=== PATIENT | female | born 1970 | race Two or more races ===

== ENCOUNTER 2023-10-10 16:37 | Inpatient (IN) | payer MEDICARE, MEDICAID, SELFPAY ==
--- NOTE | 2023-10-10 17:00 | ED.PSYCH ---
HPI - Psych General Stated Complaint: SI THOUGHTS W/PLAN A/V HALLUCINATIONS PER EMS Time Seen by Provider: 10/10/23 16:40 Source: patient Mode of arrival: EMS Limitations: no limitations History of Present Illness HPI Narrative: Patient comes to the emergency room complaining of auditory hallucinations and suicidal ideation. Patient states that for about a week she has been hearing her mother's voice, telling her to kill herself. Patient states that she wants to join her mother. Patient did not disclose any plan, seems that patient does not have a plan. Patient has history of depression and states she is compliant with her medications. Today, patient told a friend of her symptoms, who brought her to [facility]. [facility] called 911 and patient was brought to the emergency room Related Data Allergies Allergy/AdvReac Type Severity Reaction Status Date / Time No Known Allergies Allergy Verified 10/10/23 17:03 Review of Systems Review of Systems: Constitutional : No Weight loss, No Fever, No Chills, No Night Sweats, No Fatigue, No Malaise ENT/Mouth : No Hearing loss, No Ear Pain, No Nasal Congestion, No Sinus Pain, No Hoarseness, No sore throat, No Rhinorrhea, No Swallowing Difficulty Eyes: No Eye Pain, No Swelling, No Redness, No Foreign Body, No Discharge, No Vision Changes Cardiovascular : No Chest Pain, No SOB, No Dyspnea on Exertion, No Orthopnea, No Edema, No Palpitations Respiratory : No Cough, No Sputum, No Wheezing, No Smoke Exposure, No Dyspnea Gastrointestinal : No Nausea, No Vomiting, No Diarrhea, No Constipation, No abdominal Pain, No Hematochezia, No Melena Genitourinary : no irregular bleeding, No Dysuria, No Urinary Frequency, No Hematuria, No Urinary Incontinence, No Urgency, No Flank Pain, No Urinary Flow Changes, No Hesitancy Musculoskeletal : No joint pain, No Myalgias, No Joint Swelling Skin : No Skin Lesions, No rash Neuro : No Weakness, No Numbness, No Paresthesias, No Loss of Consciousness, No Dizziness, No Headache Psych : Complaining of depression, auditory hallucinations, vague suicidal ideation, no HI Heme/Lymph: No Bruising, No Bleeding,No Lymphadenopathy Endocrine : No Polyuria, No Polydipsia, No Temperature Intolerance PMFSH Past Medical History Medical History (Updated 10/10/23 @ 17:07 by Sarita Urban MD) Depression Physical Exam Const: Other: Appearance: Alert. Oriented X3. No acute distress. Eyes: Pupils equal, round and reactive to light. ENT: Pharynx normal. Neck: Normal inspection. Neck supple. No lymph nodes noted. No crepitus CVS: Normal heart rate and rhythm. Pulses normal. Normal S1 and S2 Respiratory: No respiratory distress. Breath sounds normal. No Wheezing. No rales Abdomen: Soft and nontender. No rigidity. No distention. Skin: Skin warm and dry. Normal skin color. Normal skin turgor. Extremities: No lower extremity edema. No Lacerations. No Rash Neuro: Oriented X 3. No motor deficit. No sensory deficit. Moving all extremities. No slurred speech. CN 2 through 12 grossly intact Psych: calm, cooperative, crying Course Course Course Narrative: -all of patient's labs pending -care team consult pending -physician observation started at 17:00 -patient is on a Section 12 Critical Care Time Critical Care Time Critical Care Time: Yes Total Critical Care Time: 30 Attestation: I have personally provided critical care time. Time includes review of lab data, radiology results, discussion with consultants, and monitoring for potential decompensation. Intervention performed as documented. Discharge Plan Discharge Clinical Impression: Depression, Auditory hallucination Patient Disposition: Still a Patient
[2023-10-10 17:04] VITALS: BP 118/79; BP 148/84; PULSE 109; PULSE 92; RESP 18; TEMP 36.6; O2SAT 98; O2SAT 99; BMI 44.3
[2023-10-10 17:22] LABS: MANUAL DIFF FLAG NO
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
[2023-10-10 17:28] LABS: Basophils Percent Auto 0.7 % (0-2); Hematocrit 41.4 % (37.0-47.0); Hemoglobin 13.9 g/dl (12.0-16.0); Imm Gran Abs Auto 0.01 X10*3/uL (0.00-0.03); Imm Gran Pct Auto 0.2 % (0.0-0.4); Lymphocytes Absolute Auto 2.3 X10*3/uL (1.2-4.9); Lymphocytes Percent Auto 54.6 % (20-40); Mean Corpuscular HGB Conc 33.6 g/dl (31.0-35.0); Mean Corpuscular Hemoglobin 29.3 pg (27.0-33.0); Mean Corpuscular Volume 87.2 fL (80.0-98.0); Mean Platelet Volume 10.1 fL (9.4-12.3); Monocytes Absolute Auto 0.2 X10*3/uL (0.1-1.2); Monocytes Percent Auto 5.2 % (2-11); Neutrophils Absolute Auto 1.6 x10*3/uL (2.0-8.3); Neutrophils Percent Auto 38.3 % (45-73); Platelet Count 315 X10*3/uL (160-400); Red Blood Count 4.75 X10*6/uL (4.20-5.50); Red Cell Distribution Width 13.6 % (11.0-16.0); White Blood Count 4.2 X10*3/uL (4.8-10.8)
[2023-10-10 17:30] LABS: Appearance Urine Cloudy; Color Urine Yellow; Glucose Urine UA Negative (Negative); Leukocyte Esterase Urine Large (3+) (Negative); Nitrite Urine Negative (Negative); PH 5.5 (5.0-9.0); UMIC TRIGGER UACC YES; Urine Blood Negative (Negative); Urine Ketones Negative (Negative); Urine Protein Negative (Neg-Trace)
[2023-10-10 17:32] LABS: Amphetamine Screen Urine Not Detected (Not Detect); Barbiturates, Urine Not Detected (Not Detect); Benzodiazepines Screen Urine Not Detected (Not Detect); Cannabinoid Screen Urine Not Detected (Not Detect); Cocaine Screen Urine Not Detected (Not Detect); Fentanyl, urine Not Detected (Not Detect); Opiate Screen Urine Not Detected (Not Detect); Phencyclidine Screen Urine Not Detected (Not Detect)
[2023-10-10 17:35] LABS: Bacteria Urine 3+ (None Seen); RBC Urine 0-2 /HPF (0-2); UACC Culture Trigger YES; WBC Urine >50 /HPF (0-5)
[2023-10-10 17:36] LABS: COVID-19 Test Negative (Negative); IDNOW Serial# 08D9AD1C
[2023-10-10 17:41] LABS: Alanine Aminotransferase 17 U/L (0-31); Albumin Level 4.2 g/dL (3.5-5.0); Alkaline Phosphatase 47 U/L (39-117); Anion Gap 14 (12-20); Aspartate Amino Transferase 23 U/L (5-31); Bilirubin Direct < 0.2 mg/dL (0.0-0.5); Bilirubin Total 0.2 mg/dL (0.0-1.0); Blood Urea Nitrogen 12 mg/dL (9-16); Calcium 9.9 mg/dL (8.4-10.2); Carbon Dioxide 24 mmol/L (22-29); Chloride 104 mmol/L (96-108); Creatinine Clr Calc Pharmacy 85.7; Estimated Glomerular Filt Rate > 60; Ethanol < 10 mg/dL; Glucose Random 106 mg/dL (60-115); Potassium 3.9 mmol/L (3.3-5.1); Sodium 138 mmol/L (135-145)
--- NOTE | 2023-10-10 19:52 | PHA.MEDREC ---
Pharmacy Consult ? Medication Reconciliation Pharmacy has reviewed the medication reconciliation completed by Sara. Dominique Lopez, GuyD
[2023-10-10] MEDS: QUEtiapine Fumarate 100 MG TABLET PO (20:47)
[2023-10-10] MEDS: Amitriptyline HCl 25 MG TABLET PO (20:47)
[2023-10-11 06:13] VITALS: BP 122/84; PULSE 80; RESP 16; O2SAT 96
--- NOTE | 2023-10-11 07:43 | ECG_ITS ---
Test Reason : prolong qt Blood Pressure : / mmHG Vent. Rate : 080 BPM Atrial Rate : 080 BPM P-R Int : 124 ms QRS Dur : 076 ms QT Int : 372 ms P-R-T Axes : 012 012 023 degrees QTc Int : 429 ms Normal sinus rhythm Normal ECG No previous ECGs available Referred By: Clotilde Blevins Electronically Signed By:FREDERIC SHEN
[2023-10-11] MEDS: DULoxetine HCl 60 MG CAPSULE.DR PO (10:44)
[2023-10-11] MEDS: cefuroxime axetiL 250 MG TABLET PO ×2 (10:44→19:01)
[2023-10-11] MEDS: LORazepam 1 MG TABLET PO (12:45)
--- NOTE | 2023-10-11 15:56 | PC.NURSE ---
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 Medication given with positive effect. Grover had a visit which appeared to go well and signed her CV with this RN. No behavioral issues. Appetite minimal.
[2023-10-11 18:00] VITALS: BP 124/76; PULSE 86; RESP 18; TEMP 36.6; O2SAT 98
[2023-10-11] MEDS: traZODone HCL 50 MG TABLET PO (19:02)
[2023-10-11] MEDS: QUEtiapine Fumarate 100 MG TABLET PO (19:02)
[2023-10-11] MEDS: Amitriptyline HCl 25 MG TABLET PO (19:02)
[2023-10-11] MEDS: Zolpidem Tartrate 5 MG TABLET 10 MG PO (19:05)
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
[2023-10-12 07:34] LABS: Estimated Average Glucose 111 mg/dL; Hemoglobin A1c % 5.5 % (<6.0)
[2023-10-12 07:43] LABS: Cholesterol 208 mg/dL (<200); HDL Cholesterol 57 mg/dL (>40); LDL Cholesterol Calculated 140 mg/dL (<100); Magnesium 2.5 mg/dL (1.6-2.6); Triglycerides 59 mg/dL (<150)
[2023-10-12 07:56] LABS: Free T4 (Free Thyroxine) 0.97 ng/dL (0.71-1.85); Thyroid Stimulating Hormone 1.57 uIU/mL (0.32-4.0)
[2023-10-12 08:11] LABS: Folate 6.4 ng/mL (> or = 4.0); Vitamin B12 640 pg/mL (200-900)
[2023-10-12 08:33] VITALS: BP 118/62; PULSE 90; RESP 16; TEMP 36.9; O2SAT 92
[2023-10-12] MEDS: DULoxetine HCl 60 MG CAPSULE.DR PO (09:08)
[2023-10-12] MEDS: cefuroxime axetiL 250 MG TABLET PO ×2 (09:08→22:07)
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
[2023-10-12] MEDS: Ibuprofen 600 MG TABLET PO (11:09)
[2023-10-12] MEDS: Milk of Magnesia 30 ML ORAL.SUSP PO (11:09)
[2023-10-12] MEDS: LORazepam 1 MG TABLET PO ×2 (11:09→22:07)
[2023-10-12 16:48] VITALS: BP 119/71; PULSE 112; RESP 18; TEMP 36.7; O2SAT 97
[2023-10-12] MEDS: Amitriptyline HCl 25 MG TABLET PO (22:06)
[2023-10-12] MEDS: Docusate Sodium 100 MG CAPSULE PO (22:06)
[2023-10-12] MEDS: QUEtiapine Fumarate 100 MG TABLET PO (22:06)
[2023-10-12] MEDS: Zolpidem Tartrate 5 MG TABLET 10 MG PO (22:07)
[2023-10-12] MEDS: traZODone HCL 50 MG TABLET PO (22:07)
[2023-10-13 08:32] VITALS: BP 107/54; PULSE 95; RESP 16; TEMP 36.6; O2SAT 95
[2023-10-13] MEDS: Docusate Sodium 100 MG CAPSULE PO ×2 (08:56→20:31)
[2023-10-13] MEDS: cefuroxime axetiL 250 MG TABLET PO ×2 (08:56→20:32)
[2023-10-13] MEDS: polyethylene glycoL 3350 17 GM POWD.PACK PO (08:56)
[2023-10-13] MEDS: DULoxetine HCl 60 MG CAPSULE.DR PO (08:57)
[2023-10-13] MEDS: LORazepam 1 MG TABLET PO ×2 (09:54→20:32)
[2023-10-13] MEDS: Ibuprofen 600 MG TABLET PO (09:54)
[2023-10-13 16:46] VITALS: BP 114/59; PULSE 98; RESP 18; TEMP 36.6; O2SAT 98
[2023-10-13] MEDS: Zolpidem Tartrate 5 MG TABLET 10 MG PO (20:32)
[2023-10-13] MEDS: Amitriptyline HCl 25 MG TABLET PO (20:33)
[2023-10-13] MEDS: QUEtiapine Fumarate 100 MG TABLET PO (20:33)
[2023-10-14 08:00] VITALS: BP 121/82; PULSE 93; RESP 16; TEMP 36.7; O2SAT 96
[2023-10-14] MEDS: Docusate Sodium 100 MG CAPSULE PO ×2 (08:27→20:27)
[2023-10-14] MEDS: cefuroxime axetiL 250 MG TABLET PO ×2 (08:27→20:26)
[2023-10-14] MEDS: DULoxetine HCl 60 MG CAPSULE.DR PO (08:27)
--- NOTE | 2023-10-14 09:22 | P.PNPSI_ITS ---
Subjective Subjective Date of Service: 10/14/23 Reason For Visit: recurrent major depression with psychotic features Interim History: met with patient; discussed with team; reviewed chart; seen with guide setter pt reports she's feeling better; that she probably missed a few days of medication and mood went down and now back on them, is feeling better. She denies any SI at all and AH fully resolved. Sleeping well. She is not sure why she forgot to take her meds, but thinks a VNA would be helpful talked about intermittent anxiety that bothers her in morning; ativan helps (takes only when very anixous). Discussed med options to address, risks/side- effects of adding clonidine and/or increasing Amitriptyline; prefers clonidine trial in AM. lived in [place] until 6 years ago no hx of SA hx of 3 psych hx in [place], last one over 6 years ago Lives alone and comfortable returning home Mental Status Exam Mental Status Exam Narrative: Pt is alert and oriented; behavior is cooperative, calm, anxious; patient is not in distress; dressed in hospital attire with unkempt hair but adequate hygiene; mood is described as good though affect constricted; eye contact somewhat avoidant; Speech is normal rate, volume and prosody and not pressured; psychomotor retardation present; thought process is goal directed; Thought content is on tx; otherwise pertinent to relevant topics and without any delusional content, paranoid ideations or grandiosity; denies any SI/HI. There is no evidence of perceptual disturbance. Patients insight and judgment impaired, but improving Diagnostics Vital Signs (24Hr): Vital Signs - 24 hr 10/13/23 16:46 10/14/23 08:00 Temperature 97.9 F 98.1 F Pulse Rate 98 93 Respiratory Rate 18 16 Blood Pressure 114/59 L 121/82 Pulse Oximetry 98 96 Oxygen Delivery Method Room Air Room Air BMI result Body Mass Index 44.3 Labs 10/10/23 17:17 10/10/23 17:17 Medications Medications Current Medications Acetaminophen (Acetaminophen 325 Mg Tablet) 650 mg PO Q6H PRN PRN Reason: Headache/Pain Mild Scale (1-3) Al Hydroxide/Mg Hydroxide (Magnesium Hydrox/Alum Hydrox 30 Ml Oral.Susp) 30 ml PO Q6H PRN PRN Reason: Heartburn/Nausea Amitriptyline HCl (Amitriptyline Hcl 25 Mg Tablet) 25 mg PO BEDTIME BETHEL Last Admin: 10/13/23 20:33 Dose: 25 mg Bisacodyl (Bisacodyl 5 Mg Tablet.Dr) 10 mg PO DAILY PRN PRN Reason: Constipation Cefuroxime Axetil (Cefuroxime Axetil 250 Mg Tablet) 250 mg PO BID [facility] Stop: 10/17/23 21:01 Last Admin: 10/14/23 08:27 Dose: 250 mg Docusate Sodium (Docusate Sodium 100 Mg Capsule) 100 mg PO BID [facility] Last Admin: 10/14/23 08:27 Dose: 100 mg Duloxetine HCl (Duloxetine Hcl 60 Mg Capsule.Dr) 60 mg PO DAILY [facility] Last Admin: 10/14/23 08:27 Dose: 60 mg Hydroxyzine HCl (Hydroxyzine Hcl 25 Mg Tablet) 25 mg PO Q6H PRN PRN Reason: Anxiety Ibuprofen (Ibuprofen 600 Mg Tablet) 600 mg PO Q6H PRN PRN Reason: Pain, Mild (Pain Scale 1-3) Last Admin: 10/13/23 09:54 Dose: 600 mg Lorazepam (Lorazepam 1 Mg Tablet) 1 mg PO TID PRN PRN Reason: Anxiety Last Admin: 10/13/23 20:32 Dose: 1 mg Magnesium Hydroxide (Milk Of Magnesia 30 Ml Oral.Susp) 30 ml PO DAILY PRN PRN Reason: Constipation Last Admin: 10/12/23 11:09 Dose: 30 ml Pt Own (Nabumetone (500 Mg Tablet)) 500 mg PO BID PRN PRN Reason: Pain, Moderate(Pain Scale 4-6) Last Admin: 10/14/23 08:28 Dose: 500 mg Polyethylene Glycol (Polyethylene Glycol 3350 17 Gm Powd.Pack) 17 gm PO DAILY [facility] Last Admin: 10/14/23 08:29 Dose: Not Given Quetiapine Fumarate (Quetiapine Fumarate 100 Mg Tablet) 100 mg PO BEDTIME [facility] Last Admin: 10/13/23 20:33 Dose: 100 mg Trazodone HCl (Trazodone Hcl 50 Mg Tablet) 50 mg PO BEDTIME MRX1 PRN PRN Reason: Insomnia Last Admin: 10/12/23 22:07 Dose: 50 mg Zolpidem Tartrate (Zolpidem Tartrate 5 Mg Tablet) 10 mg PO BEDTIME PRN PRN Reason: Insomnia Last Admin: 10/13/23 20:32 Dose: 10 mg Allergies Allergies Allergy/AdvReac Type Severity Reaction Status Date / Time No Known Allergies Allergy Verified 10/10/23 17:03 Assessment & Plan Assessment & Plan (1) Severe recurrent major depression w/psychotic features, mood-congruent: Status: Acute Code(s): F33.3 - Major depressive disorder, recurrent, severe with psychotic symptoms (2) PTSD (post-traumatic stress disorder): Status: Acute Code(s): F43.10 - Post-traumatic stress disorder, unspecified Plan 53 yo female, history of depression for the past 16 years with increasing anxiety and perceptual alterations since 10/08 of mother telling her to kill herself and join her (mother 2018). Hospital plan: 10/14 pt reports she's feeling better; that she probably missed a few days of medication and mood went down and now back on them, is feeling better. She denies any SI at all and AH fully resolved. Sleeping well. She is not sure why she forgot to take her meds, but thinks a VNA would be helpful. talked about intermittent anxiety that bothers her in morning; ativan helps (takes only when very anixous). Discussed med options to address, risks/side-effects of adding clonidine and/or increasing Amitriptyline; prefers clonidine trial in AM (although this adds another med, less side-effect risk vs increasing Amityriptyline or seroquel; also considered increasing Cymbalta but as pt says int' intermittent, trying clonidne first). -still no memory of blackout during therapy Reviewed hx: lived in [place] until 6 years ago no hx of SA hx of 3 psych hx in [place], last one over 6 years ago Lives alone and comfortable returning home Plan: CV q15 Add Clonidine 0.1 in AM for morning anxiety (bp wnl) Continue Amitriptyline 25mg qhs Continue Seroquel 100mg qhs continue Duloxetine 60mg AM continue prn Ativan 1mg TID continue Ambien 10mg qhs prn continue Ceftin for UTI Patient educated on: diagnosis and medication risk/benefits Informed Consent: understands Reason for continued inpatient stay Substantial Risk for: rapid decompensation Time Spent With Patient Time: Total time managing care of this patient today ____ minutes.
--- NOTE | 2023-10-14 09:50 | PC.NURSE ---
Discussed Influenza vaccine with patient. Pt reported she received the Influenza vaccine around [place] time at [facility] on [facility] in [facility].
--- NOTE | 2023-10-14 10:15 | P.PNPSI_ITS ---
Subjective Subjective Date of Service: 10/13/23 Reason For Visit: recurrent major depression with psychotic features Subjective Notes: Conditional Voluntary Interim History: Pt spending time in her room. Increase anxiety about current peer group. Denies SI, HI. Denies hearing her moms voice Reports adequate sleep and appetite Reports some back discomfort, hx of back pain and current beds. Declines medication changes. Medication Compliance: Yes Side effects from medications: No Attending Groups: No Review of Systems Acute medical concerns: No Medical Review of Systems: unchanged Review of Systems Musculoskeletal: Reports back pain Mental Status Exam Mental Status Exam Patient Appearance: Appropriate Patient Orientation: Person, Place, Time and Situation Level of Consciousness: Alert Patient Behavior: Talkative and Good Eye Contact Mood Description: Anxious Affect Description: Anxious Patient Cognition Impaired: No Ability to Follow Directions: Good Speech Pattern: Appropriate and Spontaneous Speech Memory Description: Intact Perceptual Disturbances: Depersonalization Thought Process: Rumination Thought Content: positive for Circumstantial Depressive Symptoms: Increased Anxiety and Difficulty Concentrating Judgement: Fair Diagnostics Vital Signs (24Hr): Vital Signs - 24 hr 10/13/23 16:46 10/14/23 08:00 Temperature 97.9 F 98.1 F Pulse Rate 98 93 Respiratory Rate 18 16 Blood Pressure 114/59 L 121/82 Pulse Oximetry 98 96 Oxygen Delivery Method Room Air Room Air BMI result Body Mass Index 44.3 Labs 10/10/23 17:17 10/10/23 17:17 Medications Medications Current Medications Acetaminophen (Acetaminophen 325 Mg Tablet) 650 mg PO Q6H PRN PRN Reason: Headache/Pain Mild Scale (1-3) Al Hydroxide/Mg Hydroxide (Magnesium Hydrox/Alum Hydrox 30 Ml Oral.Susp) 30 ml PO Q6H PRN PRN Reason: Heartburn/Nausea Amitriptyline HCl (Amitriptyline Hcl 25 Mg Tablet) 25 mg PO BEDTIME [facility] Last Admin: 10/13/23 20:33 Dose: 25 mg Bisacodyl (Bisacodyl 5 Mg Tablet.Dr) 10 mg PO DAILY PRN PRN Reason: Constipation Cefuroxime Axetil (Cefuroxime Axetil 250 Mg Tablet) 250 mg PO BID [facility] Stop: 10/17/23 21:01 Last Admin: 10/14/23 08:27 Dose: 250 mg Docusate Sodium (Docusate Sodium 100 Mg Capsule) 100 mg PO BID [facility] Last Admin: 10/14/23 08:27 Dose: 100 mg Duloxetine HCl (Duloxetine Hcl 60 Mg Capsule.Dr) 60 mg PO DAILY [facility] Last Admin: 10/14/23 08:27 Dose: 60 mg Hydroxyzine HCl (Hydroxyzine Hcl 25 Mg Tablet) 25 mg PO Q6H PRN PRN Reason: Anxiety Ibuprofen (Ibuprofen 600 Mg Tablet) 600 mg PO Q6H PRN PRN Reason: Pain, Mild (Pain Scale 1-3) Last Admin: 10/13/23 09:54 Dose: 600 mg Lorazepam (Lorazepam 1 Mg Tablet) 1 mg PO TID PRN PRN Reason: Anxiety Last Admin: 10/13/23 20:32 Dose: 1 mg Magnesium Hydroxide (Milk Of Magnesia 30 Ml Oral.Susp) 30 ml PO DAILY PRN PRN Reason: Constipation Last Admin: 10/12/23 11:09 Dose: 30 ml Pt Own (Nabumetone (500 Mg Tablet)) 500 mg PO BID PRN PRN Reason: Pain, Moderate(Pain Scale 4-6) Last Admin: 10/14/23 08:28 Dose: 500 mg Polyethylene Glycol (Polyethylene Glycol 3350 17 Gm Powd.Pack) 17 gm PO DAILY [facility] Last Admin: 10/14/23 08:29 Dose: Not Given Quetiapine Fumarate (Quetiapine Fumarate 100 Mg Tablet) 100 mg PO BEDTIME [facility] Last Admin: 10/13/23 20:33 Dose: 100 mg Trazodone HCl (Trazodone Hcl 50 Mg Tablet) 50 mg PO BEDTIME MRX1 PRN PRN Reason: Insomnia Last Admin: 10/12/23 22:07 Dose: 50 mg Zolpidem Tartrate (Zolpidem Tartrate 5 Mg Tablet) 10 mg PO BEDTIME PRN PRN Reason: Insomnia Last Admin: 10/13/23 20:32 Dose: 10 mg Allergies Allergies Allergy/AdvReac Type Severity Reaction Status Date / Time No Known Allergies Allergy Verified 10/10/23 17:03 Assessment & Plan Assessment & Plan (1) Severe recurrent major depression w/psychotic features, mood-congruent: Status: Acute Code(s): F33.3 - Major depressive disorder, recurrent, severe with psychotic symptoms (2) PTSD (post-traumatic stress disorder): Status: Acute Code(s): F43.10 - Post-traumatic stress disorder, unspecified Plan 53 yo female, history of depression for the past 16 years with increasing anxiety and perceptual alterations since 10/08 of mother telling her to kill herself and join her (mother 2018). Plan: Establish regime, observe Collateral contact Constipation mgt, bowel regime Full milieu. 10/13/23 Continue tx. Informed Consent: understands Reason for continued inpatient stay Substantial Risk for: rapid decompensation Time Spent With Patient Time: Total time managing care of this patient today ____ minutes.
[2023-10-14] MEDS: LORazepam 1 MG TABLET PO (14:13)
[2023-10-14 18:00] VITALS: BP 122/64; PULSE 106; RESP 18; TEMP 36.7; O2SAT 97
[2023-10-14] MEDS: QUEtiapine Fumarate 100 MG TABLET PO (20:26)
[2023-10-14] MEDS: Amitriptyline HCl 25 MG TABLET PO (20:26)
[2023-10-14] MEDS: Milk of Magnesia 30 ML ORAL.SUSP PO (21:45)
[2023-10-15 08:00] VITALS: BP 132/70; PULSE 95; RESP 18; TEMP 36.6; O2SAT 98
[2023-10-15] MEDS: Docusate Sodium 100 MG CAPSULE PO ×2 (08:57→21:36)
[2023-10-15] MEDS: cefuroxime axetiL 250 MG TABLET PO ×2 (08:57→21:36)
[2023-10-15] MEDS: DULoxetine HCl 60 MG CAPSULE.DR PO (08:57)
[2023-10-15] MEDS: cloNIDine HCL 0.1 MG TABLET PO (08:57)
--- NOTE | 2023-10-15 09:29 | HO.PSYCHPN ---
Subjective Subjective Date of Service: 10/15/23 Reason For Visit: recurrent major depression with psychotic features Interim History: Met with patient; discussed with team Patient reports she is feeling better. Diagnostics Vital Signs (24Hr): Vital Signs - 24 hr 10/14/23 18:00 10/15/23 08:00 Temperature 98.0 F 97.9 F Pulse Rate 106 H 95 Respiratory Rate 18 18 Blood Pressure 122/64 132/70 Pulse Oximetry 97 98 Oxygen Delivery Method Room Air Room Air BMI result Body Mass Index 44.3 Labs 10/10/23 17:17 10/10/23 17:17 Medications Medications Current Medications Acetaminophen (Acetaminophen 325 Mg Tablet) 650 mg PO Q6H PRN PRN Reason: Headache/Pain Mild Scale (1-3) Al Hydroxide/Mg Hydroxide (Magnesium Hydrox/Alum Hydrox 30 Ml Oral.Susp) 30 ml PO Q6H PRN PRN Reason: Heartburn/Nausea Amitriptyline HCl (Amitriptyline Hcl 25 Mg Tablet) 25 mg PO BEDTIME [facility] Last Admin: 10/14/23 20:26 Dose: 25 mg Bisacodyl (Bisacodyl 5 Mg Tablet.) 10 mg PO DAILY PRN PRN Reason: Constipation Cefuroxime Axetil (Cefuroxime Axetil 250 Mg Tablet) 250 mg PO BID [facility] Stop: 10/17/23 21:01 Last Admin: 10/15/23 08:57 Dose: 250 mg Clonidine HCl (Clonidine Hcl 0.1 Mg Tablet) 0.1 mg PO DAILY [facility]; Protocol Last Admin: 10/15/23 08:57 Dose: 0.1 mg Docusate Sodium (Docusate Sodium 100 Mg Capsule) 100 mg PO BID [facility] Last Admin: 10/15/23 08:57 Dose: 100 mg Duloxetine HCl (Duloxetine Hcl 60 Mg Capsule.Dr) 60 mg PO DAILY [facility] Last Admin: 10/15/23 08:57 Dose: 60 mg Hydroxyzine HCl (Hydroxyzine Hcl 25 Mg Tablet) 25 mg PO Q6H PRN PRN Reason: Anxiety Ibuprofen (Ibuprofen 600 Mg Tablet) 600 mg PO Q6H PRN PRN Reason: Pain, Mild (Pain Scale 1-3) Last Admin: 10/13/23 09:54 Dose: 600 mg Lorazepam (Lorazepam 1 Mg Tablet) 1 mg PO TID PRN PRN Reason: Anxiety Last Admin: 10/14/23 14:13 Dose: 1 mg Magnesium Hydroxide (Milk Of Magnesia 30 Ml Oral.Susp) 30 ml PO DAILY PRN PRN Reason: Constipation Last Admin: 10/14/23 21:45 Dose: 30 ml Pt Own (Nabumetone (500 Mg Tablet)) 500 mg PO BID PRN PRN Reason: Pain, Moderate(Pain Scale 4-6) Last Admin: 10/14/23 08:28 Dose: 500 mg Polyethylene Glycol (Polyethylene Glycol 3350 17 Gm Powd.Pack) 17 gm PO DAILY [facility] Last Admin: 10/15/23 08:59 Dose: Not Given Quetiapine Fumarate (Quetiapine Fumarate 100 Mg Tablet) 100 mg PO BEDTIME [facility] Last Admin: 10/14/23 20:26 Dose: 100 mg Trazodone HCl (Trazodone Hcl 50 Mg Tablet) 50 mg PO BEDTIME MRX1 PRN PRN Reason: Insomnia Last Admin: 10/12/23 22:07 Dose: 50 mg Zolpidem Tartrate (Zolpidem Tartrate 5 Mg Tablet) 10 mg PO BEDTIME PRN PRN Reason: Insomnia Last Admin: 10/13/23 20:32 Dose: 10 mg Allergies Allergies Allergy/AdvReac Type Severity Reaction Status Date / Time No Known Allergies Allergy Verified 10/10/23 17:03 Assessment & Plan Assessment & Plan (1) Severe recurrent major depression w/psychotic features, mood-congruent: Status: Acute Code(s): F33.3 - Major depressive disorder, recurrent, severe with psychotic symptoms (2) PTSD (post-traumatic stress disorder): Status: Acute Code(s): F43.10 - Post-traumatic stress disorder, unspecified Plan 53 yo female, history of depression for the past 16 years with increasing anxiety and perceptual alterations since 10/08 of mother telling her to kill herself and join her (mother 2018). Hospital plan: 10/14 pt reports she's feeling better; that she probably missed a few days of medication and mood went down and now back on them, is feeling better. She denies any SI at all and AH fully resolved. Sleeping well. She is not sure why she forgot to take her meds, but thinks a VNA would be helpful. talked about intermittent anxiety that bothers her in morning; ativan helps (takes only when very anixous). Discussed med options to address, risks/side-effects of adding clonidine and/or increasing Amitriptyline; prefers clonidine trial in AM (although this adds another med, less side-effect risk vs increasing Amityriptyline or seroquel; also considered increasing Cymbalta but as pt says int' intermittent, trying clonidne first). -still no memory of blackout during therapy Reviewed hx: lived in [place] until 6 years ago no hx of SA hx of 3 psych hx in [place], last one over 6 years ago Lives alone and comfortable returning home Plan: CV q15 Add Clonidine 0.1 in AM for morning anxiety (bp wnl) Continue Amitriptyline 25mg qhs Continue Seroquel 100mg qhs continue Duloxetine 60mg AM continue prn Ativan 1mg TID continue Ambien 10mg qhs prn continue Ceftin for UTI Time Spent With Patient Time: Total time managing care of this patient today ____ minutes.
--- NOTE | 2023-10-15 16:28 | P.PNPSI_ITS ---
Subjective Subjective Date of Service: 10/15/23 Reason For Visit: recurrent major depression with psychotic features Subjective Notes: Conditional Voluntary Healthcare Proxy: No Guardianship: No Medical Problems Affecting Mental Status: No Interim History: Pt reports feeling better. Feeling ready to return home. Less anxious on the unit, however remains somewhat isolative. Language barrier is an issue. States she was able to enjoy the football game with peers on Saturday and this has helped her to relax. Denies SI/HI/AH/VH. Med review completed. Pt asks only to continue colace, miralax and antibiotic as she has a supply of her regular medications at home. When discussing precipitant to admission, she is unsure, stating she may not have taken her medicine correctly when in distress. Team will attempt VNA care for pt upon discharge Medication Compliance: Yes Side effects from medications: No Attending Groups: Intermittent Review of Systems Acute medical concerns: No Medical Review of Systems: unchanged Review of Systems Review of Systems Yes all other systems are reviewed and are negative (denies) Mental Status Exam Mental Status Exam Patient Appearance: Appropriate Patient Orientation: Person, Place, Time and Situation Level of Consciousness: Alert Patient Behavior: Talkative and Good Eye Contact Mood Description: Appropriate Affect Description: Appropriate Patient Cognition Impaired: No Ability to Follow Directions: Good Speech Pattern: Appropriate and Spontaneous Speech Memory Description: Intact Thought Content: positive for Circumstantial Judgement: Good Diagnostics Vital Signs (24Hr): Vital Signs - 24 hr 10/14/23 18:00 10/15/23 08:00 Temperature 98.0 F 97.9 F Pulse Rate 106 H 95 Respiratory Rate 18 18 Blood Pressure 122/64 132/70 Pulse Oximetry 97 98 Oxygen Delivery Method Room Air Room Air BMI result Body Mass Index 44.3 Labs 10/10/23 17:17 10/10/23 17:17 Medications Medications Current Medications Acetaminophen (Acetaminophen 325 Mg Tablet) 650 mg PO Q6H PRN PRN Reason: Headache/Pain Mild Scale (1-3) Al Hydroxide/Mg Hydroxide (Magnesium Hydrox/Alum Hydrox 30 Ml Oral.Susp) 30 ml PO Q6H PRN PRN Reason: Heartburn/Nausea Amitriptyline HCl (Amitriptyline Hcl 25 Mg Tablet) 25 mg PO BEDTIME [facility] Last Admin: 10/14/23 20:26 Dose: 25 mg Bisacodyl (Bisacodyl 5 Mg Tablet.Dr) 10 mg PO DAILY PRN PRN Reason: Constipation Cefuroxime Axetil (Cefuroxime Axetil 250 Mg Tablet) 250 mg PO BID [facility] Stop: 10/17/23 21:01 Last Admin: 10/15/23 08:57 Dose: 250 mg Clonidine HCl (Clonidine Hcl 0.1 Mg Tablet) 0.1 mg PO DAILY [facility]; Protocol Last Admin: 10/15/23 08:57 Dose: 0.1 mg Docusate Sodium (Docusate Sodium 100 Mg Capsule) 100 mg PO BID [facility] Last Admin: 10/15/23 08:57 Dose: 100 mg Duloxetine HCl (Duloxetine Hcl 60 Mg Capsule.Dr) 60 mg PO DAILY [facility] Last Admin: 10/15/23 08:57 Dose: 60 mg Hydroxyzine HCl (Hydroxyzine Hcl 25 Mg Tablet) 25 mg PO Q6H PRN PRN Reason: Anxiety Ibuprofen (Ibuprofen 600 Mg Tablet) 600 mg PO Q6H PRN PRN Reason: Pain, Mild (Pain Scale 1-3) Last Admin: 10/13/23 09:54 Dose: 600 mg Lorazepam (Lorazepam 1 Mg Tablet) 1 mg PO TID PRN PRN Reason: Anxiety Last Admin: 10/14/23 14:13 Dose: 1 mg Magnesium Hydroxide (Milk Of Magnesia 30 Ml Oral.Susp) 30 ml PO DAILY PRN PRN Reason: Constipation Last Admin: 10/14/23 21:45 Dose: 30 ml Pt Own (Nabumetone (500 Mg Tablet)) 500 mg PO BID PRN PRN Reason: Pain, Moderate(Pain Scale 4-6) Last Admin: 10/14/23 08:28 Dose: 500 mg Polyethylene Glycol (Polyethylene Glycol 3350 17 Gm Powd.Pack) 17 gm PO DAILY [facility] Last Admin: 10/15/23 08:59 Dose: Not Given Quetiapine Fumarate (Quetiapine Fumarate 100 Mg Tablet) 100 mg PO BEDTIME [facility] Last Admin: 10/14/23 20:26 Dose: 100 mg Trazodone HCl (Trazodone Hcl 50 Mg Tablet) 50 mg PO BEDTIME MRX1 PRN PRN Reason: Insomnia Last Admin: 10/12/23 22:07 Dose: 50 mg Zolpidem Tartrate (Zolpidem Tartrate 5 Mg Tablet) 10 mg PO BEDTIME PRN PRN Reason: Insomnia Last Admin: 10/13/23 20:32 Dose: 10 mg Allergies Allergies Allergy/AdvReac Type Severity Reaction Status Date / Time No Known Allergies Allergy Verified 10/10/23 17:03 Assessment & Plan Assessment & Plan (1) Severe recurrent major depression w/psychotic features, mood-congruent: Status: Acute Code(s): F33.3 - Major depressive disorder, recurrent, severe with psychotic symptoms (2) PTSD (post-traumatic stress disorder): Status: Acute Code(s): F43.10 - Post-traumatic stress disorder, unspecified Plan 53 yo female, history of depression for the past 16 years with increasing anxiety and perceptual alterations since 10/08 of mother telling her to kill herself and join her (mother 2018). Hospital plan: 10/14 pt reports she's feeling better; that she probably missed a few days of medication and mood went down and now back on them, is feeling better. She denies any SI at all and AH fully resolved. Sleeping well. She is not sure why she forgot to take her meds, but thinks a VNA would be helpful. talked about intermittent anxiety that bothers her in morning; ativan helps (takes only when very anixous). Discussed med options to address, risks/side-effects of adding clonidine and/or increasing Amitriptyline; prefers clonidine trial in AM (although this adds another med, less side-effect risk vs increasing Amityriptyline or seroquel; also considered increasing Cymbalta but as pt says int' intermittent, trying clonidne first). -still no memory of blackout during therapy. 10/15/23: Prepare for discharge on 10/16/23. Reviewed hx: lived in [place] until 6 years ago no hx of SA hx of 3 psych hx in [place], last one over 6 years ago Lives alone and comfortable returning home Plan: CV q15 Add Clonidine 0.1 in AM for morning anxiety (bp wnl) Continue Amitriptyline 25mg qhs Continue Seroquel 100mg qhs continue Duloxetine 60mg AM continue prn Ativan 1mg TID continue Ambien 10mg qhs prn continue Ceftin for UTI Patient educated on: medication risk/benefits Informed Consent: understands Reason for continued inpatient stay Substantial Risk for: stable for discharge Time Spent With Patient Time: Total time managing care of this patient today ____ minutes.
[2023-10-15 21:30] VITALS: BP 125/68; PULSE 88; TEMP 36.8
[2023-10-15] MEDS: Zolpidem Tartrate 5 MG TABLET 10 MG PO (21:35)
[2023-10-15] MEDS: QUEtiapine Fumarate 100 MG TABLET PO (21:35)
[2023-10-15] MEDS: Amitriptyline HCl 25 MG TABLET PO (21:35)
[2023-10-16 08:30] VITALS: BP 118/71; PULSE 90; RESP 18; TEMP 36.5; O2SAT 98
[2023-10-16] MEDS: cefuroxime axetiL 250 MG TABLET PO (08:37)
[2023-10-16] MEDS: DULoxetine HCl 60 MG CAPSULE.DR PO (08:37)
[2023-10-16] MEDS: Docusate Sodium 100 MG CAPSULE PO (08:37)
[2023-10-16] MEDS: cloNIDine HCL 0.1 MG TABLET PO (08:37)
[2023-10-16 14:13] LABS: Amitriptyline, Serum 23 mcg/L; Nortriptyline, Serum 15 mcg/L; Total (Ami+Nor) 38 mcg/L (100-250)
--- NOTE | 2023-10-16 16:07 | PM.PSYDC ---
DS: Providers Provider Date of Service: 10/16/23 Date of admission: 10/11/23 14:02 Date of discharge: 10/16/23 Primary care physician: Unknown Physician Admitting clinician: Reshma Groves Attending physician on admission: Jamie Machuca Attending physician on discharge: Jamie Machuca Discharging clinician: Reshma Groves DS: Diagnosis Discharge Diagnosis (1) Severe recurrent major depression w/psychotic features, mood-congruent: Status: Acute (2) PTSD (post-traumatic stress disorder): Status: Acute DS: Medications Discharge Medications Home Medications: Home Medications Medication Instructions Recorded Confirmed amitriptyline 25 mg tablet 25 mg BEDTIME 10/10/23 10/10/23 duloxetine 60 mg capsule,delayed 60 mg PO DAILY 10/10/23 10/10/23 release lorazepam 1 mg tablet 1 mg PO TID PRN Anxiety 10/10/23 10/10/23 nabumetone 500 mg tablet 500 mg PO BID PRN pain 10/10/23 10/10/23 quetiapine 100 mg tablet 100 mg BEDTIME 10/10/23 10/10/23 zolpidem 10 mg tablet 10 mg PO BEDTIME PRN Insomnia 10/10/23 10/10/23 Previous Rx's Medication Instructions Recorded cefuroxime axetil 250 mg tablet 250 mg PO BID #4 tabs 10/15/23 clonidine HCl 0.1 mg tablet 0.1 mg PO DAILY #0 tabs 10/15/23 docusate sodium 100 mg capsule 100 mg PO BID #60 caps 10/15/23 polyethylene glycol 3350 17 gram 17 g PO DAILY #100 ea 10/15/23 oral powder packet Mental Status Exam Mental Status Exam Patient Appearance: Appropriate Patient Orientation: Person, Place, Time and Situation Level of Consciousness: Alert Patient Behavior: Talkative and Good Eye Contact Mood Description: Appropriate Affect Description: Appropriate Patient Cognition Impaired: No Ability to Follow Directions: Good Speech Pattern: Appropriate and Spontaneous Speech Memory Description: Intact Thought Content: positive for Circumstantial Judgement: Good Data Data Completed and Pending Completed studies during hospitalization [Text1]: 10/10/23 10/10/23 10/12/23 17:13 17:17 07:15 WBC 4.2 L RBC 4.75 Hgb 13.9 Hct 41.4 MCV 87.2 MCH 29.3 MCHC 33.6 RDW 13.6 Plt Count 315 MPV 10.1 Immature Gran % (Auto) 0.2 Neut % (Auto) 38.3 L Lymph % (Auto) 54.6 H Mckenzie % (Auto) 5.2 Eos % (Auto) 1.0 Baso % (Auto) 0.7 Lymph # (Auto) 2.3 Mckenzie # (Auto) 0.2 Eos # (Auto) 0.0 Baso # (Auto) 0.0 Abs Immat Gran (auto) 0.01 Absolute Neuts (auto) 1.6 L Absolute Nucleated RBC 0.000 Nucleated RBC % (auto) 0.0 Sodium 138 Potassium 3.9 Chloride 104 Carbon Dioxide 24 Anion Gap 14 BUN 12 Creatinine 0.92 Estim Creat Clear Calc 85.7 Estimated GFR > 60 Random Glucose 106 Estimat Average Glucose 111 Hemoglobin A1c % 5.5 Calcium 9.9 Magnesium Total Bilirubin 0.2 Direct Bilirubin < 0.2 AST 23 ALT 17 Alkaline Phosphatase 47 Total Protein 8.0 Albumin 4.2 Triglycerides Cholesterol LDL Cholesterol, Calc HDL Cholesterol Vitamin B12 Folate TSH Free T4 Urine Color Yellow Urine Appearance Cloudy Urine pH 5.5 Ur Specific Brooks 1.010 Urine Protein Negative Urine Glucose (UA) Negative Urine Ketones Negative Urine Blood Negative Urine Nitrite Negative Ur Leukocyte Esterase Large (3+) H Urine RBC 0-2 Urine WBC >50 H Ur Squamous Epith Cells 11-20 Urine Bacteria 3+ Hyaline Casts 3-5 Urine Opiates Screen Not Detected Urine Fentanyl Screen Not Detected Ur Barbiturates Screen Not Detected Amitriptyline Amitriptyline&Nortrip Nortriptyline Ur Phencyclidine Scrn Not Detected Ur Amphetamines Screen Not Detected U Benzodiazepines Scrn Not Detected Urine Cocaine Screen Not Detected U Marijuana (THC) Screen Not Detected Ethyl Alcohol < 10 COVID-19 ([facility]) Negative COVID-19 Clin Com See Note 10/12/23 07:16 WBC RBC Hgb Hct MCV MCH MCHC RDW Plt Count MPV Immature Gran % (Auto) Neut % (Auto) Lymph % (Auto) Mckenzie % (Auto) Eos % (Auto) Baso % (Auto) Lymph # (Auto) Mckenzie # (Auto) Eos # (Auto) Baso # (Auto) Abs Immat Gran (auto) Absolute Neuts (auto) Absolute Nucleated RBC Nucleated RBC % (auto) Sodium Potassium Chloride Carbon Dioxide Anion Gap BUN Creatinine Estim Creat Clear Calc Estimated GFR Random Glucose Estimat Average Glucose Hemoglobin A1c % Calcium Magnesium 2.5 Total Bilirubin Direct Bilirubin AST ALT Alkaline Phosphatase Total Protein Albumin Triglycerides 59 Cholesterol 208 H LDL Cholesterol, Calc 140 H HDL Cholesterol 57 Vitamin B12 640 Folate 6.4 TSH 1.57 Free T4 0.97 Urine Color Urine Appearance Urine pH Ur Specific Brooks Urine Protein Urine Glucose (UA) Urine Ketones Urine Blood Urine Nitrite Ur Leukocyte Esterase Urine RBC Urine WBC Ur Squamous Epith Cells Urine Bacteria Hyaline Casts Urine Opiates Screen Urine Fentanyl Screen Ur Barbiturates Screen Amitriptyline 23 Amitriptyline&Nortrip 38 L Nortriptyline 15 Ur Phencyclidine Scrn Ur Amphetamines Screen U Benzodiazepines Scrn Urine Cocaine Screen U Marijuana (THC) Screen Ethyl Alcohol COVID-19 ([facility]) COVID-19 Clin Com 10/10/23 17:38 Urine clean catch - Urine champion top Urine Culture - Final DS: Summary Hospital Course Hospital Course: Admission to adult psychiatry for exacerbation of depression, PTSD. Pt reported SI and hearing her mother's voice telling her to join her. Prior to admission, pt was in therapy, experienced a dissociative episode with aggressive sx. Medications were evaluated and adjusted. Milieu therapy was offered to pt and she was able to participate. She will return to [facility] for out patient care and VNA will assist her with medication compliance at home. Status at Discharge Functional status at discharge: independent ambulation Overall status at discharge: patient is progressing back to baseline Time Spent with Patient Time attestation: Total time managing care of this patient today ____ minutes. Time spent: Less than 30 minutes Discharge Plan Discharge Anticipated Discharge Date/Time: 10/16/23 12:00 Patient Disposition: Home, Self-Care Discharge Diagnosis: PTSD Recurrent Major Depression with Psychotic Features Referrals: [facility] [Other] - 10/17/23 (fax- [phone] Visiting RN will help you with taking your medication regularly. they will call you to set up a time to visit. ) Tia Howell: [facility] (therapist) [Other] - 10/24/23 12:00 pm (Hospital Discharge appointment with therapist Appointment in person at [facility] ) Dixon Gotit: [facility] (psychiatry) [Other] - 11/12/23 11:40 am (Hospital discharge appointment with psychiatric medication provider Appointment is by tele-health) Aurora Bates NP [Nurse Practitioner] - (Isabel melendez) Discharge Medications: New cefuroxime axetil 250 mg Tablet 250 mg PO BID Qty: 4 0RF clonidine HCl 0.1 mg Tablet 0.1 mg PO DAILY Qty: 0 0RF Protocol: Hold for SBP< HOLD for SBP < : 90 docusate sodium 100 mg Capsule 100 mg PO BID Qty: 60 0RF polyethylene glycol 3350 17 gram Powder In Packet 17 g PO DAILY Qty: 100 0RF Continued quetiapine 100 mg tablet 100 mg BEDTIME lorazepam 1 mg tablet 1 mg PO TID PRN (Reason: Anxiety) zolpidem 10 mg tablet 10 mg PO BEDTIME PRN (Reason: Insomnia) nabumetone 500 mg tablet 500 mg PO BID PRN (Reason: pain) duloxetine 60 mg capsule,delayed release(DR/EC) 60 mg PO DAILY amitriptyline 25 mg tablet 25 mg BEDTIME Discharge Orders: Discharge Order (Routine); Ordered 10/16/23 Ordered By: Reshma Groves Diet: Advance to usual diet Activity on Discharge: As tolerated Stand Alone Forms: Patient Portal Discharge page, Community Support Care Plan Goals: Mood and Behavioral Stabilization Health Concerns: Mood and Behavioral Stabilization Plan of Treatment: Attend scheduled appointments Take medications as directed Call/Return as needed Assessment: Pt interviewed prior to discharge and found to be fully oriented and without SI/HI/AH/VH. Pt has insight and demonstrates good judgment in terms of wanting to pursue treatment. Pt is not in imminent risk of harm to self or others and has a safety plan that includes presenting to the closest ER or calling 911 if feeling unsafe. Pt has been observed closely by nursing and unit staff throughout admission. Pt has not engaged in any behaviors that suggest dangerousness to self or others and has demonstrated appropriate behaviors and impulse control. Discharge Date/Time: 10/16/23 10:30
== END 2023-10-16 10:30 | disposition home or self-care (01) | DRG 885 ==
LOC: HO.ED 17:41 → HO.PM5 10-11 14:15
PROVIDERS: Admitting Provider Clinical Nurse Specialist Psychiatric/Mental Health, Adult; Emergency Provider Emergency Medicine; Visit Provider Clinical Nurse Specialist Psychiatric/Mental Health, Adult
DX: F33.3 Major depressive disorder, recurrent, severe with psychotic symptoms (principal); R45.851 Suicidal ideations; F43.10 Post-traumatic stress disorder, unspecified; Z20.822 Contact with and (suspected) exposure to COVID-19; Z91.148 Patient's other noncompliance with medication regimen for other reason; Z79.899 Other long term (current) drug therapy
CPT/HCPCS: 36415; 80048; 80061; 80076; 80307; 80335; 81001; 82607; 82746; 83036; 83735; 84439; 84443; 85025; 87086; 87635; 93005; 99284

== ENCOUNTER → 2023-10-11 07:43 | Outpatient (BNV) | payer MEDICARE, MEDICAID, SELFPAY | PROVIDERS: Admitting Provider Clinical Nurse Specialist Psychiatric/Mental Health, Adult; Emergency Provider Emergency Medicine; Visit Provider Internal Medicine | DX: I45.81 Long QT syndrome (principal) | CPT/HCPCS: 93010 ==

== ENCOUNTER → 2023-10-11 14:02 | Outpatient (BNV) | payer MEDICARE, MEDICAID, SELFPAY | PROVIDERS: Admitting Provider Clinical Nurse Specialist Psychiatric/Mental Health, Adult; Emergency Provider Emergency Medicine; Visit Provider Clinical Nurse Specialist Psychiatric/Mental Health, Adult | DX: F33.3 Major depressive disorder, recurrent, severe with psychotic symptoms (principal); F43.11 Post-traumatic stress disorder, acute | CPT/HCPCS: 90792; 99231; 99232; 99238 ==

== ENCOUNTER → 2024-07-13 07:53 | Outpatient (BNVA) | payer OTHER, SELFPAY | PROVIDERS: Visit Provider Physician Assistant Surgical ==

== ENCOUNTER 2024-08-03 07:57 | Outpatient (AMB) | payer OTHER, SELFPAY ==
--- NOTE | 2024-08-03 11:57 | A.OFFVIS_ITS ---
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 Manager Required: Yes Custodian Manager Services: Custodian Manager Present Information Interpreted: clinical only Allergies No Known Allergies Allergy (Verified 08/03/24 12:00) Medication List - Last Reconciled 08/03/24 by Adryan Traylor MD amitriptyline 25 mg BEDTIME duloxetine 60 mg PO DAILY lorazepam 1 mg PO TID PRN nabumetone 500 mg PO BID PRN quetiapine 100 mg BEDTIME zolpidem 10 mg PO BEDTIME PRN HPI 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*: Details: Start time: 12pm, End time: 1pm ?I spent 55 minutes speaking with the patient on the phone plus an additional 5 minutes reviewing and updating records for a total of 60 minutes HPI Comments Details: Previous weight loss efforts: several self diets Wakes up: 9am, Sleeps: 11pm Breakfast: 9.30am ( eggs) Lunch: 3pm (vegetables) Dinner: 6pm (meat, plantains) Snacks: 2 snacks Exercise: none Fluids: Coffee (1 cup/day with sugar), tea: none, soda: none, juice: rarely, ETOH: none PFSH Medical History (Updated 08/03/24 @ 12:08 by Adryan Traylor MD) Insomnia DJD (degenerative joint disease) Morbid obesity PTSD (post-traumatic stress disorder) Severe recurrent major depression w/psychotic features, mood-congruent Surgical History (Updated 08/03/24 @ 12:08 by Adryan Traylor MD) Hx of colonoscopy Hx of cholecystectomy Family History (Updated 07/13/24 @ 08:05 by Dafne Blair CMA) Mother No problems noted. Father Heart problem Diabetes Daughter No problems noted. Daughter No problems noted. Son No problems noted. Social History (Updated 07/13/24 @ 08:05 by Dafne Blair CMA) Household Members: None Housing: House Do you presently have visiting nurse or other home services: No Alcohol intake: never Patient Tobacco Use Status: Never used Tobacco e-Cigarette/Vaping Use: Never Used Second Hand Smoke Exposure: No service: No Sexual orientation: Straight/Heterosexual Assessment & Plan Assessment & Plan (1) Morbid obesity: Code(s): E66.01 - Morbid (severe) obesity due to excess calories Category: Medical Plan: 1.? Plan for lap sleeve gastrectomy. If diaphragmatic or ventral hernias are present at time of surgery, these will be repaired laparoscopically as well. Risks and complications include possible conversion to an open procedure, anastomotic leak, bleeding requiring transfusion, small bowel obstruction, , DVT and pulmonary embolism, cardiac, or pulmonary complications, as halfway complications such as anastomotic ulcer, insufficient weight loss and vitamin deficiencies. I emphasized the importance of close follow-up, adherence to instructions and good communication. 2. Nutritional counseling. Start with 2 CELEBRATE REBUILD protein (buy at [facility]'s [employer]) shakes (ONE scoop EACH in 8oz low fat unsweetened almond milk each) at 10am-12pm and 1pm-3pm, 1 protein bar (CELEBRATE protein bars, buy at [facility]) at 4pm-6pm, dinner at 7pm (10 forks of protein and 10 forks of salad/vegetables) AND one more protein bar after dinner at 9pm-11pm. So you do 2 protein shakes, 2 protein bars and one meal per day. Meal to include lean meat (beef, fish, pork, turkey, chicken), or [place] yogurt, or egg whites, or beans with a salad with olive oil and fruits (berries, pears, apples, kiwi). Avoid salt, breads, potatoes, rice, pasta, desserts. 3. Each shake would be drunk slowly, like coffee in a period of 2 hours. 4. Cut each bar in 4 pieces and eat each piece in 30min ?to make each bar last 2 hours. 5. I emphasized the importance of measuring accurately the food portion and measure it when serving the food in plate 6. The meal portions include 10 full-size forks of meat and 10 full-size forks of salad. You always eat the meat portion but you can replace up to 5 forks for salad/vegetables with rice, potatoes or pasta, or a fruit ?if you like. The less you do it the better weight loss will be. 7. One full-size fork is what it can be scooped on the fork without falling aside and not what can be bit with the fork. Use regular forks like those you find in a typical restaurant. 8.? Please buy the body composition scale we discussed and send me weight measurements as soon as possible and then once a week. 9. Start walking outside daily, tracking calories with a goal of 300 calories per day, daily. Goal is to burn 2000 calories per week on exercise, which means either 300 calories daily, or 400 calories 5 days per week, or 500 calories 4 days per week, or 650 calories 3 days per week. 10. The best choice would be to purchase a stationary bike, elliptical or treadmill at home that can track calories. Let me know if you do so I can give you an exercise plan. 11. Goal is to lose at least 1.5-2lbs per week 12. Goal to lose 10% of your weight before surgery, which is about 24lbs. Ultimate weight goal: 220lbs before surgery 13. Please follow the diet plan exactly without any change. If you don't like something about the plan or you feel hungry you need to communicate with me so I can help you revise the plan. You should not change the plan yourself. 14. To be scheduled for EGD due to the history of sleeve gastrectomy and anemia. The possibility of biopsies was discussed. Patient needs to avoid use of NSAIDs and aspirin for 1 week prior to EGD. You must be on liquids only the day before your endoscopy. Risks of perforation and bleeding was discussed with the patient. This will be an outpatient procedure with IV sedation. Orders: Orders Lipid Panel Today E66.01 - Morbid (severe) obesity due to excess calories Vitamin B12 and Folate Today E66.01 - Morbid (severe) obesity due to excess calories C Reactive Protein Today E66.01 - Morbid (severe) obesity due to excess calories Vitamin A Today E66.01 - Morbid (severe) obesity due to excess calories Ferritin Today E66.01 - Morbid (severe) obesity due to excess calories Insulin Today E66.01 - Morbid (severe) obesity due to excess calories Hemoglobin A1c Today E66.01 - Morbid (severe) obesity due to excess calories H Pylori Breath Test Today E66.01 - Morbid (severe) obesity due to excess calories Complete Blood Count Auto Diff Today E66.01 - Morbid (severe) obesity due to excess calories IRON PROFILE Today E66.01 - Morbid (severe) obesity due to excess calories Comprehensive Met. Panel Today E66.01 - Morbid (severe) obesity due to excess calories Zinc Today E66.01 - Morbid (severe) obesity due to excess calories Vitamin B1 Today E66.01 - Morbid (severe) obesity due to excess calories TSH reflex Free T4 Today E66.01 - Morbid (severe) obesity due to excess calories Vitamin D 25-OH Total Today E66.01 - Morbid (severe) obesity due to excess calories US abdomen comp w elastography Today E66.01 - Morbid (severe) obesity due to excess calories XR chest 2V Today E66.01 - Morbid (severe) obesity due to excess calories ECG 12 lead EKG Today E66.01 - Morbid (severe) obesity due to excess calories FL upper GI w air Today E66.01 - Morbid (severe) obesity due to excess calories Referrals Nutrition/Dietitian Referral E66.01 - Morbid (severe) obesity due to excess calories Behavioral Health Referral E66.01 - Morbid (severe) obesity due to excess calories
[2024-08-03 12:32] VITALS: BMI 44.6
== END 2024-08-03 13:05 | disposition home or self-care (01) ==
LOC: HO.HBS 07:57
PROVIDERS: Visit Provider Surgery
DX: E66.01 Morbid (severe) obesity due to excess calories (principal); E66.813 Obesity, class 3; Z68.42 Body mass index [BMI] 45.0-49.9, adult
CPT/HCPCS: 99205

== ENCOUNTER → 2024-08-03 07:57 | Outpatient (BNVA) | payer OTHER, SELFPAY | PROVIDERS: Visit Provider Surgery ==

== ENCOUNTER → 2024-08-19 10:23 | Outpatient (AMB) | payer OTHER, SELFPAY ==
--- NOTE | 2024-08-19 10:10 | A.OFFWM_ITS ---
Intake Intake Visit Reasons: VIDEO BH Intake Allergies No Known Allergies Allergy (Verified 08/03/24 12:00) PFSH Medical History (Updated 08/03/24 @ 12:08 by Adryan Traylor MD) Insomnia DJD (degenerative joint disease) Morbid obesity PTSD (post-traumatic stress disorder) Severe recurrent major depression w/psychotic features, mood-congruent Surgical History (Updated 08/03/24 @ 12:08 by Adryan Traylor MD) Hx of colonoscopy Hx of cholecystectomy Family History (Updated 07/13/24 @ 08:05 by Dafne Blair CMA) Mother No problems noted. Father Heart problem Diabetes Daughter No problems noted. Daughter No problems noted. Son No problems noted. Social History (Updated 07/13/24 @ 08:05 by Dafne Blair CMA) Household Members: None Housing: House Do you presently have visiting nurse or other home services: No Alcohol intake: never Patient Tobacco Use Status: Never used Tobacco e-Cigarette/Vaping Use: Never Used Second Hand Smoke Exposure: No service: No Sexual orientation: Straight/Heterosexual Behavioral Health Assessment Weight Management Therapy Therapy Notes Details PT is a 54 years old female, who presents for initial visit to start assessment as part of surgical weight loss program. Presenting Concerns Referral Source WMP-Provider. Had an initial visit with Dr. Vinson on 08/03/2024 Reason for referral Completion of behavioral health assessment as part of process for weight-loss surgery. Precipitating Event Obesity. Initial weight 244Lbs Living Situation Current Living Situation Rent At risk of losing current housing? No Satisfied with current living situation? Yes Comments PT lives alone. Food/Weight/Diet Expectations of change Initial goal is to lose 10% of her weight before surgery, which is about 24 lbs. Ultimate weight goal: 220lbs before surgery Initial weight: 244 Lbs. Most recent weight: 233 lbs. PT is implementing the following: Current meal plan: 2 Shakes, 2 bars, and 1 meal. Exercise plan: Seated exercises due to foot issues. Every day 15-20 min, not tracking calories she burn. History/Relationship with food Example of meals before starting the program: Breakfast: Lunch: Dinner: Snacks: Drinks/Liquids: History/Relationship with weight In the last 10 years, the patient's Lowest weight was and highest Social History Family history and relationship PT but is several years ago. PT has 3 adult children. Parents are both . She has 5 siblings from her dad's side. She doesn't have any relationship with her family besides her children. Parental/Familial manager automotive obligations None reported. Developmental history and status None reported. Adult ADHD. Social support Children. 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 Mu-Ism/Spirituality Lutheran. Cultural/Ethnic information . Moved from [place] to [place] 8 years ago. Legal Involvement and History Current or historical involvement with the legal system? None reported. Education Highest grade completed HS. Associate degree. Preferred learning style Visual Currently enrolled in educational program? No Interested in further educational program? 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 Would like to get into the [employer] in the business program. Employment Employment Status Unemployed (9 years ago. Disabled, was receiving Social security up until april 2024.) and Other Wants help to find employment? No Meaningful activities Reading. Watch sports. Financial Situation Describe current financial situation Financial struggles are a major source of stress Financial assistance? Food [place] and [employer] ([employer] [facility] ) Service Service? No Mental Health and Addiction Treatment Current/Past substance abuse? No Comments Alcohol: None Cigarettes/Tobacco: None Cannabis/Edibles: None. Current/Past addictive behavior concerns? No Psychiatric history PT reports a history of depression with psychosis. Hospitalized 3 times in [place]. She was hospitalized in October 2023 due to severe depression with psychoses (hearing voices) without SI/HI. She attends counseling weekly with Tia Aguilar. at [facility], and psychiatric services every 3 months. PT sees Dixon Gotti for meds. Current meds: - Duloxetine 60mg, 1 at day - for depres kyle - Lorazepam 1mg, 3 at day as needed, dep ending on how she feels. For anxiety. Used last time 3 days ago. - Amitriptyline 25mg, 1 at bedtime. For sleep and depression. - Quetiapine 100 mg , 1 at bedtime. For psychosis Sx. - Zolpidem 10mg, 1 at bed time. For slee p. PT reports she feels table with current meds. PT reports she has about 1 depressive episode a year, the most recent in October/2023. However, she struggles with panic/anxiety Sx regularly. She uses her medication a couple of times a month but varies based on the triggers. PT reports she has never had an SI or thoughts, a suicide attempt, or a Homicidal Ideation/plan/attempt. Denies any recent or history of self-harm or other harm. Medical and Physical Health Summary Additional Medical History not covered in history None additional. Sexual History concerns None reported Physical exam in the last year? Yes Pain Screening Current pain? No Pain in the last few months? Yes Comments Back problems. Medications Is the patient compliant with medications? Yes Does the patient have Davis Guardian in place? Not applicable Does the patient use complimentary health approaches? No Questionnaires PHQ-9 Over the last 2 weeks, how often have you been bothered by any of the following problems? 1. Little interest or pleasure in doing things: more than half the days 2. Feeling down, depressed, or hopeless: nearly every day 3. Trouble falling or staying asleep, or sleeping too much: nearly every day 4. Feeling tired or having little energy: nearly every day 5. Poor appetite or overeating: nearly every day 6. Feeling bad about yourself - or that you are a failure or have let yourself or your family down: more than half the days 7. Trouble concentrating on things, such as reading the newspaper or watching television: not at all 8. Moving or speaking so slowly that other people could have noticed. Or the opposite - being so fidgety or restless that you have been moving around a lot more than usual: not at all 9. Thoughts that you would be better off or of hurting yourself in some way: several days Total score: 17 Depression Screening Interpretation: Positive (From new Pt pack. Will repeat next visit) Depression Screening Done: Yes Source: Developed by Drs. Pino Gamino, Yudith Jarrell, Rod Morales and colleagues, with an educational antonia from [employer]. Binge Eating Scale Group 1 A. I don't feel self-conscious about my wt. or body size when I'm with others. B. I feel concerned about how I look to others, but it normally does not make me fell disappointed with myself C. I do get self-conscious about my appearance and wt. which makes me feel disappointed in myself. D. I feel very self-conscious about my wt. and frequently I feel intense shame and disgust for myself. I try to avoid social contacts because of my self- consciousness. Response Group 1: D Group 2 A. I don't have any difficulty eating slowly in the proper manner. B. Although I seem to gobble down foods, I don't end up feeling stuffed because of eating to much. C. At times, I tend to eat quickly and then, I feel uncomfortably full afterwards. D. I have the habit of bolting down my food, without really chewing it. When this happens I usually feel uncomfortably stuffed because I've eaten to much. Response Group 2: A Group 3 A. I feel capable to control my eating urges when I want to. B. I feel like I have failed to control my eating more than the average person. C. I feel utterly helpless when it comes to feeling in control of my eating urges. D. Because I feel so helpless about controlling my eating I have become very desperate about trying to get control. Response Group 3: C Group 4 A. I don't have the habit of eating when I'm bored. B. I sometimes eat when I'm bored, but often I'm able to get busy and get my mind off food. C. I have a regular habit of eating when I'm bored, but occasionally, I can use some other activity to get my mind off eating. D. I have a strong habit of eating when I'm bored. Nothing seems to help me breath the habit. Response Group 4: D Group 5 A. I'm usually physically hungry when I eat something. B. Occasionally, I eat something on impulse even though I really am not hungry. C. I have the regular habit of eating foods, that I might not really enjoy, to satisfy a hungry feeling even though physically, I don't need the food. D. Although I'm not physically hungry, I get a hungry feeling in my mouth that only seems to be satisfied when I eat a food, like sandwich, that fills my mouth. Sometimes, when I eat the food to satisfy my mouth hunger, I then spit the food out so I won't gain weight. Response Group 5: C Group 6 A. I don't feel any guilt or self-hate after I overeat. B. After I overeat, occasionally I feel guilt or self-hate. C. Almost all the time I experience strong guilt or self-hate after I overeat. Response Group 6: B Group 7 A. I don't lose total control of my eating when dieting even after periods when I overeat. B. Sometimes when I eat a forbidden food on a diet, I feel like I blew it and eat even more. C. Frequently, I have the habit of saying to myself, I've blown it now, why not go all the way, when I overeat on a diet. When that happens I eat more. D. I have a regular habit of starting a strict diets for myself but I break the diets by going on an eating binge. My life seems to be either a feast or famine. Response Group 7: B Group 8 A. I rarely eat so much food that I feel uncomfortably stuffed afterwards. B. Usually about once a month, I each such a quantity of food, I end up feeling very stuffed. C. I have regular periods during the month when I eat large amounts of food, either at mealtime or at snacks. D. I eat so much food that I regularly feel quite uncomfortable after eating and sometimes a bit nauseous. Response Group 8: C Group 9 A. My level of calorie intake does not go up very high or go down very low on a regular basis. B. Sometimes after I overeat, I will try to reduce my caloric intake to almost nothing to compensate for the excess calories I've eaten. C. I have a regular habit of overeating during the night. It seems that my routine is not to be hungry in the morning but overeat in the evening. D. In my adult years, I have had week-long periods where I practically starve myself. This follows periods when I overeat. It seems I live a life of either feast or famine. Response Group 9: C Group 10 A. I usually am able to stop eating when I want to. I know when enough is enough. B. Every so often, I experience a compulsion to eat which I can't seem to control. C. Frequently, I experience strong urges to eat which I seem unable to control, but at other times I can control my eating urges. D. I feel incapable of controlling urges to eat. I have a fear of not being able to stop eating voluntarily. Response Group 10: A Group 11 A. I don't have any problem stopping eating when I feel full. B. I usually can stop eating when I feel full but occasionally overeat leaving me feeling uncomfortably stuffed. C. I have a problem stopping eating once I start and usually I feel uncomfortably stuffed after I eat a meal. D. Because I have a problem not being able to stop eating when I want, I sometimes have to induce vomiting to relieve my stuffed feeling. Response Group 11: B Group 12 A. I seem to eat just as much when I'm with others, Family social gatherings as when I'm by myself. B. Sometimes, when I'm with other persons, I don't eat as much as I want to eat because I'm self-conscious about my eating. C. Frequently, I eat only a small amount of food when others are present, because I'm very embarrassed about my eating. D. I feel so ashamed about overeating that I pick times to overeat when I know no one will see me. I feel like a closet eater. Response Group 12: C Group 13 A. I eat three meals a day with only an occasional between meal snack. B. I eat 3 meals a day, but I also normally snack between meals. C. When I am snacking heavily, I get in the habit of skipping regular meals. D. There are regular periods when I seem to be continually eating, with no planned meals. Response Group 13: B Group 14 A. I don't think much about trying to control unwanted eating urges. B. At least some of the time, I feel my thoughts are pre-occupied with trying to control my eating urges. C. I feel that frequently I spend much time thinking about how much I ate or about trying not to eat anymore. D. It seems to me that most of my waking hours are pre-occupied by thoughts about eating or not eating. I feel like I'm constantly struggling not to eat. Response Group 14: B Group 15 A. I don't think about food a great deal. B. I have strong craving for food but they last only for brief periods of time. C. I have days when I can't seem to think about anything else but food. D. Most of my days seem to be pre-occupied with thoughts about food. I feel like I live to eat. Response Group 15: A Group 16 A. I usually know whether or not I'm physically hungry. I take the right portion of food to satisfy me. B. Occasionally, I feel uncertain about knowing whether or not I'm physically hungry. A these times it's hard to know how much food I should take to satisfy me. C. Even though I might know how many calories I should eat, I don't have any idea what is a normal amount of food for me. Response Group 16: C Binge Eating Score: 23 Score less than 17 Minimal Risk Score between 18-26 Moderate Risk Score between 27-46 High Risk Assessment & Plan Assessment & Plan (1) Severe recurrent major depression w/psychotic features, mood-congruent: Code(s): F33.3 - Major depressive disorder, recurrent, severe with psychotic symptoms (2) Insomnia: Code(s): G47.00 - Insomnia, unspecified (3) Morbid obesity: Code(s): E66.01 - Morbid (severe) obesity due to excess calories Plan PT not cleared yet. She will retun in about 2 weeks to continue assessment. However, she was inpatient in October of current year, less than 1 year ago, so she won't be able to be cleared yet per WLS-guidelines from perspective. We will need a letter from provider to support clearance if she is ready for surgery before . Next sanchez: 09/03/24 at 11am, Telehealth Telehealth Telehealth Location of provider rendering services: other Location of patient: address on file Patient Identification confirmed using: Name, : Yes Telehealth method: voice only Patient verbally consented to treatment: Yes Patient verbally consented to billing insurance company: Yes Patient informed of any privacy concerns related to visit: Yes Minutes spent on Phone/Video with Pt.: 50 Coding Level of Care Code New Pt Tele Psy Diag Eval (56329) Patient Type New Diagnoses Severe recurrent major depression w/psychotic features, mood-congruent F33.3 Insomnia G47.00 Morbid obesity E66.01 Time Spent (min) 50
--- OUTSIDE RECORDS SUMMARY | 2024-08-19 10:28 | XMS_ITS ---
Author Organization [facility], Address [address] [place] [address] Care Team Providers Care Senior Revenue Accountant Name Role Phone Makeda Lenz Unavailable [phone] ALLERGIES, ADVERSE REACTIONS, ALERTS None MEDICATIONS Medication Code Code System Start Date Stop Date Route Dosage Directions Fill Instructions AMITRIPTYLINE HCL 25 MG TAB RxNorm 08/13/20 23 NATE DULOXETINE HYDROCHLORIDE 60 MG CPEP RxNorm 3 LORAZEPAM 1 MG TABLET RxNorm 3 NATE METHOCARBAMOL 750 MG TABS RxNorm 09/09/2023 ZOLPIDEM TARTRATE 10 MG TABLET RxNorm 3 NATE amoxicillin-pot clavulanate 930697 RxNorm 09/10/2023 oral 1 PROBLEMS Problem Name Code Code System Start Date End Date Stat Anxiety disorder, unspecified 92863826 [facility] Active Insomnia, unspecified 919963992 [facility] Active Otitis media, unspecified, bilateral 2418502 [facility] 09/10 Active ENCOUNTERS Encounter Diagnosis Code Code System Date Stat us Otitis media, unspecified, bilateral 3598736 [facility] 09/10/2023 Active IMMUNIZATIONS * None VITAL SIGNS Code Code System Vitals Name Date Value and Un its 8462-4 Lo[facility] Blood Pressure-Diastolic 09/10/2023 78 mmHg 8480-6 Loinc Blood Pressure-Systolic 09/10/2023 1 16 mmHg 8867-4 Loinc Heart Rate 09/10/2023 110 /min 9279-1 Loinc Respiratory Rate 09/10/2023 18 /min 8310-5 Loinc Body Temperature 09/10/2023 97.3 F 47601-6 Loinc Oxygen Saturation 09/10/2023 96 % SOCIAL HISTORY * None PROCEDURES * None RESULTS Test Code Code System Description Result Value Date Ref erence Range Loinc Strep A Not Detected 09/10/2023 Not Det ected Loinc SARS-CoV-2 Not Detected 09/10/2023 Not De tected Loinc Flu A Not Detected 09/10/2023 Not Det ected Loinc Flu B Not Detected 09/10/2023 Not Det ected MEDICAL EQUIPMENT * Patient has no history of implantable devices ASSESSMENT * None TREATMENT PLAN Type Description Date MEDICATION Take 875-125 mg tablet 09/10/2023 APPOINTMENT If not feeling gabrielle r in 5 day(s), please see your primary care physician. If you do not have a primary care physician, please return to this clinic. 09/10/2023 Labs Tests Test Name Code Code System Date Shanna/Cepheid Strep A, DNA, Amplified Probe PCR 87962 CPT 09/10/2023 Shanna/Cepheid SARS-CoV-2 & Fl u A/B Multiplex Assay, Amplified Probe Molecular RT-PCR / NAAT 57863 CPT 09/10/2023 GOALS * None HEALTH CONCERNS * No Health Concerns FUNCTIONAL AND COGNITIVE STATUS Condition Type Condition Effective Dates Condition Status CONSULTATION NOTES * None DISCHARGE SUMMARY NOTES * None HISTORY AND PHYSICAL NOTES * None IMAGING NOTES * None LABORATORY REPORT NARRATIVE NOTES * None PATHOLOGY REPORT NARRATIVE NOTES * None PROGRESS NOTES * None
== END ==
PROVIDERS: Visit Provider Counselor Mental Health
DX: F33.3 Major depressive disorder, recurrent, severe with psychotic symptoms (principal); G47.00 Insomnia, unspecified; E66.01 Morbid (severe) obesity due to excess calories
CPT/HCPCS: 90791

== ENCOUNTER 2024-08-24 10:43 | Outpatient (REF) | payer OTHER, SELFPAY ==
--- OUTSIDE RECORDS SUMMARY | 2024-08-24 10:46 | XMS_ITS ---
Author Organization [facility], Address [address] [place] [address] Care Team Providers Care Group Cio Name Role Phone Makeda Lenz Unavailable [phone] ALLERGIES, ADVERSE REACTIONS, ALERTS None MEDICATIONS Medication Code Code System Start Date Stop Date Route Dosage Directions Fill Instructions AMITRIPTYLINE HCL 25 MG TAB RxNorm 08/13/20 23 NATE DULOXETINE HYDROCHLORIDE 60 MG CPEP RxNorm 3 LORAZEPAM 1 MG TABLET RxNorm 3 NATE METHOCARBAMOL 750 MG TABS RxNorm 09/09/2023 ZOLPIDEM TARTRATE 10 MG TABLET RxNorm 3 NATE amoxicillin-pot clavulanate 122013 RxNorm 09/10/2023 oral 1 PROBLEMS Problem Name Code Code System Start Date End Date Stat Anxiety disorder, unspecified 64938269 [facility] Active Insomnia, unspecified 246596664 [facility] Active Otitis media, unspecified, bilateral 1271741 [facility] 09/10 Active ENCOUNTERS Encounter Diagnosis Code Code System Date Stat us Otitis media, unspecified, bilateral 6380858 [facility] 09/10/2023 Active IMMUNIZATIONS * None VITAL SIGNS Code Code System Vitals Name Date Value and Un its 8462-4 Loinc Blood Pressure-Diastolic 09/10/2023 78 mmHg 8480-6 Loinc Blood Pressure-Systolic 09/10/2023 1 16 mmHg 8867-4 Loinc Heart Rate 09/10/2023 110 /min 9279-1 Loinc Respiratory Rate 09/10/2023 18 /min 8310-5 Loinc Body Temperature 09/10/2023 97.3 F 92585-5 Loinc Oxygen Saturation 09/10/2023 96 % SOCIAL [...] Shanna/Cepheid Strep A, DNA, Amplified Probe PCR 39202 CPT 09/10/2023 Shanna/Cepheid SARS-CoV-2 & Fl u A/B Multiplex Assay, Amplified Probe Molecular RT-PCR / NAAT 53210 CPT 09/10/2023 GOALS * None HEALTH CONCERNS [...]
--- OUTSIDE RECORDS SUMMARY | 2024-08-24 10:47 | XMS_ITS ---
Author Organization [facility], Address [address] [place] [address] Care Team Providers Care Corporate Legal Intern Name Role Phone Makeda Lenz Unavailable [phone] ALLERGIES, ADVERSE REACTIONS, ALERTS None MEDICATIONS Medication Code Code System Start Date Stop Date Route Dosage Directions Fill Instructions AMITRIPTYLINE HCL 25 MG TAB RxNorm 08/13/20 23 NATE DULOXETINE HYDROCHLORIDE 60 MG CPEP RxNorm 3 LORAZEPAM 1 MG TABLET RxNorm 3 NATE METHOCARBAMOL 750 MG TABS RxNorm 09/09/2023 ZOLPIDEM TARTRATE 10 MG TABLET RxNorm 3 NATE amoxicillin-pot clavulanate 535541 RxNorm 09/10/2023 oral 1 PROBLEMS Problem Name Code Code System Start Date End Date Stat Anxiety disorder, unspecified 24763708 [facility] Active Insomnia, unspecified 518119869 [facility] Active Otitis media, unspecified, bilateral 9175268 [facility] 09/10 Active ENCOUNTERS Encounter Diagnosis Code Code System Date Stat us Otitis media, unspecified, bilateral 8264618 [facility] 09/10/2023 Active IMMUNIZATIONS * None VITAL SIGNS Code Code System Vitals Name Date Value and Un its 8462-4 Loinc Blood Pressure-Diastolic 09/10/2023 78 mmHg 8480-6 Loinc Blood Pressure-Systolic 09/10/2023 1 16 mmHg 8867-4 Loinc Heart Rate 09/10/2023 110 /min 9279-1 Loinc Respiratory Rate 09/10/2023 18 /min 8310-5 Loinc Body Temperature 09/10/2023 97.3 F 62859-5 Loinc Oxygen Saturation 09/10/2023 96 % SOCIAL [...] Shanna/Cepheid Strep A, DNA, Amplified Probe PCR 09592 CPT 09/10/2023 Shanna/Cepheid SARS-CoV-2 & Fl u A/B Multiplex Assay, Amplified Probe Molecular RT-PCR / NAAT 09382 CPT 09/10/2023 GOALS * None HEALTH CONCERNS [...]
--- NOTE | 2024-08-24 11:30 | ECG_ITS ---
Test Reason : E66.01 Blood Pressure : / mmHG Vent. Rate : 091 BPM Atrial Rate : 091 BPM P-R Int : 130 ms QRS Dur : 078 ms QT Int : 342 ms P-R-T Axes : 056 011 021 degrees QTc Int : 420 ms Normal sinus rhythm Normal ECG When compared with ECG of 11-OCT-2023 09:46, No significant change was found Referred By: Adryan Traylor Electronically Signed By:Fam Naik
[2024-08-24 11:33] LABS: Basophils Percent Auto 0.5 % (0-2); Eosinophils Absolute Auto 0.1 X10*3/uL (0.0-0.4); Eosinophils Percent Auto 1.5 % (0-4); Hematocrit 42.7 % (37.0-47.0); Hemoglobin 14.5 g/dl (12.0-16.0); Imm Gran Abs Auto 0.01 X10*3/uL (0.00-0.03); Imm Gran Pct Auto 0.2 % (0.0-0.4); Lymphocytes Absolute Auto 2.5 X10*3/uL (1.2-4.9); Lymphocytes Percent Auto 61.8 % (20-40); MANUAL DIFF FLAG SCAN; Mean Corpuscular Hemoglobin 29.8 pg (27.0-33.0); Mean Corpuscular Volume 87.9 fL (80.0-98.0); Mean Platelet Volume 10.2 fL (9.4-12.3); Monocytes Absolute Auto 0.3 X10*3/uL (0.1-1.2); Monocytes Percent Auto 6.5 % (2-11); Neutrophils Absolute Auto 1.2 x10*3/uL (2.0-8.3); Neutrophils Percent Auto 29.5 % (45-73); Platelet Count 298 X10*3/uL (160-400); Red Blood Count 4.86 X10*6/uL (4.20-5.50); Red Cell Distribution Width 12.8 % (11.0-16.0); SCAN SMEAR FLAG 1
[2024-08-24 11:52] LABS: Alanine Aminotransferase 25 U/L (0-31); Albumin Level 4.2 g/dL (3.5-5.0); Alkaline Phosphatase 43 U/L (39-117); Anion Gap 10 (12-20); Aspartate Amino Transferase 28 U/L (5-31); Bilirubin Total 0.3 mg/dL (0.0-1.0); Blood Urea Nitrogen 17 mg/dL (9-16); C Reactive Protein 0.88 mg/dL (< or = 0.50); Calcium 9.2 mg/dL (8.4-10.2); Carbon Dioxide 27 mmol/L (22-29); Chloride 106 mmol/L (96-108); Cholesterol 220 mg/dL (<200); Estimated Glomerular Filt Rate 57; Glucose Random 108 mg/dL (60-115); HDL Cholesterol 52 mg/dL (>40); Iron 84 mcg/dL (30-160); LDL Cholesterol Calculated 139 mg/dL (<100); Percent Iron Saturation 28 % (15-50); Potassium 4.4 mmol/L (3.3-5.1); Sodium 139 mmol/L (135-145); Total Iron Binding Capacity 305 mcg/dL (228-428); Total Protein 7.8 g/dL (6.5-8.0); Triglycerides 148 mg/dL (<150); Unsaturated Iron Binding 221 ug/dL
[2024-08-24 11:54] LABS: SLIDE REVIEW VERIFIED
[2024-08-24 12:21] LABS: Ferritin 194 ng/mL (10-250); Vitamin D 25-OH Total 34.7 ng/mL (>30)
[2024-08-24 12:33] LABS: Estimated Average Glucose 114 mg/dL; Hemoglobin A1C 137.2848 umol/L; Hemoglobin A1c % 5.6 % (<6.0); Total Hemoglobin (HGBA1C) 3617.0879 umol/L
[2024-08-24 12:34] LABS: Folate 7.3 ng/mL (> or = 4.0); Vitamin B12 712 pg/mL (200-900)
[2024-08-24 12:52] LABS: Insulin 11 uU/mL (2-29)
[2024-08-27 22:08] LABS: Vitamin A 56 mcg/dL (38-98)
[2024-08-28 19:13] LABS: Zinc 66 mcg/dL (60-130)
[2024-08-29 07:58] LABS: Vitamin B1 19 nmol/L (8-30)
== END 2024-08-24 10:44 | disposition home or self-care (01) ==
LOC: HO.US 10:43
PROVIDERS: Visit Provider Surgery
DX: E66.01 Morbid (severe) obesity due to excess calories (principal)
CPT/HCPCS: 36415; 71046; 76700; 76981; 80053; 80061; 82306; 82607; 82728; 82746; 83036; 83525; 83540; 84425; 84443; 84590; 84630; 85025; 86140; 93005

== ENCOUNTER → 2024-08-24 11:30 | Outpatient (BNV) | payer OTHER, SELFPAY | PROVIDERS: Visit Provider Internal Medicine Cardiovascular Disease | DX: E66.01 Morbid (severe) obesity due to excess calories (principal); Z68.41 Body mass index [BMI] 40.0-44.9, adult | CPT/HCPCS: 93010 ==

== ENCOUNTER 2024-09-01 11:49 | Day surgery (SDC) | payer OTHER, SELFPAY ==
[2024-08-11 09:52] VITALS: BMI 44.6
--- NOTE | 2024-08-11 13:23 | P.CONAN_ITS ---
Documented by User: Verónica Luna NP 08/24/24 13:04 HPI - Anesthesia Eval Consult details Narrative: 54yo F for Upper Endoscopy, 09/01/24 [facility] Active Problems Active Problems: All Active Problems Insomnia (Acute) DJD (degenerative joint disease) (Acute) Morbid obesity (Acute) PTSD (post-traumatic stress disorder) (Acute) Severe recurrent major depression w/psychotic features, mood-congruent (Acute) Past Medical History Medical History Insomnia DJD (degenerative joint disease) Morbid obesity PTSD (post-traumatic stress disorder) Severe recurrent major depression w/psychotic features, mood-congruent Family History Family History Mother No problems noted. Father Heart problem Diabetes Daughter No problems noted. Daughter No problems noted. Son No problems noted. Surgical History Surgical History Hx of colonoscopy Hx of cholecystectomy Social History Social History Household Members: None Housing: House Are you a primary home care chaplain to a significant other at home: No Do you presently have visiting nurse or other home services: No Alcohol intake: never Patient Tobacco Use Status: Never used Tobacco e-Cigarette/Vaping Use: Never Used Second Hand Smoke Exposure: No Have you been hit, kicked, punched, or otherwise hurt by someone within the past year? If so, by whom?: No Are you DNR?: No Advance Directives: No Advance Directives Information Provided: Yes Recently lost weight without trying: No Nutrition Risks: No Nutritional Risk service: No Sexual orientation: Straight/Heterosexual Meds Allergies Allergy/AdvReac Type Severity Reaction Status Date / Time No Known Allergies Allergy Verified 09/01/24 12:30 Home Medications ?Medication ?Instructions ?Recorded ?Confirmed ?Last Taken ?Type amitriptyline 25 mg tablet 25 mg BEDTIME 10/10/23 09/01/24 10/09/23 20:00 History duloxetine 60 mg capsule,delayed 60 mg PO DAILY 10/10/23 09/01/24 10/10/23 09:00 History release lorazepam 1 mg tablet 1 mg PO TID PRN Anxiety 10/10/23 09/01/24 Unknown History nabumetone 500 mg tablet 500 mg PO BID PRN pain 10/10/23 09/01/24 Unknown Hi story quetiapine 100 mg tablet 100 mg BEDTIME 10/10/23 09/01/24 10/09/23 20:00 History zolpidem 10 mg tablet 10 mg PO BEDTIME PRN Insomnia 10/10/23 09/01/24 Unknown History methocarbamol 750 mg tablet 750 mg PO DAILY 09/01/24 09/01/24 Unknown History Exam Height,Weight and Vital Signs: Height 5 ft 2 in Weight 110.677 kg Narrative Narrative: EKG 10/2023 Vent. Rate : 080 BPM Atrial Rate : 080 BPM P-R Int : 124 ms QRS Dur : 076 ms QT Int : 372 ms P-R-T Axes : 012 012 023 degrees QTc Int : 429 ms Normal sinus rhythm Normal ECG No previous ECGs available Assessment and Plan Assessment Anesthesia Assessment: Chart Reviewed Documented by User: Jyoti Stanley MD 09/01/24 15:02 [facility] Active Problems Active Problems: All Active Problems Insomnia (Acute) DJD (degenerative joint disease) (Acute) Morbid obesity (Acute) PTSD (post-traumatic stress disorder) (Acute) Severe recurrent major depression w/psychotic features, mood-congruent (Acute) TIM. Not using CPAP machine as was not instructed how to use. Returned Past Medical History Medical History Insomnia DJD (degenerative joint disease) Morbid obesity PTSD (post-traumatic stress disorder) Severe recurrent major depression w/psychotic features, mood-congruent Family History Family History Mother No problems noted. Father Heart problem Diabetes Daughter No problems noted. Daughter No problems noted. Son No problems noted. Family history of problems with anesthesia: No Surgical History Surgical History Hx of colonoscopy Hx of cholecystectomy History of Problems with Anesthesia: No Social History Social History Household Members: None Housing: House Are you a primary home care chaplain to a significant other at home: No Do you presently have visiting nurse or other home services: No Alcohol intake: never Patient Tobacco Use Status: Never used Tobacco e-Cigarette/Vaping Use: Never Used Second Hand Smoke Exposure: No Have you been hit, kicked, punched, or otherwise hurt by someone within the past year? If so, by whom?: No Are you DNR?: No Advance Directives: No Advance Directives Information Provided: Yes Recently lost weight without trying: No Nutrition Risks: No Nutritional Risk service: No Sexual orientation: Straight/Heterosexual Meds Allergies Allergy/AdvReac Type Severity Reaction Status Date / Time No Known Allergies Allergy Verified 09/01/24 12:30 Home Medications ?Medication ?Instructions ?Recorded ?Confirmed ?Last Taken ?Type amitriptyline 25 mg tablet 25 mg BEDTIME 10/10/23 09/01/24 10/09/23 20:00 History duloxetine 60 mg capsule,delayed 60 mg PO DAILY 10/10/23 09/01/24 10/10/23 09:00 History release lorazepam 1 mg tablet 1 mg PO TID PRN Anxiety 10/10/23 09/01/24 Unknown History nabumetone 500 mg tablet 500 mg PO BID PRN pain 10/10/23 09/01/24 Unknown History quetiapine 100 mg tablet 100 mg BEDTIME 10/10/23 09/01/24 10/09/23 20:00 History zolpidem 10 mg tablet 10 mg PO BEDTIME PRN Insomnia 10/10/23 09/01/24 Unknown History methocarbamol 750 mg tablet 750 mg PO DAILY 09/01/24 09/01/24 Unknown History Exam Height,Weight and Vital Signs: Height 5 ft 2 in Weight 110.677 kg Vital Signs Temp Pulse Resp BP Pulse Ox O2 Del Method 09/01/24 12:35 98.0 F 102 H 18 112/74 97 Room Air Airway Mallampati Class: III TM Dist: >3cm Neck ROM: Full Loose/Missing/Broken Teeth: No Heart: RRR Lungs: CTAB Assessment and Plan Assessment Anesthesia Assessment: Anesthesia Plan Discussed and Chart Reviewed Final Anesthetic Review Family History of Problems with Anesthesia: No History of Problems with Anesthesia: No NPO: Yes ASA Class: III Final Preanesthetic Review: No Changes in Pt Med Stat, Meds/Allgs Chart Reviewed, Consent Obtained/Reviewed and Anes Risks/Benef Reviewed Patient Risk: Intermediate Procedure Risk: Low Assessment/Block/Sedation in SS: Assess/Block/Sedation-SS Anesthetic Plan Anesthetic Plan: TIVA Disposition: Standard PACU
--- OUTSIDE RECORDS SUMMARY | 2024-09-01 11:53 | XMS_ITS ---
Author Organization [facility], Address [address] [place] [address] Care Team Providers Care Peer Financial Counselor Name Role Phone Makeda Lenz Unavailable [phone] ALLERGIES, ADVERSE REACTIONS, ALERTS None MEDICATIONS Medication Code Code System Start Date Stop Date Route Dosage Directions Fill Instructions AMITRIPTYLINE HCL 25 MG TAB RxNorm 08/13/20 23 NATE DULOXETINE HYDROCHLORIDE 60 MG CPEP RxNorm 3 LORAZEPAM 1 MG TABLET RxNorm 3 NATE METHOCARBAMOL 750 MG TABS RxNorm 09/09/2023 ZOLPIDEM TARTRATE 10 MG TABLET RxNorm 3 NATE amoxicillin-pot clavulanate 025727 RxNorm 09/10/2023 oral 1 PROBLEMS Problem Name Code Code System Start Date End Date Stat Anxiety disorder, unspecified 17131588 [facility] Active Insomnia, unspecified 381182761 [facility] Active Otitis media, unspecified, bilateral 3974173 [facility] 09/10 Active ENCOUNTERS Encounter Diagnosis Code Code System Date Stat us Otitis media, unspecified, bilateral 3535486 [facility] 09/10/2023 Active IMMUNIZATIONS * None VITAL SIGNS Code Code System Vitals Name Date Value and Un its 8462-4 Loinc Blood Pressure-Diastolic 09/10/2023 78 mmHg 8480-6 Loinc Blood Pressure-Systolic 09/10/2023 1 16 mmHg 8867-4 Loinc Heart Rate 09/10/2023 110 /min 9279-1 Loinc Respiratory Rate 09/10/2023 18 /min 8310-5 Loinc Body Temperature 09/10/2023 97.3 F 91404-5 Loinc Oxygen Saturation 09/10/2023 96 % SOCIAL [...] Shanna/Cepheid Strep A, DNA, Amplified Probe PCR 69877 CPT 09/10/2023 Shanna/Cepheid SARS-CoV-2 & Fl u A/B Multiplex Assay, Amplified Probe Molecular RT-PCR / NAAT 80628 CPT 09/10/2023 GOALS * None HEALTH CONCERNS [...]
--- OUTSIDE RECORDS SUMMARY | 2024-09-01 11:53 | XMS_ITS | Clinical Summary ---
Author Organization Unknown Care Team Providers Care Receiving Team Member Name Role Phone ANGIE PERAZA, RIYA Unavailable Unavailable ISMAEL RN, GLORIA Unavailable Unavailable Payers Payer Name Policy Type Policy Number Effective Date Expira tion Date ON DEMAND MEDICARE - [place] [id number] [place] [id number] Problems Condition Name Condition Details Condition Category Status Onset Date Resolution Date Last Treatment Date Treating Clinician Comments MAJOR DEPRESSV DISORDER, RECURRENT, SEVERE W PSYCH SYMPTOMS Active 10-15 00:00: 00 POST-TRAUMAT IC STRESS DISORDER, UNSPECIFIED Active 10-08 00:00: 00 Allergies, Adverse Reactions, Alerts Allergy Name Allergy Type Status Severity Reaction(s) Onset Date Inactive Date Treating Clinician Comments NKA Propensity to adverse reactions Active 2023-10 09:59:0 8 Medications Ordered Medication Name Filled Medication Name Start Date Stop Date Current Medication? Ordering Clinician Indication Dosage Frequency Signature (SIG) Comments Components lorazepam 1 mg tablet 09-18 00:00: 00 Yes [id number] 1 tablet 3 TIMES DAILY 1 tablet 3 TIMES DAILY (route: oral) Med Classific ation: Central Nervous System Agents zolpidem 10 mg tablet 09-18 00:00: 00 Yes [id number] 1 tablet TOME NATE TABLETA TODOS LOS D 1 tablet TOME NATE TABLETA TODOS LOS D (route: oral) Med Classific ation: Central Nervous System Agents nabumetone 500 mg tablet - 00:00: 00 Yes [id number] 1 tablet TOME NATE TABLETA DOS VECES AL D 1 tablet TOME NATE TABLETA DOS VECES AL D (route: oral) Med Classific ation: Analgesic , Anti-infl ammatory or Antipyret ic amitriptyli ne 25 mg tablet 10-20 00:00: 00 Yes [id number] 1 tablet BEDTIME 1 tablet BEDTIME (route: oral) Med Classific ation: Central Nervous System Agents cefuroxime axetil 250 mg tablet 18 00:00: 00 Yes [id number] 1 tablet 2 TIMES DAILY 1 tablet 2 TIMES DAILY (route: oral) Med Classific ation: Anti-Infe ctive Agents clonidine HCl 0.1 mg tablet 18 00:00: 00 Yes [id number] 1 tablet DAILY 1 tablet DAILY (route: oral) Med Classific ation: Cardiovas cular Therapy Agents Cymbalta 60 mg capsule,del ayed release 10-20 00:00: 00 Yes [id number] 1 capsule DAILY 1 capsule DAILY (route: oral) Med Classific ation: Central Nervous System Agents docusate sodium 100 mg capsule 10-20 00:00: 00 Yes [id number] 1 capsule 2 TIMES DAILY 1 capsule 2 TIMES DAILY (route: oral) Med Classific ation: Gastroint estinal Therapy Agents polyethylen e glycol 3350 17 gram/dose oral powder 10-20 00:00: 00 Yes [id number] 17 gram DAILY 17 gram DAILY (route: oral) Med Classific ation: Gastroint estinal Therapy Agents Seroquel 100 mg tablet 10-20 00:00: 00 Yes [id number] 1 tablet BEDTIME 1 tablet BEDTIME (route: oral) Med Classific ation: Central Nervous System Agents Vital Signs Vital Name Observation Time Observation Value Commen ts Temperature 2024-03-04 13:26:00.000 98.9 [degF] Temperature 2024-02-26 11:36:00.000 97.6 [degF] Temperature 2024-02-24 10:56:00.000 98.6 [degF] Pulse 2024-03-04 13:26:00.000 86 /min Pulse 2024-02-26 11:36:00.000 100 /min Pulse 2024-02-24 10:56:00.000 80 /min O2 Saturation (%) 2024-03-04 13:26:00.000 97 % O2 Saturation (%) 2024-02-26 11:36:00.000 98 % O2 Saturation (%) 2024-02-24 10:56:00.000 98 % Respirations 2024-03-04 13:26:00.000 18 /min Respirations 2024-02-26 11:36:00.000 18 /min Respirations 2024-02-24 10:56:00.000 20 /min Systolic Blood Pressure 2024-03-04 13:26:00.000 136 mm [Hg] Systolic Blood Pressure 2024-02-26 11:36:00.000 134 mm [Hg] Systolic Blood Pressure 2024-02-24 10:56:00.000 140 mm [Hg] Diastolic Blood Pressure 2024-03-04 13:26:00.000 74 mm [Hg] Diastolic Blood Pressure 2024-02-26 11:36:00.000 80 mm [Hg] Diastolic Blood Pressure 2024-02-24 10:56:00.000 80 mm [Hg] Plan of Treatment Planned Activity Planned Date Details Comments Future Scheduled Test SKILLED NU RSE TO EVALUATE PATIENT, IDENTIFY PRIMARY AND CO-MORBID CONDITIONS CODED PER CODING GUIDELINES, AND DEVELOP PATIENT SPECIFIC PLAN OF CARE THAT INCLUDES PATIENT GOAL FOR HOME HEALTH. [code = SKILLED NURSE TO EVALUATE PATIENT, IDENTIFY PRIMARY AND CO-MORBID CONDITIONS CODED PER CODING GUIDELINES, AND DEVELOP PATIENT SPECIFIC PLAN OF CARE THAT INCLUDES PATIENT GOAL FOR HOME HEALTH.] Future Scheduled Test SKILLED NU RSE TO O/A OF PATIENTS MENTAL/BEHAVIORAL STATUS, ASSESS VITAL SIGNS WEEKLY. ALLOW 2 PRNS FOR MEDICATION MANAGEMENT. [code = SKILLED NURSE TO O/A OF PATIENTS MENTAL/BEHAVIORAL STATUS, ASSESS VITAL SIGNS WEEKLY. ALLOW 2 PRNS FOR MEDICATION MANAGEMENT.] Future Scheduled Test SKILLED NU RSE FOR O/A OF GENERAL HEALTH STATUS OF PAIN, CARDIAC, RESPIRATORY, GASTROINTESTINAL, GENITOURINARY, SKIN, NEUROLOGIC, ENDOCRINE SYSTEMS TO IDENTIFY CHANGES ASSOCIATED WITH EXACERBATION FOR EARLY INTERVENTION OF COMPLICATIONS WEEKLY. [code = SKILLED NURSE FOR O/A OF GENERAL HEALTH STATUS OF PAIN, CARDIAC, RESPIRATORY, GASTROINTESTINAL, GENITOURINARY, SKIN, NEUROLOGIC, ENDOCRINE SYSTEMS TO IDENTIFY CHANGES ASSOCIATED WITH EXACERBATION FOR EARLY INTERVENTION OF COMPLICATIONS WEEKLY.] Future Scheduled Test SKILLED NU RSE FOR O/A AND SKILLED TEACHING OF COPING SKILLS TO MANAGE ANXIETY AND MAINTAIN SAFETY. [code = SKILLED NURSE FOR O/A AND SKILLED TEACHING OF COPING SKILLS TO MANAGE ANXIETY AND MAINTAIN SAFETY.] Future Scheduled Test SKILLED NU RSE FOR O/A AND SKILLED TEACHING RELATED TO MANAGEMENT OF DEPRESSIVE SYMPTOMS AND/OR DEPRESSION. SN TO REPORT SIGNIFICANT CHANGE IN DEPRESSIVE SYMPTOMS TO CLINICAL PROVIDER FOR EARLY INTERVENTION. [code = SKILLED NURSE FOR O/A AND SKILLED TEACHING RELATED TO MANAGEMENT OF DEPRESSIVE SYMPTOMS AND/OR DEPRESSION. SN TO REPORT SIGNIFICANT CHANGE IN DEPRESSIVE SYMPTOMS TO CLINICAL PROVIDER FOR EARLY INTERVENTION.] Future Scheduled Test SKILLED NU RSE TO ASSESS PATIENTS PSYCHOSOCIAL STATUS TO IDENTIFY POTENTIAL ISSUES THAT MAY COMPLICATE THE PROVISION OF THE PLAN OF CARE INCLUDING THE PATIENTS ABILITY TO ACCESS COMMUNITY RESOURCES AND PSYCHOSOCIAL SUPPORT SERVICES. [code = SKILLED NURSE TO ASSESS PATIENTS PSYCHOSOCIAL STATUS TO IDENTIFY POTENTIAL ISSUES THAT MAY COMPLICATE THE PROVISION OF THE PLAN OF CARE INCLUDING THE PATIENTS ABILITY TO ACCESS COMMUNITY RESOURCES AND PSYCHOSOCIAL SUPPORT SERVICES.] Future Scheduled Test SKILLED NU RSE WILL MAINTAIN SITUATIONAL AWARENESS FOR SAFETY AND WILL NOTIFY CLINICAL STEEL FABRICATING SUPERVISOR AND PHYSICIAN/PROVIDER WITH ANY CHANGE IN CONDITION. [code = SKILLED NURSE WILL MAINTAIN SITUATIONAL AWARENESS FOR SAFETY AND WILL NOTIFY CLINICAL STEEL FABRICATING SUPERVISOR AND PHYSICIAN/PROVIDER WITH ANY CHANGE IN CONDITION.] Goal 2024-02-14 Patient Goal - P ATIENT VERBALIZED ACHIEVING STABILIZATION AND HAVING MORE ENERGY. Goal 2023-12-16 Patient Goal - P ATIENT VERBALIZED ACHIEVING STABILIZATION AND HAVING MORE ENERGY. Goal 2024-04-02 Patient Goal - P ATIENT VERBALIZED ACHIEVING STABILIZATION AND HAVING MORE ENERGY. Goal Provider Goal - A PLAN OF CARE WILL BE ESTABLISHED THAT MEETS PATIENT'S LONGTERM NEEDS AND INCLUDES PATIENT GOAL FOR HOME HEALTH. Goal Provider Goal - ALTERED MENTAL/BEHAVIORAL STATUS WILL BE IDENTIFIED PROMPTLY AND INTERVENTION INITIATED QUICKLY TO MINIMIZE ASSOCIATED RISKS THROUGHOUT CERTIFICATION PERIOD. Goal Provider Goal - CHANGE IN GENERAL HEALTH STATUS WILL BE IDENTIFIED AND REPORTED TO PHYSICIAN FOR PROMPT INTERVENTION TO MINIMIZE ASSOCIATED RISKS THROUGHOUT CERTIFICATION PERIOD. Goal Provider Goal - PATIENT WILL BE ABLE TO PERFORM DAILY FUNCTIONS AND HAVE OPTIMAL IMPROVEMENT IN LEVEL OF ANXIETY THROUGHOUT CERTIFICATION PERIOD. Goal Provider Goal - PATIENT WILL REMAIN SAFE WITHOUT DECOMPENSATION IN DEPRESSIVE CONDITION, WHILE MAINTAINING OPTIMAL LEVEL OF MENTAL HEALTH AND WELL BEING THROUGHOUT CERTIFICATION PERIOD. Goal Provider Goal - PSYCHOSOCIAL NEEDS WILL BE IDENTIFIED AND PLAN IMPLEMENTED TO MINIMIZE RISK THROUGHOUT CERTIFICATION PERIOD. Goal Provider Goal - PATIENT WILL REMAIN SAFE IN THE COMMUNITY AND WILL BE FREE OF DANGER TO SELF AND OTHERS THROUGHOUT THE CERTIFICATION PERIOD. Reason for Visit INDEPENDENT IN THE HOME Encounters Start Date/Time End Date/Time Encounter Type Admission Type Attending [facility] Care Facility Care Department Encounter ID Discharge Date Discharge Status Discharge Condition Discharge Reason Percent Goals Met 2023-10-20 00:00:00 2024-04-02 00:00:00 Outpatient RECERTIFIC ATION WEEKS, GLORIA [facility] [id number] 2024-04-02 00:00:00 DISCHARGE TO HOME OR SELF CARE INDEPENDEN T IN THE HOME PER CLIENT REQUEST 18.75
--- OUTSIDE RECORDS SUMMARY | 2024-09-01 11:53 | XMS_ITS ---
Author Organization [facility], Address [address] [place] [address] Care Team Providers Care [place] [place] Worker Name Role Phone Makeda Lenz Unavailable [phone] ALLERGIES, ADVERSE REACTIONS, ALERTS None MEDICATIONS Medication Code Code System Start Date Stop Date Route Dosage Directions Fill Instructions AMITRIPTYLINE HCL 25 MG TAB RxNorm 08/13/20 23 NATE DULOXETINE HYDROCHLORIDE 60 MG CPEP RxNorm 3 LORAZEPAM 1 MG TABLET RxNorm 3 NATE METHOCARBAMOL 750 MG TABS RxNorm 09/09/2023 ZOLPIDEM TARTRATE 10 MG TABLET RxNorm 3 NATE amoxicillin-pot clavulanate 697212 RxNorm 09/10/2023 oral 1 PROBLEMS Problem Name Code Code System Start Date End Date Stat Anxiety disorder, unspecified 25952104 Snomed[facility] Active Insomnia, unspecified 082282180 [facility] Active Otitis media, unspecified, bilateral 9235970 Snomed[facility] 09/10 Active ENCOUNTERS Encounter Diagnosis Code Code System Date Stat us Otitis media, unspecified, bilateral 5959043 SnomedCt 09/10/2023 Active IMMUNIZATIONS * None VITAL SIGNS Code Code System Vitals Name Date Value and Un its 8462-4 [facility] Blood Pressure-Diastolic 09/10/2023 78 mmHg 8480-6 [facility] Blood Pressure-Systolic 09/10/2023 1 16 mmHg 8867-4 [facility] Heart Rate 09/10/2023 110 /min 9279-1 [facility] Respiratory Rate 09/10/2023 18 /min 8310-5 [facility] Body Temperature 09/10/2023 97.3 F 29346-8 [facility] Oxygen Saturation 09/10/2023 96 % SOCIAL [...] Shanna/Cepheid Strep A, DNA, Amplified Probe PCR 99052 CPT 09/10/2023 Shanna/Cepheid SARS-CoV-2 & Fl u A/B Multiplex Assay, Amplified Probe Molecular RT-PCR / NAAT 82586 CPT 09/10/2023 GOALS * None HEALTH CONCERNS [...]
--- OUTSIDE RECORDS SUMMARY | 2024-09-01 11:53 | XMS_ITS | Clinical Summary ---
Author Organization Unknown Care Team Providers Care Roentgenologist Name Role Phone ANGIE PERAZA, RIYA Unavailable Unavailable ISMAEL RN, GLORIA Unavailable Unavailable Payers Payer Name Policy Type Policy Number Effective Date Expira tion Date ON DEMAND MEDICARE - [place] [id number] [place] [id number] Problems Condition Name Condition Details Condition Category [...] 1 mg tablet 09-18 00:00: 00 Yes [id number] 1 tablet 3 TIMES DAILY 1 tablet 3 TIMES DAILY (route: oral) Med Classific ation: Central Nervous System Agents zolpidem 10 mg tablet 09-18 00:00: 00 Yes [id number] 1 tablet TOME NATE TABLETA TODOS LOS D 1 tablet TOME NATE TABLETA TODOS LOS D (route: oral) Med Classific ation: Central Nervous System Agents nabumetone 500 mg tablet - 00:00: 00 Yes [id number] 1 tablet TOME NATE TABLETA DOS VECES AL D 1 tablet TOME NATE TABLETA DOS VECES AL D (route: oral) Med Classific ation: Analgesic , Anti-infl ammatory or Antipyret ic amitriptyli ne 25 mg tablet 10-20 00:00: 00 Yes [id number] 1 tablet BEDTIME 1 tablet BEDTIME (route: oral) Med Classific ation: Central Nervous System Agents cefuroxime axetil 250 mg tablet 18 00:00: 00 Yes [id number] 1 tablet 2 TIMES DAILY 1 tablet 2 TIMES DAILY (route: oral) Med Classific ation: Anti-Infe ctive Agents clonidine HCl 0.1 mg tablet 18 00:00: 00 Yes [id number] 1 tablet DAILY 1 tablet DAILY (route: oral) Med Classific ation: Cardiovas cular Therapy Agents Cymbalta 60 mg capsule,del ayed release 10-20 00:00: 00 Yes [id number] 1 capsule DAILY 1 capsule DAILY (route: oral) Med Classific ation: Central Nervous System Agents docusate sodium 100 mg capsule 10-20 00:00: 00 Yes [id number] 1 capsule 2 TIMES DAILY 1 capsule 2 TIMES DAILY (route: oral) Med Classific ation: Gastroint estinal Therapy Agents polyethylen e glycol 3350 17 gram/dose oral powder 10-20 00:00: 00 Yes [id number] 17 gram DAILY 17 gram DAILY (route: oral) Med Classific ation: Gastroint estinal Therapy Agents Seroquel 100 mg tablet 10-20 00:00: 00 Yes [id number] 1 tablet BEDTIME 1 tablet BEDTIME (route: [...] AWARENESS FOR SAFETY AND WILL NOTIFY CLINICAL TURN OPERATOR AND PHYSICIAN/PROVIDER WITH ANY CHANGE IN CONDITION. [code = SKILLED NURSE WILL MAINTAIN SITUATIONAL AWARENESS FOR SAFETY AND WILL NOTIFY CLINICAL TURN OPERATOR AND PHYSICIAN/PROVIDER WITH ANY CHANGE IN CONDITION.] Goal 2024-02-14 Patient Goal - P ATIENT VERBALIZED ACHIEVING STABILIZATION AND HAVING MORE ENERGY. Goal 2023-12-16 Patient Goal - P ATIENT VERBALIZED ACHIEVING STABILIZATION AND HAVING MORE ENERGY. Goal 2024-04-02 Patient Goal - P ATIENT VERBALIZED ACHIEVING STABILIZATION AND HAVING MORE ENERGY. Goal Provider Goal - A PLAN OF CARE WILL BE ESTABLISHED THAT MEETS PATIENT'S RESIDENTIAL NEEDS AND INCLUDES PATIENT GOAL FOR HOME [...] End Date/Time Encounter Type Admission Type Attending [facility] Care Facility Care Department Encounter ID Discharge Date Discharge Status Discharge Condition Discharge Reason Percent Goals Met 2023-10-20 00:00:00 2024-04-02 00:00:00 Outpatient RECERTIFIC ATION WEEKS, GLORIA [facility] [id number] 2024-04-02 00:00:00 DISCHARGE TO HOME OR SELF CARE INDEPENDEN T IN THE HOME PER CLIENT REQUEST 18.75
[2024-09-01 12:30] VITALS: BMI 44.3
[2024-09-01] MEDS: Lactated Ringers 1,000 ML 100 ML IVCONT (12:33)
[2024-09-01 12:35] VITALS: BP 112/74; PULSE 102; RESP 18; TEMP 36.7; O2SAT 97
--- NOTE | 2024-09-01 15:25 | MHC.SHP ---
Pre-Procedural Eval Section A - 24 Hr Update-Section A only Date of Service: 09/01/24 The patient is an INPATIENT: No The patient has been examined within 24 hours of the surgical procedure. The History & Physical has been completed within 30 days and I have reviewed it.: Yes Section B - Complete if H&P > 30 days Chief Complaint: Morbid (severe) obesity due to excess calories Relevant Family History (Specify if Yes): No Relevant Social History: None Present Medications: None Medical History: No relevant PMH History of Previous Operations: No relevant previous surgery Allergies: Allergies Allergy/AdvReac Type Severity Reaction Status Date / Time No Known Allergies Allergy Verified 09/01/24 12:30 Review of Systems Sugical H&P ROS: Negative: Constitution, Cardiovascular, Respiratory, Neurological, Psychiatric, Hem-Onc, Allergic/Immunologic, Gastrointestinal, Genitourinary, Musculoskeletal, Integumentary, Endocrine and Eyes/Ears/Nose/Throat Exam Surgical H&P Exam: Normal: HEENT, Normal: Heart, Normal: Lungs, Normal: Extremities, Normal: Abdomen, Normal: Skin and Normal: Neurological Plan Diagnosis/Plan: Unchanged (EGD to assess the stomach's anatomy. Risks of bleeding and perforation were discussed with the patient and she is in agreement with the plan.) I have reviewed the history and physical and performed a pertinent physical examination on my patient. No changes have occurred unless specified. Time Spent With Patient Time: Total time managing care of this patient today ____ minutes.
--- NOTE | 2024-09-01 15:26 | PM.OP ---
Brief Operative Note Date of Service: 09/01/24 Pre-op diagnosis: Morbid obesity Post-op diagnosis: same Procedure: PROCEDURE DATE: 09/01/2024 PREOPERATIVE DIAGNOSIS: GERD POSTOPERATIVE DIAGNOSIS: ?Same as above. 1) gastritis PROCEDURE: Urxlbvuf-diqboo-tliqkunpkztx with biopsies Surgeon: Pedrito Traylor M.D.. Ph.D. Broadloom Weaver: None ? Anesthesia: IV sedation Estimated blood loss: ?Minimal FINDINGS AND PROCEDURE: ? OPERATIVE INDICATIONS: ?The patient is a 54 year old female known to me who is interested in bariatric surgery. Based on this information I recommended an upper endoscopy to evaluate the stomach's anatomy. Risks and complications of the surgery were discussed with the patient in advance particularly the possibility of perforation or bleeding that may require surgical intervention. The patient understood the risks and was in agreement with the plan. ? PROCEDURE: After informed consent was obtained by the patient, the patient was ?transferred to the Operating Room and was placed in the supine position.? After successful induction of IV sedation, a mouth block was inserted and the patient was placed in the left lateral decubitus position. An upper endoscopy was performed next, the oropharynx and esophagus appeared within the normal limits. There was no hiatal hernia. The z-line was smooth. Two biopsies were obtained from the distal esophagus 2-3 cm proximal to the GE junction and two additional biopsies from the GE junction. The stomach was entered and it appeared to be of normal size. There was mild gastritis. There was no stricture or ulcer. A biopsy was obtained from the gastric fundus and the antrum. No significant bleeding was noted from any of the biopsy sites. Retroflexion of the scope confirmed a normal GE junction. The scope was then advanced into the duodenum which appeared to be normal as well. At that point the duodenum ?and the stomach were decompressed and the scope was withdrawn from the patient's mouth. The patient extubated and was transferred in stable condition to the Recovery Room for further care. I was present and performed all steps of the procedure. There were no residents to assist with this case. Abhi Traylor M.D., Ph.D. Surgeon: Adryan Traylor MD Anesthesia: MAC Was an Broadloom Weaver used for this Procedure?: No Estimated blood loss (mL): 0 IV fluids (mL): 400 Urine output (mL): 0 (No Roberts to record output) Pathology: other (1) antrum x1, 2) fundus x1, 3) GE junction x2, 4) distal esophagus x2) Condition: stable Disposition: PACU
[2024-09-01 15:56] VITALS: BP 97/65; PULSE 111; RESP 24; TEMP 36.1; O2SAT 96
[2024-09-01 16:01] VITALS: BP 108/70; PULSE 111; RESP 24; O2SAT 99
[2024-09-01 16:06] VITALS: BP 117/72; PULSE 108; RESP 20; O2SAT 97
[2024-09-01 16:11] VITALS: BP 98/63; PULSE 102; RESP 20; O2SAT 96
[2024-09-01 16:25] VITALS: BP 138/86; PULSE 100; RESP 20; TEMP 36.3; O2SAT 97
== END 2024-09-01 16:40 | disposition home or self-care (01) ==
PROVIDERS: Visit Provider Surgery
PROC: 0DJ08ZZ Inspection of Upper Intestinal Tract, Via Natural or Artificial Opening Endoscopic (ICD-10-PCS; CPT 43235; principal; 2024-09-01 14:30)
DX: K21.9 Gastro-esophageal reflux disease without esophagitis (principal); E66.01 Morbid (severe) obesity due to excess calories; Z68.41 Body mass index [BMI] 40.0-44.9, adult; G47.00 Insomnia, unspecified; F33.3 Major depressive disorder, recurrent, severe with psychotic symptoms; F43.10 Post-traumatic stress disorder, unspecified; M19.90 Unspecified osteoarthritis, unspecified site; Z79.899 Other long term (current) drug therapy; Z90.49 Acquired absence of other specified parts of digestive tract
CPT/HCPCS: 43239; 88305; 88313; 88342; J1596; J2003; J2704; J3010

== ENCOUNTER → 2024-09-01 11:49 | Outpatient (BNV) | payer OTHER, SELFPAY | PROVIDERS: Visit Provider Surgery | DX: K21.9 Gastro-esophageal reflux disease without esophagitis (principal); K29.70 Gastritis, unspecified, without bleeding | CPT/HCPCS: 43239 ==

== ENCOUNTER → 2024-09-03 11:10 | Outpatient (AMB) | payer OTHER, SELFPAY ==
--- NOTE | 2024-09-03 11:00 | MHC.WMTHER ---
Intake Intake Visit Reasons: VIDEO BH F/U Allergies No Known Allergies Allergy (Verified 09/01/24 12:30) PFSH Medical History Insomnia DJD (degenerative joint disease) Morbid obesity PTSD (post-traumatic stress disorder) Severe recurrent major depression w/psychotic features, mood-congruent Surgical History Hx of colonoscopy Hx of cholecystectomy Family History Mother No problems noted. Father Heart problem Diabetes Daughter No problems noted. Daughter No problems noted. Son No problems noted. Social History Household Members: None Housing: House Are you a primary foster care worker to a significant other at home: No Do you presently have visiting nurse or other home services: No Alcohol intake: never Patient Tobacco Use Status: Never used Tobacco e-Cigarette/Vaping Use: Never Used Second Hand Smoke Exposure: No service: No Sexual orientation: Straight/Heterosexual Behavioral Health Assessment Weight Management Therapy Therapy Notes Details PT is a 54-year-old female presenting for her initial visit to begin a behavioral health assessment as part of a surgical weight loss program. She reports a history of mental health issues, including hospitalizations, with the most recent occurring in October 2023. PT currently attends weekly counseling at [facility] and has regular follow-up appointments with a prescriber. Her psychiatric medication regimen appears effective, according to her self-report. Although PT was previously hospitalized for depression and auditory hallucinations, she denies any current or past safety concerns related to suicidal ideation (SI), suicidal actions (SA), self-harm, or harm to others. There is also no history of substance use. Additionally, there is no evidence of stress-induced or emotional eating, and the Binge Eating Scale (BES) suggests a low to moderate risk for binge eating behavior. Current PHQ scores show no active symptoms or concerns related to depression. The mental status exam is within normal limits, indicating that PT?s functioning is not impaired at this time. Clearance cannot be provided at this time, as the last hospitalization occurred less than a year ago. We will contact her behavioral health providers to complete a questionnaire to support clearance after October, which figueredo one full year since her last inpatient stay. Presenting Concerns Referral Source WMP-Provider. Had an initial visit with Dr. Vinson on 08/03/2024 Reason for referral Completion of behavioral health assessment as part of process for weight-loss surgery. Precipitating Event Obesity. Initial weight 244Lbs Living Situation Current Living Situation Rent At risk of losing current housing? No Satisfied with current living situation? Yes Comments PT lives alone. Food/Weight/Diet Expectations of change Initial goal is to lose 10% of her weight before surgery, which is about 24 lbs. Ultimate weight goal: 220lbs before surgery Initial weight: 244 Lbs. weight 08/19/2024: 233 lbs. Most recent weight 09/03/2024: 232Lbs PT is implementing the following: Current meal plan: 2 Shakes, 2 bars, and 1 meal. Exercise plan: Seated exercises due to foot issues. Every day 15-20 min, not tracking calories she shepard. History/Relationship with food PT reports her relationship with food is normal. However she had a disordered eating schedule, leading to skipping breakfast, she wouldn't start eating until 1 pm, and dinner was about 7 pm, after dinner, she would snack and, then wake up without appetite. PT denies ever been an emotional eater. Example of meals before starting the program: Breakfast: Skip. Only 1 cup of coffee (8oz) with milk and stevia. Lunch: @1pm - hot dogs or hamburger, scrambled eggs or HB eggs PM snacks: 1 can of soda/ 16oz Dinner: @7pm - (6) fried plantains or fries with meat (red meat/chicken/pork chops) + 1 soda, 16oz Night Snacks: cookies, crackers with deli ham, grapes with white cheese, and soda. Drinks/Liquids: 3-4 cans of 12 Oz of soda. 4-5 bottles of water. History/Relationship with weight PT reports she has always been chubby. PT states she gained a lot of weight with each of her 3 pregnancies. First was in 1989 at age 20, and she was over 165Lbs after giving to her child. She was around 130 lbs. in 2003, after doing a diet, and was able to maintain this weight for about 4 years. In the last 10 years, the patient's Lowest weight was 198 lbs. (about 5 years ago), and the highest was 257 lbs. last summer. History/Relationship with dieting Keto diet 5 years ago, she lost 35Lbs. Self-diets with exercise. Binge Eating Do you frequently eat large amounts of food in short periods of time, not feeling physically hungry? Yes Do you feel out of control when you eat a large amount of food in a short period of time? No Do you eat large amounts of food rapidly and typically alone? No Night Eating Do you wake up at least once during the night to eat? No If you wake up in the night, do you find that it is necessary to eat something in order to fall back asleep? No Do you have little or no appetite in the morning and feel very hungry in the evening, often overeating between dinner and when you go to bed? Yes Social History Family history and relationship PT but is several years ago. PT has 3 adult children. Parents are both . She has 5 siblings from her dad's side. She doesn't have any relationship with her family besides her children. 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 Developmental history and status None reported. Adult ADHD. Social support Children. 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 Faith/Spirituality [employer]. Cultural/Ethnic information . Moved from [place] to [place] 8 years ago. Legal Involvement and History Current or historical involvement with the legal system? None reported. Education Highest grade completed HS. Associate degree. Preferred learning style Visual Currently enrolled in educational program? No Interested in further educational program? 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 Would like to get into the [employer] [[email or web address]] in the business program. Employment Employment Status Unemployed (9 years ago. Disabled, was receiving Social security up until april 2024.) and Other Wants help to find employment? No Meaningful activities Reading. Watch sports. Financial Situation Describe current financial situation Financial struggles are a major source of stress Financial assistance? Food [place] and [employer] ([employer] ) Service Service? No Mental Health and Addiction Treatment Current/Past substance abuse? No Comments Alcohol: None Cigarettes/Tobacco: None Cannabis/Edibles: None. Current/Past addictive behavior concerns? No Psychiatric history PT reports a history of depression with psychosis. Hospitalized 3 times in [place]. She was hospitalized in October 2023 due to severe depression with psychoses (hearing voices) without SI/HI. She attends counseling weekly with Tia Aguilar. at [facility], and psychiatric services every 3 months. PT sees Dixon Gotti for meds. Current meds: - Duloxetine 60mg, 1 at day - for depression - Lorazepam 1mg, 3 at day as needed, depending on how she feels. For anxiety. Used last time 3 days ago. - Amitriptyline 25mg, 1 at bedtime. For sleep and depression. - Quetiapine 100 mg , 1 at bedtime. For psychosis Sx. - Zolpidem 10mg, 1 at bed time. For sleep. PT reports she feels table with current meds. PT reports she has about 1 depressive episode a year, the most recent in October/2023. However, she struggles with panic/anxiety Sx regularly. She uses her medication a couple of times a month but varies based on the triggers. PT reports she has never had an SI or thoughts, a suicide attempt, or a Homicidal Ideation/plan/attempt. Denies any recent or history of self-harm or other harm. Medical and Physical Health Summary Additional Medical History not covered in history None additional. Sexual History concerns None reported Physical exam in the last year? Yes Pain Screening Current pain? No Pain in the last few months? Yes Comments Back problems. Medications Is the patient compliant with medications? Yes Does the patient have Davis Guardian in place? Not applicable Does the patient use complimentary health approaches? No Trauma/Abuse History History of trauma? No Questionnaires PHQ-9 Over the last 2 weeks, how often have you been bothered by any of the following problems? 1. Little interest or pleasure in doing things: not at all 2. Feeling down, depressed, or hopeless: not at all 3. Trouble falling or staying asleep, or sleeping too much: not at all 4. Feeling tired or having little energy: not at all 5. Poor appetite or overeating: not at all 6. Feeling bad about yourself - or that you are a failure or have let yourself or your family down: not at all 7. Trouble concentrating on things, such as reading the newspaper or watching television: not at all 8. Moving or speaking so slowly that other people could have noticed. Or the opposite - being so fidgety or restless that you have been moving around a lot more than usual: not at all 9. Thoughts that you would be better off or of hurting yourself in some way: not at all Total score: 0 Depression Screening Interpretation: Negative Depression Screening Done: Yes 18308 - PHQ-9 Billing: Yes Source: Developed by Drs. Pino Gamino, Yudith Jarrell, Rod Morales and colleagues, with an educational antonia from [employer]. Binge Eating Scale Group 1 A. I don't feel self-conscious about my wt. or body size when I'm with others. B. I feel concerned about how I look to others, but it normally does not make me fell disappointed with myself C. I do get self-conscious about my appearance and wt. which makes me feel disappointed in myself. D. I feel very self-conscious about my wt. and frequently I feel intense shame and disgust for myself. I try to avoid social contacts because of my self-consciousness. Response Group 1: D Group 2 A. I don't have any difficulty eating slowly in the proper manner. B. Although I seem to gobble down foods, I don't end up feeling stuffed because of eating to much. C. At times, I tend to eat quickly and then, I feel uncomfortably full afterwards. D. I have the habit of bolting down my food, without really chewing it. When this happens I usually feel uncomfortably stuffed because I've eaten to much. Response Group 2: A Group 3 A. I feel capable to control my eating urges when I want to. B. I feel like I have failed to control my eating more than the average person. C. I feel utterly helpless when it comes to feeling in control of my eating urges. D. Because I feel so helpless about controlling my eating I have become very desperate about trying to get control. Response Group 3: C Group 4 A. I don't have the habit of eating when I'm bored. B. I sometimes eat when I'm bored, but often I'm able to get busy and get my mind off food. C. I have a regular habit of eating when I'm bored, but occasionally, I can use some other activity to get my mind off eating. D. I have a strong habit of eating when I'm bored. Nothing seems to help me breath the habit. Response Group 4: D Group 5 A. I'm usually physically hungry when I eat something. B. Occasionally, I eat something on impulse even though I really am not hungry. C. I have the regular habit of eating foods, that I might not really enjoy, to satisfy a hungry feeling even though physically, I don't need the food. D. Although I'm not physically hungry, I get a hungry feeling in my mouth that only seems to be satisfied when I eat a food, like sandwich, that fills my mouth. Sometimes, when I eat the food to satisfy my mouth hunger, I then spit the food out so I won't gain weight. Response Group 5: C Group 6 A. I don't feel any guilt or self-hate after I overeat. B. After I overeat, occasionally I feel guilt or self-hate. C. Almost all the time I experience strong guilt or self-hate after I overeat. Response Group 6: B Group 7 A. I don't lose total control of my eating when dieting even after periods when I overeat. B. Sometimes when I eat a forbidden food on a diet, I feel like I blew it and eat even more. C. Frequently, I have the habit of saying to myself, I've blown it now, why not go all the way, when I overeat on a diet. When that happens I eat more. D. I have a regular habit of starting a strict diets for myself but I break the diets by going on an eating binge. My life seems to be either a feast or famine. Response Group 7: B Group 8 A. I rarely eat so much food that I feel uncomfortably stuffed afterwards. B. Usually about once a month, I each such a quantity of food, I end up feeling very stuffed. C. I have regular periods during the month when I eat large amounts of food, either at mealtime or at snacks. D. I eat so much food that I regularly feel quite uncomfortable after eating and sometimes a bit nauseous. Response Group 8: C Group 9 A. My level of calorie intake does not go up very high or go down very low on a regular basis. B. Sometimes after I overeat, I will try to reduce my caloric intake to almost nothing to compensate for the excess calories I've eaten. C. I have a regular habit of overeating during the night. It seems that my routine is not to be hungry in the morning but overeat in the evening. D. In my adult years, I have had week-long periods where I practically starve myself. This follows periods when I overeat. It seems I live a life of either feast or famine. Response Group 9: C Group 10 A. I usually am able to stop eating when I want to. I know when enough is enough. B. Every so often, I experience a compulsion to eat which I can't seem to control. C. Frequently, I experience strong urges to eat which I seem unable to control, but at other times I can control my eating urges. D. I feel incapable of controlling urges to eat. I have a fear of not being able to stop eating voluntarily. Response Group 10: A Group 11 A. I don't have any problem stopping eating when I feel full. B. I usually can stop eating when I feel full but occasionally overeat leaving me feeling uncomfortably stuffed. C. I have a problem stopping eating once I start and usually I feel uncomfortably stuffed after I eat a meal. D. Because I have a problem not being able to stop eating when I want, I sometimes have to induce vomiting to relieve my stuffed feeling. Response Group 11: B Group 12 A. I seem to eat just as much when I'm with others, Family social gatherings as when I'm by myself. B. Sometimes, when I'm with other persons, I don't eat as much as I want to eat because I'm self-conscious about my eating. C. Frequently, I eat only a small amount of food when others are present, because I'm very embarrassed about my eating. D. I feel so ashamed about overeating that I pick times to overeat when I know no one will see me. I feel like a closet eater. Response Group 12: C Group 13 A. I eat three meals a day with only an occasional between meal snack. B. I eat 3 meals a day, but I also normally snack between meals. C. When I am snacking heavily, I get in the habit of skipping regular meals. D. There are regular periods when I seem to be continually eating, with no planned meals. Response Group 13: B Group 14 A. I don't think much about trying to control unwanted eating urges. B. At least some of the time, I feel my thoughts are pre-occupied with trying to control my eating urges. C. I feel that frequently I spend much time thinking about how much I ate or about trying not to eat anymore. D. It seems to me that most of my waking hours are pre-occupied by thoughts about eating or not eating. I feel like I'm constantly struggling not to eat. Response Group 14: B Group 15 A. I don't think about food a great deal. B. I have strong craving for food but they last only for brief periods of time. C. I have days when I can't seem to think about anything else but food. D. Most of my days seem to be pre-occupied with thoughts about food. I feel like I live to eat. Response Group 15: A Group 16 A. I usually know whether or not I'm physically hungry. I take the right portion of food to satisfy me. B. Occasionally, I feel uncertain about knowing whether or not I'm physically hungry. A these times it's hard to know how much food I should take to satisfy me. C. Even though I might know how many calories I should eat, I don't have any idea what is a normal amount of food for me. Response Group 16: C Binge Eating Score: 23 Score less than 17 Minimal Risk Score between 18-26 Moderate Risk Score between 27-46 High Risk Assessment & Plan Assessment & Plan (1) Severe recurrent major depression w/psychotic features, mood-congruent: Code(s): F33.3 - Major depressive disorder, recurrent, severe with psychotic symptoms (2) Insomnia: Code(s): G47.00 - Insomnia, unspecified (3) Morbid obesity: Code(s): E66.01 - Morbid (severe) obesity due to excess calories Plan PT has not been cleared yet, as she was hospitalized within the past 12 months (October 09, 2023, at [facility]). She will follow up with this provider in one month, and a request for documentation will be sent to her behavioral health provider to support clearance for late October 2024. Next appointment: 10/01/2024, at 11:00 AM via Telehealth. Telehealth Telehealth Telehealth Platform: [employer] Location of provider rendering services: other Location of patient: address on file Patient Identification confirmed using: Name, : Yes Telehealth method: video Patient verbally consented to treatment: Yes Patient verbally consented to billing insurance company: Yes Patient informed of any privacy concerns related to visit: Yes Minutes spent on Phone/Video with Pt.: 75 Coding Level of Care Code Established Pt Tele Psytx >53 mins (37935) Patient Type Established Diagnoses Severe recurrent major depression w/psychotic features, mood-congruent F33.3 Insomnia G47.00 Morbid obesity E66.01 Additional Codes PHQ-9 - 37445 - PHQ-9 Billing: Yes ([id number]) Time Spent (min) 75 Comment Start time: 11am, End time: 12:15pm
--- OUTSIDE RECORDS SUMMARY | 2024-09-03 12:07 | XMS_ITS ---
Author Organization [facility], Address [address] [place] [address] Care Team Providers Care Farm General Manager Name Role Phone Makeda Lenz Unavailable [phone] ALLERGIES, ADVERSE REACTIONS, ALERTS None MEDICATIONS Medication Code Code System Start Date Stop Date Route Dosage Directions Fill Instructions AMITRIPTYLINE HCL 25 MG TAB RxNorm 08/13/20 23 NATE DULOXETINE HYDROCHLORIDE 60 MG CPEP RxNorm 3 LORAZEPAM 1 MG TABLET RxNorm 3 NATE METHOCARBAMOL 750 MG TABS RxNorm 09/09/2023 ZOLPIDEM TARTRATE 10 MG TABLET RxNorm 3 NATE amoxicillin-pot clavulanate 775338 RxNorm 09/10/2023 oral 1 PROBLEMS Problem Name Code Code System Start Date End Date Stat Anxiety disorder, unspecified 39040250 SnomedCt Active Insomnia, unspecified 322590056 SnomedCt Active Otitis media, unspecified, bilateral 0257969 SnomedCt 09/10 Active ENCOUNTERS Encounter Diagnosis Code Code System Date Stat us Otitis media, unspecified, bilateral 8929923 SnomedCt 09/10/2023 Active IMMUNIZATIONS * None VITAL SIGNS Code Code System Vitals Name Date Value and Un its 8462-4 [facility] Blood Pressure-Diastolic 09/10/2023 78 mmHg 8480-6 [facility] Blood Pressure-Systolic 09/10/2023 1 16 mmHg 8867-4 [facility] Heart Rate 09/10/2023 110 /min 9279-1 [facility] Respiratory Rate 09/10/2023 18 /min 8310-5 [facility] Body Temperature 09/10/2023 97.3 F 49898-5 [facility] Oxygen Saturation 09/10/2023 96 % SOCIAL [...] Shanna/Cepheid Strep A, DNA, Amplified Probe PCR 05150 CPT 09/10/2023 Shanna/Cepheid SARS-CoV-2 & Fl u A/B Multiplex Assay, Amplified Probe Molecular RT-PCR / NAAT 47055 CPT 09/10/2023 GOALS * None HEALTH CONCERNS [...]
--- OUTSIDE RECORDS SUMMARY | 2024-09-03 12:08 | XMS_ITS | Clinical Summary ---
Author Organization Unknown Care Team Providers Care Health Informatics Advisor Name Role Phone ANGIE PERAZA, RIYA Unavailable Unavailable ISMAEL RN, GLORIA Unavailable Unavailable Payers Payer Name Policy Type Policy Number Effective Date Expira tion Date ON DEMAND MEDIC[place] - [place] - [place] [id number] [place] - AB[place] [id number] Problems Condition Name Condition Details Condition Category [...] 1 mg tablet 09-18 00:00: 00 Yes [id number] 1 tablet 3 TIMES DAILY 1 tablet 3 TIMES DAILY (route: oral) Med Classific ation: Central Nervous System Agents zolpidem 10 mg tablet 09-18 00:00: 00 Yes [id number] 1 tablet TOME NATE TABLETA TODOS LOS D 1 tablet TOME NATE TABLETA TODOS LOS D (route: oral) Med Classific ation: Central Nervous System Agents nabumetone 500 mg tablet - 00:00: 00 Yes [id number] 1 tablet TOME NATE TABLETA DOS VECES AL D 1 tablet TOME NATE TABLETA DOS VECES AL D (route: oral) Med Classific ation: Analgesic , Anti-infl ammatory or Antipyret ic amitriptyli ne 25 mg tablet 10-20 00:00: 00 Yes [id number] 1 tablet BEDTIME 1 tablet BEDTIME (route: oral) Med Classific ation: Central Nervous System Agents cefuroxime axetil 250 mg tablet 18 00:00: 00 Yes [id number] 1 tablet 2 TIMES DAILY 1 tablet 2 TIMES DAILY (route: oral) Med Classific ation: Anti-Infe ctive Agents clonidine HCl 0.1 mg tablet 18 00:00: 00 Yes [id number] 1 tablet DAILY 1 tablet DAILY (route: oral) Med Classific ation: Cardiovas cular Therapy Agents Cymbalta 60 mg capsule,del ayed release 10-20 00:00: 00 Yes [id number] 1 capsule DAILY 1 capsule DAILY (route: oral) Med Classific ation: Central Nervous System Agents docusate sodium 100 mg capsule 10-20 00:00: 00 Yes [id number] 1 capsule 2 TIMES DAILY 1 capsule 2 TIMES DAILY (route: oral) Med Classific ation: Gastroint estinal Therapy Agents polyethylen e glycol 3350 17 gram/dose oral powder 10-20 00:00: 00 Yes [id number] 17 gram DAILY 17 gram DAILY (route: oral) Med Classific ation: Gastroint estinal Therapy Agents Seroquel 100 mg tablet 10-20 00:00: 00 Yes [id number] 1 tablet BEDTIME 1 tablet BEDTIME (route: [...] AWARENESS FOR SAFETY AND WILL NOTIFY CLINICAL LINEN ATTENDANT AND PHYSICIAN/PROVIDER WITH ANY CHANGE IN CONDITION. [code = SKILLED NURSE WILL MAINTAIN SITUATIONAL AWARENESS FOR SAFETY AND WILL NOTIFY CLINICAL LINEN ATTENDANT AND PHYSICIAN/PROVIDER WITH ANY CHANGE IN CONDITION.] Goal 2024-02-14 Patient Goal - P ATIENT VERBALIZED ACHIEVING STABILIZATION AND HAVING MORE ENERGY. Goal 2023-12-16 Patient Goal - P ATIENT VERBALIZED ACHIEVING STABILIZATION AND HAVING MORE ENERGY. Goal 2024-04-02 Patient Goal - P ATIENT VERBALIZED ACHIEVING STABILIZATION AND HAVING MORE ENERGY. Goal Provider Goal - A PLAN OF CARE WILL BE ESTABLISHED THAT MEETS PATIENT'S NURSING HOME NEEDS AND INCLUDES PATIENT GOAL FOR HOME [...] End Date/Time Encounter Type Admission Type Attending [facility] Care Facility Care Department Encounter ID Discharge Date Discharge Status Discharge Condition Discharge Reason Percent Goals Met 2023-10-20 00:00:00 2024-04-02 00:00:00 Outpatient RECERTIFIC ATION WEEKS, GLORIA [facility] [id number] 2024-04-02 00:00:00 DISCHARGE TO HOME OR SELF CARE INDEPENDEN T IN THE HOME PER CLIENT REQUEST 18.75
--- OUTSIDE RECORDS SUMMARY | 2024-09-03 12:08 | XMS_ITS | Clinical Summary ---
Author Organization Unknown Care Team Providers Care Button Puncher Name Role Phone ANGIE PERAZA, RIYA Unavailable Unavailable ISMAEL RN, GLORIA Unavailable Unavailable Payers Payer Name Policy Type Policy Number Effective Date Expira tion Date ON DEMAND MEDICARE - [place] - [place] [id number] [place] [id number] Problems Condition Name Condition Details Condition Category [...] 1 mg tablet 09-18 00:00: 00 Yes [id number] 1 tablet 3 TIMES DAILY 1 tablet 3 TIMES DAILY (route: oral) Med Classific ation: Central Nervous System Agents zolpidem 10 mg tablet 09-18 00:00: 00 Yes [id number] 1 tablet TOME NATE TABLETA TODOS LOS D 1 tablet TOME NATE TABLETA TODOS LOS D (route: oral) Med Classific ation: Central Nervous System Agents nabumetone 500 mg tablet - 00:00: 00 Yes [id number] 1 tablet TOME NATE TABLETA DOS VECES AL D 1 tablet TOME NATE TABLETA DOS VECES AL D (route: oral) Med Classific ation: Analgesic , Anti-infl ammatory or Antipyret ic amitriptyli ne 25 mg tablet 10-20 00:00: 00 Yes [id number] 1 tablet BEDTIME 1 tablet BEDTIME (route: oral) Med Classific ation: Central Nervous System Agents cefuroxime axetil 250 mg tablet 18 00:00: 00 Yes [id number] 1 tablet 2 TIMES DAILY 1 tablet 2 TIMES DAILY (route: oral) Med Classific ation: Anti-Infe ctive Agents clonidine HCl 0.1 mg tablet 18 00:00: 00 Yes [id number] 1 tablet DAILY 1 tablet DAILY (route: oral) Med Classific ation: Cardiovas cular Therapy Agents Cymbalta 60 mg capsule,del ayed release 10-20 00:00: 00 Yes [id number] 1 capsule DAILY 1 capsule DAILY (route: oral) Med Classific ation: Central Nervous System Agents docusate sodium 100 mg capsule 10-20 00:00: 00 Yes [id number] 1 capsule 2 TIMES DAILY 1 capsule 2 TIMES DAILY (route: oral) Med Classific ation: Gastroint estinal Therapy Agents polyethylen e glycol 3350 17 gram/dose oral powder 10-20 00:00: 00 Yes [id number] 17 gram DAILY 17 gram DAILY (route: oral) Med Classific ation: Gastroint estinal Therapy Agents Seroquel 100 mg tablet 10-20 00:00: 00 Yes [id number] 1 tablet BEDTIME 1 tablet BEDTIME (route: [...] AWARENESS FOR SAFETY AND WILL NOTIFY CLINICAL MUNICIPAL MAINTENANCE WORKER AND PHYSICIAN/PROVIDER WITH ANY CHANGE IN CONDITION. [code = SKILLED NURSE WILL MAINTAIN SITUATIONAL AWARENESS FOR SAFETY AND WILL NOTIFY CLINICAL MUNICIPAL MAINTENANCE WORKER AND PHYSICIAN/PROVIDER WITH ANY CHANGE IN CONDITION.] Goal 2024-02-14 Patient Goal - P ATIENT VERBALIZED ACHIEVING STABILIZATION AND HAVING MORE ENERGY. Goal 2023-12-16 Patient Goal - P ATIENT VERBALIZED ACHIEVING STABILIZATION AND HAVING MORE ENERGY. Goal 2024-04-02 Patient Goal - P ATIENT VERBALIZED ACHIEVING STABILIZATION AND HAVING MORE ENERGY. Goal Provider Goal - A PLAN OF CARE WILL BE ESTABLISHED THAT MEETS PATIENT'S ASSISTED NEEDS AND INCLUDES PATIENT GOAL FOR HOME [...] End Date/Time Encounter Type Admission Type Attending [facility] Care Facility Care Department Encounter ID Discharge Date Discharge Status Discharge Condition Discharge Reason Percent Goals Met 2023-10-20 00:00:00 2024-04-02 00:00:00 Outpatient RECERTIFIC ATION WEEKS, GLORIA [facility] [id number] 2024-04-02 00:00:00 DISCHARGE TO HOME OR SELF CARE INDEPENDEN T IN THE HOME PER CLIENT REQUEST 18.75
--- OUTSIDE RECORDS SUMMARY | 2024-09-03 12:08 | XMS_ITS ---
Author Organization [facility], Address [address] [place] [address] Care Team Providers Care Bench Machine Operator Name Role Phone Makeda Lenz Unavailable [phone] ALLERGIES, ADVERSE REACTIONS, ALERTS None MEDICATIONS Medication Code Code System Start Date Stop Date Route Dosage Directions Fill Instructions AMITRIPTYLINE HCL 25 MG TAB RxNorm 08/13/20 23 NATE DULOXETINE HYDROCHLORIDE 60 MG CPEP RxNorm 3 LORAZEPAM 1 MG TABLET RxNorm 3 NATE METHOCARBAMOL 750 MG TABS RxNorm 09/09/2023 ZOLPIDEM TARTRATE 10 MG TABLET RxNorm 3 NATE amoxicillin-pot clavulanate 506620 RxNorm 09/10/2023 oral 1 PROBLEMS Problem Name Code Code System Start Date End Date Stat Anxiety disorder, unspecified 37640528 SnomedCt Active Insomnia, unspecified 064083666 Snomed[facility] Active Otitis media, unspecified, bilateral 7200678 SnomedCt 09/10 Active ENCOUNTERS Encounter Diagnosis Code Code System Date Stat us Otitis media, unspecified, bilateral 3128386 SnomedCt 09/10/2023 Active IMMUNIZATIONS * None VITAL SIGNS Code Code System Vitals Name Date Value and Un its 8462-4 Lo[facility] Blood Pressure-Diastolic 09/10/2023 78 mmHg 8480-6 [facility] Blood Pressure-Systolic 09/10/2023 1 16 mmHg 8867-4 [facility] Heart Rate 09/10/2023 110 /min 9279-1 [facility] Respiratory Rate 09/10/2023 18 /min 8310-5 Loinc Body Temperature 09/10/2023 97.3 F 42418-7 Loinc Oxygen Saturation 09/10/2023 96 % SOCIAL [...] Shanna/Cepheid Strep A, DNA, Amplified Probe PCR 11238 CPT 09/10/2023 Shanna/Cepheid SARS-CoV-2 & Fl u A/B Multiplex Assay, Amplified Probe Molecular RT-PCR / NAAT 55802 CPT 09/10/2023 GOALS * None HEALTH CONCERNS [...]
== END ==
PROVIDERS: Visit Provider Counselor Mental Health
DX: F33.3 Major depressive disorder, recurrent, severe with psychotic symptoms (principal); G47.00 Insomnia, unspecified; E66.01 Morbid (severe) obesity due to excess calories
CPT/HCPCS: 90837

== ENCOUNTER → 2024-10-01 11:10 | Outpatient (BNVA) | payer OTHER, SELFPAY | PROVIDERS: Visit Provider Counselor Mental Health ==

== ENCOUNTER → 2024-10-01 11:10 | Outpatient (AMB) | payer OTHER, SELFPAY ==
--- NOTE | 2024-10-01 11:05 | MHC.WMTHER ---
Intake Intake Visit Reasons: VIDEO BH F/U Allergies No Known Allergies Allergy (Verified 09/01/24 12:30) PFSH Medical History Insomnia DJD (degenerative joint disease) Morbid obesity PTSD (post-traumatic stress disorder) Severe recurrent major depression w/psychotic features, mood-congruent Surgical History Hx of colonoscopy Hx of cholecystectomy Family History Mother No problems noted. Father Heart problem Diabetes Daughter No problems noted. Daughter No problems noted. Son No problems noted. Social History Household Members: None Housing: House Are you a primary reservoir caretaker to a significant other at home: No Do you presently have visiting nurse or other home services: No Alcohol intake: never Patient Tobacco Use Status: Never used Tobacco e-Cigarette/Vaping Use: Never Used Second Hand Smoke Exposure: No service: No Sexual orientation: Straight/Heterosexual Behavioral Health Assessment Weight Management Therapy Therapy Notes Details Patient presents for a follow-up visit via Telehealth. Since our last visit, this provider had a phone consultation with the patient's therapist, LEONCIO Fatima, on 09/17/2024. During this collateral consultation, the therapist reported that the patient attends weekly counseling visits and is consistent with her appointments. In the past year, the patient has not exhibited any safety concerns regarding suicidal ideation or self-harm. She experienced a crisis last year triggered by sleeping issues for over a month, but after stabilization and a new medication regimen, sleep is no longer a concern. Current treatment focuses on Cognitive Behavioral Therapy (CBT) and Acceptance and Commitment Therapy (ACT). Aguilar indicated that the patient has responded well to these modalities. The patient has learned to focus on solutions rather than problems, utilizes supports, and involves her son for support, which has been beneficial. The therapist denies any recent negative events that might impact the patient's mental health or prognosis. Additionally, the therapist has no concerns about the patient undergoing bariatric surgery and is open to supporting the patient pre- and post-operation in this matter. Today, the PHQ-9 was administered, and again scores showed no active symptoms of depression. The BES was also reviewed, and the patient scored lower today, indicating positive changes in eating behavior. On the other hand, the mental status exam is within normal limits, suggesting the person's functioning is not impaired. No safety concerns were identified or reported by the patient, and there is no evidence of stress or emotional eating. The patient reports that she has been consistent with her meal and exercise plan and is 9 lbs away from her initial goal, which is to lose 24 lbs before bariatric surgery. Today, we worked on readiness for surgery and emphasized the importance of following pre- and post-operative instructions for her safety and the importance of communication with providers. At this time, the patient is cleared from the behavioral health standpoint. She will be seen 2-3 weeks post-op by this provider for behavioral health support. Presenting Concerns Referral Source WMP-Provider. Had an initial visit with Dr. Vinson on 08/03/2024 Reason for referral Completion of behavioral health assessment as part of process for weight-loss surgery. Precipitating Event Obesity. Initial weight 244Lbs Food/Weight/Diet Expectations of change The initial goal is to lose 10% of her weight before surgery, about 24 lbs. Ultimate weight goal: 220lbs before surgery Initial weight: 244 Lbs. weight 08/19/2024: 233 lbs. Most recent weight 09/03/2024: 232Lbs Weight as of 09/24/2024: 229 lbs. PT is implementing the following: Current meal plan: 2 Shakes, 2 bars, and 1 meal. Exercise plan: continues doing Seated exercises due to foot issues. Every day 15-20 min, not tracking calories she shepard. Currently added daily walks for 30 min. Questionnaires PHQ-9 Over the last 2 weeks, how often have you been bothered by any of the following problems? 1. Little interest or pleasure in doing things: not at all 2. Feeling down, depressed, or hopeless: not at all 3. Trouble falling or staying asleep, or sleeping too much: not at all 4. Feeling tired or having little energy: not at all 5. Poor appetite or overeating: not at all 6. Feeling bad about yourself - or that you are a failure or have let yourself or your family down: not at all 7. Trouble concentrating on things, such as reading the newspaper or watching television: not at all 8. Moving or speaking so slowly that other people could have noticed. Or the opposite - being so fidgety or restless that you have been moving around a lot more than usual: not at all 9. Thoughts that you would be better off or of hurting yourself in some way: not at all Total score: 0 Depression Screening Interpretation: Negative Depression Screening Done: Yes 97235 - PHQ-9 Billing: Yes Source: Developed by Drs. Pino Gamino, Yudith Jarrell, Rod Morales and colleagues, with an educational antonia from [employer]. Binge Eating Scale Group 1 A. I don't feel self-conscious about my wt. or body size when I'm with others. B. I feel concerned about how I look to others, but it normally does not make me fell disappointed with myself C. I do get self-conscious about my appearance and wt. which makes me feel disappointed in myself. D. I feel very self-conscious about my wt. and frequently I feel intense shame and disgust for myself. I try to avoid social contacts because of my self-consciousness. Response Group 1: D Group 2 A. I don't have any difficulty eating slowly in the proper manner. B. Although I seem to gobble down foods, I don't end up feeling stuffed because of eating to much. C. At times, I tend to eat quickly and then, I feel uncomfortably full afterwards. D. I have the habit of bolting down my food, without really chewing it. When this happens I usually feel uncomfortably stuffed because I've eaten to much. Response Group 2: A Group 3 A. I feel capable to control my eating urges when I want to. B. I feel like I have failed to control my eating more than the average person. C. I feel utterly helpless when it comes to feeling in control of my eating urges. D. Because I feel so helpless about controlling my eating I have become very desperate about trying to get control. Response Group 3: C Group 4 A. I don't have the habit of eating when I'm bored. B. I sometimes eat when I'm bored, but often I'm able to get busy and get my mind off food. C. I have a regular habit of eating when I'm bored, but occasionally, I can use some other activity to get my mind off eating. D. I have a strong habit of eating when I'm bored. Nothing seems to help me breath the habit. Response Group 4: D (Denies this happening. ) Group 5 A. I'm usually physically hungry when I eat something. B. Occasionally, I eat something on impulse even though I really am not hungry. C. I have the regular habit of eating foods, that I might not really enjoy, to satisfy a hungry feeling even though physically, I don't need the food. D. Although I'm not physically hungry, I get a hungry feeling in my mouth that only seems to be satisfied when I eat a food, like sandwich, that fills my mouth. Sometimes, when I eat the food to satisfy my mouth hunger, I then spit the food out so I won't gain weight. Response Group 5: A (C before.) Group 6 A. I don't feel any guilt or self-hate after I overeat. B. After I overeat, occasionally I feel guilt or self-hate. C. Almost all the time I experience strong guilt or self-hate after I overeat. Response Group 6: B (not overeating anymore) Group 7 A. I don't lose total control of my eating when dieting even after periods when I overeat. B. Sometimes when I eat a forbidden food on a diet, I feel like I blew it and eat even more. C. Frequently, I have the habit of saying to myself, I've blown it now, why not go all the way, when I overeat on a diet. When that happens I eat more. D. I have a regular habit of starting a strict diets for myself but I break the diets by going on an eating binge. My life seems to be either a feast or famine. Response Group 7: B Group 8 A. I rarely eat so much food that I feel uncomfortably stuffed afterwards. B. Usually about once a month, I each such a quantity of food, I end up feeling very stuffed. C. I have regular periods during the month when I eat large amounts of food, either at mealtime or at snacks. D. I eat so much food that I regularly feel quite uncomfortable after eating and sometimes a bit nauseous. Response Group 8: A (C before.) Group 9 A. My level of calorie intake does not go up very high or go down very low on a regular basis. B. Sometimes after I overeat, I will try to reduce my caloric intake to almost nothing to compensate for the excess calories I've eaten. C. I have a regular habit of overeating during the night. It seems that my routine is not to be hungry in the morning but overeat in the evening. D. In my adult years, I have had week-long periods where I practically starve myself. This follows periods when I overeat. It seems I live a life of either feast or famine. Response Group 9: A (C before. Following the meal plan for about 3 months. ) Group 10 A. I usually am able to stop eating when I want to. I know when enough is enough. B. Every so often, I experience a compulsion to eat which I can't seem to control. C. Frequently, I experience strong urges to eat which I seem unable to control, but at other times I can control my eating urges. D. I feel incapable of controlling urges to eat. I have a fear of not being able to stop eating voluntarily. Response Group 10: A Group 11 A. I don't have any problem stopping eating when I feel full. B. I usually can stop eating when I feel full but occasionally overeat leaving me feeling uncomfortably stuffed. C. I have a problem stopping eating once I start and usually I feel uncomfortably stuffed after I eat a meal. D. Because I have a problem not being able to stop eating when I want, I sometimes have to induce vomiting to relieve my stuffed feeling. Response Group 11: B Group 12 A. I seem to eat just as much when I'm with others, Family social gatherings as when I'm by myself. B. Sometimes, when I'm with other persons, I don't eat as much as I want to eat because I'm self-conscious about my eating. C. Frequently, I eat only a small amount of food when others are present, because I'm very embarrassed about my eating. D. I feel so ashamed about overeating that I pick times to overeat when I know no one will see me. I feel like a closet eater. Response Group 12: A (C before.) Group 13 A. I eat three meals a day with only an occasional between meal snack. B. I eat 3 meals a day, but I also normally snack between meals. C. When I am snacking heavily, I get in the habit of skipping regular meals. D. There are regular periods when I seem to be continually eating, with no planned meals. Response Group 13: B (Following meal plan.) Group 14 A. I don't think much about trying to control unwanted eating urges. B. At least some of the time, I feel my thoughts are pre-occupied with trying to control my eating urges. C. I feel that frequently I spend much time thinking about how much I ate or about trying not to eat anymore. D. It seems to me that most of my waking hours are pre-occupied by thoughts about eating or not eating. I feel like I'm constantly struggling not to eat. Response Group 14: B Group 15 A. I don't think about food a great deal. B. I have strong craving for food but they last only for brief periods of time. C. I have days when I can't seem to think about anything else but food. D. Most of my days seem to be pre-occupied with thoughts about food. I feel like I live to eat. Response Group 15: A Group 16 A. I usually know whether or not I'm physically hungry. I take the right portion of food to satisfy me. B. Occasionally, I feel uncertain about knowing whether or not I'm physically hungry. A these times it's hard to know how much food I should take to satisfy me. C. Even though I might know how many calories I should eat, I don't have any idea what is a normal amount of food for me. Response Group 16: A (C before.) Binge Eating Score: 13 Score less than 17 Minimal Risk Score between 18-26 Moderate Risk Score between 27-46 High Risk Assessment & Plan Assessment & Plan (1) Severe recurrent major depression w/psychotic features, mood-congruent: Code(s): F33.3 - Major depressive disorder, recurrent, severe with psychotic symptoms (2) Insomnia: Code(s): G47.00 - Insomnia, unspecified (3) Morbid obesity: Code(s): E66.01 - Morbid (severe) obesity due to excess calories Plan The patient is cleared from the behavioral health standpoint. She will be seen 2-3 weeks post-op by this provider for behavioral health support. Next sanchez: 2-3 wks PO Telehealth Telehealth Telehealth Platform: [employer] Location of provider rendering services: other Location of patient: address on file Patient Identification confirmed using: Name, : Yes Telehealth method: video Patient verbally consented to treatment: Yes Patient verbally consented to billing insurance company: Yes Patient informed of any privacy concerns related to visit: Yes Minutes spent on Phone/Video with Pt.: 45 Coding Level of Care Code Established Pt Tele Psytx 45 mins ([id number]) Patient Type Established Diagnoses Severe recurrent major depression w/psychotic features, mood-congruent F33.3 Insomnia G47.00 Morbid obesity E66.01 Additional Codes PHQ-9 - 82499 - PHQ-9 Billing: Yes ([id number]) Time Spent (min) 45
--- OUTSIDE RECORDS SUMMARY | 2024-10-01 15:02 | XMS_ITS | Data Portability ---
Author Organization [facility], Main Office Address [address] [address] Assessment Encounter Date Assessment Date Assessment LastModified by Organization Details LastModified Time 03/27/2021 03/27/2021 Patient presente d to office today for their Medicare Annual Wellness Visit. Education was provided on healthy nutrition, including a diet rich in fruits and vegetables, minimizing simple carbohydrates, salt, and saturated fats. Encouraged regular cardiovascular exercise such as walking at least 30 minutes daily, 5 times per week. Emphasized preventive health measures and educated pt on fall prevention and community-based lifestyle interventions to help reduce health risks and promote healthy living. [email or web address] Not available 03/27/2021 10:45:31 Plan of Treatment Reminders Order Date Submit Date Provider Last Modified By Organization Details Last Modified Time Details Appointments None recorded. Lab None recorded. Referral gastroente rologist referral 2020 021 [email or web address] [facility], [address] [place], [address], 12:06:31 pulmonolog ist referral - TELEMEDICI NE APPT 2020 021 [email or web address] Lakhwinder Donaldson, [address] [place], [address], 16:11:01 home health referral 2020 021 [email or web address] Not available 16:17:29 Procedures None recorded. Surgeries None recorded. Imaging MAMMO, screening, digital, bilateral 2020 021 [email or web address] [facility] ([facility]), [address] [place], [address], 09:22:28 Medication Orders tizanidine 4 mg tablet 2020 [facility], [address] [place], [address], 15:48:05 cyclobenza zohaib 10 mg tablet 2020 [facility], [address] [place], [address], 15:50:42 hydrocorti sone 2.5 % topical cream 2020 [facility], [address] [place], [address], 15:45:08 Proctosol HC 2.5 % topical cream perineal applicator 2020 [facility], [address] [place], [address], 15:45:07 cyclobenza zohaib 10 mg tablet 2020 [facility], [address] [place], [address], 15:45:08 Patient TargetsNo targets recorded. Patient Instructions Encounter Date Encounter Id Patient Instructions Last Modified By Organization Details Last Modified Time 02/20/2021 [id number] CPE lab rec mailed to home [email or web address] Not available 02/20/2021 15:46:11 03/27/2021 [id number] advance care planning: care instructions [email or web address] Not available 03/27/2021 15:28:40 Discussed and explained advance directives such as standard forms to the {{patient* caregi key patient and caregiver}}. Face to face discussion lasted for a duration of __30_ minutes. 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 Problems Name Problem SNOMED Code Status Onset Date Resolution Date Notes Provider Name and Address Organization Details Recorded Time Insomnia 773479274 Active 2019 NESSA BUNNY [address], [place], [address] , [employer] 0 21:36:49 Mixed anxiety and depressiv e disorder 918156966 Active 2019 NESSA BUNNY [address], [place], [address] , [employer] 0 21:36:50 External hemorrhoi ds 46508908 Active 2019 NESSA BUNNY [address], [place], [address] , [employer] 0 21:36:51 Muscle pain 09265840 Active 2019 NESSA BUNNY [address], [place], [address] , [employer] 0 21:37:19 Loss of appetite 26573116 Active 2019 NESSA BUNNY [address] [employer],[address], [place], [address] , [employer] 0 21:38:00 Chronic back pain 303267231 Completed 201902/26/2020 Trey. Sawyer, DO [address], [place], [address] , [employer] 0 14:45:56 Eczema 92374757 Active 2019 LATRICE sharma, [employer] 0 14:10:27 Obesity 359222243 Active 2019 Chavez Sawyer, DO [address], [place], [address] , [employer] 0 14:44:58 Psoriasis 0265618 Active 2019 Chavez Sawyer, DO [address] [place],[address], [place], [address] , [employer] 0 14:45:52 Lumbago with sciatica 448015360 Active 2019 s/p LESi x 3, [facility] Chavez Sawyer, [address], [place], [address] , [employer] 0 14:46:29 Obstructi ve sleep apnea of adult 29579140444 03 Active 2019 BRIEN NUÑEZ edith, [employer] 0 16:53:56 Constipat ion 68420226 Active 2020 NESSA HOLLIS [address], [place], [address] , [employer] 1 11:40:33 Seborrhei c dermatiti s of scalp 897808924 Active 2020 NESSA GOMEZRIAN [address], [place], [address] , [employer] 1 15:52:42 Body mass index 40+ - severely obese 023811216 Active 2020 NESSA HOLLIS [address], [place], [address] , [employer] 1 15:52:44 Impaired glucose tolerance 3058117 Active 2020 NESSA HOLLIS [address] [facility] [address], [place], [address] , [facility] [employer] 12:15:32 Internal hemorrhoi ds 69490926 Active 2020 NESSA HOLLIS [address] [facility] [address], [place], [address] , [facility] [employer] 15:45:57 Problem Notes None recorded. Medical Equipment None Reported. Allergies No known drug allergies Medications Name Sig Start Date Stop Date Status Note LastModified by Organization Details LastModified Time cyclobenzap rine 10 mg tablet TAKE ONE TABLET BY MOUTH AT BEDTIME active Not Available Not Available No t Available betamethaso ne valerate 0.1 % topical ointment APPLY TO ARMS TWICE A DAY NEEDED FOR FLARES active Not Available Not Available No t Available venlafaxine ER 37.5 mg capsule,ext ended release 24 hr TOME NATE C?PSULA TODOS LOS D? EN LA ?BRIEN active Not Available Not Available No t Available clonidine HCl 0.1 mg tablet TOME NATE TABLETA POR V?A ORAL UP TO DOS VECES AL D?A CUANDO SEA NECESARIO FOR PANIC ATTACK active Not Available Not Available No t Available prednisone 10 mg tablet TOME CUATRO TABLETAS POR V?A ORAL A DIARIO 02/25 completed Not Available Not Available Not Available venlafaxine ER 75 mg capsule,ext ended release 24 hr TOME NATE C?PSULA TODOS LOS D? EN LA ?BRIEN(TA KE WITH 37.5MG TAB) active Not Available Not Available No t Available gabapentin 600 mg tablet TAKE ONE TABLET BY MOUTH THREE TIMES A DAY active Not Available Not Available No t Available naproxen 375 mg tablet TAKE 1 TABLET BY MOUTH TWICE A DAY NEEDED active Not Available Not Available No t Available ketoconazol e 2 % shampoo APPLY TO THE AFFECTED AREA(S), LATHER, LEAVE IN PLACE FOR 5 MINUTES, AND THEN RINSE OFF WITH WATER BY TOPICAL ROUTE ONCE DAILY active Not Available Not Available No t Available tizanidine 4 mg tablet TAKE 1 TABLET BY MOUTH EVERYDAY AT BEDTIME 11/14 completed Not Available Not Available Not Available clobetasol 0.05 % topical cream APPLY A THIN LAYER TO THE AFFECTED AREA(S) BY TOPICAL ROUTE 2 TIMES PER DAY active Not Available Not Available No t Available fluocinonid e 0.05 % topical ointment 11/14 completed Not Available Not Available Not Available peg-electro lyte solution 420 gram oral solution MIX AND DRINK 240 ML EVERY 15-20 MINUTES UNTIL FIRST HALF IS GONE REPEAT 6 HOURS PRIOR TO PROCEDURE active Not Available Not Available No t Available tramadol 50 mg tablet TAKE 1 TABLET BY MOUTH EVERY DAY NEEDED FOR PAIN MAX 7 D/S FOR OPIATE NAIIVE PTS 08/17 completed Not Available Not Available Not Available triamcinolo ne acetonide 0.1 % topical cream active Not Available Not Available Not Available baclofen 20 mg tablet Please specify direction s, refills and quantity active Not Available Not Available No t Available meloxicam 7.5 mg tablet TAKE 1 TABLET BY ORAL ROUTE EVERY DAY. MAY INCREASE TO 2 TABLETS DAILY AFTER 1 WEEK IF NEEDED 02/25 completed Not Available Not Available Not Available prazosin 5 mg capsule TAKE 1 CAPSULE BY MOUTH AT BEDTIME FOR NIGHTMARE S active Not Available Not Available No t Available venlafaxine 37.5 mg tablet TOME NATE TABLETA 2 VECES AL D?A 05/20 completed Not Available Not Available Not Available nystatin 100,000 unit/gram topical cream APPLY TO THE AFFECTED AREA(S) BY TOPICAL ROUTE 2 TIMES PER DAY active Not Available Not Available No t Available calcipotrie ne 0.005 % topical cream APPLY TWICE A DAY active Not Available Not Available No t Available clonazepam 2 mg tablet TAKE 1 TABLET BY MOUTH TWICE A DAY FOR ANXIETY active Not Available Not Available No t Available diclofenac potassium 50 mg tablet Take 1 tablet by oral route for 10 days. active Not Available Not Available No t Available gabapentin 300 mg capsule TAKE ONE CAPSULE BY MOUTH TWICE A DAY 05/20 completed Not Available Not Available Not Available hydrocortis one 2.5 % topical cream APPLY TO AFFECTED AREA TWICE A DAY NEEDED 2020 active Not Available Not Available Not Avai lable zolpidem 5 mg tablet TOME NATE TABLETA POR V?A ORAL TODOS LOS D? AL ACOSTARSE CUANDO SEA NECESARIO INSOMNIA active Not Available Not Available No t Available mirtazapine 15 mg tablet TOME NATE TABLETA TODOS LOS D? AL ACOSTARSE active Not Available Not Available No t Available lorazepam 1 mg tablet TOME NATE TABLETA POR V?A ORAL UP TO DOS VECES AL D?A CUANDO SEA NECESARIO active Not Available Not Available No t Available ibuprofen 600 mg tablet Take 1 tablet 3 times a day by oral route. active Not Available Not Available No t Available zolpidem 10 mg tablet TAKE 1 TABLET BY MOUTH EVERYDAY AT BEDTIME() active Not Available Not Available No t Available clotrimazol e 1 % topical cream APLIQUE A LA ERUPCI?N CUT?RODRIGO DOS VECES AL D?A UNTIL GONE FOR A WEEK 02/25 completed Not Available Not Available Not Available naproxen 500 mg tablet TAKE 1 TABLET BY MOUTH TWICE DAILY 05/20 completed Not Available Not Available Not Available calcipotrie ne 0.005 % topical ointment 11/13 completed Not Available Not Available Not Available Daily-Lilia tablet TAKE ONE TABLET BY MOUTH DAILY active Not Available Not Available No t Available Mapap Arthritis Pain 650 mg tablet,exte nded release TAKE 2 TABLET(S) EVERY 8 HOURS BY ORAL ROUTE NEEDED. active Not Available Not Available No t Available cyclobenzap rine 5 mg tablet Take 1 tablet 3 times a day by oral route for 10 days. 05/20 completed Not Available Not Available Not Available Multiple Vitamin, Womens tablet Take 1 tablet every day by oral route. 2019 active Not Available Not Available Not Avai lable nitrofurant oin monohydrate /macrocryst als 100 mg capsule Take 1 capsule every 12 hours by oral route. 05/20 completed Not Available Not Available Not Available duloxetine 20 mg capsule,del ayed release TOME NATE C?PSULA TODOS LOS D? EN LA MA?BRIEN 02/25 completed Not Available Not Available Not Available duloxetine 30 mg capsule,del ayed release 11/14 completed Not Available Not Available Not Available duloxetine 60 mg capsule,del ayed release TAKE 1 CAPSULE BY MOUTH EVERY DAY IN THE MORNING active Not Available Not Available No t Available Nyamyc 100,000 unit/gram topical powder APPLY TO AFFECTED AREA TWICE A DAY DIRECTED active Not Available Not Available No t Available quetiapine 50 mg tablet TAKE 1 TABLET BY MOUTH EVERYDAY AT BEDTIME active Not Available Not Available No t Available diclofenac 1 % topical gel APPLY (2 GM) TOPICALLY TWICE A DAY FOR PAIN active Not Available Not Available No t Available Senexon-S 8.6 mg-50 mg tablet Take 2 tablets every day by oral route. active Not Available Not Available No t Available Procto-Med HC 2.5 % topical cream perineal applicator APPLY TO AFFECTED AREA TWICE A DAY DIRECTED active Not Available Not Available No t Available Flucelvax Quad (PF) 60 mcg (15 mcg x 4)/0.5 mL IM syringe PHARMACY ADMINISTE RED 11/13 completed Not Available Not Available Not Available Vitals Date Recorded Body height Heart rate Respiratory rate Body temperature Body mass index (BMI) Body weight Oxygen saturation Oxygen saturation in Arterial blood by Pulse oximetry Systolic blood pressure Diastolic blood pressure Provider Name and Address Organization Details Last Updated DateTime 1 157.48 cm 78 /min 16 /min 98.5 [degF] 42.3 kg/m2 972592. 84 g 98 % 98 % 120 mm[Hg] 70 mm[Hg] KENIA SOTO [facility] 1 11:05:40 Social History Question Answer Notes LastModified by Organizat ion Details LastModified Time Tobacco Smoking Status Never Smoker LATRICE sharma, [facility] 02/26/2020 14:01:37 What Is Your Level Of Alcohol Consumption? None Information not available 02/26/2020 What Is Your Level Of Caffeine Consumption? Occasional Information not available 02/26/2020 How Much Tobacco Do You Chew? None Information not available 02/26/2020 Are You Currently Employed? No Information not available 02/26/2020 What Type Of Diet Are You Following? REGULAR Information not available 02/26/2020 Which Illicit Or Recreational Drugs Have You Used? No Information not available 02/26/2020 Do You Or Have You Ever Used E-cigarettes Or Vape? Never Used Electronic Cigarettes Information not available 02/26/2020 Education 12 Information no t available 02/26/2020 Hard Of Hearing Or Deaf In One Or Both Ears? No Information not available 02/26/2020 Legally Blind In One Or Both Eyes? No Information no t available 02/26/2020 Live Alone Or With Others? Alone Information not available 02/26/2020 What Was The Date Of Your Most Recent Tobacco Screening? 02/26/2020 Information not available 02/26/2020 How Many Children Do You Have? 3 Information not available 02/26/2020 Performs Monthly Self-breast Exam? Yes Information no t available 02/26/2020 Seat Belts Used Routinely Yes Information not available 02/26/2020 Are You Sexually Active? No Information not available 02/26/2020 Smoke Alarm In Home Yes Information not available 02/26/2020 Do You Or Have You Ever Used Smokeless Tobacco? Never Used Smokeless Tobacco Information not available 02/26/2020 How Much Tobacco Do You Smoke? No Information not available 02/26/2020 General Stress Level Low Information not available 02/26/2020 Do You Use Sunscreen Routinely? Yes Information not available 02/26/2020 On What Date Was Tobacco Cessation Counseling Provided? 02/26/2020 Information not available 02/26/2020 How Many Years Have You Smoked Tobacco? 0 Information not available 02/26/2020 Sex: Unknown Functional Status Question Answer Note LastModified by Organization D etails LastModified Time Are you able to walk? YESWOREST Information not available 02/26/2020 Are you able to care for yourself? Yes Information not available 02/26/2020 What is your exercise level? None Information not available 02/26/2020 Mental Status None recorded. Family History Relationship Description Onset Age of this Age Resolved Age Notes LastModified by Organization Details LastModified Time Mother Old-age 78 Not available 02/26/2020 14:01:22 Father Alzheimer's disease living 78 Not available 02/26/2020 14:01:34 Medical History Condition Response Coronary Artery Disease N Gout N Other N Kidney Stones N Blood Diseases N Hyperthyroidism N Breast Cancer N Blood Transfusion N Hypothyroidism N Depression N COPD N Lung Disease N Developmental or Behavioral Disorders N Defects or Inherited Disease N Breast Problem N Difficulty Swallowing N Anesthesia Complications N Anxiety Disorder N Meniere's disease N Muscle, Joint, or Bone Problems N Obesity N Vision or Eye Problems N Arthritis N Infertility N Polyps N Mental Disorder N Cancer N Varicosities N Stroke N Endometriosis N Bladder or Kidney Problems N High Cholesterol N Liver Disease N Headaches N Fibromyalgia N Kidney Disease N Allergies/Hayfever N Heart Problems N Ear or Hearing Problems N Hospitalizations N Thyroid Problems N GI Problems N ADD/ADHD N Eating Disorder N Skin Problems N Anemia N MRSA exposure N Constipation N Mental Illness N Diabetes N Ovarian Cancer N Bedwetting N Seizures/Epilepsy N Tuberculosis N AIDS/HIV N Congestive Heart Failure (CHF) N Eczema N Abuse/Domestic Violence N Diverticulitis N Asthma N Reflux/GERD N Hepatitis N Heart Disease N Pulmonary Embolism N Chronic Ear Infections N Pre-Eclampsia N Hypertension N Chicken Pox N Autism Spectrum Disorder (ASD) N Osteoporosis N Thrombophilias N Gynecological History Statement/Question Response HPV Vaccine N Date of Last Pap Smear Date of Last Mammogram Sexually Active? N Obstetrics History GPAL:G 7 P 3 0 4 0 Type Value Full Term 3 Spontaneous 4 Total 7 Immunizations Vaccine Type Date Status Note Provider Nam e and Address Organization Details Recorded Time DTaP 8 completed LATRICE JEFFERS [employer], [facility] 02/26/2020 08:15:51 Influenza, split virus, quadrivalent, preservative 0 completed LATRICE sharma [facility] 02/26/2020 08:16:05 Past Encounters Encounter ID Performer Location Encounter Start Date Encounter Closed Date Diagnosis/Indication Diagnosis SNOMED-CT Code Diagnosis ICD10 Code Diagnosis Note [id number] Chavez Sawyer [facility] [address] [place] [address] 02/26/2020 13:45:51 02/26/2020 15:06:48 Insomnia 248778855 G47.00 zolpidem, prazosin, quetiapine Mixed anxi ety and depressive disorder 090798492 F41.8 no si/hi clonazepam , clonidine, loraz, venlafax External hemorrhoids 239 11410 K64.4 proctosol Muscle pain 93958993 M79 .10 cycloben, diclo gel, meloxicam, naproxen Loss of appetite 5273070 6 R63.0 mirtazapin e New patien t screening done 508060395 Z76.89 labs-p Viral screening 41441614 4 Z11.59 labs-p Screening for malignant neoplasm of breast 128325450 Z12.39 Screening for osteoporosis 921661246 Z13.820 Psoriasis 4838741 L40.9 Lumbago with sciatica 20 4351135 M54.42 [id number] Chavez Sawyer [place] [address] [place] [address] 03/25/2020 13:36:59 03/25/2020 16:39:17 Screening for malignant neoplasm of colon 888264011 Z12.11 next yr Adult heal th examination 246178506 Z00.01 normal cpe labs reviewed Screening mammography 24 233558 Z12.31 Screening for osteoporosis 374797930 Z13.820 UTD Screening for cardiovascular system disease 741492017 Z13.6 Lumbago with sciatica 20 3325687 M54.42 Insomnia 540018790 G47.0 0 zolpidem, prazosin, quetiapine Mixed anxi ety and depressive disorder 079471707 F41.8 no si/hi clonazepam , clonidine, loraz, venlafax External hemorrhoids 239 78017 K64.4 proctosol Muscle pain 36354635 M79 .10 cycloben, diclo gel, meloxicam, naproxen Loss of appetite 7913658 6 R63.0 mirtazapin e Psoriasis 8771150 L40.9 Snoring symptoms 6035684 00 R06.83 Urinary tr act infectious disease 27260032 N39.0 [id number] Chavez Sawyer [facility] [address] [place] [address] 04/22/2020 13:08:08 04/22/2020 15:50:33 Lumbago with sciatica 899086538 M54.42 External hemorrhoids 239 28641 K64.4 proctosol Insomnia 616169828 G47.0 0 zolpidem, prazosin, quetiapine Mixed anxi ety and depressive disorder 622484319 F41.8 no si/hi clonazepam , clonidine, loraz, venlafax Muscle pain 10829087 M79 .10 cycloben, diclo gel, meloxicam, naproxen Loss of appetite 1880128 6 R63.0 mirtazapin e Screening for malignant neoplasm of breast 933614796 Z12.39 p Screening for osteoporosis 173018819 Z13.820 p Psoriasis 9181589 L40.9 Snoring symptoms 5854208 00 R06.[id number] [address] 05/20/2020 14:47:58 05/20/2020 17:15:02 Lumbago with sciatica 579115744 M54.42 External hemorrhoids 239 39829 K64.4 proctosol Insomnia 035519981 G47.0 0 zolpidem, prazosin, quetiapine Mixed anxi ety and depressive disorder 043411058 F41.8 no si/hi clonazepam , clonidine, loraz, venlafax Seborrheic dermatitis of scalp 785417621 L21.0 Active or passive immunization 154890783 Z23 [id number] [address] 06/21/2020 13:31:48 06/21/2020 14:16:16 Insomnia 757644366 G47.00 zolpidem, prazosin, quetiapine Lumbago with sciatica 20 3281375 M54.42 [employer], [address], tiz 4, [address] 600 Pain management -p Mixed anxi ety and depressive disorder 355729559 F41.8 no si/hi clonazepam , clonidine, loraz, venlafax External hemorrhoids 239 65183 K64.4 proctosol Muscle pain 73620683 M79 .10 cycloben, diclo gel, meloxicam, naproxen Loss of appetite 4382136 6 R63.0 mirtazapin e Active or passive immunization 277912700 Z23 vacc-p Candidal intertrigo 2661 86392 B37.2 nystatin powder and powder. Psoriasis 8707478 L40.9 clobetasol , calcipotri maureen Seborrheic dermatitis of scalp 595484514 L21.0 ketoconazo le 2% [id number] BRIEN [address] [place] [address] 08/17/2020 11:23:20 08/17/2020 12:27:27 Insomnia 772213240 G47.00 zolpidem, prazosin, quetiapine Lumbago with sciatica 20 2122304 M54.42 [employer], [address], tiz 4, [address] 600 Pain management -p PT ordered Mixed anxi ety and depressive disorder 161773480 F41.8 no si/hi clonazepam , clonidine, loraz, venlafax Sees Dr. Lanza External hemorrhoids 239 83031 K64.4 proctosol Obstructiv e sleep apnea of adult 3916874604 103 G47.33 Referral to sleep medicine-p Sleep study from 06/12/20 shows mild TIM. Recommends Auto CPAP or CPAP titration study Psoriasis 2020798 L40.9 clobetasol , calcipotri maureen Referral to derm-p Candidal intertrigo 2661 04129 B37.2 nystatin powder and powder. Muscle pain 73307459 M79 .10 cycloben, diclo gel, meloxicam, naproxen Loss of appetite 5623803 6 R63.0 mirtazapin e Active or passive immunization 455617029 Z23 vacc-p Seborrheic dermatitis of scalp 105394373 L21.0 ketoconazo le 2% Body mass index 40+ - severely obese 978001424 Z68.41 diet and exercise Morbid obesity 290104769 E66.01 diet and exercise [id number] [facility] [address] [place] [address] 09/16/2020 10:56:16 09/16/2020 11:22:30 Insomnia 062301042 G47.00 zolpidem, prazosin, quetiapine Lumbago with sciatica 20 3768064 M54.42 [employer], [address], tiz 4, [address] 600 Pain management -Has appt scheduled for 09/20/20-p PT ordered-p Mixed anxi ety and depressive disorder 581499641 F41.8 no si/hi clonazepam , clonidine, loraz, venlafax Sees Dr. Lanza External hemorrhoids 239 03021 K64.4 proctosol Stable on current regimen Psoriasis 0073251 L40.9 clobetasol , calcipotri maureen Referral to derm-p Obstructiv e sleep apnea of adult 5925327329 103 G47.33 Referral to sleep medicine-p Sleep study from 06/12/20 shows mild TIM. Recommends Auto CPAP or CPAP titration study Sleep Medicine appt on 10/23 Muscle pain 97747423 M79 .10 cycloben, diclo gel, meloxicam, naproxen Cyclobenza zohaib d/c'd Refilled Tizanidine to TID PRN Loss of appetite 3952049 6 R63.0 mirtazapin e Active or passive immunization 418386075 Z23 vacc-p Seborrheic dermatitis of scalp 477436342 L21.0 ketoconazo le 2% Body mass index 40+ - severely obese 673986079 Z68.41 diet and exercise Morbid obesity 040624917 E66.01 diet and exercise [id number] NESSA HOLLIS [facility] [address] [place] [address] 11/14/2020 15:29:37 11/14/2020 15:53:48 Muscle pain 30513604 M79.10 cycloben, diclo gel, meloxicam, naproxen Cyclobenza zohaib d/c'd Refilled Tizanidine to TID PRN-> stop cyc 10 qhs Psoriasis 0844610 L40.9 clobetasol , calcipotri maureen Referral to derm- seen cream given Lumbago with sciatica 20 5918379 M54.42 Mapap, [address], tiz 4, [address] 600 Pain management -Has appt scheduled for 09/20/20- seen MRI 12/2020-p PT ordered-p Obstructiv e sleep apnea of adult 9959592374 103 G47.33 Referral to sleep medicine-p Sleep study from 06/12/20 shows mild TIM. Recommends Auto CPAP or CPAP titration study Sleep Medicine appt on 10/23 pulm for CPAP-p Insomnia 134634562 G47.0 0 zolpidem, prazosin, quetiapine Mixed anxi ety and depressive disorder 265529131 F41.8 no si/hi clonazepam , clonidine, loraz, venlafax Sees Dr. Lanza External hemorrhoids 239 67335 K64.4 proctosol Stable on current regimen Loss of appetite 0102643 6 R63.0 mirtazapin e Seborrheic dermatitis of scalp 003038455 L21.0 ketoconazo le 2% Body mass index 40+ - severely obese 998683599 Z68.41 diet and exercise Constipation 18562847 K5 9.00 senna Screening for malignant neoplasm of colon 036115765 Z12.11 colon-p 49856 NESSA HOLLIS [facility] [address] [place] [address] 01/13/2021 12:03:14 01/13/2021 12:17:44 Lumbago with sciatica 452251719 M54.42 Mapap, Ibu 600, tiz 4, Kleber 600 Pain management -Has appt scheduled for 09/20/20- seen MRI 12/2020-p PT ordered-pt given # to book-p wants letter to move to 1st floor- referred to pain management Muscle pain 48662954 M79 .10 cycloben, diclo gel, meloxicam, naproxen Cyclobenza zohaib d/c'd Refilled Tizanidine to TID PRN-> stop cyc 10 qhs Psoriasis 5274228 L40.9 clobetasol , calcipotri maureen Referral to derm- seen cream given Obstructiv e sleep apnea of adult 0679707814 103 G47.33 Referral to sleep medicine-p Sleep study from 06/12/20 shows mild TIM. Recommends Auto CPAP or CPAP titration study Sleep Medicine appt on 10/23 pulm for CPAP- seen awaiting call back-p Insomnia 423448833 G47.0 0 zolpidem, prazosin, quetiapine Mixed anxi ety and depressive disorder 822090963 F41.8 no si/hi clonazepam , clonidine, loraz, venlafax Sees Dr. Lanza External hemorrhoids 239 20287 K64.4 proctosol Stable on current regimen Loss of appetite 0965342 6 R63.0 mirtazapin e Seborrheic dermatitis of scalp 461341906 L21.0 ketoconazo le 2% Body mass index 40+ - severely obese 860921075 Z68.41 diet and exercise Constipation 20755864 K5 9.00 senna Impaired g lucose tolerance 9131148 R73.02 HBA1c 5.3 02/2020 recheck-p 47078 NESSA HOLLIS [facility] [address] [place] [address] 02/20/2021 15:36:25 02/20/2021 15:46:29 Impaired glucose tolerance 8486071 R73.02 HBA1c 5.3 02/20205191ZWL4 c 5.8 02/08/2021- diet/exerc ise rpt 3 months Lumbago with sciatica 20 4686971 M54.42 Mapap, Ibu 600, tiz 4, Kleber 600 Pain management -Has appt scheduled for 09/20/20- seen MRI 12/2020-p PT ordered-pt given # to book-p wants letter to move to 1st floor- referred to pain management PT - awaiting call back Loss of appetite 6307624 6 R63.0 mirtazapin e Muscle pain 62077617 M79 .10 cycloben, diclo gel, meloxicam, naproxen Cyclobenza zohaib d/c'd Refilled Tizanidine to TID PRN-> stop cyc 10 qhs Psoriasis 6856123 L40.9 clobetasol , calcipotri maureen Referral to derm- seen cream given Obstructiv e sleep apnea of adult 1799833720 103 G47.33 Referral to sleep medicine-p Sleep study from 06/12/20 shows mild TIM. Recommends Auto CPAP or CPAP titration study Sleep Medicine appt on 10/23 pulm for CPAP- seen awaiting call back- 02/28/21-p Insomnia 254469783 G47.0 0 zolpidem, prazosin, quetiapine Mixed anxi ety and depressive disorder 223301780 F41.8 no si/hi clonazepam , clonidine, loraz, venlafax Sees Dr. Lanza External hemorrhoids 239 02666 K64.4 proctosol Stable on current regimen Seborrheic dermatitis of scalp 148694216 L21.0 ketoconazo le 2% Body mass index 40+ - severely obese 309327272 Z68.41 diet and exercise Constipation 98487873 K5 9.00 senna Internal hemorrhoids 904 67956 K64.8 [place] [address] NESSA HOLLIS [facility] [address] [place] [address] 03/27/2021 08:29:24 03/27/2021 15:29:22 Internal hemorrhoids 52529620 K64.8 hydr, proc Impaired g lucose tolerance 9042348 R73.02 HBA1c 5.3 02/20209526PEX6 c 5.8 02/08/2021- diet/exerc ise rpt 3 months Lumbago with sciatica 20 7727263 M54.42 Mapap, Ibu 600, tiz 4, Kleber 600 Pain management -Has appt scheduled for 09/20/20- seen MRI 12/2020-p PT ordered-pt given # to book-p wants letter to move to 1st floor- referred to pain management PT - awaiting call back Loss of appetite 2938631 6 R63.0 mirtazapin e Muscle pain 21657543 M79 .10 cycloben, diclo gel, meloxicam, naproxen Cyclobenza zohaib d/c'd Refilled Tizanidine to TID PRN-> stop cyc 10 qhs Psoriasis 5768275 L40.9 clobetasol , calcipotri maureen Referral to derm- seen cream given Obstructiv e sleep apnea of adult 4181528394 103 G47.33 Referral to sleep medicine-p Sleep study from 06/12/20 shows mild TIM. Recommends Auto CPAP or CPAP titration study Sleep Medicine appt on 10/23 pulm for CPAP- seen awaiting call back- 02/28/21- they called her and ? new machine Insomnia 771341584 G47.0 0 zolpidem, prazosin, quetiapine Mixed anxi ety and depressive disorder 128393172 F41.8 no si/hi clonazepam , clonidine, loraz, venlafax Sees Dr. Lanza External hemorrhoids 239 66877 K64.4 proctosol Stable on current regimen Seborrheic dermatitis of scalp 642682484 L21.0 ketoconazo le 2% Body mass index 40+ - severely obese 420197667 Z68.41 diet and exercise Constipation 34874716 K5 9.00 senna Screening for malignant neoplasm of colon 087385661 Z12.11 colonoscop y 12/2020- rpt 5-10 dep on results Adult heal th examination 004023459 Z00.01 cpe labs -p Screening mammography 24 482274 Z12.31 05/2020 nml-p Screening for osteoporosis 087407979 Z13.820 -DEXA: 05/2020 nml Screening for malignant neoplasm of cervix 156398270 Z12.4 [facility] Active or passive immunization 110821126 Z23 vacc-p Health Concerns Section Related Observation LastModified by Organization Detai ls LastModified Time None Recorded Concern Status LastModified by Organization Details LastModified Time None Recorded Advance Directives Directive None Recorded Payers Encounter Date Sequence Insurance Name Policy Number Policy Mcnamara Covered Member ID Mcnamara Member ID Guarantor Name 09/16/2020 1 [place] [employer] Chayra Y Boria Hensley [id number] Chayra Boria Hensley 09/16/2020 2 [place] Chayra Boria Hensley [id number] Chayra Boria Hensley 11/14/2020 1 [place] [employer] Chayra Y Boria Hensley [id number] Chayra Boria Hensley 11/14/2020 2 [place] Chayra Boria Hensley [id number] Chayra Boria Hensley 01/13/2021 1 [place] [employer] Chayra Y Boria Hensley [id number] Chayra Boria Hensley 01/13/2021 2 [place] Chayra Boria Hensley [id number] Chayra Boria Hensley 02/20/2021 1 [place] [employer] Chayra Y Boria Hensley [id number] Chayra Boria Hensley 02/20/2021 2 [place] Chayra Boria Hensley [id number] Chayra Boria Hensley 03/27/2021 1 [place] [employer] Chayra Y Boria Hensley [id number] Chayra Boria Hensley 03/27/2021 2 [place] Chayra Boria Hensley [id number] Chayra Boria Hensley Notes Date Note Type Note Provider Name and Address Organization Details Recorded Time 09/16/2020 text/html 50 yo F, here to day for f/u. Concern with her psoriasis because the treatment is not working. Wondering what else she can do for it. Vaccine update. Med refills -Pain M - has appt for 09/20/20 -Derm - appt for Oct. Does not recall date. -PT - does not have appt. -Sleep Med -appt for Oct. Does not recall date. -seborrheic dermatitis of scalp - did not use, states she had no problem.-Candidal intertrigo - resolved - skin under breasts.-lumbago with sciatica - using meds prn.-insomnia - sleep well w/ meds.-mixed anxiety and depressive disorder - no Si/Hi-external hemorrhoids - using meds. Better.-muscle pain - using meds prn.-loss of appetite -mirtazapine-psoriasi s - using meds-snoring symptoms - sleep study - in chart-urinary tract infectious disease - resolved. Took meds as prescribed. BRIEN sharma [place] - [employer] 09/16/2020 11:25:53 11/14/2020 text/html 50 yo female pre sents for fu- telemed -camera not working ??derm- yes given cream ??sleep med- had sleep study- pulm-p ??pain management- seen MRI-p ??PT-p ??colonoscopy-p MSK pain- chronic Psoriasis- derm-p Lumbago w/sciatica- ??PT Insomnia- sleeps well with meds Anxiety/depression- followed by psych TIM - ??CPAP Loss of appetite- improved NESSA BUNNY [address] [facility],[address], [place], [address], [facility] - [employer] 11/14/2020 15:54:16 01/13/2021 text/html 50 yo female pre sents for fu-telemed -camera not working ??PT- not booked ??CPAP- awaiting call back- number given Followed by psych Colonoscopy done MSK pain- chronic Psoriasis- derm Lumbago w/sciatica- ??PT- not booked Insomnia- sleeps well with meds Anxiety/depression- followed by psych TIM - ??CPAP-pulm-p Loss of appetite- improved Constipation- stable COPD- stable TIM - awaiting pulm for CPAP Muscle pain- stable NESSA HOLLIS [address], [place], [address], [facility] 01/13/2021 12:17:32 02/20/2021 text/html 50 yo female pre sents for cj-fwbvikn-svswkl not working Needs refill for msk relaxer and hemorroides ??PT- not booked- waiting call back??CPAP- 02/28/21Followed by psych MSK pain- chronicPsoriasis- dermLumbago w/sciatica-awaiting PTInsomnia- sleeps well with medsAnxiety/depressio n- followed by psychOSA - ??SBFQ-wwiw-aIagd of appetite- improvedConstipation- stableCOPD- stableOSA - awaiting pulm for CPAPMuscle pain- stable NESSA HOLLIS [address], [place], [address], [facility] 02/20/2021 15:46:32 03/27/2021 text/html 50 yo female pre sents for COWX-lvdyjtn-alchka not working CPE labs- no colonoscopy 12/2020- rpt 5-10 dep on results -Vacc: updated with [facility]PAP:2017 normal [facility]-DEXA: 05/2020 nml-Mammo: 05/2020 nml-Colonoscopy: 12/2020 rpt 5-10 results-p??PT- awaiting appt??help at home??CPAP- 02/28/21 - they called her and ? new machineFollowed by psych NESSA BOONEAN [address], [place], [address], [facility] 03/27/2021 15:32:09 03/27/2021 text/html Medicare Annual Wellness VisitReported bypatient.Diet and Nutrition:healthy diet Fracture Risk:no history of fractures; no recent explained fracture; no sudden unexplained fractures; no previous musculoskeletal injuries Physical Activity:exercises on a regular basis; good physical condition;decreased physical activity Depression Risk:never feels sad, empty, or tearful; no loss of interest in activities; no significant changes in weight; no sleep disturbances or insomnia; no agitation; no loss of energy; no feelings of worthlessness or guilt; no thoughts of suicide; no history of mood disorders;history of depression Orientation:no disorientation to time; no disorientation to date; no disorientation to place Concentration and Memory:no decreased concentrating ability; no memory lapses or loss; does not forget words Speech/Motor difficulties:no speech difficulties; no difficulty expressing formulated concepts; no difficulty with fine manipulative tasks; no difficulty writing/copying; no slowed reaction time; does not knock things over when trying to pick them up Hearing:no loss of hearing Vision:no vision problems Activities of Daily Living:able to bathe with limited or no assistance; able to toilet with limited or no assistance;unable to bathe without assistance;unable to dress without assistance;unable to contol urination and bowels;unable to feed self without assistance;unable to get out of chair or bed without assistance;unable to groom without assistance;unable to toilet without assistance Instrumental Activities of Daily Living:able to manage medications with limited or no assistance;unable to do house work without assistance;unable to grocery shop without assistance;unable to manage medications without assistance;unable to manage money without assistance;unable to to prepare meals without assistance;unable to use the phone without assistance Falls Risk Assessment:no frequent falls while walking; no fall in the past year; no fall since last visit; no dizziness/vertigo Home Safety:no unsafe estella hazzards; no unsafe stairs; no unsafe gas appliances; working smoke/CO detectors; wears protective head gear for biking/high velocity; use of seatbelts; practicing 'safer sex'; no vision or hearing loss while driving; no fire arms; has hand bars in the bathroom/shower; good lighting in the home NESSA HOLLIS [address] [facility],[address], [place], [address], [facility] 03/27/2021 15:32:09 OBGyn Episode No OBEpisode recorded.
--- OUTSIDE RECORDS SUMMARY | 2024-10-01 15:02 | XMS_ITS | Encounter Summary ---
Author Organization [facility] Address [address] [place] [address] Care Team Providers Care Carburizer Name Role Phone Mario Basilio MD Primary Care Provider [phone] Reason for Referral * Consultation (Routine) - Pending Review Specialty Diagnoses / Procedures Referred By [place] joe Referred To Contact Physical Therapy Diagnoses Chronic bilateral low back pain, unspecified whether sciatica present Jairo Valadez PA [address] [place] [address] Referral ID Status Reason Start Date Expiration Date Visits Requested Visits Authorized [id number] Pending Review Specialty Services Required 09/17/2024 09/17/2025 1 1 Reason for Visit * Reason Onset Date Comments Referral 09/17/2024 Encounter Details Date Type Department Care Team (Late st Contact Info) Description 09/17/2024 [facility] [address] [place] [phone] Mario Basilio MD [address] [place] [address] Referral Social History Tobacco Use Types Packs/Day Years Used Date Smoking Tobacco: Never Smokeless Tobacco: Never Alcohol Use Standard Drinks/Week Comments Yes 0 (1 standard drink = 0.6 oz pur e alcohol) Sex and Gender Information Value Date Recorded Sex Assigned at Not on file Gender Identity Not on file Sexual Orientation Not on file Job Start Date Occupation Industry Not on file Not on file Not on file documented as of this encounter Progress Notes * Marni Gleason MA - 09/17/2024 1:43 PM EST Seen 08/18/24 for CPX, Chronic Back pain on Robaxin 750 mg daily and nabumetone 500 mg daily prn with good relief mentioned. Please sign pending referral. * Capribrian Scott - 09/17/2024 11:45 AM EST Pt is requesting a referral for Physical Therapy for back pain documented in this encounter Plan of Treatment Upcoming Encounters Date Type Department Care Team (Late st Contact Info) Description 10/28/2024 2:30 PM EST Office Visit Internal Medicine - [address] [phone] Aurora Bates NP [address] [place] [address] 05/18/2025 8:30 AM EDT Office Visit Bariatric Surgery - [place] [address] [address] Flo Dixon MD [address] [address] Scheduled Referrals Name Type Priority Associated Diagnoses Order Schedule Ambulatory referral to Physical Therapy and Athletic Training Outpatient Referral Routine Chronic bilateral low back pain, unspecified whether sciatica present 1 Occurrences starting 09/17/2024 until 09/17/2025 documented as of this encounter Visit Diagnoses Diagnosis Chronic bilateral low back pain, unspecified whether sciatica present- Primary documented in this encounter Care Teams Carburizer Relationship Specialty Start Date End Date Mario Basilio MD [address] [place] [id number] PCP - General Internal Medicine 08/18/24 documented as of this encounter
--- OUTSIDE RECORDS SUMMARY | 2024-10-01 15:02 | XMS_ITS | Clinical Summary ---
Author Organization [facility] Address [address] [place] [address] Phone Care Team Providers Care Automotive Sales Executive Name Role Phone Mario Basilio MD Primary Care Provider [phone] Allergies No known active allergies Medications Medication Sig Dispensed Refills Start Date End Date Status acetaminophen (TYLENOL) 500 mg tablet TAKE 1 TABLET BY MOUTH THREE TIMES DAILY 11/02/2023 Active amitriptyline (ELAVIL) 25 mg tablet Take 1 Tablet by mouth at bedtime. 08/13/2023 Active DULoxetine (CYMBALTA) [address] capsule TAKE 1 CAPSULE BY MOUTH EVERY MORNING 01/10/2022 Active GENERIC EXTERNAL MEDICATION Nifedipine 0.3% ointment Apply as a thin film TID to the perianal skin 01/15/2022 Active LORazepam (ATIVAN) 0.5 mg tablet Take 1 Tablet by mouth 3 times daily. Active polyethylene glycol (MIRALAX) 17 gram packet MIX 17 GM IN WATER( 1 PACKET) AND DRINK DAILY 10/15/2023 Active prazosin (MINIPRESS) 5 mg capsule TAKE 1 CAPSULE BY MOUTH AT BEDTIME FOR NIGHTNARES 12/25/2021 Active QUEtiapine (SEROquel) 100 mg tablet TAKE 1 TABLET BY MOUTH AT BEDTIME 10/26/2021 Active triamcinolone (KENALOG) 0.1 % cream Apply to affected area HS prn 03/20/2023 Active zolpidem (AMBIEN) 10 mg tablet TAKE 1 TABLET BY MOUTH AT BEDTIME 01/11/2022 Active clotrimazole (LOTRIMIN) 1 % creamIndications:C andidiasis, cutaneous apply daily to breast folds as needed 60 g 2 08/18/2024 Active hydrocortisone (ANUSOL-HC) 2.5 % rectal creamIndications:H emorrhoids, unspecified hemorrhoid type Insert into the rectum 2 (two) times a day. 30 g 3 08/18/2024 02/14/2025 Active methocarbamoL (ROBAXIN) 750 mg tabletIndications: Chronic bilateral low back pain, unspecified whether sciatica present Take 1 tablet (750 mg total) by mouth 1 (one) time each day. 90 each 1 08/18/2024 02/14/2025 Active calcipotriene (DOVONEX) 0.005 % creamIndications:P soriasis APPLY TO AFFECTED AREAS OF PSORIASIS TWICE DAILY. 60 g 1 08/18/2024 Active nabumetone (RELAFEN) 500 mg tabletIndications: Chronic bilateral low back pain, unspecified whether sciatica present Take 1 tablet (500 mg total) by mouth 1 (one) time each day if needed for mild pain. 30 tablet 08/18/2024 09/17/2024 Active Problems Problem Noted Date Diagnosed Date Bipolar disorder 10/26/2021 Chronic back pain 10/26/2021 Depression 10/26/2021 Encounters Date Type Department Care Team Description 09/17/2024 Telephone Pediatrics - [address] [phone] Mario Basilio MD Referral 08/18/2024 3:30 PM EST Office Visit Internal Medicine - [address] [phone] Aurora Bates NP Routine general medical examination at a health care facility (Primary Dx); Bipolar affective disorder, remission status unspecified (CMS/HCC); Acute ear pain, right; Impacted cerumen of both ears; Chronic bilateral low back pain, unspecified whether sciatica present; Hemorrhoids, unspecified hemorrhoid type; Psoriasis; Candidiasis, cutaneous; Screening for cholesterol level; Encounter for screening mammogram for malignant neoplasm of breast; Encounter for screening for HIV; Class 3 severe obesity with body mass index (BMI) of 45.0 to 49.9 in adult, unspecified obesity type, unspecified whether serious comorbidity present (CMS/HCC); Flu vaccine need 08/06/2024 2:45 PM EST Consult Orthopedic Surgery - [address] [address] Luis Jennings, DPChristian Sprain of anterior talofibular ligament of right ankle, initial encounter (Primary Dx) 08/01/2024 4:41 PM EST - 08/01/2024 8:46 PM EST Emergency [facility] [address] [place] [address] Pan Winter MD Closed fracture of right foot, initial encounter (Primary Dx) Discharge Disposition: Home or Self Care from Last 3 Months Immunizations Name Administration Dates Next Due Influenza Quadravalent, MDCK , 0.5ml, preservative free (Flucelvax) 6mo and older 07/17/2023,10/02/2022 Influenza trivalent, MDCK, 0 .5mL, preservative free (Flucelvax) 6mo and older 08/18/2024 Moderna SARS-CoV-2 COVID-19, mRNA, LNP-S, preservative free 09/19/2021 Td Tetanus diptheria (Tdvax) 7yo and older 10/02 Surgical History Surgery Date Site/Laterality Comments OTHER SURGICAL HISTORY PROCEDURE: DESTRUCTION OF INTERNAL HEMORRHOIDS CHOLECYSTECTOMY PROCEDURE: LAPAROSCOPY, CHOLECYSTECTOMY Medical History Medical History Date Comments Bipolar disorder (CMS/HCC) 10/26/2021 DX:Bi polar disorder ([facility]) Depression 10/26/2021 DX:Depression Chronic back pain 10/26/2021 DX:Chronic susan k pain Family History Medical History Relation Name Comments Diabetes Father Hypertension Father Relation Name Status Comments Father Mother Social History Tobacco Use Types Packs/Day Years Used Date Smoking Tobacco: Never Smokeless Tobacco: Never Tobacco Cessation:Counseling Given: Not Answered Alcohol Use Standard Drinks/Week Comments Yes 0 (1 standard drink = 0.6 oz pur e alcohol) Sex and Gender Information Value Date Recorded Sex Assigned at Not on file Gender Identity Not on file Sexual Orientation Not on file Job Start Date Occupation Industry Not on file Not on file Not on file Obstetrics History Last Filed Vital Signs Vital Sign Reading Time Taken Comments Blood Pressure 124/72 08/18/2024 3:32 PM EST Pulse 100 08/18/2024 3:32 PM EST Temperature 37.1 ??C (98.8 ??F) 08/01/2024 7:59 PM ES T Respiratory Rate 16 08/01/2024 7:59 PM EST Oxygen Saturation 94% 08/01/2024 7:59 PM EST Inhaled Oxygen Concentration - - Weight 109 kg (240 lb) 08/06/2024 2:48 PM EST Height 154.9 cm (5' 1 ) 08/18/2024 3:32 PM EST Body Mass Index 45.35 08/06/2024 2:48 PM EST Plan of Treatment Upcoming Encounters Date Type Department Care Team (Late st Contact Info) Description 10/28/2024 2:30 PM EST Office Visit Internal Medicine - [facility] [address] [place] [address] Aurora Bates NP [address] [place] [address] 05/18/2025 8:30 AM EDT Office Visit Bariatric Surgery - [place] [address] [phone] Flo Dixon MD [address] [phone] Health Maintenance Due Date Last Done Comments Hepatitis B Vaccines (1 of 3 - 19+ 3-dose series) 1989 Cervical Cancer Screening: Pap Smear 1991 Zoster Vaccines (1 of 2) 2020 Breast Cancer Screening 06/01/2022 06/01/2020 Medicare Annual Wellness Visit 08/12/2022 COVID-19 Vaccine ( season) 2024 09/19/2023, 09/19/2021, 01/17/2021, Additional history exists Depression Screening 08/18/2025 08/18/2024 Social Influencers of Health Screening 08/18/2025 08/18/2024 Cholesterol Screening (Lipid Panel) 08/18/2029 08/18/2024, 10/02/2022 Colorectal Cancer Screening: Colonoscopy 09/04/2031 09/04/2021 DTaP,Tdap,and Td Vaccines (3 - Td or Tdap) 10/02/2032 10/02/2022, 10/07/2017 Hepatitis C Screening Completed 10/02/2022 HIV Screening Completed 08/18/2024 Influenza Vaccine Completed 08/18/2024, , 10/02/2022, Additional history exists HIB Vaccines Aged Out No longer eligi ble based on patient's age to complete this topic HPV Vaccines Aged Out No longer eligi ble based on patient's age to complete this topic Hepatitis A Vaccines Aged Out No long er eligible based on patient's age to complete this topic IPV Vaccines Aged Out No longer eligi ble based on patient's age to complete this topic MMR Vaccines Aged Out No longer eligi ble based on patient's age to complete this topic Meningococcal ACWY Vaccine Aged Out N o longer eligible based on patient's age to complete this topic Pneumococcal Vaccine: Pediatrics (0 to 5 Years) and At-Risk Patients (6 to 64 Years) Aged Out No longer eligible based on patient's age to complete this topic RSV Immunization Patients Under 20 months Aged Out No longer eligible based on patient's age to complete this topic Varicella Vaccines Aged Out No longer eligible based on patient's age to complete this topic Procedures Procedure Name Priority Date/Time Associated Diagnosis Comments LIPID PANEL WITH REFLEX TO DIRECT LDL Routine 08/18/2024 4:20 PM EST Screening for cholesterol level BASIC METABOLIC PANEL Routine 08/18/2024 4:20 PM EST Screening for cholesterol level HIV 1, 2 ANTIBODY, P24 ANTIGEN WITH REFLEX TO DIFFERENTIATION Routine 08/18/2024 4:20 PM EST Encounter for screening for HIV HC APPLICATION SPLINT/CAST/STRAP Routine 08/01/2024 6:34 PM EST HC APPLICATION SPLINT/CAST/STRAP Routine 08/01/2024 6:34 PM EST WY APPLICATION CAST SHORT LEG Routine 08/01/2024 6:34 PM EST WY APPLICATION SPLINT SHORT LEG Routine 08/01/2024 6:34 PM EST XR ANKLE 3+ VIEWS RIGHT STAT 08/01/20 24 4:12 PM EST HM HEPATITIS C SCREENING Routine 10/02/2022 COLONOSCOPY Routine 09/04/2021 [facility] SCREENING DIGITAL Routine 06/01/2020 4:01 PM EDT Encounter for screening mammogram for malignant neoplasm of breast from Last 3 Months or Most Recently Relevant to Health Maintenance Results * HIV 1,2 antibody, p24 antigen with reflex to differentiation (08/18/2024 4:20 PM EST) Pathologist [facility] [place] HIV Combo AB/AG Negative Negative LAB CHEMISTRY METHOD 08/18/2024 7:40 PM EST [facility] Blood Venous blood specimen / Unknown Venipuncture / Unknown 08/18/2024 4:20 PM EST 08/18/2024 4:20 PM EST Narrative [facility] - 08/18/2024 7:40 PM EST This assay is a 4th generation assay allowing for earlier detection of HIV infection by detecting the presence of the HIV-1 p24 antigen as well as the traditional antibodies to HIV type 1 (including group O) and type 2. ??Use of a 4th generation assay is the current CDC recommendation for HIV screening. Aurora Bates NP LAB BLOOD ORDERABLES [facility] [address] [place] [address], * (ABNORMAL) Lipid panel with reflex to direct LDL (08/18/2024 4:20 PM EST) Cholesterol 212(H) 0 - 200 mg/dL LAB CHEMISTRY METHOD 08/18/2024 7:00 PM EST [facility] Triglycerides 179(H) 0 - 150 mg/dL LAB CHEMISTRY METHOD 08/18/2024 7:00 PM EST [facility] HDL 61 >=40 mg/dL LAB CHEMISTRY METHOD 08/18/2024 7:00 PM EST [facility] LDL Calculated 115(H) 0 - 100 mg/dL LAB CHEMISTRY METHOD 08/18/2024 7:00 PM [facility] VLDL Cholesterol Kofi 35.8 mg/dL LAB CHEMISTRY METHOD 08/18/2024 7:00 PM [facility] Non HDL Chol. (LDL+VLDL) 151(H) <145 mg/dL LAB CHEMISTRY METHOD 08/18/2024 7:00 PM [facility] Chol/HDL Ratio 3.5 0.0 - 4.4 LAB CHEMISTRY METHOD 08/18/2024 7:00 PM [facility] Blood Venous blood specimen / Unknown Venipuncture / Unknown 08/18/2024 4:20 PM EST 08/18/2024 4:20 PM EST Aurora Bates NP LAB BLOOD ORDERABLES [facility] [address] [place] [address], * (ABNORMAL) Basic metabolic panel (08/18/2024 4:20 PM EST) Sodium 137 133 - 145 mmol/L LAB CHEMISTRY METHOD 08/18/2024 6:53 PM [facility] Potassium 4.6 3.5 - 5.5 mmol/L LAB CHEMISTRY METHOD 08/18/2024 6:53 PM [facility] Chloride 103 96 - 110 mmol/L LAB CHEMISTRY METHOD 08/18/2024 6:53 PM [facility] CO2 28 21 - 32 mmol/L LAB CHEMISTRY METHOD 08/18/2024 6:53 PM [facility] Anion Gap 6 3 - 11 LAB CHEMISTRY METHOD 08/18/2024 6:53 PM [facility] Glucose 102(H) 70 - 100 mg/dL LAB CHEMISTRY METHOD 08/18/2024 6:53 PM [facility] BUN 18 5 - 25 mg/dL LAB CHEMISTRY METHOD 08/18/2024 6:53 PM EST [facility] Creatinine 1.01 0.50 - 1.10 mg/dL LAB CHEMISTRY METHOD 08/18/2024 6:53 PM EST [facility] eGFR 66 >=60 mL/min/1. 73m2 LAB CHEMISTRY METHOD 08/18/2024 6:53 PM EST [facility] Comment:Calculation based on the??Chronic Kidney Disease Epidemiology Collaboration (CKD-EPI) equation refit??without adjustment for race. BUN/Creatinine Ratio 17.8 LAB CHEMISTRY METHOD 08/18/2024 6:53 PM EST [facility] Calcium 9.8 8.5 - 10.5 mg/dL LAB CHEMISTRY METHOD 08/18/2024 6:53 PM EST [facility] Blood Venous blood specimen / Unknown Venipuncture / Unknown 08/18/2024 4:20 PM EST 08/18/2024 4:20 PM EST Aurora Bates NP LAB BLOOD ORDERABLES [facility] [address] [place] [address], * WY APPLICATION SPLINT SHORT LEG, WY APPLICATION CAST SHORT LEG, HC APPLICATION SPLINT/CAST/STRAP, HC APPLICATION SPLINT/CAST/STRAP (08/01/2024 6:34 PM EST) Narrative Pan Winter MD - 08/01/2024 6:34 PM EST Pan Winter MD ? 08/05/2024 ??1:08 AM Splint Application Date/Time: 08/01/2024 6:34 PM Performed by: Pan Winter MD Authorized by: Pan Winter MD ?? Consent: ??Consent obtained: ??Verbal ??Risks discussed: ??Swelling and numbness ??Alternatives discussed: ??No treatment Pre-procedure details: ??Distal neurologic exam: ??Normal ??Distal perfusion: distal pulses strong ?? Procedure details: ??Location: ??Ankle ??Ankle location: ??R ankle ??Strapping: no ?Cast type: ??Short leg ??Splint type: ??Short leg and ankle stirrup ??Supplies: ??Fiberglass ??Attestation: Splint applied and adjusted personally by me ?? Post-procedure details: ??Distal neurologic exam: ??Normal ??Distal perfusion: distal pulses strong ?Procedure completion: ??Tolerated ??Post-procedure imaging: not applicable ?? Pan Winter MD IN CLINIC/BEDSIDE OR DERABLES * XR Ankle 3+ Views Right (08/01/2024 4:12 PM EST) Anatomical Region Laterality Modality Lower Extremities, Ankle Right Radiogr aphic Imaging 08/02/2024 8:10 AM EST Impressions 08/02/2024 8:11 AM EST No acute fracture or malalignment. -------- FINAL REPORT -------- Dictated By: Rios Bernal Dictated Date: 08/02/2024 08:10 ET Assigned Physician: Rios Bernal Reviewed and Electronically Signed By: Rios Bernal Signed Date: 08/02/2024 08:11 ET Workstation ID: [id number] Transcribed By: Self Edit Transcribed Date: 08/02/2024 08:10 ET Narrative 08/02/2024 8:11 AM EST Multiple views of the right ankle, 08/01/2024. HISTORY: pain. COMPARISON: None. FINDINGS: Lateral soft tissue swelling. ??Bony mineralization is normal. ??No acute fracture. ??No focal bone lesion. ??No ankle joint effusion. ??Symmetric mortise and intact talar dome. Procedure Note Rios Bernal MD - 08/02/2024 Multiple views of the right ankle, 08/01/2024. HISTORY: pain. COMPARISON: None. FINDINGS: Lateral soft tissue swelling. Bony mineralization is normal. No acutefracture. No focal bone lesion. No ankle joint effusion. Symmetricmortise and intact talar dome. IMPRESSION: No acute fracture or malalignment. -------- FINAL REPORT -------- Dictated By: Rios Bernal Dictated Date: 08/02/2024 08:10 ET Assigned Physician: Rios Bernal Reviewed and Electronically Signed By: Rios Bernal Signed Date: 08/02/2024 08:11 ET Workstation ID: [id number] Transcribed By: Self Edit Transcribed Date: 08/02/2024 08:10 ET Gabe Fitzpatrick MD IMG XR PROCEDURES * Hepatitis C Screening (10/02/2022) Hepatitis C Screening Abstracted [facility] * Colonoscopy (09/04/2021) Colonoscopy No Interpretation , Abstracted Anatomical Region Laterality Modality Other Historical Provider MD BALA SCHAEFFER E * [facility] SCREENING DIGITAL (06/01/2020 4:01 PM EDT) Anatomical Region Laterality Modality Mammography 06/01/2020 10:3 0 AM EDT Narrative 06/01/2020 4:01 PM EDT [facility] Diagnostic Imaging Department [address] [place] [id number] Patient: ??GROVER ISLAS ?/Age/Sex: 1970 - 50 - F Unit#: ??[id number] ? Location/Status: ??SPDIMAM/REG CLI ? Mnemonic/Ordering Site: ??DIGSC/SPMAM Ordering Physician: ??LEANNA SMITH DO [facility] Screening Digital - 06/01/20 - 1128 History: Bilateral breast cancer screening. Technique: ??Digital mammography. Conventional CC and MLO projections with tomosynthesis MLO views and computer aided detection. Comparison: None available. Previous mammography obtained in [place] are unavailable. Findings: Breast tissue consists of a heterogenous combination of ??fatty and fibroglandular tissue, potentially obscuring small lesions, category c density bilaterally (as calculated by [employer] software). No suspicious group of microcalcification, suspicious mass, concerning focal asymmetry or architectural distortion within either breast. Impression: ??No evidence of malignancy. BI-RADS category 1; negative study, [id number], [id number] A negative mammogram in the face of a clinically suspicious abnormality does not exclude the possibility of malignancy nor alter the indications for biopsy. Note: Patient information entered ??into a reminder system with a target due date for the next mammogram; PQRI II 7026Y Dictating Physician: ??RALPH BLANCO MD Electronically Signed by: ??RALPH BLANCO MD Dic Date/Time: ??06/01/20 1601 Sign date/Time: ??06/01/20 1601 Procedure Note Ralph Blanco MD - 08/22/2022 [facility] Diagnostic Imaging Department [address] [place] [address] Patient: ROSELINE PRATHERGROVER /Age/Sex: 1970 - 50 - F Unit#: [id number] Location/Status: [facility]/REG CLI Mnemonic/Ordering Site: DIGSC/SPMAM Ordering Physician: LEANNA SMITH DO [place] Screening Digital - 06/01/20 - 1128 History: Bilateral breast cancer screening. Technique: Digital mammography. Conventional CC and MLO projectionswith tomosynthesis MLO views and computer aided detection. Comparison: None available. Previous mammography obtained in [facility] unavailable. Findings: Breast tissue consists of a heterogenous combination of fattyand fibroglandular tissue, potentially obscuring small lesions, category cdensity bilaterally (as calculated by [employer] software). No suspicious group of microcalcification, suspicious mass, concerningfocal asymmetry or architectural distortion within either breast. Impression: No evidence of malignancy. BI-RADS category 1; negative study, [id number], [id number] A negative mammogram in the face of a clinically suspicious abnormalitydoes not exclude the possibility of malignancy nor alter the indications forbiopsy. Note: Patient information entered into a reminder system with a targetdue date for the next mammogram; PQRI II 7012F Dictating Physician: RALPH BLANCO MD Electronically Signed by: RALPH BLANCO MD Dic Date/Time: 06/01/20 1601 Sign date/Time: 06/01/20 1601 Leanna Smith DO IMG BI PROCEDURES from Last 3 Months or Most Recently Relevant to Health Maintenance Care Teams Automotive Sales Executive Relationship Specialty Start Date End Date Mario Basilio MD [address] [place] [address] PCP - General Internal Medicine 08/18/24
== END ==
PROVIDERS: Visit Provider Counselor Mental Health
DX: F33.3 Major depressive disorder, recurrent, severe with psychotic symptoms (principal); G47.00 Insomnia, unspecified; E66.01 Morbid (severe) obesity due to excess calories
CPT/HCPCS: 90834

== ENCOUNTER 2024-10-21 08:34 | Outpatient (REF) | payer OTHER, SELFPAY ==
--- OUTSIDE RECORDS SUMMARY | 2024-10-21 17:03 | XMS_ITS | Clinical Summary ---
Author Organization [facility] Address [address] [place] [address] Care Team Providers Care Manager Utility Name Role Phone Mario Basilio MD Primary Care Provider [phone] Allergies No known active allergies Medications Medication Sig Dispensed Refills Start Date End Date Status Hydrocortisone, Perianal, 2.5 % Cream Apply 1 g topically daily. To hemorrhoids 10 g 0 10/26/2021 Active quetiapine (SEROQUEL) 100 MG tablet TAKE 1 TABLET BY MOUTH AT BEDTIME 0 10/26/2021 Active GENERIC MEDICATION Nifedipine 0.3% ointment Apply as a thin film TID to the perianal skin 60 g 2 01/15/2022 Active duloxetine (CYMBALTA) 60 MG capsule TAKE 1 CAPSULE BY MOUTH EVERY MORNING 0 01/10/2022 Active prazosin (MINIPRESS) 5 MG capsule TAKE 1 CAPSULE BY MOUTH AT BEDTIME FOR NIGHTNARES 0 12/25/2021 Active Zolpidem Tartrate 10 MG Tab TAKE 1 TABLET BY MOUTH AT BEDTIME 0 01/11/2022 Active clotrimazole (LOTRIMIN) 1 % creamIndications:Ca ndidal intertrigo Apply to affected area twice a day for 4 weeks 30 g 2 03/20/2023 Active triamcinolone (KENALOG) 0.1 % creamIndications:Ps oriasis Apply to affected area QHS prn 30 g 0 03/20/2023 Active methocarbamol (ROBAXIN) 750 MG tabletIndications:C hronic bilateral low back pain without sciatica TOME NATE TABLETA AL ACOSTARSE CUANDO SEA NECESARIO FOR BACK PAIN 20 Tablet 0 09/26/2023 Active lorazepam (ATIVAN) 0.5 MG tablet Take 1 Tablet by mouth 3 times daily. 0 Active amitriptyline (ELAVIL) 25 MG tablet Take 1 Tablet by mouth at bedtime. 0 08/13/2023 Active docusate sodium (COLACE) 100 MG capsule TOME 1 C PSULA POR V A ORAL DOS VECES AL D A 0 10/15/2023 Active calcipotriene (DOVONOX) 0.005 % cream APPLY TO AFFECTED AREAS OF PSORIASIS TWICE DAILY. 0 10/21/2023 Active cefUROXime (CEFTIN) 250 MG tablet TOME NATE TABLETA DOS VECES AL D A 0 10/15/2023 Active polyethylene glycol (GLYCOLAX) 17 g packet MIX 17 GM IN WATER( 1 PACKET) AND DRINK DAILY 0 10/15/2023 Active Acetaminophen Extra Strength 500 MG Tab TAKE 1 TABLET BY MOUTH THREE TIMES DAILY 0 11/02/2023 Active nabumetone (RELAFEN) 500 MG tabletIndications:C hronic bilateral low back pain without sciatica Take 1 Tablet by mouth 2 times daily. 60 Tablet 0 11/18/2023 Active Active Problems Problem Noted Date History of laparoscopic cholecystectomy 11/11/2023 Bipolar disorder 10/26/2021 Depression 10/26/2021 Chronic back pain 10/26/2021 Immunizations Name Administration Dates Next Due COVID-19 (Moderna) 09/19/2021,01/17/2021, 021 Influenza Vaccine-preservati ve Free-quadrivalent 4 Years 07/17/2023,10/02/2022 TD (STATE SUPPLIED FOR ADULTS AND CHILDREN) 09/04 Family History Medical History Relation Name Comments Diabetes Father Hypertension Father Relation Name Status Comments Father Mother Social History Tobacco Use Types Packs/Day Years Used Date Smoking Tobacco: Never Smokeless Tobacco: Never Tobacco Cessation:Counseling Given: Not Answered Alcohol Use Standard Drinks/Week Comments Yes 0 (1 standard drink = 0.6 oz pur e alcohol) socially Sex Assigned at Date Recorded Not on file Job Start Date Occupation Industry Not on file Not on file Not on file Last Filed Vital Signs Vital Sign Reading Time Taken Comments Blood Pressure 109/78 11/25/2023 10:56 AM EDT Pulse 109 11/25/2023 10:56 AM EDT Temperature 36.6 ??C (97.8 ??F) 11/13/2023 10:43 AM E DT Respiratory Rate 16 12/25/2021 9:34 AM EDT Oxygen Saturation 98% 03/22/2022 3:08 PM EDT Inhaled Oxygen Concentration - - Weight 117 kg (258 lb) 11/25/2023 10:56 AM EDT Height 157.5 cm (5' 2 ) 11/25/2023 10:56 AM EDT Body Mass Index 47.19 11/25/2023 10:56 AM EDT Plan of Treatment Health Maintenance Due Date Last Done Comments CERVICAL CANCER SCREENING 1991 MAMMOGRAM 2010 SHINGLES VACCINE (1 of 2) 2020 DTAP/TDAP/TD (1 - Tdap) 10/03/2022 10/02/2022 DEPRESSION SCREEN 12/25/2022 12/25/2021 (Completed) Covid-19 Vaccine (4 - 2022-2 4 season) 2024 09/19/2021, 01/17/2021, 12/13/2020 INFLUENZA (#1) 2024 07/17/2023, 10/02/2022 BMI CHECK/ADVISE 09/02/2024 07/17/2023, , 10/02/2022, Additional history exists BASELINE HEALTH EXAM 40-64 10/02/2024 10/02/2022, CHOLESTEROL SCREENING 10/02/2027 10/02/2022, 022 COLON CANCER SCREENING 09/04/2031 2 (External Completion) PNEUMOCOCCAL VACCINE FOR HIG H RISK PATIENTS (#1) 2035 HEPATITIS C SCREENING Completed 10/02/2022 Care Teams Manager Utility Relationship Specialty Start Date End Date Mario Basilio MD [address] [place] [address] PCP - General Internal Medicine 07/20/21
--- OUTSIDE RECORDS SUMMARY | 2024-10-21 17:03 | XMS_ITS | Data Portability ---
Author Organization [employer], Main Office Address [address] [place] [address] Assessment Encounter Date Assessment Date Assessment LastModified [...] Appointments None recorded. Lab None recorded. Referral home health referral 2020 021 [email or web address] Not available 16:17:29 gastroente rologist referral 2020 021 [email or web address] [facility], [address] [place], [address], 12:06:31 pulmonolog ist referral - TELEMEDICI NE APPT 2020 021 [email or web address] [facility] Donaldson, [address] [place], [address], 16:11:01 Procedures None recorded. Surgeries None recorded. Imaging MAMMO, screening, digital, bilateral 2020 021 [email or web address] [facility] ([facility]), [address] [place], [address], 09:22:28 Medication Orders hydrocorti sone 2.5 % topical cream 2020 [facility], [address] [place], [address], 15:45:08 Proctosol HC 2.5 % topical cream perineal applicator 2020 [facility], [address] [place], [address], 15:45:07 cyclobenza zohaib 10 mg tablet 2020 [facility], [address] [place], [address], 15:45:08 cyclobenza zohaib 10 mg tablet 2020 [facility], [address] [place], [address], 15:50:42 tizanidine 4 mg tablet 2020 [facility], [address] [place], [address], 15:48:05 Patient TargetsNo targets recorded. Patient Instructions Encounter Date Encounter Id Patient Instructions Last Modified By Organization Details Last Modified Time 02/20/2021 [id number] CPE lab rec mailed to home [email or web address] Not available 02/20/2021 15:46:11 03/27/2021 [id number] advance care planning: care instructions [email or web address] Not available 03/27/2021 15:28:40 Discussed and explained advance directives such as standard forms to the {{patient* caregi key patient and caregiver}}. Face to face discussion lasted for a duration of __30_ minutes. [email or web address] Not available 03/27/2021 15:29:43 Reason for Referral Behavioral Health Therapist Referral for Screening for malignant neoplasm of colon colonoscopy Referring Physician: Chavez Sawyer, Internal Medicine, Encounter Date: 11/14/2020 Electronic Publications Specialist Referral for O bstructive sleep apnea of adult TELEMEDICINE APPT Referring Physician: Chavez Sawyer, Internal Medicine, Encounter Date: 11/14/2020 Home Health Referral for Lum bago with sciatica VCARE- [id number] Referring Physician: Chavez Sawyer, Internal Medicine, Encounter Date: 01/13/2021 Results Created Date Observation Date Name Description Value Unit Range Abnormal Flag Note LastModifiedBy Organization Detail LastModifiedTime Result Notes None recorded. Problems Name Problem SNOMED Code Status Onset Date Resolution Date Notes Provider Name and Address Organization Details Recorded Time Insomnia 146505367 Active 2019 NSESA BUNNY [address], [place], [address] , [employer] 0 21:36:49 Mixed anxiety and depressiv e disorder 198241444 Active 2019 NESSA BUNNY [address], [place], [address] , [employer] 0 21:36:50 External hemorrhoi ds 87928906 Active 2019 NESSA BUNNY [address], [place], [address] , [employer] 0 21:36:51 Muscle pain 19264672 Active 2019 NESSA BUNNY [address], [place], [address] , [employer] 0 21:37:19 Loss of appetite 48561291 Active 2019 NESSA BUNNY [address] [employer],[address], [place], [address] , [employer] 0 21:38:00 Chronic back pain 255815387 Completed 201902/26/2020 Trey. Sawyer, DO [address], [place], [address] , [employer] 0 14:45:56 Eczema 71122574 Active 2019 LATRICE sharma, [employer] 0 14:10:27 Obesity 202459583 Active 2019 Chavez Sawyer, DO [address] [facility], [place], [address] , [employer] 0 14:44:58 Psoriasis 7257601 Active 2019 Chavez Sawyer, DO [address] [facility], [place], [address] , [employer] 0 14:45:52 Lumbago with sciatica 541023604 Active 2019 s/p LESi x 3, [facility] Chavez Sawyer, [address], [place], [address] , [employer] 0 14:46:29 Obstructi ve sleep apnea of adult 57134956743 03 Active 2019 BRIEN NUÑEZ edith, [employer] 0 16:53:56 Constipat ion 83536663 Active 2020 NESSA HOLLIS [address], [place], [address] , [employer] 1 11:40:33 Seborrhei c dermatiti s of scalp 427654194 Active 2020 NESSA GOMEZRIAN [address], [place], [address] , [employer] 1 15:52:42 Body mass index 40+ - severely obese 144128548 Active 2020 NESSA HOLLIS [address], [place], [address] , [employer] 1 15:52:44 Impaired glucose tolerance 7308753 Active 2020 NESSA HOLLIS [address] [facility] [address], [place], [address] , [facility] [employer] 12:15:32 Internal hemorrhoi ds 67030041 Active 2020 NESSA HOLLIS [address] [facility] [address], [place], [address] , [facility] [employer] 15:45:57 Problem Notes None recorded. Medical Equipment [...] /min 16 /min 98.5 [degF] 42.3 kg/m2 876574. 84 g 98 % 98 % 120 mm[Hg] 70 mm[Hg] KENIA SOTO [employer] 1 11:05:40 Social History Question Answer Notes LastModified by Organizat ion Details LastModified Time Tobacco Smoking Status Never Smoker LATRICE sharma, [employer] 02/26/2020 14:01:37 What Is Your Level Of [...] History Condition Response Coronary Artery Disease N Other N Gout N Kidney Stones N Blood Diseases N Hyperthyroidism N Breast Cancer N Blood Transfusion N Hypothyroidism N Depression N COPD N Lung Disease N Defects or Inherited Disease N Developmental or Behavioral Disorders N Breast Problem N Difficulty Swallowing N Anesthesia Complications N Meniere's disease N Anxiety Disorder N Muscle, Joint, or Bone Problems N Obesity N Vision or Eye Problems N Arthritis N Polyps N Infertility N Mental Disorder N Cancer N Varicosities N Stroke N Endometriosis N Bladder or Kidney Problems N High Cholesterol N Liver Disease N Headaches N Fibromyalgia N Kidney Disease N Allergies/Hayfever N Heart Problems N Ear or Hearing Problems N Hospitalizations N Thyroid Problems N GI Problems N ADD/ADHD N Skin Problems N Eating Disorder N Anemia N MRSA exposure N Constipation N Mental Illness N Ovarian Cancer N Diabetes N Bedwetting N Seizures/Epilepsy N Tuberculosis N AIDS/HIV N Congestive Heart Failure (CHF) N Eczema N Diverticulitis N Abuse/Domestic Violence N Asthma N Reflux/GERD N Hepatitis N [...] Recorded Time DTaP 8 completed LATRICE JEFFERS Qubell, [employer] 02/26/2020 08:15:51 Influenza, split virus, quadrivalent, preservative 0 completed LATRICE sharma [employer] 02/26/2020 08:16:05 Past Encounters Encounter ID Performer Location Encounter Start Date Encounter Closed Date Diagnosis/Indication Diagnosis SNOMED-CT Code Diagnosis ICD10 Code Diagnosis Note [id number] Chavez Sawyer [facility] [address] [place] [address] 02/26/2020 13:45:51 02/26/2020 15:06:48 Insomnia 205430244 G47.00 zolpidem, prazosin, quetiapine Mixed anxi ety and depressive disorder 375846923 F41.8 no si/hi clonazepam , clonidine, loraz, venlafax External hemorrhoids 239 49838 K64.4 proctosol Muscle pain 13477725 M79 .10 cycloben, diclo gel, meloxicam, naproxen Loss of appetite 0643099 6 R63.0 mirtazapin e New patien t screening done 436372962 Z76.89 labs-p Viral screening 86435204 4 Z11.59 labs-p Screening for malignant neoplasm of breast 693367215 Z12.39 Screening for osteoporosis 426390658 Z13.820 Psoriasis 3804527 L40.9 Lumbago with sciatica 20 9835634 M54.42 [id number] Chavez Sawyer [place] [address] [place] [address] 03/25/2020 13:36:59 03/25/2020 16:39:17 Screening for malignant neoplasm of colon 262392303 Z12.11 next yr Adult heal th examination 163689217 Z00.01 normal cpe labs reviewed Screening mammography 24 724618 Z12.31 Screening for osteoporosis 270075221 Z13.820 UTD Screening for cardiovascular system disease 335632345 Z13.6 Lumbago with sciatica 20 4404134 M54.42 Insomnia 722805865 G47.0 0 zolpidem, prazosin, quetiapine Mixed anxi ety and depressive disorder 613157038 F41.8 no si/hi clonazepam , clonidine, loraz, venlafax External hemorrhoids 239 48425 K64.4 proctosol Muscle pain 61533083 M79 .10 cycloben, diclo gel, meloxicam, naproxen Loss of appetite 3599736 6 R63.0 mirtazapin e Psoriasis 3447539 L40.9 Snoring symptoms 6450582 00 R06.83 Urinary tr act infectious disease 13822888 N39.0 [id number] Chavez Sawyer [facility] [address] [place] [address] 04/22/2020 13:08:08 04/22/2020 15:50:33 Lumbago with sciatica 581313528 M54.42 External hemorrhoids 239 68910 K64.4 proctosol Insomnia 643170540 G47.0 0 zolpidem, prazosin, quetiapine Mixed anxi ety and depressive disorder 813114987 F41.8 no si/hi clonazepam , clonidine, loraz, venlafax Muscle pain 52954087 M79 .10 cycloben, diclo gel, meloxicam, naproxen Loss of appetite 7966270 6 R63.0 mirtazapin e Screening for malignant neoplasm of breast 252857106 Z12.39 p Screening for osteoporosis 343780601 Z13.820 p Psoriasis 8372829 L40.9 Snoring symptoms 5632160 00 R06.[id number] [address] 05/20/2020 14:47:58 05/20/2020 17:15:02 Lumbago with sciatica 335685122 M54.42 External hemorrhoids 239 88324 K64.4 proctosol Insomnia 755244713 G47.0 0 zolpidem, prazosin, quetiapine Mixed anxi ety and depressive disorder 254010224 F41.8 no si/hi clonazepam , clonidine, loraz, venlafax Seborrheic dermatitis of scalp 128732689 L21.0 Active or passive immunization 575211558 Z23 [id number] [address] 06/21/2020 13:31:48 06/21/2020 14:16:16 Insomnia 490749343 G47.00 zolpidem, prazosin, quetiapine Lumbago with sciatica 20 7409141 M54.42 [address], [address], tiz 4, [address] 600 Pain management -p Mixed anxi ety and depressive disorder 153960594 F41.8 no si/hi clonazepam , clonidine, loraz, venlafax External hemorrhoids 239 23456 K64.4 proctosol Muscle pain 47498540 M79 .10 cycloben, diclo gel, meloxicam, naproxen Loss of appetite 3585715 6 R63.0 mirtazapin e Active or passive immunization 506712367 Z23 vacc-p Candidal intertrigo 2661 42224 B37.2 nystatin powder and powder. Psoriasis 3226429 L40.9 clobetasol , calcipotri maureen Seborrheic dermatitis of scalp 179704303 L21.0 ketoconazo le 2% [id number] BRIEN JOAQUIN [place] [address] [place] [address] 08/17/2020 11:23:20 08/17/2020 12:27:27 Insomnia 892173136 G47.00 zolpidem, prazosin, quetiapine Lumbago with sciatica 20 3916712 M54.42 [address], [address], tiz 4, [address] 600 Pain management -p PT ordered Mixed anxi ety and depressive disorder 310482907 F41.8 no si/hi clonazepam , clonidine, loraz, venlafax Sees Dr. Lanza External hemorrhoids 239 60770 K64.4 proctosol Obstructiv e sleep apnea of adult 8064419754 103 G47.33 Referral to sleep medicine-p Sleep study from 06/12/20 shows mild TIM. Recommends Auto CPAP or CPAP titration study Psoriasis 4113929 L40.9 clobetasol , calcipotri maureen Referral to derm-p Candidal intertrigo 2661 05588 B37.2 nystatin powder and powder. Muscle pain 41404872 M79 .10 cycloben, diclo gel, meloxicam, naproxen Loss of appetite 2879485 6 R63.0 mirtazapin e Active or passive immunization 176526938 Z23 vacc-p Seborrheic dermatitis of scalp 216104772 L21.0 ketoconazo le 2% Body mass index 40+ - severely obese 127905578 Z68.41 diet and exercise Morbid obesity 313287328 E66.01 diet and exercise [id number] [facility] [address] [place] [address] 09/16/2020 10:56:16 09/16/2020 11:22:30 Insomnia 524799577 G47.00 zolpidem, prazosin, quetiapine Lumbago with sciatica 20 3118434 M54.42 [address], [address], tiz 4, [address] Pain management -Has appt scheduled for 09/20/20-p PT ordered-p Mixed anxi ety and depressive disorder 818167351 F41.8 no si/hi clonazepam , clonidine, loraz, venlafax Sees Dr. Lanza External hemorrhoids 239 89961 K64.4 proctosol Stable on current regimen Psoriasis 8383181 L40.9 clobetasol , calcipotri maureen Referral to derm-p Obstructiv e sleep apnea of adult 3610375092 103 G47.33 Referral to sleep medicine-p Sleep study from 06/12/20 shows mild TIM. Recommends Auto CPAP or CPAP titration study Sleep Medicine appt on 10/23 Muscle pain 09494543 M79 .10 cycloben, diclo gel, meloxicam, naproxen Cyclobenza zohaib d/c'd Refilled Tizanidine to TID PRN Loss of appetite 2583167 6 R63.0 mirtazapin e Active or passive immunization 106033184 Z23 vacc-p Seborrheic dermatitis of scalp 883417369 L21.0 ketoconazo le 2% Body mass index 40+ - severely obese 173450405 Z68.41 diet and exercise Morbid obesity 258711709 E66.01 diet and exercise [id number] NESSA HOLLIS [facility] [address] [place] [address] 11/14/2020 15:29:37 11/14/2020 15:53:48 Muscle pain 12576358 M79.10 cycloben, diclo gel, meloxicam, naproxen Cyclobenza zohaib d/c'd Refilled Tizanidine to TID PRN-> stop cyc 10 qhs Psoriasis 7252042 L40.9 clobetasol , calcipotri maureen Referral to derm- seen cream given Lumbago with sciatica 20 0710907 M54.42 [address], [address], tiz 4, [address] 600 Pain management -Has appt scheduled for 09/20/20- seen MRI 12/2020-p PT ordered-p Obstructiv e sleep apnea of adult 2636593630 103 G47.33 Referral to sleep medicine-p Sleep study from 06/12/20 shows mild TIM. Recommends Auto CPAP or CPAP titration study Sleep Medicine appt on 10/23 pulm for CPAP-p Insomnia 424449703 G47.0 0 zolpidem, prazosin, quetiapine Mixed anxi ety and depressive disorder 019160451 F41.8 no si/hi clonazepam , clonidine, loraz, venlafax Sees Dr. Lanza External hemorrhoids 239 24938 K64.4 proctosol Stable on current regimen Loss of appetite 3082827 6 R63.0 mirtazapin e Seborrheic dermatitis of scalp 694502072 L21.0 ketoconazo le 2% Body mass index 40+ - severely obese 150589997 Z68.41 diet and exercise Constipation 68968055 K5 9.00 senna Screening for malignant neoplasm of colon 799252415 Z12.11 colon-p 07872 NESSA HOLLIS [facility] [address] [address] 01/13/2021 12:03:14 01/13/2021 12:17:44 Lumbago with sciatica 659939260 M54.42 [address], tiz 4, [address] Pain management -Has appt scheduled for 09/20/20- seen MRI 12/2020-p PT ordered-pt given # to book-p wants letter to move to 1st floor- referred to pain management Muscle pain 00587108 M79 .10 cycloben, diclo gel, meloxicam, naproxen Cyclobenza zohaib d/c'd Refilled Tizanidine to TID PRN-> stop cyc 10 qhs Psoriasis 1038803 L40.9 clobetasol , calcipotri maureen Referral to derm- seen cream given Obstructiv e sleep apnea of adult 5632179914 103 G47.33 Referral to sleep medicine-p Sleep study from 06/12/20 shows mild TIM. Recommends Auto CPAP or CPAP titration study Sleep Medicine appt on 10/23 pulm for CPAP- seen awaiting call back-p Insomnia 444336818 G47.0 0 zolpidem, prazosin, quetiapine Mixed anxi ety and depressive disorder 176046119 F41.8 no si/hi clonazepam , clonidine, loraz, venlafax Sees Dr. Lanza External hemorrhoids 239 22232 K64.4 proctosol Stable on current regimen Loss of appetite 9052408 6 R63.0 mirtazapin e Seborrheic dermatitis of scalp 709493126 L21.0 ketoconazo le 2% Body mass index 40+ - severely obese 953638107 Z68.41 diet and exercise Constipation 60920380 K5 9.00 senna Impaired g lucose tolerance 7210393 R73.02 HBA1c 5.3 02/2020 recheck-p 14639 NESSA HOLLIS [facility] [address] [place] [address] 02/20/2021 15:36:25 02/20/2021 15:46:29 Impaired glucose tolerance 4667192 R73.02 HBA1c 5.3 02/20202113SPA5 c 5.8 02/08/2021- diet/exerc ise rpt 3 months Lumbago with sciatica 20 1576788 M54.42 [address], [address], tiz 4, [address] 600 Pain management -Has appt scheduled for 09/20/20- seen MRI 12/2020-p PT ordered-pt given # to book-p wants letter to move to 1st floor- referred to pain management PT - awaiting call back Loss of appetite 4714528 6 R63.0 mirtazapin e Muscle pain 48776466 M79 .10 cycloben, diclo gel, meloxicam, naproxen Cyclobenza zohaib d/c'd Refilled Tizanidine to TID PRN-> stop cyc 10 qhs Psoriasis 8389053 L40.9 clobetasol , calcipotri maureen Referral to derm- seen cream given Obstructiv e sleep apnea of adult 6015300726 103 G47.33 Referral to sleep medicine-p Sleep study from 06/12/20 shows mild TIM. Recommends Auto CPAP or CPAP titration study Sleep Medicine appt on 10/23 pulm for CPAP- seen awaiting call back- 02/28/21-p Insomnia 783741587 G47.0 0 zolpidem, prazosin, quetiapine Mixed anxi ety and depressive disorder 541472676 F41.8 no si/hi clonazepam , clonidine, loraz, venlafax Sees Dr. Lanza External hemorrhoids 239 84400 K64.4 proctosol Stable on current regimen Seborrheic dermatitis of scalp 618885347 L21.0 ketoconazo le 2% Body mass index 40+ - severely obese 577483056 Z68.41 diet and exercise Constipation 83330458 K5 9.00 senna Internal hemorrhoids 904 17907 K64.8 hydr, proc [id number] [facility] [address] [place] [address] 03/27/2021 08:29:24 03/27/2021 15:29:22 Internal hemorrhoids 71316396 K64.8 hydr, proc Impaired g lucose tolerance 6983586 R73.02 HBA1c 5.3 02/20205454NMN0 c 5.8 02/08/2021- diet/exerc ise rpt 3 months Lumbago with sciatica 20 3257121 M54.42 [address], [address], tiz 4, [address] Pain management -Has appt scheduled for 09/20/20- seen MRI 12/2020-p PT ordered-pt given # to book-p wants letter to move to 1st floor- referred to pain management PT - awaiting call back Loss of appetite 0119435 6 R63.0 mirtazapin e Muscle pain 17214500 M79 .10 cycloben, diclo gel, meloxicam, naproxen Cyclobenza zohaib d/c'd Refilled Tizanidine to TID PRN-> stop cyc 10 qhs Psoriasis 6107032 L40.9 clobetasol , calcipotri maureen Referral to derm- seen cream given Obstructiv e sleep apnea of adult 5641952051 103 G47.33 Referral to sleep medicine-p Sleep study from 06/12/20 shows mild TIM. Recommends Auto CPAP or CPAP titration study Sleep Medicine appt on 10/23 pulm for CPAP- seen awaiting call back- 02/28/21- they called her and ? new machine Insomnia 604413422 G47.0 0 zolpidem, prazosin, quetiapine Mixed anxi ety and depressive disorder 629069245 F41.8 no si/hi clonazepam , clonidine, loraz, venlafax Sees Dr. Lanza External hemorrhoids 239 59229 K64.4 proctosol Stable on current regimen Seborrheic dermatitis of scalp 923160426 L21.0 ketoconazo le 2% Body mass index 40+ - severely obese 356146139 Z68.41 diet and exercise Constipation 28359736 K5 9.00 senna Screening for malignant neoplasm of colon 158767780 Z12.11 colonoscop y 12/2020- rpt 5-10 dep on results Adult heal th examination 027686890 Z00.01 cpe labs -p Screening mammography 24 189019 Z12.31 05/2020 nml-p Screening for osteoporosis 638825715 Z13.820 -DEXA: 05/2020 nml Screening for malignant neoplasm of cervix 447828294 Z12.4 [facility] Active or passive immunization 338556177 Z23 vacc-p Health Concerns Section Related Observation LastModified by Organization Detai ls LastModified Time None Recorded Concern Status LastModified by Organization Details LastModified Time None Recorded Advance Directives Directive None Recorded Payers Encounter Date Sequence Insurance Name Policy Number Policy Mcnamara Covered Member ID Mcnamara Member ID Guarantor Name 09/16/2020 1 [place] [employer] Chayra Y Boria Hensley [id number] Chayra Boria Hensley 09/16/2020 2 [place] Chayra Boria Hensley [id number] Chayra Boria Hensley 11/14/2020 1 [place] Chayra Y Boria Hensley [id number] Chayra Boria Hensley 11/14/2020 2 [place] Chayra Boria Hensley [id number] Chayra Boria Hensley 01/13/2021 1 [place] [employer] Chayra Y Boria Hensley [id number] Chayra Boria Hensley 01/13/2021 2 [place] Chayra Boria Hensley [id number] Chayra Boria Hensley 02/20/2021 1 [place] [employer] Chayra Y Boria Hesnley [id number] Chayra Boria Hensley 02/20/2021 2 [place] Chayra Boria Hensley [id number] Chayra Boria Hensley 03/27/2021 1 [place] Chayra Y Boria Hensley [id number] Chayra Boria Hensley 03/27/2021 2 [place] Chayra Boria Hensley [id number] Chayra Boria Hensley Notes Date Note Type [...] meds as prescribed. BRIEN sharma [place] - [employer] 09/16/2020 11:25:53 11/14/2020 text/html 50 yo female pre sents for fu- telemed -camera not working ??derm- yes given cream ??sleep med- had sleep study- pulm-p ??pain management- seen MRI-p ??PT-p ??colonoscopy-p MSK pain- chronic Psoriasis- derm-p Lumbago w/sciatica- ??PT Insomnia- sleeps well with meds Anxiety/depression- followed by psych TIM - ??CPAP Loss of appetite- improved NESSA BUNNY [address] [facility],[address], [place], [address], [facility] - [employer] 11/14/2020 15:54:16 01/13/2021 text/html 50 yo female [...] CPAP Muscle pain- stable NESSA HOLLIS [address], [place], [address], [employer] 01/13/2021 12:17:32 02/20/2021 text/html 50 yo female pre sents for lj-agwnbnq-jvqpqj not working Needs refill for msk relaxer and hemorroides ??PT- not booked- waiting call back??CPAP- 02/28/21Followed by psych MSK pain- chronicPsoriasis- dermLumbago w/sciatica-awaiting PTInsomnia- sleeps well with medsAnxiety/depressio n- followed by psychOSA - ??NAII-vbzt-eFagh of appetite- improvedConstipation- stableCOPD- stableOSA - awaiting pulm for CPAPMuscle pain- stable NESSA HOLLIS [address], [place], [address], [employer] 02/20/2021 15:46:32 03/27/2021 text/html 50 yo female pre sents for FUIU-vlaeyka-rebafo not working CPE labs- no colonoscopy 12/2020- rpt 5-10 dep on results -Vacc: updated with [facility].-PAP:2017 normal [facility]-DEXA: 05/2020 nml-Mammo: 05/2020 nml-Colonoscopy: 12/2020 rpt 5-10 results-p??PT- awaiting appt??help at home??CPAP- 02/28/21 - they called her and ? new machineFollowed by psych NESSA BOONEAN [address], [place], [address], [employer] 03/27/2021 15:32:09 03/27/2021 text/html Medicare Annual Wellness [...] lighting in the home NESSA HOLLIS [address] [facility],[address], [place], [address], [employer] 03/27/2021 15:32:09 OBGyn Episode No OBEpisode recorded.
--- OUTSIDE RECORDS SUMMARY | 2024-10-21 17:03 | XMS_ITS | Encounter Summary ---
[facility] Organization [facility] Address [address] [place] [address] Care Team Providers Care Car Wash Attendant Automatic Name Role Phone Mario Basilio MD Primary Care Provider [phone] Encounter Details Date Type Department Care Team Description 10/28/2023 Transfer Records Medical Records [address] [place], [place] [id number] [place] [address] Social History Tobacco Use Types Packs/Day Years Used Date Smoking Tobacco: Never Smokeless Tobacco: Never Alcohol Use Standard Drinks/Week Comments Yes 0 (1 standard drink = 0.6 oz pur e alcohol) socially Sex Assigned at Date Recorded Not on file Job Start Date Occupation Industry Not on file Not on file Not on file documented as of this encounter Plan of Treatment Not on file documented as of this encounter Visit Diagnoses Not on filedocumented in this encounter Care Teams Car Wash Attendant Automatic Relationship Specialty Start Date End Date Mario Basilio MD [address] [place] [address] PCP - General Internal Medicine 07/20/21 documented as of this encounter
--- OUTSIDE RECORDS SUMMARY | 2024-10-21 17:03 | XMS_ITS | Encounter Summary ---
Author Organization [facility] Address [address] [place] [address] Care Team Providers Care Bead Filler Name Role Phone Mario Basilio MD Primary Care Provider [phone] Reason for Visit * Reason Onset Date Comments Form 08/01/2023 Encounter Details Date Type Department Care Team Description 08/01/2023 Telephone Adult Medicine [address] [address] Mario Basilio MD [address] [place] [id number] Form Social History Tobacco Use Types Packs/Day Years Used Date Smoking Tobacco: Never Smokeless Tobacco: Never Alcohol Use Standard Drinks/Week Comments Yes 0 (1 standard drink = 0.6 oz pur e alcohol) socially Sex Assigned at Date Recorded Not on file Job Start Date Occupation Industry Not on file Not on file Not on file COVID-19 Exposure Response Date Recorded In the last 10 days, have yo u been in contact with someone who was confirmed or suspected to have Coronavirus/COVID-19? No / Unsure 07/17/2023 12:27 PM EST documented as of this encounter Miscellaneous Notes * Telephone Encounter - Aaron Fulton - 09/04/2023 10:11 AM EST Melanie from [facility] is requesting an update on this form to be refaxed guzman with the RN note. Any questions callback @ [phone].Thx. * Telephone Encounter - Saniya Reed - 08/01/2023 1:11 PM EST Information Needed Who is calling: [facility] Information being requested? Received physicians release form with no RN, needs RN signature If other information is needed, was an MAKAYLA signed? NO How is the information to be communicated back to the caller? Faxed to [phone] documented in this encounter Plan of Treatment Not on file documented as of this encounter Visit Diagnoses Not on filedocumented in this encounter Care Teams Bead Filler Relationship Specialty Start Date End Date Mario Basilio MD [address] [place], [place] [id number] PCP - General Internal Medicine 07/20/21 documented as of this encounter
--- OUTSIDE RECORDS SUMMARY | 2024-10-21 17:03 | XMS_ITS | Clinical Summary ---
Author Organization [facility] Address [address] [place] [address] Phone Care Team Providers Care Biosolids Management Technician Name Role Phone Mario Basilio MD Primary Care Provider [phone] Allergies No known active allergies Medications acetaminophen (TYLENOL) 500 mg tablet TAKE 1 TABLET BY MOUTH THREE TIMES DAILY 11/02/19 24 Active amitriptyline (ELAVIL) 25 mg tablet Take 1 Tablet by mouth at bedtime. 08/13/20 23 Active DULoxetine (CYMBALTA) [address] capsule TAKE 1 CAPSULE BY MOUTH EVERY MORNING 01/11/20 22 Active GENERIC EXTERNAL MEDICATION Nifedipine 0.3% ointment Apply as a thin film TID to the perianal skin 01/16/20 22 Active LORazepam (ATIVAN) 0.5 mg tablet Take 1 Tablet by mouth 3 times daily. Active polyethylene glycol (MIRALAX) 17 gram packet MIX 17 GM IN WATER( 1 PACKET) AND DRINK DAILY 10/15/19 24 Active prazosin (MINIPRESS) 5 mg capsule TAKE 1 CAPSULE BY MOUTH AT BEDTIME FOR NIGHTNARES 12/26/19 22 Active QUEtiapine (SEROquel) 100 mg tablet TAKE 1 TABLET BY MOUTH AT BEDTIME 10/26/19 22 Active triamcinolone (KENALOG) 0.1 % cream Apply to affected area HS prn 03/20/20 23 Active zolpidem (AMBIEN) 10 mg tablet TAKE 1 TABLET BY MOUTH AT BEDTIME 01/12/20 22 Active clotrimazole (LOTRIMIN) 1 % creamIndication s:Candidiasis, cutaneous apply daily to breast folds as needed 60 g 2 08/18/20 24 Active hydrocortisone (ANUSOL-HC) 2.5 % rectal creamIndication s:Hemorrhoids, unspecified hemorrhoid type Insert into the rectum 2 (two) times a day. 30 g 3 08/18/20 24 025 Active methocarbamoL (ROBAXIN) 750 mg tabletIndicatio ns:Chronic bilateral low back pain, unspecified whether sciatica present Take 1 tablet (750 mg total) by mouth 1 (one) time each day. 90 each 1 08/18/20 24 025 Active calcipotriene (DOVONEX) 0.005 % creamIndication s:Psoriasis APPLY TO AFFECTED AREAS OF PSORIASIS TWICE DAILY. 60 g 1 08/18/20 24 Active nabumetone (RELAFEN) 500 mg tabletIndicatio ns:Chronic bilateral low back pain, unspecified whether sciatica present TOME 1 TABLETA POR VIA ORAL TODOS [place] CU[place]O SEA NECESARIO PARA EL DOLOR 90 tablet 10/19/19 25 Active nabumetone (RELAFEN) 500 mg tabletIndicatio ns:Chronic bilateral low back pain, unspecified whether sciatica present Take 1 tablet (500 mg total) by mouth 1 (one) time each day if needed for mild pain. 30 tablet 08/18/20 24 025 Discontinued Active Problems Problem Noted Date Diagnosed Date Bipolar disorder 10/26/2021 Chronic back pain 10/26/2021 Depression 10/26/2021 Encounters Date Type Department Care Team Description 10/15/2024 Telephone Hospital Recruiter - [address] [phone] Mario Basilio MD PT-1 09/17/2024 Telephone Pediatrics - [address] [phone] Mario Basilio MD Referral 08/18/2024 3:30 PM EST Office Visit Internal Medicine - [address] [phone] Aurora Bates NP Routine general medical examination [...] obesity type, unspecified whether serious comorbidity present ([facility]); Flu vaccine need 08/06/2024 2:45 PM EST Consult Orthopedic Surgery - [place] [address] [facility] [address] [place] [phone] Luis Jennings DPM Sprain of anterior talofibular ligament of right ankle, initial encounter (Primary Dx) 08/01/2024 4:41 PM EST - 08/01/2024 8:46 PM EST Emergency [facility] [address] [place] [address] Pan Winter MD Closed fracture [...] Bipolar disorder (CMS/HCC) 10/26/2021 DX:Bi polar disorder ([facility]) Depression 10/26/2021 DX:Depression Chronic back pain 10/26/2021 [...] drink = 0.6 oz pur e alcohol) Comments No Sex and Gender Information Value Date Recorded Sex Assigned at Not on file Legal Sex Female 11:41 AM EST Gender Identity Not on file Sexual Orientation Not on file Obstetrics History Last Filed [...] 2:30 PM EST Office Visit Internal Medicine [address] [address] Aurora Bates NP [address] [place] [address] 05/18/2025 8:30 AM EDT Office Visit Bariatric Surgery [facility] [address] [phone] Flo Dixon MD [address] [address] Health Maintenance Due Date Last Done Comments Hepatitis B Vaccines (1 of 3 - 19+ 3-dose series) 1989 Cervical Cancer Screening: Pap Smear 1991 Pneumococcal Vaccine: 50+ Years (1 of 1 - PCV) 2020 Zoster Vaccines (1 of 2) 2020 Breast [...] patient's age to complete this topic Meningococcal B Vacine Aged Out No lo nger eligible based on patient's age to complete [...] EST HM HEPATITIS C SCREENING Routine 10/02/2022 HM COLONOSCOPY Routine 09/04/2021 HARRISON SCREENING DIGITAL Routine 06/01/2020 4:01 PM EDT Encounter for screening mammogram for malignant neoplasm of breast from Last 3 Months or Most Recently Relevant to Health Maintenance Results * HIV 1,2 antibody, p24 antigen with reflex to differentiation (08/18/2024 4:20 PM EST) HIV Combo AB/AG Negative Negative LAB CHEMISTRY METHOD 08/18/2024 7:40 PM EST [facility] Blood Venous blood specimen / Unknown Venipuncture / Unknown 08/18/2024 4:20 PM EST 08/18/2024 4:20 PM EST Narrative [facility] - 08/18/2024 7:40 PM EST This assay is a 4th generation assay allowing for earlier detection of HIV infection by detecting the presence of the HIV-1 p24 antigen as well as the traditional antibodies to HIV type 1 (including group O) and type 2. ??Use of a 4th generation assay is the current CDC recommendation for HIV screening. us Aurora Bates NP LAB BLOOD ORDERABLES Final Resul t [facility] [address] [place] [address], [place] [phone] * (ABNORMAL) Lipid panel with reflex to direct LDL (08/18/2024 4:20 PM EST) Cholesterol 212(H) 0 - 200 mg/dL LAB CHEMISTRY METHOD 08/18/2024 7:00 PM EST [facility] Triglycerides 179(H) 0 - 150 mg/dL LAB CHEMISTRY METHOD 08/18/2024 7:00 PM [facility] HDL 61 >=40 mg/dL LAB CHEMISTRY METHOD 08/18/2024 7:00 PM [facility] LDL Calculated 115(H) 0 - 100 mg/dL LAB CHEMISTRY METHOD 08/18/2024 7:00 PM [facility] VLDL Cholesterol Kofi 35.8 mg/dL LAB CHEMISTRY METHOD 08/18/2024 7:00 PM [facility] Non HDL Chol. (LDL+VLDL) 151(H) <145 mg/dL LAB CHEMISTRY METHOD 08/18/2024 7:00 PM EST [facility] Chol/HDL Ratio 3.5 0.0 - 4.4 LAB CHEMISTRY METHOD 08/18/2024 7:00 PM [facility] Blood Venous blood specimen / Unknown Venipuncture / Unknown 08/18/2024 4:20 PM EST 08/18/2024 4:20 PM EST Aurora Bates NP LAB BLOOD ORDERABLES Final Resul t [facility] [address] [place] [address], [place] [phone] * (ABNORMAL) Basic metabolic panel (08/18/2024 4:20 PM EST) [facility] Sodium 137 133 - 145 mmol/L LAB CHEMISTRY METHOD 08/18/2024 6:53 PM [facility] Potassium 4.6 3.5 - 5.5 mmol/L LAB CHEMISTRY METHOD 08/18/2024 6:53 PM [facility] Chloride 103 96 - 110 mmol/L LAB CHEMISTRY METHOD 08/18/2024 6:53 PM [facility] CO2 28 21 - 32 mmol/L LAB CHEMISTRY METHOD 08/18/2024 6:53 PM [facility] Anion Gap 6 3 - 11 LAB CHEMISTRY METHOD 08/18/2024 6:53 PM [facility] Glucose 102(H) 70 - 100 mg/dL LAB CHEMISTRY METHOD 08/18/2024 6:53 PM [facility] BUN 18 5 - 25 mg/dL LAB CHEMISTRY METHOD 08/18/2024 6:53 PM [facility] Creatinine 1.01 0.50 - 1.10 mg/dL LAB CHEMISTRY METHOD 08/18/2024 6:53 PM [facility] eGFR 66 >=60 mL/min/1. 73m2 LAB CHEMISTRY METHOD 08/18/2024 6:53 PM [facility] Comment:Calculation based on the??Chronic Kidney Disease Epidemiology Collaboration (CKD-EPI) equation refit??without adjustment for race. BUN/Creatinine Ratio 17.8 LAB CHEMISTRY METHOD 08/18/2024 6:53 PM [facility] Calcium 9.8 8.5 - 10.5 mg/dL LAB CHEMISTRY METHOD 08/18/2024 6:53 PM [facility] Blood Venous blood specimen / Unknown Venipuncture / Unknown 08/18/2024 4:20 PM EST 08/18/2024 4:20 PM EST us Aurora Bates NP LAB BLOOD ORDERABLES Final Resul t [facility] [address] [place] [address], * [place] APPLICATION SPLINT SHORT LEG, [place] APPLICATION CAST SHORT LEG, HC APPLICATION SPLINT/CAST/STRAP, HC APPLICATION SPLINT/CAST/STRAP (08/01/2024 6:34 PM EST) Narrative Pan Winetr MD - 08/01/2024 6:34 PM EST Pan [...] completion: ??Tolerated ??Post-procedure imaging: not applicable ?? us Pan Winter MD IN CLINIC/BEDSIDE ORDERABLES Fi nal Result * XR Ankle 3+ Views Right (08/01/2024 [...] Signed Date: 08/02/2024 08:11 ET Workstation ID: [id number] Transcribed By: Self Edit Transcribed Date: 08/02/2024 [...] Signed Date: 08/02/2024 08:11 ET Workstation ID: [id number] Transcribed By: Self Edit Transcribed Date: 08/02/2024 08:10 ET Gabe Fitzpatrick MD IMG XR PROCEDURES Final Res ult * Hepatitis C Screening (10/02/2022) Hepatitis C Screening Abstracted Historical Provider HEALTH MAINTENANCE Final Result * Colonoscopy (09/04/2021) Colonoscopy No Interpretation , Abstracted Anatomical Region Laterality Modality Other Historical Provider HEALTH MAINTENANCE Final Result * HARRISON SCREENING DIGITAL (06/01/2020 4:01 PM EDT) Anatomical Region Laterality Modality Mammography 06/01/2020 10:3 0 AM EDT Narrative 06/01/2020 4:01 PM EDT [facility] Diagnostic Imaging Department [address] [place] [address] Patient: ??GROVER ISLAS ?/Age/Sex: 1970 - 50 - F Unit#: ??[id number] ? Location/Status: ??SPDIMAM/REG CLI ? Mnemonic/Ordering Site: ??DIGSC/SPMAM Ordering Physician: ??LEANNA SMITH DO [place] Screening Digital - 06/01/20 - 1128 History: Bilateral breast cancer screening. Technique: ??Digital mammography. Conventional CC and MLO projections with tomosynthesis MLO views and computer aided detection. Comparison: None available. Previous mammography obtained in [place] are unavailable. Findings: Breast tissue consists of a heterogenous combination of ??fatty and fibroglandular tissue, potentially obscuring small lesions, category c density bilaterally (as calculated by [employer] software). No suspicious group of microcalcification, suspicious mass, concerning focal asymmetry or architectural distortion within either breast. Impression: ??No evidence of malignancy. BI-RADS category 1; negative study, 3341F 62012, 92692 A negative mammogram in the face of a clinically suspicious abnormality does not exclude the possibility of malignancy nor alter the indications for biopsy. Note: Patient information entered ??into a reminder system with a target due date for the next mammogram; RI II 2333M Dictating Physician: ??RALPH BLANCO MD Electronically Signed by: ??RALPH BLANCO MD Dic Date/Time: ??06/01/20 1601 Sign date/Time: ??06/01/20 1601 Procedure Note Ralph Blanco MD - 08/22/2022 [facility] Diagnostic Imaging Department [address] [place] [id number] Patient: ROSELINE PRATHERGROVERO.B./Age/Sex: 1970 - 50 - F Unit#: [id number] [facility]Ordering Site: [facility] Ordering Physician: LEANNA SMITH DO Harrison Screening Digital - 06/01/20 - 1128 History: Bilateral breast cancer screening. Technique: Digital mammography. Conventional CC and MLO projectionswith tomosynthesis MLO views and computer aided detection. Comparison: None available. Previous mammography obtained in [facility] unavailable. Findings: Breast tissue consists of a heterogenous combination of fattyand fibroglandular tissue, potentially obscuring small lesions, category cdensity bilaterally (as calculated by [employer] software). No suspicious group of microcalcification, suspicious mass, concerningfocal asymmetry or architectural distortion within either breast. Impression: No evidence of malignancy. BI-RADS category 1; negative study, 3341F 69110, [address]673 A negative mammogram in the face of a clinically suspicious abnormalitydoes not exclude the possibility of malignancy nor alter the indications forbiopsy. Note: Patient information entered into a reminder system with a targetdue date for the next mammogram; PQRI II 9127N Dictating Physician: RALPH BLANCO MD Electronically Signed by: RALPH BLANCO MD Dic Date/Time: 06/01/20 1601 Sign date/Time: 06/01/20 1601 Leanna Smith DO IMG BI PROCEDURES Final Result from Last 3 Months or Most Recently Relevant to Health Maintenance Insurance [place] MED[place] ADVANTAGE [address] [place] [address] Care Teams Biosolids Management Technician Relationship Specialty Start Date End Date Mario Basilio MD [address] [place] [address] PCP - General Internal Medicine 08/18/24
--- OUTSIDE RECORDS SUMMARY | 2024-10-21 17:03 | XMS_ITS | Encounter Summary ---
Author Organization [facility] Address [address] [place] [address] Care Team Providers Care Ultrasound Specialist Name Role Phone Mario Basilio MD Primary Care Provider [phone] Encounter Details Date Type Department Care Team Description 12/12/2021 Hospital Medical Records [address] [place] [address] Carlos Wong MD Social History Tobacco Use Types Packs/Day Years [...] suspected to have Coronavirus/COVID-19? No / Unsure 12/07/2021 11:55 AM EDT documented as of this encounter Plan of Treatment Not on file documented as of this encounter Visit Diagnoses Not on filedocumented in this encounter Care Teams Ultrasound Specialist Relationship Specialty Start Date End Date Mario Basilio MD [address] [place] [address] PCP - General Internal Medicine 07/20/21 documented as of this encounter
--- OUTSIDE RECORDS SUMMARY | 2024-10-21 17:03 | XMS_ITS | Encounter Summary ---
Author Organization [facility] Address [address] [place] [address] Care Team Providers Care Jig Bore Tool Maker Name Role Phone Mario Basilio MD Primary Care Provider [phone] Reason for Visit * Reason Comments E-prescribe Rx Request Encounter Details Date Type Department Care Team Description 08/20/2022 Refill Gastroenterology - [place] [address] [facility] [address] [place] [address] Carlos Wong MD E-prescribe Rx Request Social History Tobacco Use Types Packs/Day Years Used Date Smoking Tobacco: Never Smokeless Tobacco: Never Sex Assigned at Date Recorded Not on file Job Start Date Occupation Industry Not on file Not on file Not on file documented as of this encounter Miscellaneous Notes * Telephone Encounter - Noelle Higuera - 08/20/2022 2:14 PM EST Received fax from [employer] requesting a 90 day supply per insurance. Medication Senna-Time 8.6 MG tabletPlease refax [phone] * Telephone Encounter - Eleonora Solorzano M.A. - 08/20/2022 10:12 AM EST [place]EL[place] 03/22/22, no f/up documented in this encounter Plan of Treatment Not on file documented as of this encounter Visit Diagnoses Not on filedocumented in this encounter Care Teams Jig Bore Tool Maker Relationship Specialty Start Date End Date Mario Basilio MD [address] [place] [address] PCP - General Internal Medicine 07/20/21 documented as of this encounter
--- OUTSIDE RECORDS SUMMARY | 2024-10-21 17:03 | XMS_ITS | Encounter Summary ---
Author Organization [facility] Address [address] [place] [address] Care Team Providers Care Human Resource Advisor Name Role Phone Mario Basilio MD Primary Care Provider [phone] Reason for Visit * Reason Comments E-prescribe Rx Request Encounter Details Date Type Department Care Team Description 08/03/2023 Refill Adult Medicine [address] [address] Aurora Bates APRN [address] [place] [address] E-prescribe Rx Request Social History Tobacco Use [...] encounter Miscellaneous Notes * Telephone Encounter - Bibi Dhillon - 08/05/2023 1:49 PM EST Called patient,a lady answer the phone . I ask to speak too Chayra the lady hang the phone up on me. JUANITA ARREAGA * Telephone Encounter - Anika Hayward NP - 08/05/2023 12:34 PM EST Acute medications, should be filled by prescribing provider. * Telephone Encounter - Stephanie Lozoya M.A. - 08/05/2023 11:38 AM EST Last Office Visit: 07/07/2023, no pending appt Lab Results Component Value Date NA 141 07/17/2023 K 4.6 07/17/2023 CO2 26 07/17/2023 CL 108 07/17/2023 BUN 14 07/17/2023 CREAT 0.86 07/17/2023 GLU 112 07/17/2023 CA 10.0 07/17/2023 GFR 81 07/17/2023 * Telephone Encounter - Krsytyna Harris - 08/05/2023 9:24 AM EST Patient would like script to be: E-PRESCRIBED/FAXED TO PHARMACY WHEN WAS THE PATIENT'S LAST APPOINTMENT IN ADULT MEDICINE? 07/07/23 WHEN WAS THE LAST TIME THE PATIENT SAW THEIR PCP? 12/05/21 Does patient have an upcoming appointment? no (THE MEDICATION REQUESTED IS ON THE MED LIST ABOVE) All of the medications requested were on the CURRENT MEDS list Did you check the Pharmacy information above?: YES Patient wants: 90 -day supply Is this a mail order prescription request ? NO If the refill is from a FAXED refill request what is the RX # listed on the fax? N/A Patients current insurance carrier is: [place] / [place] / Product Type: [place]ARE [id number] documented in this encounter Plan of Treatment Not on file documented as of this encounter Visit Diagnoses Diagnosis Chronic bilateral low back pain without sciatica documented in this encounter Care Teams Human Resource Advisor Relationship Specialty Start Date End Date Mario Basilio MD [address] [place] [address] PCP - General Internal Medicine 07/20/21 documented as of this encounter
--- OUTSIDE RECORDS SUMMARY | 2024-10-21 17:03 | XMS_ITS | Encounter Summary ---
Author Organization [facility] Address [address] [place] [address] Care Team Providers Care Computer Graphic Designer Name Role Phone Mario Basilio MD Primary Care Provider [phone] Reason for Visit * Reason Onset Date Comments PT-1 10/15/2024 Encounter Details Date Type Department Care Team (Late st Contact Info) Description 10/15/2024 Telephone [employer] Transactions Attorney - [address] [place] [address] Mario Basilio MD [address] [place] [address] PT-1 Social History Tobacco Use Types Packs/Day Years Used Date Smoking Tobacco: Never Smokeless Tobacco: Never Alcohol Use Standard Drinks/Week Comments Yes 0 (1 standard drink = 0.6 oz pur e alcohol) Comments No Sex and Gender Information Value Date Recorded Sex Assigned at Not on file Legal Sex Female 11:41 AM EST Gender Identity Not on file Sexual Orientation Not on file documented as of this encounter Progress Notes * Rosetta Sinclair MA - 10/16/2024 9:21 AM EST PT I form was completed / submitted on line with [employer] PT 1 tracking # is: [id number] modified to #6/ month * Winter Duval - 10/15/2024 3:52 PM EST [facility] Medicaid Group new provider or submitter number is [id number] Verify and document patients [place] Health insurance ID # (NOT [facility] ID): [facility] [id number] [place] / [place] / Product Type: [place]ARE [id number] Patient mailing address: [address] [facility] [address] Telephone Information: Pt. demographics verified? YES If not accurate, update registration. Is this a NEW request or a RENEWAL? RENEWAL Name of treating facility: [facility] Name (first & last) of treating provider? required : N/A What is the medical reason why the patient is seeing the above provider? Behavorial Specialist Address/Zip code for treating provider: [address] [place] [address] Phone # for treating provider: [phone] Is the provider in the [employer] network (do they accept [place] Health insurance)? YES What specialtly is this provider? Behavioral Health When is the visit scheduled for? 10-27-24 @ 10:30AM How often you will be seeing this particular provider? 6 X PER MONTH Do you have friends or family who can transport you to this visit? NO If yes, do not complete request. Is there anything stopping you from using public transportation? If yes, explain. : YES Is there a medical reason (diagnosis) why you are unable to use public transportation? If yes, explain: yes - pt is disabled Does patient carry self-administered oxygen? NO Does patient require door through door or room to room service( ex: member cannot ambulate or wait independently outside their home/facility for transportation. NO Is this is for an Adult Day Program or Suboxone clinic no If yes to above what is arrival time no and what is departure time no If yes to above how many days a week? no Do you need a wheelchair van? NO If you use a wheelchair what is the height, width & length of the wheelchair? no Do you need an escort to accompany you? If yes, explain why. NO Will you have an alternative pick-up address? NO Do you have a service animal? NO PT DOES NOT NEED RELEASE OF INFORMATION SIGNED documented in this encounter Plan of Treatment Upcoming Encounters Date Type Department Care Team (Late st Contact Info) Description 10/28/2024 2:30 PM EST Office Visit Internal Medicine - [facility] [address] [place] [address] Aurora Bates NP [address] [place] [address] 05/18/2025 8:30 AM EDT Office Visit Bariatric Surgery - [place] [address] [phone] Flo Dixon MD [address] [address] documented as of this encounter Visit Diagnoses Not on filedocumented in this encounter Care Teams Computer Graphic Designer Relationship Specialty Start Date End Date Mario Basilio MD [address] [place] [address] PCP - General Internal Medicine 08/18/24 documented as of this encounter
--- OUTSIDE RECORDS SUMMARY | 2024-10-21 17:03 | XMS_ITS | Encounter Summary ---
Author Organization [facility] Address [address] [place] [address] Care Team Providers Care Vocational Aide Name Role Phone Mario Basilio MD Primary Care Provider [phone] Encounter Details Date Type Department Care Team Description 12/14/2021 Orders Only Medical Records [address] [place] [address] Carlos Wong MD Social History Tobacco Use [...] on file documented as of this encounter Procedures Procedure Name Priority Date/Time Associated Diagnosis Comments OUTSIDE PATHOLOGY Routine 12/12/2021 documented in this encounter Results * OUTSIDE PATHOLOGY (12/12/2021) Carlos Wong MD OUTSIDE LAB documented in this encounter Visit Diagnoses Not on filedocumented in this encounter Care Teams Vocational Aide Relationship Specialty Start Date End Date Mario Basilio MD [address] [place] [address] PCP - General Internal Medicine 07/20/21 documented as of this encounter
== END 2024-10-21 08:35 | disposition home or self-care (01) ==
LOC: HO.LNP 08:34
PROVIDERS: Visit Provider Surgery
DX: E66.01 Morbid (severe) obesity due to excess calories (principal)
CPT/HCPCS: 99211

== ENCOUNTER 2024-10-22 09:03 | Outpatient (REF) | payer OTHER, SELFPAY ==
--- NOTE | ~2024-10-22 | FL_ITS ---
EXAMINATION: XR FLUOROSCOPY UPPER GI WITH AIR CLINICAL INFORMATION: Preoperative evaluation prior to bariatric surgery COMPARISON: None TECHNIQUE: Fluoroscopic air contrast upper GI examination was performed utilizing standard techniques with thin and thick barium and effervescent granules. Numerous spot images were obtained. FINDINGS: Dual and single contrast images of the esophagus demonstrate normal caliber, contour, and mucosal pattern. No evidence of stricture, mass, or ulcerations identified. Esophageal peristalsis is mildly disorganized. Surgical clips are present in the upper quadrant. A very small type I hiatal hernia is present. Moderate gastroesophageal reflux is seen up to the midesophagus. Dual contrast and single contrast images of the stomach demonstrated normal contour and mucosal pattern without evidence of mass, ulceration, or other abnormality. Contrast freely passed into the gastric antrum and duodenal bulb without delay. Single and air-contrast images of the duodenal bulb demonstrate no abnormality. The duodenal sweep has a normal appearance, course, and mucosal fold appearance. The imaged proximal jejunum has a normal fold pattern and caliber. FLUOROSCOPY TIME: 3 minutes 57 seconds Number of Spot Images: 6 Number of Cine: 13 DOSE AREA PRODUCT: 2695 uGy-m2 (microgray-meter squared) FL/FL upper GI w air IMPRESSION: 1. Mildly disorganized esophageal peristalsis. 2. Very small type I hiatal hernia with moderate gastric esophageal reflux. 3. Status post cholecystectomy. This procedure was performed by Josh Alvarez PA-C, and supervised by Dr. Scruggs Electronically signed by: Gilberto Scruggs MD 10/23/2024 04:21 PM [facility] Workstation: [id number]
--- OUTSIDE RECORDS SUMMARY | 2024-10-22 09:41 | XMS_ITS | Clinical Summary ---
Author Organization [facility] Address [address] [place] [address] Phone Care Team Providers Care Certified Marine Mechanic Name Role Phone Mario Basilio MD Primary Care Provider [phone] Allergies No known active allergies Medications acetaminophen [...] Type Department Care Team Description 10/15/2024 Telephone Passenger Service Manager - [address] [phone] Mario Basilio MD PT-1 09/17/2024 Telephone Pediatrics - [address] [phone] Mario Basilio MD Referral 08/18/2024 3:30 PM EST Office Visit Internal Medicine - [address] [phone] Aurora Bates NP Routine general medical examination [...] obesity type, unspecified whether serious comorbidity present ([facility]); Flu vaccine need 08/06/2024 2:45 PM EST Consult Orthopedic Surgery - [place] [address] [place] [phone] Luis Jennings DPM Sprain of anterior talofibular ligament of right ankle, initial encounter (Primary Dx) 08/01/2024 4:41 PM EST - 08/01/2024 8:46 PM EST Emergency [facility] Emergency [address] [place] [address] Pan Winter MD Closed fracture [...] Bipolar disorder (CMS/HCC) 10/26/2021 DX:Bi polar disorder ([facility]) Depression 10/26/2021 DX:Depression Chronic back pain 10/26/2021 [...] 2:30 PM EST Office Visit Internal Medicine [address] [address] Aurora Bates NP [address] [place] [address] 05/18/2025 8:30 AM EDT Office Visit Bariatric Surgery [facility] [address] [phone] Flo Dixon MD [address] [address] Health Maintenance Due Date Last Done Comments [...] APPLICATION SPLINT/CAST/STRAP Routine 08/01/2024 6:34 PM EST DC APPLICATION CAST SHORT LEG Routine 08/01/2024 6:34 PM EST DC APPLICATION SPLINT SHORT LEG Routine 08/01/2024 6:34 [...] LAB CHEMISTRY METHOD 08/18/2024 7:40 PM EST [facility] Blood Venous blood specimen / Unknown Venipuncture / Unknown 08/18/2024 4:20 PM EST 08/18/2024 4:20 PM EST Narrative [facility] - 08/18/2024 7:40 PM [...] NP LAB BLOOD ORDERABLES Final Resul t [facility] [address] [place] [address], [place] [phone] * (ABNORMAL) Lipid panel with reflex to direct LDL (08/18/2024 4:20 PM EST) Cholesterol 212(H) 0 - 200 mg/dL LAB CHEMISTRY METHOD 08/18/2024 7:00 PM EST [facility] Triglycerides 179(H) 0 - 150 mg/dL LAB CHEMISTRY METHOD 08/18/2024 7:00 PM [facility] HDL 61 >=40 mg/dL LAB CHEMISTRY METHOD 08/18/2024 7:00 PM [facility] LDL Calculated 115(H) 0 - 100 mg/dL LAB CHEMISTRY METHOD 08/18/2024 7:00 PM [facility] VLDL Cholesterol Kofi 35.8 mg/dL LAB CHEMISTRY METHOD 08/18/2024 7:00 PM [facility] Non HDL Chol. (LDL+VLDL) 151(H) <145 mg/dL LAB CHEMISTRY METHOD 08/18/2024 7:00 PM EST [facility] Chol/HDL Ratio 3.5 0.0 - 4.4 LAB CHEMISTRY METHOD 08/18/2024 7:00 PM [facility] Blood Venous blood specimen / Unknown Venipuncture / Unknown 08/18/2024 4:20 PM EST 08/18/2024 4:20 PM EST Aurora Bates NP LAB BLOOD ORDERABLES Final Resul t [facility] [address] [place] [address], [place] [phone] * (ABNORMAL) Basic metabolic panel (08/18/2024 4:20 PM EST) [facility] Sodium 137 133 - 145 mmol/L LAB CHEMISTRY METHOD 08/18/2024 6:53 PM [facility] Potassium 4.6 3.5 - 5.5 mmol/L LAB CHEMISTRY METHOD 08/18/2024 6:53 PM [facility] Chloride 103 96 - 110 mmol/L LAB CHEMISTRY METHOD 08/18/2024 6:53 PM [facility] CO2 28 21 - 32 mmol/L LAB CHEMISTRY METHOD 08/18/2024 6:53 PM [facility] Anion Gap 6 3 - 11 LAB CHEMISTRY METHOD 08/18/2024 6:53 PM [facility] Glucose 102(H) 70 - 100 mg/dL LAB CHEMISTRY METHOD 08/18/2024 6:53 PM [facility] BUN 18 5 - 25 mg/dL LAB CHEMISTRY METHOD 08/18/2024 6:53 PM [facility] Creatinine 1.01 0.50 - 1.10 mg/dL LAB CHEMISTRY METHOD 08/18/2024 6:53 PM [facility] eGFR 66 >=60 mL/min/1. 73m2 LAB CHEMISTRY METHOD 08/18/2024 6:53 PM [facility] Comment:Calculation based on the??Chronic Kidney Disease Epidemiology Collaboration (CKD-EPI) equation refit??without adjustment for race. BUN/Creatinine Ratio 17.8 LAB CHEMISTRY METHOD 08/18/2024 6:53 PM [facility] Calcium 9.8 8.5 - 10.5 mg/dL LAB CHEMISTRY METHOD 08/18/2024 6:53 PM [facility] Blood Venous blood specimen / Unknown Venipuncture / Unknown 08/18/2024 4:20 PM EST 08/18/2024 4:20 PM EST us Aruora Bates NP LAB BLOOD ORDERABLES Final Resul t [facility] [address] [place] [address], * DC APPLICATION SPLINT SHORT LEG, DC APPLICATION CAST SHORT LEG, HC APPLICATION SPLINT/CAST/STRAP, [...] Signed Date: 08/02/2024 08:11 ET Workstation ID: [id number] Transcribed By: Self Edit Transcribed Date: 08/02/2024 [...] Signed Date: 08/02/2024 08:11 ET Workstation ID: [id number] Transcribed By: Self Edit Transcribed Date: 08/02/2024 [...] AM EDT Narrative 06/01/2020 4:01 PM EDT [facility] Diagnostic Imaging Department [address] [place] [address] Patient: ??GROVER ISLAS ?/Age/Sex: 1970 - 50 - F Unit#: ??[id number] ? Location/Status: ??SPDIMAM/REG CLI ? Mnemonic/Ordering Site: ??DIGSC/SPMAM Ordering Physician: ??LEANNA SMITH DO [place] Screening Digital - 06/01/20 - 1128 History: Bilateral breast cancer screening. Technique: ??Digital mammography. Conventional CC and MLO projections with tomosynthesis MLO views and computer aided detection. Comparison: None available. Previous mammography obtained in [place] are unavailable. Findings: Breast tissue consists of a heterogenous combination of ??fatty and fibroglandular tissue, potentially obscuring small lesions, category c density bilaterally (as calculated by Skoutpara software). No suspicious group of microcalcification, suspicious mass, concerning focal asymmetry or architectural distortion within either breast. Impression: ??No evidence of malignancy. BI-RADS category 1; negative study, 3341F 26022, [address]1991 A negative mammogram in the face of a clinically suspicious abnormality does not exclude the possibility of malignancy nor alter the indications for biopsy. Note: Patient information entered ??into a reminder system with a target due date for the next mammogram; [place] II 9162F Dictating Physician: ??RALPH BLANCO MD Electronically Signed by: ??RALPH BLANCO MD Dic Date/Time: ??06/01/20 1601 Sign date/Time: ??06/01/20 1601 Procedure Note Ralph Blanco MD - 08/22/2022 [facility] Diagnostic Imaging Department [address] [place] [id number] Patient: ROSELINE PRATHERGROVERO.B./Age/Sex: 1970 - 50 - F Unit#: [id number] [facility]Ordering Site: [facility] Ordering Physician: LEANNA SMITH DO [place] Screening Digital - 06/01/20 - 1128 History: Bilateral breast cancer screening. Technique: Digital mammography. Conventional CC and MLO projectionswith tomosynthesis MLO views and computer aided detection. Comparison: None available. Previous mammography obtained in [facility] unavailable. Findings: Breast tissue consists of a heterogenous combination of fattyand fibroglandular tissue, potentially obscuring small lesions, category cdensity bilaterally (as calculated by iReveal Volpara software). No suspicious group of microcalcification, suspicious mass, concerningfocal asymmetry or architectural distortion within either breast. Impression: No evidence of malignancy. BI-RADS category 1; negative study, 3341F 07243, 07922 A negative mammogram in the face of a clinically suspicious abnormalitydoes not exclude the possibility of malignancy nor alter the indications forbiopsy. Note: Patient information entered into a reminder system with a targetdue date for the next mammogram; PQRI II 6865L Dictating Physician: RALPH BLANCO MD Electronically Signed by: RALPH BLANCO MD Dic Date/Time: 06/01/20 1601 Sign date/Time: 06/01/20 1601 Leanna Smith DO IMG BI PROCEDURES Final Result from Last 3 Months or Most Recently Relevant to Health Maintenance Insurance [place]ICAID - [place] [facility] [place] MED[place] ADVANTAGE [employer] [address] [place] [address] Care Teams Certified Marine Mechanic Relationship Specialty Start Date End Date Maroi Basilio MD [address] [place] [address] PCP - General Internal Medicine 08/18/24
--- OUTSIDE RECORDS SUMMARY | 2024-10-22 09:41 | XMS_ITS | Encounter Summary ---
Author Organization [facility] Address [address] [place] [address] Care Team Providers Care Personnel Assistant Name Role Phone Mario Basilio MD Primary Care Provider [phone] Reason for Visit * Reason Onset Date Comments PT-1 10/15/2024 Encounter Details Date Type Department Care Team (Late st Contact Info) Description 10/15/2024 Telephone Food Mixer Assembler - [address] [place] [address] Mario Basilio MD [address] [place] [address] PT-1 Social History Tobacco Use Types Packs/Day [...] was completed / submitted on line with [email or web address] PT 1 tracking # is: [id number] modified to #6/ month * Winter Duval - 10/15/2024 3:52 PM EST [facility] Medicaid Group new provider or submitter number is [id number] Verify and document patients [place] Health insurance ID # (NOT [facility] ID): [facility] [id number] [place] / [place] / Product Type: [place] [id number] Patient mailing address: [address] [facility] [address] Telephone Information: Pt. demographics verified? YES If not accurate, update registration. Is this a NEW request or a RENEWAL? RENEWAL Name of treating facility: [facility] Name (first & last) of treating provider? required : N/A What is the medical reason why the patient is seeing the above provider? Behavorial Specialist Address/Zip code for treating provider: [address] [place] [address] Phone # for treating provider: [phone] Is the provider in the [employer] network (do they accept [place] Health insurance)? YES What specialtly is this [...] PM EST Office Visit Internal Medicine - [facility] [address] [place] [address] Aurora Bates NP [address] [place] [address] 05/18/2025 8:30 AM EDT Office Visit Bariatric Surgery - [place] [address] [phone] Flo Dixon MD [address] [address] documented as of this encounter Visit Diagnoses Not on filedocumented in this encounter Care Teams Personnel Assistant Relationship Specialty Start Date End Date Mario Basilio MD [address] [place] [address] PCP - General Internal Medicine 08/18/24 documented as of this encounter
[2024-10-23 15:03] LABS: H Pylori Breath Test Negative (Negative)
== END 2024-10-22 09:04 | disposition home or self-care (01) ==
LOC: HO.XRAY 09:03
PROVIDERS: Visit Provider Surgery
DX: E66.01 Morbid (severe) obesity due to excess calories (principal)
CPT/HCPCS: 74246; 83013; 99211

== ENCOUNTER → 2024-10-22 09:05 | Outpatient (BNV) | payer OTHER, SELFPAY | PROVIDERS: Visit Provider Physician Assistant Surgical | DX: R19.2 Visible peristalsis (principal) | CPT/HCPCS: 74246; 74248 ==

== ENCOUNTER 2024-10-26 07:53 | Outpatient (AMB) | payer OTHER, SELFPAY ==
--- OUTSIDE RECORDS SUMMARY | 2024-10-26 08:02 | XMS_ITS | Encounter Summary ---
Author Organization [facility] Address [address] [place] [address] Care Team Providers Care Seed Tester Name Role Phone Mario Basilio MD Primary Care Provider [phone] Reason for Visit * Reason Onset Date Comments PT-1 10/15/2024 Encounter Details Date Type Department Care Team (Late st Contact Info) Description 10/15/2024 Telephone Corporate Ethics Officer - [address] [place] [address] Mario Basilio MD [address] [place] [address] PT-1 Social History Tobacco Use Types Packs/Day [...] was completed / submitted on line with [email or web address] PT 1 tracking # is: [id number] modified to #6/ month * Winter Duval - 10/15/2024 3:52 PM EST [facility] Medicaid Group new provider or submitter number is [id number] Verify and document patients [place] Health insurance ID # (NOT [facility] ID): [facility] [id number] [place] / [place] / Product Type: MED[place]ARE [id number] Patient mailing address: [address] [facility] [address] Telephone Information: Pt. demographics verified? YES If not accurate, update registration. Is this a NEW request or a RENEWAL? RENEWAL Name of treating facility: [facility] Name (first & last) of treating provider? required : N/A What is the medical reason why the patient is seeing the above provider? Behavorial Specialist Address/Zip code for treating provider: [address] [place] [address] Phone # for treating provider: [phone] Is the provider in the [employer] network (do they accept [place] Health insurance)? YES What specialtly is this [...] PM EST Office Visit Internal Medicine - [facility] [address] [place] [address] Aurora Bates NP [address] [place] [address] 05/18/2025 8:30 AM EDT Office Visit Bariatric Surgery - [place] [address] [phone] Flo Dixon MD [address] [address] documented as of this encounter Visit Diagnoses Not on filedocumented in this encounter Care Teams Seed Tester Relationship Specialty Start Date End Date Mario Basilio MD [address] [place] [address] PCP - General Internal Medicine 08/18/24 documented as of this encounter
--- OUTSIDE RECORDS SUMMARY | 2024-10-26 08:02 | XMS_ITS | Clinical Summary ---
Author Organization [facility] Address [address] [place] [address] Phone Care Team Providers Care Launch Operator Name Role Phone Mario Basilio MD Primary Care Provider [phone] Allergies No known active allergies Medications acetaminophen [...] Type Department Care Team Description 10/15/2024 Telephone [facility] Baler - [address] [phone] Mario Basilio MD PT-1 09/17/2024 Telephone Pediatrics - [address] [phone] Mario Basilio MD Referral 08/18/2024 3:30 PM EST Office Visit Internal Medicine - [address] [phone] Aurora Bates NP Routine general medical examination [...] obesity type, unspecified whether serious comorbidity present ([facility]); Flu vaccine need 08/06/2024 2:45 PM EST Consult Orthopedic Surgery - [place] [address] [facility] [address] [place] [phone] Luis Jennings DPM Sprain of anterior talofibular ligament of right ankle, initial encounter (Primary Dx) 08/01/2024 4:41 PM EST - 08/01/2024 8:46 PM EST Emergency [facility] Emergency [address] [place] [address] Pan Winter MD Closed fracture [...] 2:30 PM EST Office Visit Internal Medicine [address] [phone] Aurora Bates NP [address] [place] [phone] 05/18/2025 8:30 AM EDT Office Visit Bariatric Surgery [facility] [address] [phone] Flo Dixon MD [address] [address] Health Maintenance Due Date Last Done Comments [...] APPLICATION SPLINT/CAST/STRAP Routine 08/01/2024 6:34 PM EST NC APPLICATION CAST SHORT LEG Routine 08/01/2024 6:34 PM EST NC APPLICATION SPLINT SHORT LEG Routine 08/01/2024 6:34 [...] LAB CHEMISTRY METHOD 08/18/2024 7:40 PM EST [facility] Blood Venous blood specimen / Unknown Venipuncture / Unknown 08/18/2024 4:20 PM EST 08/18/2024 4:20 PM EST Narrative [facility] - 08/18/2024 7:40 PM EST [...] NP LAB BLOOD ORDERABLES Final Resul t [facility] [address] [place] [address], [place] [phone] * (ABNORMAL) Lipid panel with reflex to direct LDL (08/18/2024 4:20 PM EST) Cholesterol 212(H) 0 - 200 mg/dL LAB CHEMISTRY METHOD 08/18/2024 7:00 PM EST [facility] Triglycerides 179(H) 0 - 150 mg/dL LAB CHEMISTRY METHOD 08/18/2024 7:00 PM [facility] HDL 61 >=40 mg/dL LAB CHEMISTRY METHOD 08/18/2024 7:00 PM [facility] LDL Calculated 115(H) 0 - 100 mg/dL LAB CHEMISTRY METHOD 08/18/2024 7:00 PM [facility] VLDL Cholesterol Kofi 35.8 mg/dL LAB CHEMISTRY METHOD 08/18/2024 7:00 PM [facility] Non HDL Chol. (LDL+VLDL) 151(H) <145 mg/dL LAB CHEMISTRY METHOD 08/18/2024 7:00 PM EST [facility] Chol/HDL Ratio 3.5 0.0 - 4.4 LAB CHEMISTRY METHOD 08/18/2024 7:00 PM [facility] Blood Venous blood specimen / Unknown Venipuncture / Unknown 08/18/2024 4:20 PM EST 08/18/2024 4:20 PM EST Aurora Bates NP LAB BLOOD ORDERABLES Final Resul t [facility] [address] [place] [address], [place] [phone] * (ABNORMAL) Basic metabolic panel (08/18/2024 4:20 PM EST) [facility] Sodium 137 133 - 145 mmol/L LAB CHEMISTRY METHOD 08/18/2024 6:53 PM [facility] Potassium 4.6 3.5 - 5.5 mmol/L LAB CHEMISTRY METHOD 08/18/2024 6:53 PM [facility] Chloride 103 96 - 110 mmol/L LAB CHEMISTRY METHOD 08/18/2024 6:53 PM [facility] CO2 28 21 - 32 mmol/L LAB CHEMISTRY METHOD 08/18/2024 6:53 PM [facility] Anion Gap 6 3 - 11 LAB CHEMISTRY METHOD 08/18/2024 6:53 PM [facility] Glucose 102(H) 70 - 100 mg/dL LAB CHEMISTRY METHOD 08/18/2024 6:53 PM [facility] BUN 18 5 - 25 mg/dL LAB CHEMISTRY METHOD 08/18/2024 6:53 PM [facility] Creatinine 1.01 0.50 - 1.10 mg/dL LAB CHEMISTRY METHOD 08/18/2024 6:53 PM [facility] eGFR 66 >=60 mL/min/1. 73m2 LAB CHEMISTRY METHOD 08/18/2024 6:53 PM [facility] Comment:Calculation based on the??Chronic Kidney Disease Epidemiology Collaboration (CKD-EPI) equation refit??without adjustment for race. BUN/Creatinine Ratio 17.8 LAB CHEMISTRY METHOD 08/18/2024 6:53 PM [facility] Calcium 9.8 8.5 - 10.5 mg/dL LAB CHEMISTRY METHOD 08/18/2024 6:53 PM [facility] Blood Venous blood specimen / Unknown Venipuncture / Unknown 08/18/2024 4:20 PM EST 08/18/2024 4:20 PM EST us Aurora Bates NP LAB BLOOD ORDERABLES Final Resul t [facility] [address] [place] [address], * [place] APPLICATION SPLINT SHORT LEG, NC APPLICATION CAST SHORT LEG, HC APPLICATION SPLINT/CAST/STRAP, [...] Signed Date: 08/02/2024 08:11 ET Workstation ID: [id number] Transcribed By: Self Edit Transcribed Date: 08/02/2024 [...] Signed Date: 08/02/2024 08:11 ET Workstation ID: [id number] Transcribed By: Self Edit Transcribed Date: 08/02/2024 [...] AM EDT Narrative 06/01/2020 4:01 PM EDT [facility] Diagnostic Imaging Department [address] [place] [address] Patient: ??GROVER ISLAS ?/Age/Sex: 1970 - 50 - F Unit#: ??[id number] ? Location/Status: ??SPDIMAM/REG CLI ? Mnemonic/Ordering Site: ??DIGSC/SPMAM Ordering Physician: ??LEANNA SMITH DO [place] Screening Digital - 06/01/20 - 1128 History: Bilateral breast cancer screening. Technique: ??Digital mammography. Conventional CC and MLO projections with tomosynthesis MLO views and computer aided detection. Comparison: None available. Previous mammography obtained in [place] are unavailable. Findings: Breast tissue consists of a heterogenous combination of ??fatty and fibroglandular tissue, potentially obscuring small lesions, category c density bilaterally (as calculated by Avegantpara software). No suspicious group of microcalcification, suspicious mass, concerning focal asymmetry or architectural distortion within either breast. Impression: ??No evidence of malignancy. BI-RADS category 1; negative study, 3341F [id number], [id number] A negative mammogram in the face of a clinically suspicious abnormality does not exclude the possibility of malignancy nor alter the indications for biopsy. Note: Patient information entered ??into a reminder system with a target due date for the next mammogram; [place] [id number] Dictating Physician: ??RALPH BLANCO MD Electronically Signed by: ??RALPH BLANCO MD Dic Date/Time: ??06/01/20 1601 Sign date/Time: ??06/01/20 1601 Procedure Note Ralph Blanco MD - 08/22/2022 [facility] Diagnostic Imaging Department [address] [place] [address] [id number] Patient: ROSELINE PRATHERGROVERO.B./Age/Sex: 1970 - 50 - F Unit#: [id number] [facility]Ordering Site: [facility] Ordering Physician: LEANNA SMITH DO [place] Screening Digital - 06/01/20 - 1128 History: Bilateral breast cancer screening. Technique: Digital mammography. Conventional CC and MLO projectionswith tomosynthesis MLO views and computer aided detection. Comparison: None available. Previous mammography obtained in [facility] unavailable. Findings: Breast tissue consists of a heterogenous combination of fattyand fibroglandular tissue, potentially obscuring small lesions, category cdensity bilaterally (as calculated by [employer] Volpara software). No suspicious group of microcalcification, suspicious mass, concerningfocal asymmetry or architectural distortion within either breast. Impression: No evidence of malignancy. BI-RADS category 1; negative study, 3341F 46203, [address]29 A negative mammogram in the face of a clinically suspicious abnormalitydoes not exclude the possibility of malignancy nor alter the indications forbiopsy. Note: Patient information entered into a reminder system with a targetdue date for the next mammogram; PQRI II [id number] Dictating Physician: RALPH BLANCO MD Electronically Signed by: RALPH BLANCO MD Dic Date/Time: 06/01/20 1601 Sign date/Time: 06/01/20 1601 Leanna Smith DO IMG BI PROCEDURES Final Result from Last 3 Months or Most Recently Relevant to Health Maintenance Insurance MEDICA[place] - [place] [facility] PL[facility] Care Teams Launch Operator Relationship Specialty Start Date End Date Mario Basilio MD [address] [place] [address] PCP - General Internal Medicine 08/18/24
--- OUTSIDE RECORDS SUMMARY | 2024-10-26 08:02 | XMS_ITS | Data Portability ---
Author Organization [employer] Main Office Address [address] [place] [address] Assessment Encounter Date Assessment Date Assessment LastModified [...] 16:17:29 gastroente rologist referral 2020 021 [email or web address] [facility], [address] [place], [address], 12:06:31 pulmonolog ist referral - TELEMEDICI NE APPT 2020 021 [email or web address] Lakhwinder Donaldson, [address] [place], [address], 16:11:01 Procedures None recorded. Surgeries None recorded. Imaging MAMMO, screening, digital, bilateral 2020 021 [email or web address] [facility] (Central Scheduling Radiology), [address] [place], [address], 09:22:28 Medication Orders hydrocorti sone 2.5 % topical cream 2020 [facility], [address] [place], [address], 15:45:08 Proctosol HC 2.5 % topical cream perineal applicator 2020 [facility], [address] [place], [address], 15:45:07 cyclobenza zohaib 10 mg tablet 2020 [facility], [address] [place], [address], 15:45:08 cyclobenza zohaib 10 mg tablet 2020 [facility], [address] [place], [address], 15:50:42 tizanidine 4 mg tablet 2020 [facility], [address] [place], [address], 15:48:05 Patient TargetsNo targets recorded. Patient Instructions Encounter Date Encounter Id Patient Instructions Last Modified By Organization Details Last Modified Time 02/20/2021 [id number] CPE lab rec mailed to home [email or web address] Not available 02/20/2021 15:46:11 03/27/2021 [id number] advance care planning: care instructions rnazarian Not available 03/27/2021 15:28:40 Discussed and explained advance directives such as standard forms to the {{patient* caregi key patient and caregiver}}. Face to face discussion lasted for a duration of __30_ minutes. rnazarian Not available 03/27/2021 15:29:43 Reason for Referral Call Worker Referral for Screening for malignant neoplasm of colon colonoscopy Referring Physician: Chavez Sawyer, Internal Medicine, Encounter Date: 11/14/2020 Chemotherapist Referral for O bstructive sleep apnea of adult TELEMEDICINE APPT Referring Physician: Chavez Sawyer, Internal Medicine, Encounter Date: 11/14/2020 Home Health Referral for Lum bago with sciatica VCARE- [id number] Referring Physician: Chavez Sawyer, Internal Medicine, Encounter Date: 01/13/2021 Results Created Date Observation Date Name Description Value Unit Range Abnormal Flag Note LastModifiedBy Organization Detail LastModifiedTime Result Notes None recorded. Problems Name Problem SNOMED Code Status Onset Date Resolution Date Notes Provider Name and Address Organization Details Recorded Time Insomnia 654488833 Active 2019 NESSA BUNNY [address], [place], [address] , [employer] 0 21:36:49 Mixed anxiety and depressiv e disorder 575286126 Active 2019 NESSA BUNNY [address], [place], [address] , [employer] 0 21:36:50 External hemorrhoi ds 39525606 Active 2019 NESSA BUNNY [address], [place], [address] , [employer] 0 21:36:51 Muscle pain 04103822 Active 2019 NESSA BUNNY [address], [place], [address] , [employer] 0 21:37:19 Loss of appetite 65440668 Active 2019 NESSA BUNNY [address], [place], [address] , [employer] 0 21:38:00 Chronic back pain 249785295 Completed 201902/26/2020 Trey. Sawyer, DO [address], [place], [address] , [employer] 0 14:45:56 Eczema 86961775 Active 2019 LATRICE sharma, [employer], [employer] 0 14:10:27 Obesity 638300887 Active 2019 Chavez Sawyer, DO [address] [facility], [place], [address] , [employer], [employer] 0 14:44:58 Psoriasis 1339995 Active 2019 Chavez Sawyer, DO [address] [facility], [place], [address] , [employer], [employer] 0 14:45:52 Lumbago with sciatica 806542673 Active 2019 s/p LESi x 3, [facility] Chavez Sawyer, [address], [place], [address] , [employer], [employer] 0 14:46:29 Obstructi ve sleep apnea of adult 80960629377 03 Active 2019 BRIEN NUÑEZ edith, [employer], [employer] 0 16:53:56 Constipat ion 61107368 Active 2020 NESSA HOLLIS [address], [place], [address] , [employer], [employer] 1 11:40:33 Seborrhei c dermatiti s of scalp 103926788 Active 2020 NESSA GOMEZRIAN [address], [place], [address] , [employer], [employer] 1 15:52:42 Body mass index 40+ - severely obese 081435022 Active 2020 NESSA HOLLIS [address], [place], [address] , [employer], [employer] 1 15:52:44 Impaired glucose tolerance 1681564 Active 2020 NESSA HOLLIS [address] [facility] [address], [place], [address] , [facility] [employer] 12:15:32 Internal hemorrhoi ds 44640477 Active 2020 NESSA HOLLIS [address] [facility] [address], [place], [address] , [facility] [employer] 15:45:57 Problem Notes None recorded. Medical Equipment [...] /min 16 /min 98.5 [degF] 42.3 kg/m2 283607. 84 g 98 % 98 % 120 mm[Hg] 70 mm[Hg] KENIA SOTO [employer] 1 11:05:40 Social History Question Answer Notes LastModified by Organizat ion Details LastModified Time Tobacco Smoking Status Never Smoker LATRICE sharma, [employer] 02/26/2020 14:01:37 What Is Your Level Of [...] N Breast Cancer N Blood Transfusion N COPD N Depression N Lung Disease N Hypothyroidism N Defects or Inherited Disease N Developmental [...] N High Cholesterol N Liver Disease N Fibromyalgia N Headaches N Kidney Disease N Allergies/Hayfever N Heart [...] N Heart Disease N Pulmonary Embolism N Pre-Eclampsia N Hypertension N Chronic Ear Infections N Osteoporosis N Chicken Pox N Autism Spectrum Disorder (ASD) N Thrombophilias N Gynecological History Statement/Question Response HPV Vaccine N Date of Last Pap Smear Date of Last Mammogram Sexually Active? N Obstetrics History GPAL:G 7 P 3 0 4 0 Type Value Full Term 3 Spontaneous 4 Total 7 Immunizations Vaccine Type Date Status Note Provider Nam e and Address Organization Details Recorded Time DTaP 8 completed LATRICE JEFFERS [employer], [employer] 02/26/2020 08:15:51 Influenza, split virus, quadrivalent, preservative 0 completed LATRICE sharma [employer] 02/26/2020 08:16:05 Past Encounters Encounter ID Performer Location Encounter Start Date Encounter Closed Date Diagnosis/Indication Diagnosis SNOMED-CT Code Diagnosis ICD10 Code Diagnosis Note [id number] Chavez Sawyer [facility] [address] [place] [address] 02/26/2020 13:45:51 02/26/2020 15:06:48 Insomnia 988713490 G47.00 zolpidem, prazosin, quetiapine Mixed anxi ety and depressive disorder 908516217 F41.8 no si/hi clonazepam , clonidine, loraz, venlafax External hemorrhoids 239 05121 K64.4 proctosol Muscle pain 82041972 M79 .10 cycloben, diclo gel, meloxicam, naproxen Loss of appetite 1373089 6 R63.0 mirtazapin e New patien t screening done 591677162 Z76.89 labs-p Viral screening 63672891 4 Z11.59 labs-p Screening for malignant neoplasm of breast 687255299 Z12.39 Screening for osteoporosis 363645624 Z13.820 Psoriasis 9433282 L40.9 Lumbago with sciatica 20 4147289 M54.42 [id number] Chavez Sawyer [place] [address] [place] [address] 03/25/2020 13:36:59 03/25/2020 16:39:17 Screening for malignant neoplasm of colon 765411173 Z12.11 next yr Adult heal th examination 846958882 Z00.01 normal cpe labs reviewed Screening mammography 24 583960 Z12.31 Screening for osteoporosis 868092723 Z13.820 UTD Screening for cardiovascular system disease 204025236 Z13.6 Lumbago with sciatica 20 1840371 M54.42 Insomnia 526653447 G47.0 0 zolpidem, prazosin, quetiapine Mixed anxi ety and depressive disorder 881369966 F41.8 no si/hi clonazepam , clonidine, loraz, venlafax External hemorrhoids 239 63287 K64.4 proctosol Muscle pain 40026108 M79 .10 cycloben, diclo gel, meloxicam, naproxen Loss of appetite 2395574 6 R63.0 mirtazapin e Psoriasis 9665556 L40.9 Snoring symptoms 1876396 00 R06.83 Urinary tr act infectious disease 58151665 N39.0 [id number] Chavez Sawyer [facility] [address] [place] [address] 04/22/2020 13:08:08 04/22/2020 15:50:33 Lumbago with sciatica 103306230 M54.42 External hemorrhoids 239 02497 K64.4 proctosol Insomnia 787139608 G47.0 0 zolpidem, prazosin, quetiapine Mixed anxi ety and depressive disorder 456146888 F41.8 no si/hi clonazepam , clonidine, loraz, venlafax Muscle pain 35021995 M79 .10 cycloben, diclo gel, meloxicam, naproxen Loss of appetite 8645202 6 R63.0 mirtazapin e Screening for malignant neoplasm of breast 259741658 Z12.39 p Screening for osteoporosis 479318335 Z13.820 p Psoriasis 8347694 L40.9 Snoring symptoms 1046400 00 R06.[id number] [address] 05/20/2020 14:47:58 05/20/2020 17:15:02 Lumbago with sciatica 399943156 M54.42 External hemorrhoids 239 54435 K64.4 proctosol Insomnia 110193161 G47.0 0 zolpidem, prazosin, quetiapine Mixed anxi ety and depressive disorder 409801052 F41.8 no si/hi clonazepam , clonidine, loraz, venlafax Seborrheic dermatitis of scalp 852733962 L21.0 Active or passive immunization 110327101 Z23 [id number] [address] 06/21/2020 13:31:48 06/21/2020 14:16:16 Insomnia 638669464 G47.00 zolpidem, prazosin, quetiapine Lumbago with sciatica 20 1501609 M54.42 [address], [address], tiz 4, [address] 600 Pain management -p Mixed anxi ety and depressive disorder 580109023 F41.8 no si/hi clonazepam , clonidine, loraz, venlafax External hemorrhoids 239 53956 K64.4 proctosol Muscle pain 62716792 M79 .10 cycloben, diclo gel, meloxicam, naproxen Loss of appetite 8054698 6 R63.0 mirtazapin e Active or passive immunization 189695779 Z23 vacc-p Candidal intertrigo 2661 64741 B37.2 nystatin powder and powder. Psoriasis 9882552 L40.9 clobetasol , calcipotri maureen Seborrheic dermatitis of scalp 352383942 L21.0 ketoconazo le 2% [id number] B[address]EN [address] [place] [address] 08/17/2020 11:23:20 08/17/2020 12:27:27 Insomnia 092648151 G47.00 zolpidem, prazosin, quetiapine Lumbago with sciatica 20 4809375 M54.42 [address], [address], tiz 4, [address] 600 Pain management -p PT ordered Mixed anxi ety and depressive disorder 439723624 F41.8 no si/hi clonazepam , clonidine, loraz, venlafax Sees Dr. Lanza External hemorrhoids 239 51384 K64.4 proctosol Obstructiv e sleep apnea of adult 0047412445 103 G47.33 Referral to sleep medicine-p Sleep study from 06/12/20 shows mild TIM. Recommends Auto CPAP or CPAP titration study Psoriasis 2164465 L40.9 clobetasol , calcipotri maureen Referral to derm-p Candidal intertrigo 2661 91041 B37.2 nystatin powder and powder. Muscle pain 35170748 M79 .10 cycloben, diclo gel, meloxicam, naproxen Loss of appetite 2023677 6 R63.0 mirtazapin e Active or passive immunization 167543922 Z23 vacc-p Seborrheic dermatitis of scalp 710508898 L21.0 ketoconazo le 2% Body mass index 40+ - severely obese 856105711 Z68.41 diet and exercise Morbid obesity 066448754 E66.01 diet and exercise [id number] [facility] [address] [place] [address] 09/16/2020 10:56:16 09/16/2020 11:22:30 Insomnia 925469250 G47.00 zolpidem, prazosin, quetiapine Lumbago with sciatica 20 6826489 M54.42 [address], [address], tiz 4, [address] Pain management -Has appt scheduled for 09/20/20-p PT ordered-p Mixed anxi ety and depressive disorder 881468192 F41.8 no si/hi clonazepam , clonidine, loraz, venlafax Sees Dr. Lanza External hemorrhoids 239 06475 K64.4 proctosol Stable on current regimen Psoriasis 0732076 L40.9 clobetasol , calcipotri maureen Referral to derm-p Obstructiv e sleep apnea of adult 2671253022 103 G47.33 Referral to sleep medicine-p Sleep study from 06/12/20 shows mild TIM. Recommends Auto CPAP or CPAP titration study Sleep Medicine appt on 10/23 Muscle pain 66473847 M79 .10 cycloben, diclo gel, meloxicam, naproxen Cyclobenza zohaib d/c'd Refilled Tizanidine to TID PRN Loss of appetite 3203510 6 R63.0 mirtazapin e Active or passive immunization 600836379 Z23 vacc-p Seborrheic dermatitis of scalp 114087551 L21.0 ketoconazo le 2% Body mass index 40+ - severely obese 617246028 Z68.41 diet and exercise Morbid obesity 505103758 E66.01 diet and exercise [id number] NESSA HOLLIS [facility] [address] [place] [address] 11/14/2020 15:29:37 11/14/2020 15:53:48 Muscle pain 06719357 M79.10 cycloben, diclo gel, meloxicam, naproxen Cyclobenza zohaib d/c'd Refilled Tizanidine to TID PRN-> stop cyc 10 qhs Psoriasis 8274332 L40.9 clobetasol , calcipotri maureen Referral to derm- seen cream given Lumbago with sciatica 20 1764023 M54.42 [address], [address], tiz 4, [address] 600 Pain management -Has appt scheduled for 09/20/20- seen MRI 12/2020-p PT ordered-p Obstructiv e sleep apnea of adult 9212048290 103 G47.33 Referral to sleep medicine-p Sleep study from 06/12/20 shows mild TIM. Recommends Auto CPAP or CPAP titration study Sleep Medicine appt on 10/23 pulm for CPAP-p Insomnia 357417780 G47.0 0 zolpidem, prazosin, quetiapine Mixed anxi ety and depressive disorder 592362177 F41.8 no si/hi clonazepam , clonidine, loraz, venlafax Sees Dr. Lanza External hemorrhoids 239 27830 K64.4 proctosol Stable on current regimen Loss of appetite 8410176 6 R63.0 mirtazapin e Seborrheic dermatitis of scalp 977760425 L21.0 ketoconazo le 2% Body mass index 40+ - severely obese 304575360 Z68.41 diet and exercise Constipation 95103851 K5 9.00 senna Screening for malignant neoplasm of colon 232193276 Z12.11 colon-p 06154 NESSA HOLLIS [facility] [address] [place] [address] 01/13/2021 12:03:14 01/13/2021 12:17:44 Lumbago with sciatica 909356919 M54.42 [address], [address], tiz 4, [address] 600 Pain management -Has appt scheduled for 09/20/20- seen MRI 12/2020-p PT ordered-pt given # to book-p wants letter to move to 1st floor- referred to pain management Muscle pain 49219422 M79 .10 cycloben, diclo gel, meloxicam, naproxen Cyclobenza zohaib d/c'd Refilled Tizanidine to TID PRN-> stop cyc 10 qhs Psoriasis 0134415 L40.9 clobetasol , calcipotri maureen Referral to derm- seen cream given Obstructiv e sleep apnea of adult 0533119119 103 G47.33 Referral to sleep medicine-p Sleep study from 06/12/20 shows mild TIM. Recommends Auto CPAP or CPAP titration study Sleep Medicine appt on 10/23 pulm for CPAP- seen awaiting call back-p Insomnia 706246159 G47.0 0 zolpidem, prazosin, quetiapine Mixed anxi ety and depressive disorder 192678763 F41.8 no si/hi clonazepam , clonidine, loraz, venlafax Sees Dr. Lanza External hemorrhoids 239 63626 K64.4 proctosol Stable on current regimen Loss of appetite 3150277 6 R63.0 mirtazapin e Seborrheic dermatitis of scalp 311392081 L21.0 ketoconazo le 2% Body mass index 40+ - severely obese 278065871 Z68.41 diet and exercise Constipation 08367054 K5 9.00 senna Impaired g lucose tolerance 5973738 R73.02 HBA1c 5.3 02/2020 recheck-p [id number] NESSA HOLLIS [facility] [address] [place] [address] 02/20/2021 15:36:25 02/20/2021 15:46:29 Impaired glucose tolerance 1229616 R73.02 HBA1c 5.3 02/20201285AIC8 c 5.8 02/08/2021- diet/exerc ise rpt 3 months Lumbago with sciatica 20 4952055 M54.42 [address]ap, [address], tiz 4, [address] 600 Pain management -Has appt scheduled for 09/20/20- seen MRI 12/2020-p PT ordered-pt given # to book-p wants letter to move to 1st floor- referred to pain management PT - awaiting call back Loss of appetite 2228749 6 R63.0 mirtazapin e Muscle pain 10259290 M79 .10 cycloben, diclo gel, meloxicam, naproxen Cyclobenza zohaib d/c'd Refilled Tizanidine to TID PRN-> stop cyc 10 qhs Psoriasis 1061046 L40.9 clobetasol , calcipotri maureen Referral to derm- seen cream given Obstructiv e sleep apnea of adult 4779444712 103 G47.33 Referral to sleep medicine-p Sleep study from 06/12/20 shows mild TIM. Recommends Auto CPAP or CPAP titration study Sleep Medicine appt on 10/23 pulm for CPAP- seen awaiting call back- 02/28/21-p Insomnia 784516488 G47.0 0 zolpidem, prazosin, quetiapine Mixed anxi ety and depressive disorder 172573202 F41.8 no si/hi clonazepam , clonidine, loraz, venlafax Sees Dr. Lanza External hemorrhoids 239 90259 K64.4 proctosol Stable on current regimen Seborrheic dermatitis of scalp 670368631 L21.0 ketoconazo le 2% Body mass index 40+ - severely obese 459357502 Z68.41 diet and exercise Constipation 17882603 K5 9.00 senna Internal hemorrhoids 904 52592 K64.8 hydr, proc [id number] [facility] [address] [facility] [place] [address] 03/27/2021 08:29:24 03/27/2021 15:29:22 Internal hemorrhoids 67634627 K64.8 hydr, proc Impaired g lucose tolerance 1872495 R73.02 HBA1c 5.3 02/20209472JLN5 c 5.8 02/08/2021- diet/exerc ise rpt 3 months Lumbago with sciatica 20 9947017 M54.42 [address]ap, [address], tiz 4, [address] Pain management -Has appt scheduled for 09/20/20- seen MRI 12/2020-p PT ordered-pt given # to book-p wants letter to move to 1st floor- referred to pain management PT - awaiting call back Loss of appetite 9708597 6 R63.0 mirtazapin e Muscle pain 17234684 M79 .10 cycloben, diclo gel, meloxicam, naproxen Cyclobenza zohaib d/c'd Refilled Tizanidine to TID PRN-> stop cyc 10 qhs Psoriasis 2194971 L40.9 clobetasol , calcipotri maureen Referral to derm- seen cream given Obstructiv e sleep apnea of adult 1686171194 103 G47.33 Referral to sleep medicine-p Sleep study from 06/12/20 shows mild TIM. Recommends Auto CPAP or CPAP titration study Sleep Medicine appt on 10/23 pulm for CPAP- seen awaiting call back- 02/28/21- they called her and ? new machine Insomnia 630472412 G47.0 0 zolpidem, prazosin, quetiapine Mixed anxi ety and depressive disorder 125967140 F41.8 no si/hi clonazepam , clonidine, loraz, venlafax Sees Dr. Lanza External hemorrhoids 239 02606 K64.4 proctosol Stable on current regimen Seborrheic dermatitis of scalp 140685063 L21.0 ketoconazo le 2% Body mass index 40+ - severely obese 495045550 Z68.41 diet and exercise Constipation 63897827 K5 9.00 senna Screening for malignant neoplasm of colon 430779390 Z12.11 colonoscop y 12/2020- rpt 5-10 dep on results Adult heal th examination 474702412 Z00.01 cpe labs -p Screening mammography 24 923679 Z12.31 05/2020 nml-p Screening for osteoporosis 011592574 Z13.820 -DEXA: 05/2020 nml Screening for malignant neoplasm of cervix 621698341 Z12.4 [facility] Active or passive immunization 700973641 Z23 vacc-p Health Concerns Section Related Observation LastModified by Organization Detai ls LastModified Time None Recorded Concern Status LastModified by Organization Details LastModified Time None Recorded Advance Directives Directive None Recorded Payers Encounter Date Sequence Insurance Name Policy Number Policy Mcnamara Covered Member ID Mcnamara Member ID Guarantor Name 09/16/2020 1 [place] [employer] Chayra Y Boria Hensley [id number] Chayra Boria Hensley 09/16/2020 2 [place] Chayra Boria Hensley [id number] Chayra Boria Hensley 11/14/2020 1 [place] Chayra Y Boria Hensley [id number] Chayra Boria Hensley 11/14/2020 2 [place] Chayra Boria Hensley [id number] Chayra Boria Hensley 01/13/2021 1 [place] [employer] Chayra Y Boria Hensley [id number] Chayra Boria Hensley 01/13/2021 2 [place] Chayra Boria Hensley [id number] Chayra Boria Hensley 02/20/2021 1 [place] Chayra Y Boria Hensley [id number] Chayra Boria Hensley 02/20/2021 2 [place] Chayra Boria Hensley [id number] Chayra Boria Hensley 03/27/2021 1 [place] Chayra Y Boria Hensley [id number] Chayra Boria Hensley 03/27/2021 2 [place] Chayra Boria Hensley [id number] Chayra Boria Hensley Notes Date Note Type [...] meds as prescribed. BRIEN sharma [place] - [employer] 09/16/2020 11:25:53 11/14/2020 text/html 50 yo female pre sents for fu- telemed -camera not working ??derm- yes given cream ??sleep med- had sleep study- pulm-p ??pain management- seen MRI-p ??PT-p ??colonoscopy-p MSK pain- chronic Psoriasis- derm-p Lumbago w/sciatica- ??PT Insomnia- sleeps well with meds Anxiety/depression- followed by psych TIM - ??CPAP Loss of appetite- improved NESSA BUNNY [address] [facility],[address], [place], [address], [facility] - [employer] 11/14/2020 15:54:16 01/13/2021 text/html 50 yo female [...] CPAP Muscle pain- stable NESSA HOLLIS [address], [place], [address], [employer] 01/13/2021 12:17:32 02/20/2021 text/html 50 yo female pre sents for lb-ybxvwfz-vapakd not working Needs refill for msk relaxer and hemorroides ??PT- not booked- waiting call back??CPAP- 02/28/21Followed by psych MSK pain- chronicPsoriasis- dermLumbago w/sciatica-awaiting PTInsomnia- sleeps well with medsAnxiety/depressio n- followed by psychOSA - ??LRHF-ijvx-mNcew of appetite- improvedConstipation- stableCOPD- stableOSA - awaiting pulm for CPAPMuscle pain- stable NESSA HOLLIS [address], [place], [address], [employer] 02/20/2021 15:46:32 03/27/2021 text/html 50 yo female pre sents for KKES-rwaxcfs-zngwxe not working CPE labs- no colonoscopy 12/2020- rpt 5-10 dep on results -Vacc: updated with [facility].-PAP:2017 [facility]-DEXA: 05/2020 nml-Mammo: 05/2020 nml-Colonoscopy: 12/2020 rpt 5-10 results-p??PT- awaiting appt??help at home??CPAP- 02/28/21 - they called her and ? new machineFollowed by psych NESSA BOONEAN [address], [place], [address], [employer] 03/27/2021 15:32:09 03/27/2021 text/html Medicare Annual Wellness [...] lighting in the home NESSA HOLLIS [address] [facility],[address], [place], [address], [employer] 03/27/2021 15:32:09 OBGyn Episode No OBEpisode recorded.
[2024-10-26 12:21] VITALS: BMI 40.7
--- NOTE | 2024-10-26 12:21 | MHC.OFFVISWM ---
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* Traffic Sign Erection Supervisor Required: Yes Traffic Sign Erection Supervisor Services: Traffic Sign Erection Supervisor Present Information Interpreted: clinical only Allergies No Known Allergies Allergy (Verified 10/26/24 12:30) Medication List - Last Reconciled 10/26/24 by Adryan Traylor MD amitriptyline 25 mg BEDTIME duloxetine 60 mg PO DAILY lorazepam 1 mg PO TID PRN methocarbamol 750 mg PO DAILY nabumetone 500 mg PO BID PRN ondansetron 4 mg PO Q6H PRN pantoprazole 40 mg PO DAILY polyethylene glycol 3350 17 grams PO DAILY quetiapine 100 mg BEDTIME sucralfate 10 mL PO BID zolpidem 10 mg PO BEDTIME PRN HPI HPI TV Pre Op LSG 11/03/24 *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*: Details: Start time: 12.10pm, End time: 12.47pm ?I spent 32 minutes speaking with the patient on the phone plus an additional 5 minutes reviewing and updating records for a total of 37 minutes HPI Comments Details: Overall weight loss: 21.4lbs, or 8.76% TBWL Is doing one Celebrate Rebuild (1 scoop each in 8oz almond milk), one Celebrate protein bar and one meal Exercise: Gym x3/wk, doing the Elliptical for 200-300 calories PFSH Medical History Insomnia DJD (degenerative joint disease) Morbid obesity PTSD (post-traumatic stress disorder) Severe recurrent major depression w/psychotic features, mood-congruent Surgical History Hx of colonoscopy Hx of cholecystectomy Family History Mother No problems noted. Father Heart problem Diabetes Daughter No problems noted. Daughter No problems noted. Son No problems noted. Social History Household Members: None Housing: House Are you a primary wound care nurse to a significant other at home: No Do you presently have visiting nurse or other home services: No Alcohol intake: never Patient Tobacco Use Status: Never used Tobacco e-Cigarette/Vaping Use: Never Used Second Hand Smoke Exposure: No service: No Sexual orientation: Straight/Heterosexual Telehealth Telehealth Telehealth Platform: Telephone Location of provider rendering services: practice address Location of patient: address on file Patient Identification confirmed using: Name, : Yes Telehealth method: voice only Patient verbally consented to treatment: Yes Patient verbally consented to billing insurance company: Yes Patient informed of any privacy concerns related to visit: Yes Minutes spent on Phone/Video with Pt.: 37 Assessment & Plan Assessment & Plan (1) Morbid obesity: Code(s): E66.01 - Morbid (severe) obesity due to excess calories Category: Medical Plan: 1. Plan for lap sleeve gastrectomy including upper GI endoscopy. All tests has been completed and reviewed and the patient is cleared for the surgery. ?If diaphragmatic or ventral hernias are present at time of surgery, these will be repaired laparoscopically as well. Risks and complications were discussed in detail including possible conversion to an open procedure, anastomotic leak, bleeding requiring transfusion, small bowel obstruction, , DVT and pulmonary embolism, cardiac, or pulmonary complications, as custodial complications such as anastomotic ulcer, insufficient weight loss and vitamin deficiencies. I emphasized the importance of close follow-up, adherence to instructions and good communication. So far she has proven to be an excellent communicator and very compliant with all our directions accomplishing a great weight loss. I believe that she is an excellent candidate and she is ready. 2. Preop prescriptions were provided and explained the purpose of each one. Need to be purchased preop. Start Pantoprazole now as you get it from the pharmacy, 1 pill per day. Sucralfate and Zofran are for after surgery as needed. 3. Bowel prep: please do 7 packets ?of Miralax mixing each one with a an 8oz glass of water, crystal light, gatorade zero, or propel ?on 11/01/24 and the same amount on 11/02/24. The Miralax you begin with one packet at a time in 8oz water or crystal light, gatorade zero, or propel ?as early in the day as you can and you do them back to back until you finish them. Continue the protein shakes during ?the bowel prep. 4. Needs to purchase 1oz medicine cups . 5. Needs to purchase Children's liquid Tylenol for postop pain control. 6. She needs to stop the Nabumetone and Methocarbamol as of tomorrow 10/27/24. Avoid aspirin, motrin, Advil, Aleve, Meloxicam, Excedrin, Ibuprofen, Naproxyn. Tylenol is OK. 7. She needs to purchase the Celebrate multivitamins from the hospital's gift shop. 8. Will do basic preop blood work-up any day between Saturday10/27/24 and Saturday10/30/24 fasting for 12 hours and is scheduled to see the Anesthesiologist prior to the day of surgery. 9. Importance of adherence to postop folllow-up and recommendations was underscored and she understands that. 10. Stop food and bars as of Saturday10/27/24 and continue with 3 Celebrate Rebuild protein shakes (ONE scoop EACH in 8oz almond milk) at 8am-10am, 11am-1pm and 2pm-4pm and two more Celebrate Rebuild protein shakes with TWO scoops in 8oz of almond milk at 5pm-7pm and 8pm-10pm 11. No soups, broths or V8 12. The patient's?medical?history has been reviewed and they are considered low risk for post op DVT and therefore DVT prophylaxis is not considered necessary. Travel after surgery was reviewed. The patient has not disclosed any travel plans during the first 30 days after surgery and they have been advised that within the first 30 days after surgery any bus, plane, train or car travel over 2 hours in duration is contraindicated due to the possibility of developing blood clots from immobility. Any travel, needs to include periods of ambulation of 10 minutes in duration every 2 hours.? Patient was instructed to discuss any plans for travel during this period with their bariatric surgeon.? 13. Please take at the day of surgery the following medications: NONE 14. Stop any control pills and don't use them for one month after surgery 15. Absolutely no smoking or vaping, or marijuana until the surgery and for at least the first 4 weeks. Only nicotine patches are allowed. 16. Send me weight measurements on Saturday10/29/24 and then on Saturday11/03/24, the day of surgery before you go to the hospital. 17. Avoid any steroids by mouth for any reason. Let me know if someone prescribes them to you 18. These instructions supersede anything else you read in the handbook, anything you watched in videos or classes or you were told by any other provider. If there is any conflict, you follow the above instructions and nothing else. Orders: Orders Comprehensive Met. Panel Today E66.01 - Morbid (severe) obesity due to excess calories Partial Thromboplastin Time Today E66.01 - Morbid (severe) obesity due to excess calories Complete Blood Count Auto Diff Today E66.01 - Morbid (severe) obesity due to excess calories Lipid Panel Today E66.01 - Morbid (severe) obesity due to excess calories Hemoglobin A1c Today E66.01 - Morbid (severe) obesity due to excess calories TSH reflex Free T4 Today E66.01 - Morbid (severe) obesity due to excess calories Prothrombin Time INR Today E66.01 - Morbid (severe) obesity due to excess calories Type and Screen Today E66.01 - Morbid (severe) obesity due to excess calories C Reactive Protein Today E66.01 - Morbid (severe) obesity due to excess calories Insulin Today E66.01 - Morbid (severe) obesity due to excess calories Medications: New polyethylene glycol 3350 Mix each measuring cup with 8oz of water, Crystal light, or Gatorade zero, or Propel and do 7 measuring cups on 11/01/24 and another 7 measuring cups on 11/02/24 17 grams PO DAILY 238 grams 0RF Z01.818 - Encounter for other preprocedural examination pantoprazole 40 mg PO DAILY 90 tabs 0RF K21.9 - Gastro-esophageal reflux disease without esophagitis sucralfate 10 mL PO BID 600 mL 2RF K21.9 - Gastro-esophageal reflux disease without esophagitis ondansetron Only take one every 12 hours as needed if you have nausea 4 mg PO Q6H PRN 20 tabs 0RF nausea and vomiting R11.0 - Nausea
== END 2024-10-26 12:48 | disposition home or self-care (01) ==
LOC: HO.HBS 07:53
PROVIDERS: Visit Provider Surgery
DX: E66.01 Morbid (severe) obesity due to excess calories (principal)
CPT/HCPCS: 99499

== ENCOUNTER → 2024-10-26 07:53 | Outpatient (BNVA) | payer OTHER, SELFPAY | PROVIDERS: Visit Provider Surgery ==

== ENCOUNTER → 2024-10-30 08:57 | Outpatient (BNVA) | payer OTHER, SELFPAY | PROVIDERS: Visit Provider Physician Assistant Surgical ==

== ENCOUNTER 2024-11-03 07:48 | Inpatient (IN) | payer OTHER, SELFPAY ==
[2024-10-30 08:55] LABS: MANUAL DIFF FLAG NO
[2024-10-30 09:17] LABS: Basophils Percent Auto 0.2 % (0-2); Eosinophils Absolute Auto 0.1 X10*3/uL (0.0-0.4); Eosinophils Percent Auto 1.4 % (0-4); Hematocrit 40.6 % (37.0-47.0); Hemoglobin 13.7 g/dl (12.0-16.0); Imm Gran Abs Auto 0.01 X10*3/uL (0.00-0.03); Imm Gran Pct Auto 0.2 % (0.0-0.4); Lymphocytes Absolute Auto 2.3 X10*3/uL (1.2-4.9); Lymphocytes Percent Auto 51.1 % (20-40); Mean Corpuscular HGB Conc 33.7 g/dl (31.0-35.0); Mean Corpuscular Hemoglobin 29.3 pg (27.0-33.0); Mean Corpuscular Volume 86.9 fL (80.0-98.0); Mean Platelet Volume 10.5 fL (9.4-12.3); Monocytes Absolute Auto 0.4 X10*3/uL (0.1-1.2); Monocytes Percent Auto 8.1 % (2-11); Neutrophils Absolute Auto 1.7 x10*3/uL (2.0-8.3); Platelet Count 287 X10*3/uL (160-400); Red Blood Count 4.67 X10*6/uL (4.20-5.50); Red Cell Distribution Width 13.1 % (11.0-16.0); White Blood Count 4.4 X10*3/uL (4.8-10.8)
[2024-10-30 09:21] LABS: Estimated Average Glucose 111 mg/dL; Hemoglobin A1C 131.3482 umol/L; Hemoglobin A1c % 5.5 % (<6.0); Total Hemoglobin (HGBA1C) 3548.0624 umol/L
[2024-10-30 09:24] LABS: Prothrombin Time 11.4 SEC (10.9-12.4)
[2024-10-30 09:26] LABS: Partial Thromboplastin Time 30.2 SEC (26.0-36.8)
[2024-10-30 09:47] LABS: Alanine Aminotransferase 53 U/L (0-31); Alkaline Phosphatase 47 U/L (39-117); Anion Gap 13 (12-20); Aspartate Amino Transferase 38 U/L (5-31); Bilirubin Total 0.5 mg/dL (0.0-1.0); Blood Urea Nitrogen 11 mg/dL (9-16); C Reactive Protein 2.16 mg/dL (< or = 0.50); Calcium 9.3 mg/dL (8.4-10.2); Carbon Dioxide 27 mmol/L (22-29); Chloride 104 mmol/L (96-108); Cholesterol 196 mg/dL (<200); Estimated Glomerular Filt Rate > 60; Glucose Random 116 mg/dL (60-115); HDL Cholesterol 47 mg/dL (>40); LDL Cholesterol Calculated 128 mg/dL (<100); Potassium 4.1 mmol/L (3.3-5.1); Sodium 140 mmol/L (135-145); Total Protein 7.6 g/dL (6.5-8.0); Triglycerides 107 mg/dL (<150)
[2024-10-30 10:16] LABS: TSH reflex Free T4 2.58 uIU/mL (0.32-4.0)
[2024-10-30 10:25] LABS: Insulin 15 uU/mL (2-29)
[2024-10-30 12:18] VITALS: BMI 40.6
--- NOTE | 2024-11-02 10:19 | HO.ANESPROP2 ---
Documented by User: Verónica Luna NP 11/02/24 10:20 HPI - Anesthesia Eval Consult details Narrative: 54yo F for Gastrectomy Sleeve,EGD,possibel Diaphragmatic Hernia,possible Ventral Hernia,possible Open PMFSH Active Problems Active Problems: All Active Problems H. pylori infection (Acute) Insomnia (Acute) DJD (degenerative joint disease) (Acute) Morbid obesity (Acute) PTSD (post-traumatic stress disorder) (Acute) Severe recurrent major depression w/psychotic features, mood-congruent (Acute) Past Medical History Medical History GERD (gastroesophageal reflux disease) Anxiety Depression Hyperlipidemia Hypertension Back pain Insomnia DJD (degenerative joint disease) Morbid obesity PTSD (post-traumatic stress disorder) Severe recurrent major depression w/psychotic features, mood-congruent Family History Family History Mother No problems noted. Father Heart problem Diabetes Daughter No problems noted. Daughter No problems noted. Son No problems noted. Family history of problems with anesthesia: No Surgical History Surgical History History of esophagogastroduodenoscopy (EGD) (09/01/24) Hx of colonoscopy Hx of cholecystectomy History of Problems with Anesthesia: No Social History Social History Household Members: None Housing: Apartment Are you a primary critical care physician to a significant other at home: No Do you presently have visiting nurse or other home services: No Alcohol intake: never Patient Tobacco Use Status: Never used Tobacco e-Cigarette/Vaping Use: Never Used Second Hand Smoke Exposure: No Have you been hit, kicked, punched, or otherwise hurt by someone within the past year? If so, by whom?: No Are you DNR?: No Advance Directives: No Advance Directives Information Provided: Yes Advance Directives on File: No Recently lost weight without trying: No Nutrition Risks: No Nutritional Risk service: No Sexual orientation: Straight/Heterosexual Meds Allergies Allergy/AdvReac Type Severity Reaction Status Date / Time No Known Allergies Allergy Verified 10/26/24 12:30 Home Medications ?Medication ?Instructions ?Recorded ?Confirmed ?Last Taken ?Type amitriptyline 25 mg tablet 25 mg BEDTIME 10/10/23 10/30/24 11/02/24 History duloxetine 60 mg capsule,delayed 60 mg PO DAILY 10/10/23 10/30/24 11/02/24 History release lorazepam 1 mg tablet 1 mg PO TID PRN Anxiety 10/10/23 10/30/24 Unknown History nabumetone 500 mg tablet 500 mg PO BID PRN pain 10/10/23 10/30/24 Unknown History quetiapine 100 mg tablet 100 mg BEDTIME 10/10/23 10/30/24 11/02/24 History zolpidem 10 mg tablet 10 mg PO BEDTIME PRN Insomnia 10/10/23 10/30/24 Unknown History methocarbamol 750 mg tablet 750 mg PO DAILY 09/01/24 10/30/24 10/20/24 History Exam Height,Weight and Vital Signs: Height 5 ft 2 in Weight 100.698 kg Pertinent Lab Results Pertinent Lab Results: Laboratory Tests 10/30/24 10/30/24 08:43 08:53 WBC 4.4 L RBC 4.67 Hgb 13.7 Hct 40.6 MCV 86.9 MCH 29.3 MCHC 33.7 RDW 13.1 Plt Count 287 MPV 10.5 Immature Gran % (Auto) 0.2 Neut % (Auto) 39.0 L Lymph % (Auto) 51.1 H [place] % (Auto) 8.1 Eos % (Auto) 1.4 Baso % (Auto) 0.2 Lymph # (Auto) 2.3 [place] # (Auto) 0.4 Eos # (Auto) 0.1 Baso # (Auto) 0.0 Abs Immat Gran (auto) 0.01 Absolute Neuts (auto) 1.7 L Absolute Nucleated RBC 0.000 Nucleated RBC % (auto) 0.0 PT 11.4 INR 1.0 APTT 30.2 Sodium 140 Potassium 4.1 Chloride 104 Carbon Dioxide 27 Anion Gap 13 BUN 11 Creatinine 0.82 Estim Creat Clear Calc TNP Estimated GFR > 60 Random Glucose 116 H Estimat Average Glucose 111 Hemoglobin A1c % 5.5 Insulin Level 15 Calcium 9.3 Total Bilirubin 0.5 AST 38 H ALT 53 H Alkaline Phosphatase 47 C-Reactive Protein 2.16 H Total Protein 7.6 Albumin 4.0 Triglycerides 107 Cholesterol 196 LDL Cholesterol, Calc 128 H HDL Cholesterol 47 TSH 2.58 Blood Type O Positive Antibody Screen NEGATIVE Narrative Narrative: EKG 08/2024 Vent. Rate : 091 BPM Atrial Rate : 091 BPM P-R Int : 130 ms QRS Dur : 078 ms QT Int : 342 ms P-R-T Axes : 056 011 021 degrees QTc Int : 420 ms Normal sinus rhythm Normal ECG When compared with ECG of 11-OCT-2023 09:46, No significant change was found Assessment and Plan Assessment Anesthesia Assessment: Chart Reviewed Final Anesthetic Review Family History of Problems with Anesthesia: No History of Problems with Anesthesia: No Documented by User: Julieta Hillman MD 11/03/24 10:36 PMFSH Past Medical History Medical History GERD (gastroesophageal reflux disease) Anxiety Depression Hyperlipidemia Hypertension Back pain Insomnia DJD (degenerative joint disease) Morbid obesity PTSD (post-traumatic stress disorder) Severe recurrent major depression w/psychotic features, mood-congruent Family History Family History Mother No problems noted. Father Heart problem Diabetes Daughter No problems noted. Daughter No problems noted. Son No problems noted. Surgical History Surgical History History of esophagogastroduodenoscopy (EGD) (09/01/24) Hx of colonoscopy Hx of cholecystectomy Social History Social History Household Members: None Housing: Apartment Are you a primary critical care physician to a significant other at home: No Do you presently have visiting nurse or other home services: No Alcohol intake: never Patient Tobacco Use Status: Never used Tobacco e-Cigarette/Vaping Use: Never Used Second Hand Smoke Exposure: No Have you been hit, kicked, punched, or otherwise hurt by someone within the past year? If so, by whom?: No Are you DNR?: No Advance Directives: No Advance Directives Information Provided: Yes Advance Directives on File: No Recently lost weight without trying: No Nutrition Risks: No Nutritional Risk service: No Sexual orientation: Straight/Heterosexual Meds Allergies Allergy/AdvReac Type Severity Reaction Status Date / Time No Known Allergies Allergy Verified 10/26/24 12:30 Home Medications ?Medication ?Instructions ?Recorded ?Confirmed ?Last Taken ?Type amitriptyline 25 mg tablet 25 mg BEDTIME 10/10/23 10/30/24 11/02/24 History duloxetine 60 mg capsule,delayed 60 mg PO DAILY 10/10/23 10/30/24 11/02/24 History release lorazepam 1 mg tablet 1 mg PO TID PRN Anxiety 10/10/23 10/30/24 Unknown History nabumetone 500 mg tablet 500 mg PO BID PRN pain 10/10/23 10/30/24 Unknown History quetiapine 100 mg tablet 100 mg BEDTIME 10/10/23 10/30/24 11/02/24 History zolpidem 10 mg tablet 10 mg PO BEDTIME PRN Insomnia 10/10/23 10/30/24 Unknown History methocarbamol 750 mg tablet 750 mg PO DAILY 09/01/24 10/30/24 10/20/24 History Exam Airway Mallampati Class: III TM Dist: >3cm Neck ROM: Full Loose/Missing/Broken Teeth: No Heart: RRR Lungs: CTA Assessment and Plan Final Anesthetic Review NPO: Yes ASA Class: III Final Preanesthetic Review: Meds/Allgs Chart Reviewed, Consent Obtained/Reviewed and Anes Risks/Benef Reviewed Patient Risk: Intermediate Procedure Risk: Intermediate Anesthetic Plan Anesthetic Plan: GA Disposition: Standard PACU
[2024-11-03] VITALS (11 sets, daily range): BP systolic 106–155; BP diastolic 57–91; PULSE 96–113; RESP 14–20; TEMP 36.6–36.9; O2SAT 90–99
--- OUTSIDE RECORDS SUMMARY | 2024-11-03 07:52 | XMS_ITS | Encounter Summary ---
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 Name Role Phone Mario Basilio MD Primary Care Provider [phone] Reason for Visit * Reason Comments Medication Visit Encounter Details Date Type Department Care Team (Late st Contact Info) Description 10/28/2024 2:30 PM EST Office Visit Internal Medicine - [address] [phone] Aurora Bates NP [address] [place] [id number] Bipolar affective disorder, remission status unspecified (CMS/HCC) (Primary Dx); Chronic bilateral low back pain, unspecified whether sciatica present; Psoriasis; Candidiasis, cutaneous; Hemorrhoids, unspecified hemorrhoid type; Need for vaccination against Streptococcus pneumoniae Social History Tobacco Use Types Packs/Day Years [...] on file documented as of this encounter Last Filed Vital Signs Vital Sign Reading Time Taken Comments Blood Pressure 108/70 10/28/2024 2:10 PM EST Pulse 93 10/28/2024 2:10 PM EST Temperature - - Respiratory Rate - - Oxygen Saturation - - Inhaled Oxygen Concentration - - Weight 104 kg (228 lb 3.2 oz) 10/28/2024 2:10 PM EST Height - - Body Mass Index 43.12 08/18/2024 3:32 PM EST documented in this encounter Ordered Prescriptions Prescription Sig Dispense Quantity Refills Last Filled Start Date End Date methocarbamoL (ROBAXIN) 750 mg tabletIndications: Chronic bilateral low back pain, unspecified whether sciatica present Take 1 tablet (750 mg total) by mouth 1 (one) time each day. 90 each 10/28/2024 01/26/2025 hydrocortisone (ANUSOL-HC) 2.5 % rectal creamIndications:H emorrhoids, unspecified hemorrhoid type Insert into the rectum 2 (two) times a day. 30 g 3 10/28/2024 04/26/2025 documented in this encounter Progress Notes * Aurora Bates NP - 10/28/2024 2:30 PM EST CHIEF COMPLAINT: Medication Visit HPI: Grover Moyer is a 54 y.o. female here for regular follow up on chronic issues. interpreter and translator via video remote interpreting - Bipolar, followed by regularly. Takes amitriptyline, Cymbalta, lorazepam, prazosin and Seroquel. Denies SI/ HI - Chronic Back pain on Robaxin 750 mg daily and nabumetone 500 mg daily prn with good relief - Psoriasis on Dovonex cream with relief. - Candidiasis under breast folds on Clotrimazole cream. - Hemorrhoid on Hydrocortisone cream with good relief ROS: GENERAL: No malaise, significant weight loss or fever RESPIRATORY: No cough, wheezing or shortness of breath CARDIOVASCULAR: No chest pain, leg swelling or palpitations GI: See HPI MUSCULOSKELETAL: See HPI SKIN: See HPI PSYCH: See HPI NEURO: No persistent headache, syncope, seizures, weakness or numbness PAST MEDICAL HISTORY: Patient Active Problem List Diagnosis Date Noted Bipolar disorder ([facility]) 10/26/2021 Chronic back pain 10/26/2021 Depression 10/26/2021 PASTSURGICAL HSTORY: Past Surgical History: Procedure Laterality Date CHOLECYSTECTOMY PROCEDURE: LAPAROSCOPY, CHOLECYSTECTOMY OTHER SURGICAL HISTORY PROCEDURE: DESTRUCTION OF INTERNAL HEMORRHOIDS IMMUNIZATIONS/INJECTIONS: Most Recent Immunizations Administered Date(s) Administered COVID-19 (Pfizer/Comirnaty) 12yo and older 09/19/2023 Influenza Quadravalent, MDCK, 0.5ml, preservative free (Flucelvax) 6mo and older 07/17/2023 Influenza trivalent, MDCK, 0.5mL, preservative free (Flucelvax) 6mo and older 08/18/2024 Moderna SARS-CoV-2 COVID-19, mRNA, LNP-S, preservative free 09/19/2021 Td Tetanus diptheria (Tdvax) 7yo and older 10/02/2022 SOCIAL HISTORY: Social History Tobacco Use Smoking status: Never Smokeless tobacco: Never Substance Use Topics Alcohol use: Yes Drug use: Never FAMILY HISTORY: Family History Problem Relation Name Age of Onset Diabetes Father Hypertension Father MEDICATIONS DISCONTINUED/REORDERED: There are no discontinued medications. ACTIVE MEDICATIONS: Outpatient Medications Marked as Taking for the 10/28/24 encounter (Office Visit) with Aurora Bates NP Medication Sig Dispense Refill acetaminophen (TYLENOL) 500 mg tablet TAKE 1 TABLET BY MOUTH THREE TIMES DAILY amitriptyline (ELAVIL) 25 mg tablet Take 1 Tablet by mouth at bedtime. calcipotriene (DOVONEX) 0.005 % cream APPLY TO AFFECTED AREAS OF PSORIASIS TWICE DAILY. 60 g 1 clotrimazole (LOTRIMIN) 1 % cream apply daily to breast folds as needed 60 g 2 DULoxetine (CYMBALTA) [address] capsule TAKE 1 CAPSULE BY MOUTH EVERY MORNING GENERIC EXTERNAL MEDICATION Nifedipine 0.3% ointment Apply as a thin film TID to the perianal skin hydrocortisone (ANUSOL-HC) 2.5 % rectal cream Insert into the rectum 2 (two) times a day. 30 g 3 LORazepam (ATIVAN) 0.5 mg tablet Take 1 Tablet by mouth 3 times daily. methocarbamoL (ROBAXIN) 750 mg tablet Take 1 tablet (750 mg total) by mouth 1 (one) time each day. 90 each 1 nabumetone (RELAFEN) 500 mg tablet TOME 1 TABLETA POR VIA ORAL TODOS [place]ESAR[place] PARA EL DOLOR 90 tablet 0 polyethylene glycol (MIRALAX) 17 gram packet MIX 17 GM IN WATER( 1 PACKET) AND DRINK DAILY prazosin (MINIPRESS) 5 mg capsule TAKE 1 CAPSULE BY MOUTH AT BEDTIME FOR NIGHTNARES QUEtiapine (SEROquel) 100 mg tablet TAKE 1 TABLET BY MOUTH AT BEDTIME triamcinolone (KENALOG) 0.1 % cream Apply to affected area QHS prn zolpidem (AMBIEN) 10 mg tablet TAKE 1 TABLET BY MOUTH AT BEDTIME ALLERGIES: No Known Allergies PHYSICAL EXAM: Visit Vitals BP 108/70 Pulse 93 Wt 104 kg (228 lb 3.2 oz) BMI 43.12 kg/m?? OB Status Perimenopausal Smoking Status Never BSA 2 m?? Body mass index is 43.12 kg/m??. APPEARANCE: Alert and in no acute distress EYES: PERRL, conjunctiva and sclera normal HEART: RRR with normal S1 and S2 LUNG: clear to auscultation EXTREMITIES: Extremities warm, no edema NEURO: Awake, alert and oriented x 3. Cranial nerves II-XII intact SKIN: Skin color, texture, turgor normal. No rashes or lesions. LABS: LABS/IMAGING: No results found for: WBC , HGB , HCT , MCV Lab Results Component Value Date NA 137 08/18/2024 K 4.6 08/18/2024 CO2 28 08/18/2024 CL 103 08/18/2024 BUN 18 08/18/2024 Lab Results Component Value Date CHOL 212 (H) 08/18/2024 LDL 147 (A) 10/02/2022 HDL 61 08/18/2024 TRIG 179 (H) 08/18/2024 IMPRESSION / Plan 1. Bipolar affective disorder, remission status unspecified (CMS/[facility]) 2. Chronic bilateral low back pain, unspecified whether sciatica present methocarbamoL (ROBAXIN) 750 mg tablet 3. Psoriasis 4. Candidiasis, cutaneous 5. Hemorrhoids, unspecified hemorrhoid type hydrocortisone (ANUSOL-HC) 2.5 % rectal cream 6. Need for vaccination against Streptococcus pneumoniae Pneumococcal conjugate 20 valent (Prevnar 20, PCV 20) 2mo and older - Bipolar, stable, continue current regimen per regularly. - Chronic Back pain, stable, continue Robaxin 750 mg daily and nabumetone 500 mg daily prn - Psoriasis, continue on Dovonex cream. - Candidiasis under breast folds, continue Clotrimazole cream. - Hemorrhoid, continue Hydrocortisone cream -Prevnar 20 given today - RTO in 4 months or sooner with PCP care team Aurora Bates NP on 10/28/2024 at 2:13 PM EST documented in this encounter Plan of Treatment Upcoming Encounters Date Type Department Care Team (Sebastián schofield Contact Info) Description 02/26/2025 3:30 PM EDT Office Visit Med Spa Manager - [place] [address] [place] [address] Mario Basilio MD [address] [place] [address] 05/18/2025 8:30 AM EDT Office Visit Bariatric Surgery - [place] [address] [facility] [address] [place] [phone] Flo Dixon MD [address] [facility] [address] [place] [address] documented as of this encounter Visit Diagnoses Diagnosis Bipolar affective disorder, remission status unspecified (CMS/[facility])- Primary Chronic bilateral low back pain, unspecified whether sciatica present Psoriasis Other psoriasis Candidiasis, cutaneous Candidiasis of skin and nails Hemorrhoids, unspecified hemorrhoid type Need for vaccination against Streptococcus pneumoniae documented in this encounter Discontinued Medications Medication Sig Discontinue Reason Start Date End Da te hydrocortisone (ANUSOL-HC) 2.5 % rectal creamIndications:Hemorrho ids, unspecified hemorrhoid type Insert into the rectum 2 (two) times a day. Reorder 08/18/2024 10/28/2024 methocarbamoL (ROBAXIN) 750 mg tabletIndications:Chronic bilateral low back pain, unspecified whether sciatica present Take 1 tablet (750 mg total) by mouth 1 (one) time each day. Reorder 08/18/2024 10/28/2024 documented as of this encounter Orders Immunization/Injection Count Last Ordered Date First Ordered Date PNEUMOCOCCAL CONJUGATE 20 VA LENT (PREVNAR 20, PCV 20) 2MO AND OLDER 1 10/28/2024 documented in this encounter Care Teams Aircraft Powerplant Repairer Relationship Specialty Start Date End Date Mario Basilio MD [address] [place] [id number] PCP - General Internal Medicine 08/18/24 documented as of this encounter
--- OUTSIDE RECORDS SUMMARY | 2024-11-03 07:52 | XMS_ITS | Data Portability ---
Author Organization [facility], Main Office Address [address] [place] [address] Assessment Encounter Date Assessment Date Assessment LastModified [...] 16:17:29 gastroente rologist referral 2020 021 [email or web address] [facility], [address] [place], [address], 12:06:31 pulmonolog ist referral - TELEMEDICI NE APPT 2020 021 [email or web address] [facility]hw[facility] Donaldson, [address] [place], [address], 16:11:01 Procedures None recorded. Surgeries None recorded. Imaging MAMMO, screening, digital, bilateral 2020 021 [email or web address] [facility] (Central Scheduling Radiology), [address] [place], [address], 09:22:28 Medication Orders hydrocorti sone 2.5 % topical cream 2020 [facility], [address] [place], [address], 15:45:08 Proctosol HC 2.5 % topical cream perineal applicator 2020 [facility], [address] [place], [address], 15:45:07 cyclobenza zohaib 10 mg tablet 2020 [facility], [address] [place], [address], 15:45:08 cyclobenza zohaib 10 mg tablet 2020 [facility], [address] [place], [address], 15:50:42 tizanidine 4 mg tablet 2020 [facility], [address] [place], [address], 15:48:05 Patient TargetsNo targets recorded. Patient Instructions Encounter Date Encounter Id Patient Instructions Last Modified By Organization Details Last Modified Time 02/20/2021 [id number] CPE lab rec mailed to home [email or web address] Not available 02/20/2021 15:46:11 03/27/2021 [id number] advance care planning: care instructions [email or web address] Not available 03/27/2021 15:28:40 Discussed and explained advance directives such as standard forms to the {{patient* caregi key patient and caregiver}}. Face to face discussion lasted for a duration of __30_ minutes. rnazarian Not available 03/27/2021 15:29:43 Reason for Referral Relations Mgr Referral for Screening for malignant neoplasm of colon colonoscopy Referring Physician: Chavez Sawyer, Internal Medicine, Encounter Date: 11/14/2020 Work Study Student Referral for O bstructive sleep apnea of adult TELEMEDICINE APPT Referring Physician: Chavez Sawyer, Internal Medicine, Encounter Date: 11/14/2020 Home Health Referral for Lum bago with sciatica [facility]ARE- [id number] Referring Physician: Chavez Sawyer, Internal Medicine, Encounter Date: 01/13/2021 Results Created Date Observation Date Name Description Value Unit Range Abnormal Flag Note LastModifiedBy Organization Detail LastModifiedTime Result Notes None recorded. Problems Name Problem SNOMED Code Status Onset Date Resolution Date Notes Provider Name and Address Organization Details Recorded Time Insomnia 729282682 Active 2019 NESSA BUNNY [address], [place], [address] , [employer] 0 21:36:49 Mixed anxiety and depressiv e disorder 291809233 Active 2019 NESSA BUNNY [address], [place], [address] , [employer] 0 21:36:50 External hemorrhoi ds 17015660 Active 2019 NESSA BUNNY [address], [place], [address] , [employer] 0 21:36:51 Muscle pain 80326127 Active 2019 NESSA BUNNY [address], [place], [address] , [employer] 0 21:37:19 Loss of appetite 45164219 Active 2019 NESSA BUNNY [address], [place], [address] , [employer] 0 21:38:00 Chronic back pain 505305850 Completed 201902/26/2020 Trey. Sawyer, DO [address], [place], [address] , [employer] 0 14:45:56 Eczema 03312574 Active 2019 LATRICE sharma, [employer] 0 14:10:27 Obesity 885784800 Active 2019 Chavez Sawyer, DO [address] [facility], [place], [address] , [employer] 0 14:44:58 Psoriasis 4640791 Active 2019 Chavez Sawyer, DO [address] [facility], [place], [address] , [employer] 0 14:45:52 Lumbago with sciatica 890538469 Active 2019 s/p LESi x 3, [facility] Chavez Sawyer, [address], [place], [address] , [employer] [place] 0 14:46:29 Obstructi ve sleep apnea of adult 30344149754 03 Active 2019 BRIEN NUÑEZ edith, [employer] [place] 0 16:53:56 Constipat ion 01037342 Active 2020 NESSA HOLLIS [address], [place], [address] , [employer] [employer] 1 11:40:33 Seborrhei c dermatiti s of scalp 125520444 Active 2020 NESSA GOMEZRIAN [address], [place], [address] , [employer] 1 15:52:42 Body mass index 40+ - severely obese 077532081 Active 2020 NESSA HOLLIS [address], [place], [address] , [employer] [employer] 1 15:52:44 Impaired glucose tolerance 3186074 Active 2020 NESSA HOLLIS [address] [facility] [address], [place], [address] , [facility] [employer] 12:15:32 Internal hemorrhoi ds 70563938 Active 2020 NESSA HOLLIS [address] [facility] [address], [place], [address] , [facility] [employer] 15:45:57 Problem Notes None recorded. Medical Equipment [...] /min 16 /min 98.5 [degF] 42.3 kg/m2 922574. 84 g 98 % 98 % 120 mm[Hg] 70 mm[Hg] KENIA SOTO [facility] 1 11:05:40 Social History Question Answer Notes LastModified by Organizat ion Details LastModified Time Tobacco Smoking Status Never Smoker LATRICE sharma, [facility] 02/26/2020 14:01:37 What Is Your Level Of [...] Artery Disease N Other N Gout N Blood Diseases N Kidney Stones N Hyperthyroidism N Blood Transfusion N Breast Cancer N Lung Disease N COPD N Depression N Hypothyroidism N Defects or Inherited Disease N Developmental or Behavioral Disorders N Breast Problem N Difficulty Swallowing N Anesthesia Complications N Meniere's disease N Anxiety Disorder N Muscle, Joint, or Bone Problems N Obesity N Vision or Eye Problems N Arthritis N Polyps N Infertility N Mental Disorder N Cancer N Stroke N Varicosities N Endometriosis N Bladder or Kidney Problems [...] Recorded Time DTaP 8 completed LATRICE JEFFERS [employer], [facility] 02/26/2020 08:15:51 Influenza, split virus, quadrivalent, preservative 0 completed LATRICE sharma [facility] 02/26/2020 08:16:05 Past Encounters Encounter ID Performer Location Encounter Start Date Encounter Closed Date Diagnosis/Indication Diagnosis SNOMED-CT Code Diagnosis ICD10 Code Diagnosis Note [id number] Chavez Sawyer [facility] [address] [place] [address] 02/26/2020 13:45:51 02/26/2020 15:06:48 Insomnia 620876913 G47.00 zolpidem, prazosin, quetiapine Mixed anxi ety and depressive disorder 864252867 F41.8 no si/hi clonazepam , clonidine, loraz, venlafax External hemorrhoids 239 62006 K64.4 proctosol Muscle pain 03171825 M79 .10 cycloben, diclo gel, meloxicam, naproxen Loss of appetite 9304281 6 R63.0 mirtazapin e New patien t screening done 439776976 Z76.89 labs-p Viral screening 94923690 4 Z11.59 labs-p Screening for malignant neoplasm of breast 830105673 Z12.39 Screening for osteoporosis 124377929 Z13.820 Psoriasis 6239806 L40.9 Lumbago with sciatica 20 3767011 M54.42 [id number] Chavez Sawyer [place] [address] [place] [address] 03/25/2020 13:36:59 03/25/2020 16:39:17 Screening for malignant neoplasm of colon 148267332 Z12.11 next yr Adult heal th examination 468107779 Z00.01 normal cpe labs reviewed Screening mammography 24 308648 Z12.31 Screening for osteoporosis 877082044 Z13.820 UTD Screening for cardiovascular system disease 539261590 Z13.6 Lumbago with sciatica 20 0054338 M54.42 Insomnia 434853465 G47.0 0 zolpidem, prazosin, quetiapine Mixed anxi ety and depressive disorder 229974612 F41.8 no si/hi clonazepam , clonidine, loraz, venlafax External hemorrhoids 239 63557 K64.4 proctosol Muscle pain 85331066 M79 .10 cycloben, diclo gel, meloxicam, naproxen Loss of appetite 3336482 6 R63.0 mirtazapin e Psoriasis 3686829 L40.9 Snoring symptoms 1407090 00 R06.83 Urinary tr act infectious disease 96618710 N39.0 [id number] Chavez Sawyer [facility] [address] [place] [address] 04/22/2020 13:08:08 04/22/2020 15:50:33 Lumbago with sciatica 174952634 M54.42 External hemorrhoids 239 07872 K64.4 proctosol Insomnia 637680877 G47.0 0 zolpidem, prazosin, quetiapine Mixed anxi ety and depressive disorder 115494752 F41.8 no si/hi clonazepam , clonidine, loraz, venlafax Muscle pain 33023689 M79 .10 cycloben, diclo gel, meloxicam, naproxen Loss of appetite 6430911 6 R63.0 mirtazapin e Screening for malignant neoplasm of breast 133667722 Z12.39 p Screening for osteoporosis 847512687 Z13.820 p Psoriasis 6005883 L40.9 Snoring symptoms 1567690 00 R06.[id number] [address] 05/20/2020 14:47:58 05/20/2020 17:15:02 Lumbago with sciatica 975377009 M54.42 External hemorrhoids 239 79024 K64.4 proctosol Insomnia 623994886 G47.0 0 zolpidem, prazosin, quetiapine Mixed anxi ety and depressive disorder 366073161 F41.8 no si/hi clonazepam , clonidine, loraz, venlafax Seborrheic dermatitis of scalp 609889755 L21.0 Active or passive immunization 390708348 Z23 [id number] [address] 06/21/2020 13:31:48 06/21/2020 14:16:16 Insomnia 327767762 G47.00 zolpidem, prazosin, quetiapine Lumbago with sciatica 20 8110320 M54.42 [place], [address], [address]iz [address], [address] 600 Pain management -p Mixed anxi ety and depressive disorder 685271621 F41.8 no si/hi clonazepam , clonidine, loraz, venlafax External hemorrhoids 239 20912 K64.4 proctosol Muscle pain 27417812 M79 .10 cycloben, diclo gel, meloxicam, naproxen Loss of appetite 6774744 6 R63.0 mirtazapin e Active or passive immunization 279086570 Z23 vacc-p Candidal intertrigo 2661 32326 B37.2 nystatin powder and powder. Psoriasis 6277406 L40.9 clobetasol , calcipotri maureen Seborrheic dermatitis of scalp 452835943 L21.0 ketoconazo le 2% [id number] BRIEN [address]AQUIN [place] [address] [place] [address] 08/17/2020 11:23:20 08/17/2020 12:27:27 Insomnia 417939171 G47.00 zolpidem, prazosin, quetiapine Lumbago with sciatica 20 5540385 M54.42 [place], [address], tiz 4, [address] 600 Pain management -p PT ordered Mixed anxi ety and depressive disorder 789845458 F41.8 no si/hi clonazepam , clonidine, loraz, venlafax Sees Dr. Lanza External hemorrhoids 239 90363 K64.4 proctosol Obstructiv e sleep apnea of adult 8529587555 103 G47.33 Referral to sleep medicine-p Sleep study from 06/12/20 shows mild TIM. Recommends Auto CPAP or CPAP titration study Psoriasis 8028236 L40.9 clobetasol , calcipotri maureen Referral to derm-p Candidal intertrigo 2661 24419 B37.2 nystatin powder and powder. Muscle pain 74100344 M79 .10 cycloben, diclo gel, meloxicam, naproxen Loss of appetite 9207236 6 R63.0 mirtazapin e Active or passive immunization 278548423 Z23 vacc-p Seborrheic dermatitis of scalp 966969840 L21.0 ketoconazo le 2% Body mass index 40+ - severely obese 753654266 Z68.41 diet and exercise Morbid obesity 674674617 E66.01 diet and exercise [address] [facility] [address] [place] [address] 09/16/2020 10:56:16 09/16/2020 11:22:30 Insomnia 821698810 G47.00 zolpidem, prazosin, quetiapine Lumbago with sciatica 20 2500468 M54.42 [place], [address], tiz 4, [address] 600 Pain management -Has appt scheduled for 09/20/20-p PT ordered-p Mixed anxi ety and depressive disorder 590683834 F41.8 no si/hi clonazepam , clonidine, loraz, venlafax Sees Dr. Lanza External hemorrhoids 239 62272 K64.4 proctosol Stable on current regimen Psoriasis 6783141 L40.9 clobetasol , calcipotri maureen Referral to derm-p Obstructiv e sleep apnea of adult 4770283204 103 G47.33 Referral to sleep medicine-p Sleep study from 06/12/20 shows mild TIM. Recommends Auto CPAP or CPAP titration study Sleep Medicine appt on 10/23 Muscle pain 41075122 M79 .10 cycloben, diclo gel, meloxicam, naproxen Cyclobenza zohaib d/c'd Refilled Tizanidine to TID PRN Loss of appetite 4497194 6 R63.0 mirtazapin e Active or passive immunization 602851003 Z23 vacc-p Seborrheic dermatitis of scalp 955118510 L21.0 ketoconazo le 2% Body mass index 40+ - severely obese 990120445 Z68.41 diet and exercise Morbid obesity 179384782 E66.01 diet and exercise [id number] NESSA HOLLIS [facility] [address] [place] [address] 11/14/2020 15:29:37 11/14/2020 15:53:48 Muscle pain 21140061 M79.10 cycloben, diclo gel, meloxicam, naproxen Cyclobenza zohaib d/c'd Refilled Tizanidine to TID PRN-> stop cyc 10 qhs Psoriasis 7216505 L40.9 clobetasol , calcipotri maureen Referral to derm- seen cream given Lumbago with sciatica 20 6710955 M54.42 [place], [address], tiz 4, [address] 600 Pain management -Has appt scheduled for 09/20/20- seen MRI 12/2020-p PT ordered-p Obstructiv e sleep apnea of adult 0800739772 103 G47.33 Referral to sleep medicine-p Sleep study from 06/12/20 shows mild TIM. Recommends Auto CPAP or CPAP titration study Sleep Medicine appt on 10/23 pulm for CPAP-p Insomnia 003636794 G47.0 0 zolpidem, prazosin, quetiapine Mixed anxi ety and depressive disorder 895615174 F41.8 no si/hi clonazepam , clonidine, loraz, venlafax Sees Dr. Lanza External hemorrhoids 239 53208 K64.4 proctosol Stable on current regimen Loss of appetite 6345353 6 R63.0 mirtazapin e Seborrheic dermatitis of scalp 990978434 L21.0 ketoconazo le 2% Body mass index 40+ - severely obese 328398786 Z68.41 diet and exercise Constipation 73841986 K5 9.00 senna Screening for malignant neoplasm of colon 256129965 Z12.11 colon-p 27301 NESSA HOLLIS [facility] [address] [place] [address] 01/13/2021 12:03:14 01/13/2021 12:17:44 Lumbago with sciatica 617942092 M54.42 [place], [address], tiz 4, [address] 600 Pain management -Has appt scheduled for 09/20/20- seen MRI 12/2020-p PT ordered-pt given # to book-p wants letter to move to 1st floor- referred to pain management Muscle pain 53622500 M79 .10 cycloben, diclo gel, meloxicam, naproxen Cyclobenza zohaib d/c'd Refilled Tizanidine to TID PRN-> stop cyc 10 qhs Psoriasis 5886769 L40.9 clobetasol , calcipotri maureen Referral to derm- seen cream given Obstructiv e sleep apnea of adult 6330271709 103 G47.33 Referral to sleep medicine-p Sleep study from 06/12/20 shows mild TIM. Recommends Auto CPAP or CPAP titration study Sleep Medicine appt on 10/23 pulm for CPAP- seen awaiting call back-p Insomnia 551132227 G47.0 0 zolpidem, prazosin, quetiapine Mixed anxi ety and depressive disorder 145811415 F41.8 no si/hi clonazepam , clonidine, loraz, venlafax Sees Dr. Lanza External hemorrhoids 239 95874 K64.4 proctosol Stable on current regimen Loss of appetite 4366245 6 R63.0 mirtazapin e Seborrheic dermatitis of scalp 973799677 L21.0 ketoconazo le 2% Body mass index 40+ - severely obese 254742431 Z68.41 diet and exercise Constipation 83125927 K5 9.00 senna Impaired g lucose tolerance 1713324 R73.02 HBA1c 5.3 02/2020 recheck-p 31771 NESSA HOLLIS [facility] [address] [place] [address] 02/20/2021 15:36:25 02/20/2021 15:46:29 Impaired glucose tolerance 8056368 R73.02 HBA1c 5.3 02/20206530AKZ8 c 5.8 02/08/2021- diet/exerc ise rpt 3 months Lumbago with sciatica 20 8376723 M54.42 [address], [address], tiz 4, [address] 600 Pain management -Has appt scheduled for 09/20/20- seen MRI 12/2020-p PT ordered-pt given # to book-p wants letter to move to 1st floor- referred to pain management PT - awaiting call back Loss of appetite 1017897 6 R63.0 mirtazapin e Muscle pain 44715894 M79 .10 cycloben, diclo gel, meloxicam, naproxen Cyclobenza zohaib d/c'd Refilled Tizanidine to TID PRN-> stop cyc 10 qhs Psoriasis 6326907 L40.9 clobetasol , calcipotri maureen Referral to derm- seen cream given Obstructiv e sleep apnea of adult 6894167575 103 G47.33 Referral to sleep medicine-p Sleep study from 06/12/20 shows mild TIM. Recommends Auto CPAP or CPAP titration study Sleep Medicine appt on 10/23 pulm for CPAP- seen awaiting call back- 02/28/21-p Insomnia 828118126 G47.0 0 zolpidem, prazosin, quetiapine Mixed anxi ety and depressive disorder 275149802 F41.8 no si/hi clonazepam , clonidine, loraz, venlafax Sees Dr. Lanza External hemorrhoids 239 12025 K64.4 proctosol Stable on current regimen Seborrheic dermatitis of scalp 913284666 L21.0 ketoconazo le 2% Body mass index 40+ - severely obese 491811355 Z68.41 diet and exercise Constipation 05305843 K5 9.00 senna Internal hemorrhoids 904 49399 K64.8 hydr, proc 925[address] [facility] [address] [place] [address] 03/27/2021 08:29:24 03/27/2021 15:29:22 Internal hemorrhoids 82647310 K64.8 hydr, proc Impaired g lucose tolerance 3601497 R73.02 HBA1c 5.3 02/20207066YXS0 c 5.8 02/08/2021- diet/exerc ise rpt 3 months Lumbago with sciatica 20 8977462 M54.42 [address], [address], tiz 4, [address] Pain management -Has appt scheduled for 09/20/20- seen MRI 12/2020-p PT ordered-pt given # to book-p wants letter to move to 1st floor- referred to pain management PT - awaiting call back Loss of appetite 2812887 6 R63.0 mirtazapin e Muscle pain 77959310 M79 .10 cycloben, diclo gel, meloxicam, naproxen Cyclobenza zohaib d/c'd Refilled Tizanidine to TID PRN-> stop cyc 10 qhs Psoriasis 1837717 L40.9 clobetasol , calcipotri maureen Referral to derm- seen cream given Obstructiv e sleep apnea of adult 7535710389 103 G47.33 Referral to sleep medicine-p Sleep study from 06/12/20 shows mild TIM. Recommends Auto CPAP or CPAP titration study Sleep Medicine appt on 10/23 pulm for CPAP- seen awaiting call back- 02/28/21- they called her and ? new machine Insomnia 777767014 G47.0 0 zolpidem, prazosin, quetiapine Mixed anxi ety and depressive disorder 870952102 F41.8 no si/hi clonazepam , clonidine, loraz, venlafax Sees Dr. Lanza External hemorrhoids 239 96291 K64.4 proctosol Stable on current regimen Seborrheic dermatitis of scalp 471529177 L21.0 ketoconazo le 2% Body mass index 40+ - severely obese 433811813 Z68.41 diet and exercise Constipation 70706707 K5 9.00 senna Screening for malignant neoplasm of colon 498091206 Z12.11 colonoscop y 12/2020- rpt 5-10 dep on results Adult heal th examination 133629797 Z00.01 cpe labs -p Screening mammography 24 288553 Z12.31 05/2020 nml-p Screening for osteoporosis 558241613 Z13.820 -DEXA: 05/2020 nml Screening for malignant neoplasm of cervix 053671747 Z12.4 [facility] Active or passive immunization 289452392 Z23 vacc-p Health Concerns Section Related Observation LastModified by Organization Detai ls LastModified Time None Recorded Concern Status LastModified by Organization Details LastModified Time None Recorded Advance Directives Directive None Recorded Payers Encounter Date Sequence Insurance Name Policy Number Policy Mcnamara Covered Member ID Mcnamara Member ID Guarantor Name 09/16/2020 1 [place] Chayra Y Boria Hensley [id number] Chayra Boria Hensley 09/16/2020 2 [place] Chayra Boria Hensley [id number] Chayra Boria Hensley 11/14/2020 1 [place] [employer] Chayra Y Boria Hensley [id number] Chayra Boria Hensley 11/14/2020 2 [place] Chayra Boria Hensley [id number] Chayra Boria Hensley 01/13/2021 1 [place] Chayra Y Boria Hensley [id number] Chayra Boria Hensley 01/13/2021 2 [place] Chayra Boria Hensley [id number] Chayra Boria Hensley 02/20/2021 1 [place] [employer] Chayra Y Boria Hensley [id number] Chayra Boria Hensley 02/20/2021 2 [place] Chayra Boria Hensley [id number] Chayra Boria Hensley 03/27/2021 1 [place] Chayra Y Boria Hensley [id number] Chayra Boria Hensley 03/27/2021 2 [place] Chayra Boria Hensley [id number] Chayra Boria Hensley Notes Date Note Type [...] meds as prescribed. BRIEN sharma [place] - [facility] 09/16/2020 11:25:53 11/14/2020 text/html 50 yo female pre sents for fu- telemed -camera not working ??derm- yes given cream ??sleep med- had sleep study- pulm-p ??pain management- seen MRI-p ??PT-p ??colonoscopy-p MS[facility] pain- chronic Psoriasis- derm-p Lumbago w/sciatica- ??PT Insomnia- sleeps well with meds Anxiety/depression- followed by psych TIM - ??CPAP Loss of appetite- improved NESSA BUNNY [address] [facility],[address], [place], [address], [facility] - [facility] 11/14/2020 15:54:16 01/13/2021 text/html 50 yo female [...] CPAP Muscle pain- stable NESSA HOLLIS [address], [place], [address], [facility] 01/13/2021 12:17:32 02/20/2021 text/html 50 yo female pre sents for mw-lpwzlvf-ahiair not working Needs refill for msk relaxer and hemorroides ??PT- not booked- waiting call back??CPAP- 02/28/21Followed by psych MSK pain- chronicPsoriasis- dermLumbago w/sciatica-awaiting PTInsomnia- sleeps well with medsAnxiety/depressio n- followed by psychOSA - ??OYDB-xtsp-uQwpv of appetite- improvedConstipation- stableCOPD- stableOSA - awaiting pulm for CPAPMuscle pain- stable NESSA HOLLIS [address], [place], [address], [facility] 02/20/2021 15:46:32 03/27/2021 text/html 50 yo female pre sents for NYZI-butcfqq-fvlbzw not working CPE labs- no colonoscopy 12/2020- rpt 5-10 dep on results -Vacc: updated with [facility].-PAP:2017 normal [facility]-DEXA: 05/2020 nml-Mammo: 05/2020 nml-Colonoscopy: 12/2020 rpt 5-10 results-p??PT- awaiting appt??help at home??CPAP- 02/28/21 - they called her and ? new machineFollowed by psych NESSA BOONEAN [address], [place], [address], [facility] 03/27/2021 15:32:09 03/27/2021 text/html Medicare Annual Wellness [...] lighting in the home NESSA HOLLIS [address] [facility],[address], [place], [address], [facility] 03/27/2021 15:32:09 OBGyn Episode No OBEpisode recorded.
--- OUTSIDE RECORDS SUMMARY | 2024-11-03 07:52 | XMS_ITS | Encounter Summary ---
Author Organization [facility] Address [id number] [place] [phone] Care Team Providers Care Adobe Layer Name Role Phone Mario Basilio MD Primary Care Provider [phone] Reason for Visit * Reason Onset Date Comments PT-1 10/15/2024 Encounter Details Date Type Department Care Team (Late st Contact Info) Description 10/15/2024 Telephone Foiling Machine Operator - [place] [address] [place] [address] Mario Basilio MD [address] [place] [address] PT-1 Social History Tobacco Use Types Packs/Day [...] was completed / submitted on line with [employer] PT 1 tracking # is: [id number] modified to #6/ month * Winter Duval - 10/15/2024 3:52 PM EST [place] Medicaid Group new provider or submitter number is [id number] Verify and document patients [place] insurance ID # (NOT [facility] ID): [facility] [id number] [place] / [place] / Product Type: MED[place]ARE [id number] Patient mailing address: [address] [facility] [address] Telephone Information: Pt. demographics verified? YES If not accurate, update registration. Is this a NEW request or a RENEWAL? RENEWAL Name of treating facility: [facility] Name (first & last) of treating provider? required : N/A What is the medical reason why the patient is seeing the above provider? Behavorial Specialist Address/Zip code for treating provider: [address] [place] [address] Phone # for treating provider: [phone] Is the provider in the [employer] network (do they accept [place] Health insurance)? YES What specialtly is this [...] Care Team (Late st Contact Info) Description 02/26/2025 3:30 PM EDT Office Visit Foiling Machine Operator - [facility] [address] [place] [address] Mario Basilio MD [address] [place] [address] 05/18/2025 8:30 AM EDT Office Visit Bariatric Surgery - [place] [address] [phone] Flo Dixon MD [address] [address] documented as of this encounter Visit Diagnoses Not on filedocumented in this encounter Care Teams Adobe Layer Relationship Specialty Start Date End Date Mario Basilio MD [address] [place] [address] PCP - General Internal Medicine 08/18/24 documented as of this encounter
--- OUTSIDE RECORDS SUMMARY | 2024-11-03 07:52 | XMS_ITS | Clinical Summary ---
Author Organization [facility] Address [address] [place] [address] Phone Care Team Providers Care Champagne Maker Name Role Phone Mario Basilio MD Primary Care Provider [phone] Allergies No known active allergies Medications acetaminophen [...] cream Apply to affected area QHS prn 03/20/20 23 Active zolpidem (AMBIEN) 10 mg tablet TAKE 1 TABLET BY MOUTH AT BEDTIME 01/12/20 22 Active clotrimazole (LOTRIMIN) 1 % creamIndicatio ns:Candidiasis , cutaneous apply daily to breast folds as needed 60 g 2 08/18/20 24 Active calcipotriene (DOVONEX) 0.005 % creamIndicatio ns:Psoriasis APPLY TO AFFECTED AREAS OF PSORIASIS TWICE DAILY. 60 g 1 08/18/20 24 Active nabumetone (RELAFEN) 500 mg tabletIndicati ons:Chronic bilateral low back pain, unspecified whether sciatica present TOME 1 TABLETA POR VIA ORAL TOD[place] PARA [place] DOLOR 90 tablet 10/19/19 25 Active hydrocortisone (ANUSOL-HC) 2.5 % rectal creamIndicatio ns:Hemorrhoids , unspecified hemorrhoid type Insert into the rectum 2 (two) times a day. 30 g 3 10/28/19 25 025 Active methocarbamoL (ROBAXIN) 750 mg tabletIndicati ons:Chronic bilateral low back pain, unspecified whether sciatica present Take 1 tablet (750 mg total) by mouth 1 (one) time each day. 90 each 10/28/19 25 025 Active hydrocortisone (ANUSOL-HC) 2.5 % rectal creamIndicatio ns:Hemorrhoids , unspecified hemorrhoid type Insert into the rectum 2 (two) times a day. 30 g 3 08/18/20 24 025 Discontinued(Re order) methocarbamoL (ROBAXIN) 750 mg tabletIndicati ons:Chronic bilateral low back pain, unspecified whether sciatica present Take 1 tablet (750 mg total) by mouth 1 (one) time each day. 90 each 1 08/18/20 24 025 Discontinued(Re order) nabumetone (RELAFEN) 500 mg tabletIndicati ons:Chronic bilateral low back pain, unspecified whether sciatica present Take 1 tablet (500 mg total) by mouth 1 (one) time each day if needed for mild pain. 30 tablet 08/18/20 24 025 Discontinued Active Problems Problem Noted Date Diagnosed Date Bipolar disorder 10/26/2021 Chronic back pain 10/26/2021 Depression 10/26/2021 Encounters Date Type Department Care Team Description 10/28/2024 2:30 PM EST Office Visit Internal Medicine - [address] [place] [address] Aurora Bates NP Bipolar affective disorder, remission status unspecified (CMS/[facility]) (Primary Dx); Chronic bilateral low back pain, unspecified whether sciatica present; Psoriasis; Candidiasis, cutaneous; Hemorrhoids, unspecified hemorrhoid type; Need for vaccination against Streptococcus pneumoniae 10/15/2024 Telephone Equity Trader - [address] [phone] Mario Basilio MD PT-1 09/17/2024 Telephone Pediatrics - [address] [phone] Mario Basilio MD Referral 08/18/2024 3:30 PM EST Office Visit Internal Medicine - [address] [phone] Aurora Bates NP Routine general medical examination [...] 2:45 PM EST Consult Orthopedic Surgery - [place] [address] [place] [phone] Luis Jennings DPM Sprain of anterior talofibular ligament of right ankle, initial encounter (Primary Dx) from Last 3 Months Immunizations Name Administration Dates Next Due DTaP (Infanrix) 6wks to less than 7yo 10/07/2017 Influenza Quadravalent, MDCK , 0.5ml, preservative free (Flucelvax) 6mo and older 07/17/2023,10/02/2022 Influenza trivalent, MDCK, 0 .5mL, preservative free (Flucelvax) 6mo and older 08/18/2024 Moderna SARS-CoV-2 COVID-19, mRNA, LNP-S, preservative free 09/19/2021 Pneumococcal conjugate 20 va lent (Prevnar 20, PCV 20) 2mo and older 10/28/2024 Td Tetanus diptheria (Tdvax) 7yo and older 10/02 Tdap Tetanus diptheria acell ular pertussis (Boostrix; Adacel) 7yo and older 10/07/2017 Surgical History Surgery Date Site/Laterality Comments OTHER SURGICAL HISTORY PROCEDURE: DESTRUCTION OF INTERNAL HEMORRHOIDS CHOLECYSTECTOMY PROCEDURE: LAPAROSCOPY, CHOLECYSTECTOMY Medical History Medical History Date Comments Bipolar disorder (CMS/HCC) 10/26/2021 DX:Bi polar disorder (HCC) Depression 10/26/2021 DX:Depression Chronic back pain 10/26/2021 [...] Pulse 93 10/28/2024 2:10 PM EST Temperature 37.1 ??C (98.8 ??F) 08/01/2024 7:59 PM ES T Respiratory Rate 16 08/01/2024 7:59 PM EST Oxygen Saturation 94% 08/01/2024 7:59 PM EST Inhaled Oxygen Concentration - - Weight 104 kg (228 lb 3.2 oz) 10/28/2024 2:10 PM EST Height 154.9 cm (5' 1 ) 08/18/2024 3:32 PM EST Body Mass Index 43.12 08/18/2024 3:32 PM EST Plan of Treatment Upcoming Encounters Date Type Department Care Team (Late st Contact Info) Description 02/26/2025 3:30 PM EDT Office Visit Equity Trader - [facility] [address] [facility] [facility] [place] [address] Mario Basilio MD [address] [facility] [facility] [place] [address] 05/18/2025 8:30 AM EDT Office Visit Bariatric Surgery - [place] [address] [facility] [address] [place] [phone] Flo Dixon MD [address] [address] [place] [address] Health Maintenance Due Date Last Done Comments [...] Screening: Colonoscopy 09/04/2031 09/04/2021 DTaP,Tdap,and Td Vaccines (4 - Td or Tdap) 10/02/2032 10/02/2022, 10/07/2017, 10/07/2017 Hepatitis C Screening Completed 10/02/2022 HIV Screening Completed 08/18/2024 Influenza Vaccine Completed 08/18/2024, , 10/02/2022, Additional history exists Pneumococcal Vaccine: 50+ Years Completed 10/28/2024 Pneumococcal Vaccine: Pediatrics (0 to 5 Years) and At-Risk Patients (6 to 64 Years) Aged Out 10/28/2024 No longer eligible based on patient's age to complete this topic HIB Vaccines Aged Out No longer eligi [...] PM EST Encounter for screening for HIV HEPATITIS C SCREENING Routine 10/02/2022 HM COLONOSCOPY [...] LAB CHEMISTRY METHOD 08/18/2024 7:40 PM EST [facility] Blood Venous blood specimen / Unknown Venipuncture / Unknown 08/18/2024 4:20 PM EST 08/18/2024 4:20 PM EST Narrative [facility] - 08/18/2024 7:40 PM EST [...] NP LAB BLOOD ORDERABLES Final Resul t Performing Organization Address City/[facility]/ZIP Co de Phone Number [facility] [address] [place] [address], [place] [phone] * (ABNORMAL) Lipid panel with reflex to direct LDL (08/18/2024 4:20 PM EST) Cholesterol 212(H) 0 - 200 mg/dL LAB CHEMISTRY METHOD 08/18/2024 7:00 PM EST [facility] Triglycerides 179(H) 0 - 150 mg/dL LAB CHEMISTRY METHOD 08/18/2024 7:00 PM [facility] HDL 61 >=40 mg/dL LAB CHEMISTRY METHOD 08/18/2024 7:00 PM EST [facility] LDL Calculated 115(H) 0 - 100 mg/dL LAB CHEMISTRY METHOD 08/18/2024 7:00 PM EST [facility] VLDL Cholesterol Kofi 35.8 mg/dL LAB CHEMISTRY METHOD 08/18/2024 7:00 PM [facility] Non HDL Chol. (LDL+VLDL) 151(H) <145 mg/dL LAB CHEMISTRY METHOD 08/18/2024 7:00 PM EST [facility] Chol/HDL Ratio 3.5 0.0 - 4.4 LAB CHEMISTRY METHOD 08/18/2024 7:00 PM [facility] Blood Venous blood specimen / Unknown Venipuncture / Unknown 08/18/2024 4:20 PM EST 08/18/2024 4:20 PM EST us Aurora Bates NP LAB BLOOD ORDERABLES Final Resul t Performing Organization Address City/[facility]/ZIP Co de Phone Number [facility] [address] [place] [address], [place] [phone] * (ABNORMAL) Basic metabolic panel (08/18/2024 4:20 PM EST) Sodium 137 133 - 145 mmol/L LAB CHEMISTRY METHOD 08/18/2024 6:53 PM [facility] Potassium 4.6 3.5 - 5.5 mmol/L LAB CHEMISTRY METHOD 08/18/2024 6:53 PM [facility] Chloride 103 96 - 110 mmol/L LAB CHEMISTRY METHOD 08/18/2024 6:53 PM [facility] CO2 28 21 - 32 mmol/L LAB CHEMISTRY METHOD 08/18/2024 6:53 PM [facility] Anion Gap 6 3 - 11 LAB CHEMISTRY METHOD 08/18/2024 6:53 PM [facility] Glucose 102(H) 70 - 100 mg/dL LAB CHEMISTRY METHOD 08/18/2024 6:53 PM [facility] BUN 18 5 - 25 mg/dL LAB CHEMISTRY METHOD 08/18/2024 6:53 PM [facility] Creatinine 1.01 0.50 - 1.10 mg/dL LAB CHEMISTRY METHOD 08/18/2024 6:53 PM [facility] eGFR 66 >=60 mL/min/1. 73m2 LAB CHEMISTRY METHOD 08/18/2024 6:53 PM [facility] Comment:Calculation based on the??Chronic Kidney Disease Epidemiology Collaboration (CKD-EPI) equation refit??without adjustment for race. BUN/Creatinine Ratio 17.8 LAB CHEMISTRY METHOD 08/18/2024 6:53 PM [facility] Calcium 9.8 8.5 - 10.5 mg/dL LAB CHEMISTRY METHOD 08/18/2024 6:53 PM [facility] Blood Venous blood specimen / Unknown Venipuncture / Unknown 08/18/2024 4:20 PM EST 08/18/2024 4:20 PM EST Aurora Bates CRAFT DEMONSTRATOR LAB BLOOD ORDERABLES Final Resul t [facility] [address] [place] [address], * Hepatitis C Screening (10/02/2022) Hepatitis C Screening Abstracted Historical Provider HEALTH MAINTENANCE Final Result * Colonoscopy (09/04/2021) Colonoscopy No Interpretation , Abstracted Anatomical Region Laterality Modality Other Historical Provider HEALTH MAINTENANCE Final Result * [place]ISON SCREENING DIGITAL (06/01/2020 4:01 PM EDT) Anatomical Region Laterality Modality Mammography 06/01/2020 10:3 0 AM EDT Narrative 06/01/2020 4:01 PM EDT [facility] Diagnostic Imaging Department [address] [place], [place] [id number] Patient: ??GROVER ISLAS ?/Age/Sex: 1970 - 50 - F Unit#: ??[id number] ? Location/Status: ??SPDIMAM/REG CLI ? Mnemonic/Ordering Site: ??DIGSC/SPMAM Ordering Physician: ??LEANNA SMITH DO [place] Screening Digital - 06/01/20 - 1128 History: Bilateral breast cancer screening. Technique: ??Digital mammography. Conventional CC and MLO projections with tomosynthesis MLO views and computer aided detection. Comparison: None available. Previous mammography obtained in [place] are unavailable. Findings: Breast tissue consists of a heterogenous combination of ??fatty and fibroglandular tissue, potentially obscuring small lesions, category c density bilaterally (as calculated by [employer] software). No suspicious group of microcalcification, suspicious mass, concerning focal asymmetry or architectural distortion within either breast. Impression: ??No evidence of malignancy. BI-RADS category 1; negative study, 3341F 04522, 22357 A negative mammogram in the face of a clinically suspicious abnormality does not exclude the possibility of malignancy nor alter the indications for biopsy. Note: Patient information entered ??into a reminder system with a target due date for the next mammogram; PQRI II 7006Q Dictating Physician: ??RALPH BLANCO MD Electronically Signed by: ??RALPH BLANCO MD Dic Date/Time: ??06/01/20 1601 Sign date/Time: ??06/01/20 1601 Procedure Note Ralph Blanco MD - 08/22/2022 [facility] Diagnostic Imaging Department [address] [place] [address] Patient: ROSELINE PRATHERGROVER /Age/Sex: 1970 - 50 - F Unit#: [id number] [facility]/Ordering Site[facility] Ordering Physician: LEANNA SMITH DO Harrison [...] lesions, category cdensity bilaterally (as calculated by [employer] software). No suspicious group of microcalcification, suspicious mass, concerningfocal asymmetry or architectural distortion within either breast. Impression: No evidence of malignancy. BI-RADS category 1; negative study, 3341F 74063, [address] A negative mammogram in the face of a clinically suspicious abnormalitydoes not exclude the possibility of malignancy nor alter the indications forbiopsy. Note: Patient information entered into a reminder system with a targetdue date for the next mammogram; PQRI II 7025F Dictating Physician: RALPH BLANCO MD Electronically Signed by: RALPH BLANCO MD Dic Date/Time: 06/01/20 1601 Sign date/Time: 06/01/20 1601 Leanna Smith DO IMG BI PROCEDURES Final Result from Last 3 Months or Most Recently Relevant to Health Maintenance Insurance [facility] [employer] Care Teams Champagne Maker Relationship Specialty Start Date End Date Mario Basilio MD [address] [place] [address] PCP - General Internal Medicine 08/18/24
[2024-11-03] MEDS: Lactated Ringers 1,000 ML 999 ML IV (08:12)
[2024-11-03] MEDS: Aprepitant 32 MG/4.4 ML VIAL IVPUSH (08:15)
[2024-11-03] MEDS: Lactated Ringers 1,000 ML 80 ML IVCONT (09:37)
--- NOTE | 2024-11-03 09:52 | MHC.SHP ---
Pre-Procedural Eval Section A - 24 Hr Update-Section A only Date of Service: 11/03/24 The patient is an INPATIENT: Yes The patient has been examined within 24 hours of the surgical procedure. The History & Physical has been completed within 30 days and I have reviewed it.: Yes Section B - Complete if H&P > 30 days Chief Complaint: morbid obesity Relevant Family History (Specify if Yes): No Relevant Social History: None Present Medications: None Medical History: No relevant PMH History of Previous Operations: No relevant previous surgery Allergies: Allergies Allergy/AdvReac Type Severity Reaction Status Date / Time No Known Allergies Allergy Verified 10/26/24 12:30 Review of Systems Sugical H&P ROS: Negative: Constitution, Cardiovascular, Respiratory, Neurological, Psychiatric, Hem-Onc, Allergic/Immunologic, Gastrointestinal, Genitourinary, Musculoskeletal, Integumentary, Endocrine and Eyes/Ears/Nose/Throat Exam Surgical H&P Exam: Normal: HEENT, Normal: Heart, Normal: Lungs, Normal: Extremities, Normal: Abdomen, Normal: Skin and Normal: Neurological Plan Diagnosis/Plan: Unchanged I have reviewed the history and physical and performed a pertinent physical examination on my patient. No changes have occurred unless specified. Time Spent With Patient Time: Total time managing care of this patient today ____ minutes.
--- NOTE | 2024-11-03 09:53 | PM.OP ---
Brief Operative Note Date of Service: 11/03/24 Pre-op diagnosis: Morbid obesity with comorbidities (see below) Post-op diagnosis: same (Congenital abdominal adhesions) Procedure: INITIAL PATIENT BMI ON PRESENTATION AT OUR OFFICE: 44.7 kg/m2 LAST BMI BEFORE SURGERY: 40.8 kg/m2 COMORBIDITIES: hypertension, hyperlipidemia, DJD, insomnia, depression, anxiety, GERD ?The patient presented to the Weight Management Program with significant obesity that was negatively impacting the patient's comorbidities as listed above.? The program is a phased program with a special focus on preoperative medical weight management to promote substantial weight loss and prepare the patients for the second phase of the program: bariatric surgery. The patient participated in an intensive weekly lifestyle ?intervention and exercise program during which the patient ?has lost between the initial office visit and the last preoperative visit 21.4lbs, or 8.76% of initial actual body weight. It was deemed appropriate for the patient to now have bariatric surgery. In light of the current Covid-19 pandemic and the well documented strong association of obesity and increased risk of worse outcomes if infected with Covid-19 (REFERENCES:https://pubmed.ncbi.nlm.nih.gov/63738199/,?https://pubmed.ncbi.nlm.nih.gov/46808838/), any delay in undergoing bariatric surgery may lead to the patient's worsening health condition and increased?risk of more severe Covid-19 disease if infected. In addition a recent?study from [facility] published in [facility] on 08/28/2021 ([email or web address]) found that, among patients with obesity, substantial weight loss achieved with surgery was associated with improved outcomes of COVID-19 infection. The findings suggest that obesity can be a modifiable risk factor for the severity of COVID-19 infection. In addition, the patient met the BMI-criteria for bariatric surgery based on the BMI on initial presentation. The patient should not be penalized for achieving such weight loss because ?it is not sustainable long-term without surgical intervention and it was achieved in preparation for bariatric surgery ?under my direction and based on my published research ([email or web address]).[email or web address] and?https://www.soard.org/article/[email or web address](48)01280-X/pdf) ?that a 10% preoperative weight loss improves long-term weight loss after surgery and reduces perioperative complications.? Insurance carriers such as [facility] have endorsed my recommendations ?and have included in their policies criteria to include a 10% preoperative weight loss requirement. PROCEDURE: Esophago-gastroscopy, laparoscopic lysis of adhesions, laparoscopic sleeve gastrectomy and laparoscopic gastropexy INDICATIONS: This is a 55 year-old female who was electively scheduled for laparoscopic, possibly open sleeve gastrectomy. The risks and complications of the procedure were discussed with the patient in advance, particularly the possibility of ; pulmonary embolism; staple line leak; bleeding; GERD; cardiac, pulmonary, or renal complications; as well as long-term problems such as insufficient weight loss, vitamin deficiency, strictures, or ulcers. The patient understood all the risks, and was in agreement to proceed with surgery. DESCRIPTION OF PROCEDURE: After informed consent was obtained from the patient, the patient was given preoperative antibiotics, and was transferred to the operating room. After successful induction of general anesthesia, pneumatic compression devices were placed on both lower extremities. An upper endoscopy was performed next. The oropharynx and esophagus appeared to be within normal limits. There was no diaphragmatic hernia present. The stomach was entered. Then after all fluid and air were suctioned and the stomach was fully decompressed, the scope was withdrawn and secured in the mid esophagus. The patient was then prepped and draped in the usual sterile manner, and abdominal access was established at the right upper quadrant with the Summer technique. A 12 mm blunt port was inserted, and the abdomen was insufflated with CO2 to a pressure of 15 mmHg. Under direct visualization, additional ports were placed, specifically two 5 mm Versi-step ports to the left upper quadrant, and a 5 mm Versi-Step port to the right upper quadrant. 1% lidocaine plain was used to infiltrate all port sites as well as all fascia defects. Using the EndoClose suture passer device, I placed a #1 Polysorb tie across the falciform ligament in order to retract it up against the abdominal wall and prevent injury of the ligament with our instruments during the procedure. There were adhesions in the abdomen from previous cholecystectomyinvolving the omentum and the left anterior abdominal wall. Those were lysed completely with the ultrasonic device. Following that, the patient was placed in a steep reverse Trendelenburg position. An additional 5 mm port was placed to the right flank for the Mediflex retractor that was used to retract the left lobe of the liver. The gastro-esophageal fat pad was opened with the ultrasonic device (Thunderbeat, Olympus) and the anterior esophagus and hiatus were exposed. The angle of His was opened with the ultrasonic device the fundus of the stomach from any diaphragmatic and splenic attachments. I then opened the gastrocolic ligament between the transverse colon and the greater curvature of the stomach with the ultrasonic device to enter the lesser sac and facilitate the ligation of the short gastric vessels. I started at a mid-point along the greater curvature and using the Thunderbeat, all short gastric vessels were divided all the way to the angle of His until the left adan was completely dissected at its entirety. I then divided the gastro-colic ligament distally to a distance of about 3-4 cm proximal to the pylorus. There were extensive congenital adhesions between the pancreas and posterior gastric wall. Those were lysed completely with the ultrasonic device. Adhesiolysis took approximately 45 min to complete. The stomach was then divided transversely with two Endo RAHEEL-45 purple and four RAHEEL-60 articulating purple loads using the [employer] stapler and loads. Every effort was made that the gastric sleeve had a tubular shape and an even caliber throughout. Once the sleeve resection was completed, the staple line of the gastric sleeve was reinforced with Hemoclips. The resected stomach was retrieved without difficulty from the Summer port. A gastropexy was then performed in order to prevent postoperative GERD and partial gastric volvulus. Several interrupted 2.0 Surgidac sutures were placed between the sleeve's staple line and the previously divided greater omentum and gastro-colic ligament using the Endo-Stitch device. ?An upper endoscopy was performed. There was no narrowing at the GE junction. The scope was easily advanced all the way to the pylorus which was clearly visualized. There was no narrowing anywhere and the sleeve's caliber was even throughout. The sleeve's staple line was inspected and there was no evidence of ischemia, bleeding or dehiscence. At that point the gastroscope was withdrawn from the patient?s mouth while we were decompressing the bowel and the stomach from any remaining air. I looked into the lesser sac to see how the sleeve was situating and it was situating well. There was no bleeding from the staple line, spleen, or short gastric vessels. The Mediflex retractor was removed, and the undersurface of the liver was inspected and there was no bleeding. The patient was placed in supine position. I closed the fascial defect of the 12 mm port site with a figure of eight #1 Polysorb suture. Then 30cc Ropivacaine plain with 10 mg of Dexamethasone were used to infiltrate the fascial closure as well as all skin incisions. At this point, the abdomen was deflated, all ports were removed under direct vision, and no bleeding was noted from any of the port sites. The skin incisions were irrigated with saline and were closed with 4-0 absorbable monofilament sutures. Steri-Strips and OpSites were used to cover all incisions. The patient was extubated and was transferred in stable condition to the recovery room for further care. I was present and performed all segundo parts of the procedure. Ms. Brown was the assistant director of public works. There were no residents to assist with this case. Abhi Traylor MD, PhD, FACS Surgeon: Adryan Traylor MD Anesthesia: GETA, local and other (TAP block) Was an Microbiology Lab Manager used for this Procedure?: No Microbiology Lab Manager: Mirta Brown Estimated blood loss (mL): 10 IV fluids (mL): 2,300 Urine output (mL): 0 (No Roberts to record output) Pathology: other (1) Stomach, 2) gastro-esophageal fat pad) Condition: stable Disposition: PACU
--- NOTE | 2024-11-03 09:56 | P.PNGS_ITS ---
Subjective Subjective Date of Service: 11/04/24 Interval history: Feels well. Mild incisional pain. She is tolerating phase 1 bariatric diet Physical Exam 2 Vital Signs: Vital Signs: Last Vital Signs Temp 98.4 F 11/03/24 08:09 Pulse 96 11/03/24 08:09 Resp 16 11/03/24 08:09 BP 121/76 11/03/24 08:09 Pulse Ox 99 11/03/24 08:09 O2 Del Method Room Air 11/03/24 08:09 BMI result Body Mass Index 40.6 GI: Inspection: Yes normal to inspection, Yes incision (clean, dry and intact) and Yes obesity Palpation (GI): Soft to palpation Extrem: Right lower extremity: normal to inspection (no calf tenderness) L eft lower extremity: normal to inspection (no calf tenderness) Objective Data Active Medications Lactated Ringer's (Lr) 1,000 mls @ 80 mls/hr IVCONT .[id number] [facility] Last Admin: 11/03/24 09:37 Dose: 80 mls/hr Documented By: NIKO Lactated Ringer's (Lr) 1,000 mls @ 100 mls/hr IVCONT .Q10H [facility] Labs 11/04/24 05:49 11/04/24 05:49 Procedures Date of Service Date of Service: 11/04/24 Progress Note: A&P Assessment and plan (1) Morbid obesity: Status: Acute Assessment and Plan: s/p laparoscopic sleeve gastrectomy, lysis of adhesions and gastropexy Doing well Will check am labs and if OK the patient will be discharged home (2) Hypertension: Status: Acute (3) Hyperlipidemia: Status: Acute (4) DJD (degenerative joint disease): Status: Acute (5) PTSD (post-traumatic stress disorder): Status: Acute (6) Depression: Status: Acute (7) Anxiety: Status: Acute (8) GERD (gastroesophageal reflux disease): Status: Acute (9) Congenital intra-abdominal adhesions: Status: Acute (10) S/P laparoscopic sleeve gastrectomy: Status: Acute Time Spent With Patient Time: Total time managing care of this patient today ____ minutes. Quality Stroke Does the patient have a stroke diagnosis?: No VTE Prior VTE?: No VTE Risk Level:: Surgical - moderate VTE Device Contraindication: N/A - Device Ordered VTE Drug Contraindication: Treatment Not Indicated
[2024-11-03] MEDS: ceFAZolin Sodium/Dextrose,Iso 2 GM/50 ML PIGGYBACK IV ×2 (10:20→15:46)
--- NOTE | 2024-11-03 13:04 | PM.DS ---
DS: Providers Provider Date of admission: 11/03/24 07:48 Primary care physician: Unknown Physician DS: Diagnosis Discharge Diagnosis (1) Morbid obesity: Status: Acute (2) Hypertension: Status: Acute (3) Hyperlipidemia: Status: Acute (4) DJD (degenerative joint disease): Status: Acute (5) PTSD (post-traumatic stress disorder): Status: Acute (6) Depression: Status: Acute (7) Anxiety: Status: Acute (8) GERD (gastroesophageal reflux disease): Status: Acute (9) Congenital intra-abdominal adhesions: Status: Acute (10) S/P laparoscopic sleeve gastrectomy: Status: Acute DS: Summary Hospital Course Hospital Course: ADMITTING DIAGNOSIS: morbid obesity,?GERD, anxiety, depression, HLD, HTN, insomnia, DJD, PTSD ? DISCHARGE DIAGNOSIS: same, s/p laparoscopic sleeve gastrectomy and gastropexy ? PAST SURGICAL HISTORY:?cholecystectomy ? PROCEDURE: upper endoscopy, laparoscopic sleeve gastrectomy and gastropexy ? DISCHARGE SUMMARY: ? History of Present Illness: ? The patient is a?54?year-old woman with a BMI of?40.6 kg/m2 and associated co-morbidities as described above. The patient had extensive work-up, lost?22.2 lbs preoperatively and was electively scheduled for laparoscopic, possible open sleeve gastrectomy and gastropexy. Risks and complications of the surgery were discussed with the patient in advance, particularly the possibility of , pulmonary embolism, anastomotic leak, bleeding, bowel injury, GERD, cardiac, renal or pulmonary complications. The patient understood all the risks and was in agreement with the surgical plan. ? Hospital Course: ? The patient underwent an uneventful laparoscopic sleeve gastrectomy with gastropexy on the day of admission. Postoperatively, the patient was transferred to the surgical floor. The patient received IV Acetaminophen and IV dilaudid for pain control. Patient was started on bariatric phase 1 diet POD #0. On postoperative day one, the patient was feeling well without nausea, vomiting, fevers, or tachycardia. The patient had some mild incisional pain and the abdomen was soft.? ? On the morning of postoperative day one, the patient was continued on 1 ounce of water or ice every half hour. During the day, the patient did fairly well, having some incisional pain, but able to ambulate adequately and to tolerate liquids well. ? Since the patient is doing well, we decided that the patient was ready to be discharged. The patient was given instructions to follow-up with me next week and to call my office for any fever over 101, persistent abdominal pain, nausea, vomiting, GERD, symptoms of DVT such as calf tenderness, or leg swelling, or pulmonary embolism such as chest pain or shortness of breath.? The patient was also instructed to drink 40-60 ounces of liquids per day using the 1-ounce cups. The patient had been given prescriptions for Tylenol for pain, Zofran prn for nausea, and pantoprazole and carafate previously. The patient was encouraged to ambulate and use the incentive spirometer. The patient was allowed to shower, but no baths, and encouraged to stay active at home. All of these instructions were given to the patient personally. All questions were answered and the patient understood all instructions, the instructions were also given to the patient in print. Time Attestation Discharge Coordination Time (in mins): 30 Quality: Safe Use of Opioids Does Pt have an Active Cancer Diagnosis on the Problem List?: No Quality: Stroke Does the patient have a stroke diagnosis?: No Physical Exam Vital Signs: Vital Signs: Last Vital Signs Temp 98.4 F 11/03/24 08:09 Pulse 96 11/03/24 08:09 Resp 16 11/03/24 08:09 BP 121/76 11/03/24 08:09 Pulse Ox 99 11/03/24 08:09 O2 Del Method Room Air 11/03/24 08:09 BMI result Body Mass Index 40.6 DS: Data Data Completed and Pending Pending studies at discharge: Pending at discharge 11/03/24 12:05 Surgical [PTH] Routine Discharge Plan Discharge Anticipated Discharge Date/Time: 11/04/24 10:00 Patient Disposition: Home, Self-Care Discharge Diagnosis: s/p laparoscopic sleeve gastrectomy with gastropexy Referrals: Physician,Unknown J [Primary Care Provider] - 1 Week Discharge Medications: Continued quetiapine 100 mg tablet 100 mg BEDTIME lorazepam 1 mg tablet 1 mg PO TID PRN (Reason: Anxiety) zolpidem 10 mg tablet 10 mg PO BEDTIME PRN (Reason: Insomnia) duloxetine 60 mg capsule,delayed release(DR/EC) 60 mg PO DAILY amitriptyline 25 mg tablet 25 mg BEDTIME pantoprazole 40 mg tablet,delayed release (DR/EC) 40 mg PO DAILY Qty: 90 0RF sucralfate 100 mg/mL suspension 10 ml PO BID Qty: 600 2RF ondansetron 4 mg tablet,disintegrating 4 mg PO Q6H PRN (Reason: nausea and vomiting) Qty: 20 0RF Rx Instructions: Only take one every 12 hours as needed if you have nausea Held methocarbamol 750 mg tablet 750 mg PO DAILY Hold Instructions: Resume on 11/04/24. Hold until cleared by Dr Traylor or his office Discontinued nabumetone 500 mg tablet 500 mg PO BID PRN (Reason: pain) polyethylene glycol 3350 17 gram/dose powder 17 g PO DAILY Qty: 238 0RF Rx Instructions: Mix each measuring cup with 8oz of water, Crystal light, or Gatorade zero, or Propel and do 7 measuring cups on 11/01/24 and another 7 measuring cups on 11/02/24 Activity on Discharge: No heavy lifting Stand Alone Forms: Patient Portal Discharge page Print Language: Finnish Care Plan Goals: weight loss Health Concerns: morbid obesity Plan of Treatment: No tub baths, sex or returning to work until discussed at first post op appointment. No alcohol, tobacco or illegal drug use. Continue to use incentive spirometer hourly while awake. Walk in home for 5- 10 minutes every 2 hours during the first week. Wear abdominal binder with activity. Follow all meal plan instructions from your bariatric surgeon. Review bariatric handbook and call with any questions. Discharge Instructions 1. Please call your doctor or come back to the emergency room should any new symptoms arise. 2. Activity: abstain from alcohol,? limited stair climbing, no bending, no driving, no exercise, no illicit substances, no lifting, no sex, no tub bath, no work. 4. Diet: follow your bariatric surgeons recommendations for advancing diet. 5. Dressing Change/Wound Care: Your incisions are covered with waterproof dressings. You can shower with these and pat dry. Do not rub over dressings or incisions. If the area is tender, you may apply an ice pack for short intervals (no more than 20 minutes on, followed by at least 20 minutes off). Do not apply heat. Do not use creams, lotions, or topical antibiotics unless instructed to do so by your surgeon. 6. Call your doctor if: - Your temperature exceeds 101.5 F - You experience excessive pain or swelling - You have an unexpected reaction to medication - You have excessive bleeding - You experience continued vomiting/nausea - Your incision begins to separate - Your incision shows signs of infection such as increased redness, swelling, excessive pain, heat, or drainage (light blood or clear fluid is normal) General instructions: No lifting greater than 10 lbs for the next 6 weeks[address] within 24 hours of taking narcotic pain medications. If you do not move your bowels in the next 2 days, please take milk of magnesia over the counter. Please follow the post op diet and do not advance your diet until you are seen in the office in about 2 weeks. Please walk around your home every hour or two to prevent blood clots from forming in your legs. You do not need to wake from sleeping to walk. Please sleep in a bed or couch to prevent kinking at the hips and knees. Please take your incentive spirometer (your lung dermatology specialist) home with you and use it for the next few days to prevent pneumonias. You may shower, no hot tubs, baths or swimming pools. Please call the office with any questions or concerns such as increasing abdominal pain, fever, chills, shortness of breath, chest pain, leg pain or swelling, or redness or drainage from your incisions. Please make sure you are consuming 40-60 ounces of total fluids per day. Avoid all carbonation. Do not hesitate to contact the office with any questions at . The patient's medical history has been reviewed and they are considered low risk for post op DVT and therefore DVT prophylaxis is not considered necessary. Travel after surgery was reviewed. The patient has not disclosed any travel plans during the first 30 days after surgery and they have been advised that within the first 30 days after surgery any bus, plane, train or car travel over 2 hours in duration is contraindicated due to the possibility of developing blood clots from immobility. Any travel, needs to include periods of ambulation of 10 minutes in duration every 2 hours.? The patient was instructed to discuss any plans for travel during this period with their bariatric surgeon. Assessment: s/p laparoscopic sleeve gastrectomy with gastropexy
[2024-11-03 13:55] LABS: Hemoglobin 13.3 g/dl (12.0-16.0)
[2024-11-03 14:17] LABS: Anion Gap 11 (12-20); Blood Urea Nitrogen 9 mg/dL (9-16); Calcium 9.2 mg/dL (8.4-10.2); Carbon Dioxide 27 mmol/L (22-29); Chloride 106 mmol/L (96-108); Creatinine Clr Calc Pharmacy 79.3; Estimated Glomerular Filt Rate > 60; Glucose Random 149 mg/dL (60-115); Potassium 4.2 mmol/L (3.3-5.1); Sodium 140 mmol/L (135-145)
[2024-11-03] MEDS: Lactated Ringers 1,000 ML 100 ML IVCONT ×2 (15:00→23:50)
--- NOTE | 2024-11-03 16:26 | PHA.MEDREC ---
Addendum entered by Phoebe Larose RPh 11/03/24 16:37: reviewed by [facility]. Original Note: Pharmacy Consult ? Medication Reconciliation Pharmacy has completed the medication reconciliation. Spoke with patient utilizing science interpreter and she was able to confirm her medications. Patient confirmed she is still taking the Lorazepam 1mg tab and states it is written as three time a day as needed but states she does it more when she needs to. She confirmed she has the Ondansetron and Sucralfate for after the surgery. She confirmed she was taking the Miralax Powder up until yesterday for before the surgery. She confirmed she last took the Pantoprazole yesterday morning and all her other medications 2 days ago.
[2024-11-03] MEDS: HYDROmorphone HCl 0.5 MG/0.5 ML SYRINGE 0.25 MG IVPUSH ×2 (16:31→21:13)
[2024-11-03] MEDS: Acetaminophen 1,000 MG/100 ML PIGGYBACK 16.7 MG IV ×2 (17:28→21:53)
[2024-11-03] MEDS: QUEtiapine Fumarate 100 MG TABLET PO (21:13)
[2024-11-03] MEDS: Famotidine/PF 20 MG/2 ML VIAL IVPUSH (21:13)
[2024-11-03] MEDS: Amitriptyline HCl 25 MG TABLET PO (21:13)
[2024-11-04] MEDS: HYDROmorphone HCl 0.5 MG/0.5 ML SYRINGE 0.25 MG IVPUSH (02:09)
[2024-11-04] MEDS: Acetaminophen 1,000 MG/100 ML PIGGYBACK 16.7 MG IV (03:53)
[2024-11-04 04:00] VITALS: BP 102/62; PULSE 85; RESP 16; TEMP 36.2; O2SAT 93
[2024-11-04 06:43] LABS: MANUAL DIFF FLAG NO
[2024-11-04 06:55] LABS: Basophils Percent Auto 0.2 % (0-2); Hematocrit 38.7 % (37.0-47.0); Hemoglobin 12.8 g/dl (12.0-16.0); Imm Gran Abs Auto 0.02 X10*3/uL (0.00-0.03); Imm Gran Pct Auto 0.3 % (0.0-0.4); Lymphocytes Absolute Auto 1.1 X10*3/uL (1.2-4.9); Lymphocytes Percent Auto 17.7 % (20-40); Mean Corpuscular HGB Conc 33.1 g/dl (31.0-35.0); Mean Corpuscular Volume 87.8 fL (80.0-98.0); Monocytes Absolute Auto 0.2 X10*3/uL (0.1-1.2); Monocytes Percent Auto 3.6 % (2-11); Neutrophils Absolute Auto 4.8 x10*3/uL (2.0-8.3); Neutrophils Percent Auto 78.2 % (45-73); Platelet Count 258 X10*3/uL (160-400); Red Blood Count 4.41 X10*6/uL (4.20-5.50); Red Cell Distribution Width 12.9 % (11.0-16.0); White Blood Count 6.1 X10*3/uL (4.8-10.8)
[2024-11-04 07:10] VITALS: BP 116/66; PULSE 73; RESP 16; TEMP 36.7; O2SAT 95
[2024-11-04 07:17] LABS: Anion Gap 11 (12-20); Blood Urea Nitrogen 7 mg/dL (9-16); Calcium 9.3 mg/dL (8.4-10.2); Carbon Dioxide 26 mmol/L (22-29); Chloride 104 mmol/L (96-108); Creatinine Clr Calc Pharmacy 96.5; Estimated Glomerular Filt Rate > 60; Glucose Random 107 mg/dL (60-115); Potassium 3.9 mmol/L (3.3-5.1); Sodium 137 mmol/L (135-145)
[2024-11-04] MEDS: Famotidine/PF 20 MG/2 ML VIAL IVPUSH (07:58)
[2024-11-04] MEDS: DULoxetine HCl 60 MG CAPSULE.DR PO (07:58)
--- NOTE | 2024-11-04 09:21 | MHC.CM.PN ---
S/P Gastric sleeve Lives alone independent No DME No home services declined the offer to document a HCP. DP Home self care private transport.
--- NOTE | 2024-11-04 10:12 | HO.POSTANES ---
Post Anesthesia Evaluation Post Anesthesia Evaluation Date of Service: 11/04/24 Vital Signs: Vital Signs Temp Pulse Resp BP Pulse Ox O2 Del Method 11/04/24 07:10 98.1 F 73 16 116/66 95 Room Air 11/04/24 04:00 97.1 F 85 16 102/62 93 Room Air 11/03/24 23:48 97.8 F 103 H 16 106/57 L 93 Room Air Anesthesia: General LMA Mental Status: Awake Pain Control: Satisfactory Nausea/Vomiting: None Hydration: Adequate Anesthesia-Related Issues: No Anes. Related Issues
== END 2024-11-04 09:37 | disposition home or self-care (01) | DRG 403 ==
LOC: HO.SSSA 13:02 → HO.S3 14:12
PROVIDERS: Physician Assistant Surgical; Admitting Provider Surgery; Visit Provider Surgery
PROC: 0DB64Z3 Excision of Stomach, Percutaneous Endoscopic Approach, Vertical (ICD-10-PCS; CPT 43845; principal; 2024-11-03 10:20)
DX: E66.01 Morbid (severe) obesity due to excess calories (principal); Q43.3 Congenital malformations of intestinal fixation; E78.5 Hyperlipidemia, unspecified; I10 Essential (primary) hypertension; Z68.41 Body mass index [BMI] 40.0-44.9, adult; F43.10 Post-traumatic stress disorder, unspecified; M19.90 Unspecified osteoarthritis, unspecified site; K21.9 Gastro-esophageal reflux disease without esophagitis; F41.9 Anxiety disorder, unspecified; G47.00 Insomnia, unspecified; F32.9 Major depressive disorder, single episode, unspecified; Z79.899 Other long term (current) drug therapy
CPT/HCPCS: 36415; 80048; 80053; 80061; 83036; 83525; 84443; 85014; 85018; 85025; 85610; 85730; 86140; 86850; 86900; 86901; 88304; 88305; 88307; 88342; A4649; C9145; J0131; J0690; J1100; J1171; J2003; J2250; J2371; J2405; J2704; J2795; J3010; J7120

== ENCOUNTER → 2024-11-03 07:48 | Outpatient (BNV) | payer OTHER, SELFPAY | PROVIDERS: Admitting Provider Surgery; Visit Provider Surgery | DX: E66.01 Morbid (severe) obesity due to excess calories (principal); Z68.41 Body mass index [BMI] 40.0-44.9, adult; K66.0 Peritoneal adhesions (postprocedural) (postinfection); Z98.84 Bariatric surgery status | CPT/HCPCS: 43659; 43775; 99024 ==

== ENCOUNTER 2024-11-10 10:09 | Outpatient (AMB) | payer OTHER, SELFPAY ==
--- NOTE | 2024-11-10 10:13 | MHC.OFFVISWM ---
VS Expanded 11/10/24 10:21 BP 125/70 Blood Pressure Location Rt brachial Blood Pressure Position Sitting Pulse 120 H Pulse Source Pulse Oximeter Temp 97.2 F Temperature Source Temporal Artery Scan Pulse Oximetry 96 Oxygen Delivery Method Room Air Height 5 ft 2 in Weight 213 lb 9.6 oz BMI 39.1 Body Fat % 47.3 Body Fat Mass 01.0 Fat Free Mass 112.4 Visceral Fat Rating 14.0 Body Water % 37.4 Body Water Mass 79.8 Muscle Mass/Score 106.8 Basal Metabolic Rate/Score 1,590 Intake Visit Reasons: OV PO LSG 11/03/2024 Melter Assistant Required: Yes Melter Assistant Services: Melter Assistant Present Melter Assistant Name: hospital cmi Allergies No Known Allergies Allergy (Verified 11/10/24 10:17) Medication List - Last Reconciled 11/10/24 by ANGELICA Beard amitriptyline 25 mg BEDTIME duloxetine 60 mg PO DAILY lorazepam 1 mg PO TID PRN methocarbamol 750 mg PO DAILY PRN pantoprazole 40 mg PO DAILY@0630 quetiapine 100 mg BEDTIME zolpidem 10 mg PO BEDTIME PRN HPI Comments Details: Patient is a 54-year-old female who returns to the office today in follow-up. She is approximately 7 days post sleeve gastrectomy performed on 11/03/2024. She is following the meal plan as given to her by Dr. Traylor. She did require some significant explanation to be sure that she is tracking the amount of fluid she is drinking. [facility] Medical History (Updated 11/07/24 @ 00:01 by Valdemar Dakika) GERD (gastroesophageal reflux disease) Anxiety Depression Hyperlipidemia Hypertension Back pain Insomnia DJD (degenerative joint disease) Morbid obesity PTSD (post-traumatic stress disorder) Severe recurrent major depression w/psychotic features, mood-congruent Surgical History (Updated 11/10/24 @ 10:19 by Dafne Blair CMA) S/P laparoscopic sleeve gastrectomy History of esophagogastroduodenoscopy (EGD) (09/01/24) Hx of colonoscopy Hx of cholecystectomy Family History Mother No problems noted. Father Heart problem Diabetes Daughter No problems noted. Daughter No problems noted. Son No problems noted. Social History Household Members: None Housing: Apartment Are you a primary interior plant caretaker to a significant other at home: No Do you presently have visiting nurse or other home services: No 75 years or older and lives alone: No Alcohol intake: never Patient Tobacco Use Status: Never used Tobacco e-Cigarette/Vaping Use: Never Used Second Hand Smoke Exposure: No service: No Sexual orientation: Straight/Heterosexual Physical Exam GI Inspection: Yes incision (Clean, dry, intact.) Assessment & Plan Assessment & Plan (1) S/P laparoscopic sleeve gastrectomy: Code(s): Z98.84 - Bariatric surgery status Category: Surgical Plan: POD 7 s/p LSG on 11/03/[address] Traylor Weight loss prior to surgery was 22.9 pounds or 9.3 % TBWL. Original weight on 08/03/2024 was 244.2 pounds and op weight was 221.3 pounds. Be sure to text Dr Traylor exactly 1 week after surgery your weight from your home scale so he can adjust your meal plan. Continue meal plan until f/u paloma Almazan in 2 weeks May shower, no submersion in bath for another week Continue abdominal binder with activity and exercise for the next 2 weeks. Exercise prior to surgery was stationary bike and may resume No abdominal exercises for 6 weeks post operatively Will be emailed link to post op video for review Reminded of the pace of drinking, 2 mL per minute, 1 oz/15 min. Patient was given strict instructions to follow the meal plan as directed by Dr. Traylor to include: Celebrate rebuild, 1 tbsp in 8 oz of water at 2-4, 6-8 and to continue drinking Gatorade 0. She was instructed to text Dr. Alisson coles at 9 pm to update him on her progress.
[2024-11-10 10:21] VITALS: BP 125/70; PULSE 120; TEMP 36.2; O2SAT 96; BMI 39.1
--- OUTSIDE RECORDS SUMMARY | 2024-11-10 11:56 | XMS_ITS | Encounter Summary ---
Author Organization [facility] Address [address] [place] [address] Care Team Providers Care Scanning Clerk Name Role Phone Mario Basilio MD Primary Care Provider [phone] Encounter Details Date Type Department Care Team Description 11/01/2023 Orders Only Medical Records [address] [place], [place] [id number] [place] [address] Social History Tobacco Use Types Packs/Day Years [...] Name Priority Date/Time Associated Diagnosis Comments OUTSIDE ULTRASOUND Routine 11/01/2023 documented in this encounter Results * OUTSIDE ULTRASOUND (11/01/2023) [facility] RADIOLOGY documented in this encounter Visit Diagnoses Not on filedocumented in this encounter Care Teams Scanning Clerk Relationship Specialty Start Date End Date Mario Basilio MD [address] [place] [address] PCP - General Internal Medicine 07/20/21 documented as of this encounter
--- OUTSIDE RECORDS SUMMARY | 2024-11-10 11:56 | XMS_ITS | Encounter Summary ---
Author Organization [facility] Address [address] [place] [address] Care Team Providers Care Carpet Installer Name Role Phone Mario Basilio MD Primary Care Provider [phone] Encounter Details Date Type Department Care Team Description 11/06/2023 Orders Only Medical Records [address] [place] [address] Cezar Subramanian MD [address] [place] [address] Social History Tobacco Use Types Packs/Day Years [...] Date/Time Associated Diagnosis Comments OUTSIDE PATHOLOGY Routine 11/01/2023 documented in this encounter Results * OUTSIDE PATHOLOGY (11/01/2023) Cezar Subramanian MD OUTSIDE LAB documented in this encounter Visit Diagnoses Not on filedocumented in this encounter Care Teams Carpet Installer Relationship Specialty Start Date End Date Mario Basilio MD [address] [place] [address] PCP - General Internal Medicine 07/20/21 documented as of this encounter
--- OUTSIDE RECORDS SUMMARY | 2024-11-10 11:56 | XMS_ITS | Encounter Summary ---
Author Organization [facility] Address [address] [place] [address] Care Team Providers Care Fire Sprinkler Apparatus Inspector Name Role Phone Mario Basilio MD Primary Care Provider [phone] Encounter Details Date Type Department Care Team Description 10/28/2023 Telephone Medicine/Pediatrics - [address] [address] Mario Basilio MD [address] [place] [id number] Social History Tobacco Use Types Packs/Day Years [...] encounter Miscellaneous Notes * Telephone Encounter - Wendy Lopez - 10/28/2023 10:51 AM EST Left message to call back. Please put to [phone] or re-message to MED/PED side * Telephone Encounter - Wendy Lopez - 10/28/2023 10:51 AM EST ----- Message from Mario Basilio MD sent at 10/28/2023 9:46 AM EST ----- Please call patient and inform that her urine culture showed no growth which means that she does not have a uti and does not need to continue with the antibiotic treatment. documented in this encounter Plan of Treatment Not on file documented as of this encounter Visit Diagnoses Not on filedocumented in this encounter Care Teams Fire Sprinkler Apparatus Inspector Relationship Specialty Start Date End Date Mario Basilio MD [address] [place] [address] PCP - General Internal Medicine 07/20/21 documented as of this encounter
--- OUTSIDE RECORDS SUMMARY | 2024-11-10 11:56 | XMS_ITS | Encounter Summary ---
Author Organization [facility] Address [address] [place] [address] Care Team Providers Care Flight Operation Coordinator Name Role Phone Mario Basilio MD Primary Care Provider [phone] Encounter Details Date Type Department Care Team Description 12/14/2021 Orders Only Medical Records [address] [place] [address] Carlos Wong MD Social History Tobacco Use [...] on filedocumented in this encounter Care Teams Flight Operation Coordinator Relationship Specialty Start Date End Date Mario Basilio MD [address] [place] [address] PCP - General Internal Medicine 07/20/21 documented as of this encounter
--- OUTSIDE RECORDS SUMMARY | 2024-11-10 11:56 | XMS_ITS | Encounter Summary ---
Author Organization [facility] Address [address] [place] [address] Care Team Providers Care Insurance Counselor Name Role Phone Mario Basilio MD Primary Care Provider [phone] Reason for Visit * Reason Onset Date Comments PT-1 10/15/2024 Encounter Details Date Type Department Care Team (Late st Contact Info) Description 10/15/2024 Telephone Cut Out Stitcher - [place] [place] [address] Mario Basilio MD [address] [place] [address] PT-1 Social History Tobacco Use Types Packs/Day [...] was completed / submitted on line with [employer] PT 1 tracking # is: [id number] modified to #6/ month * Winter Duval - 10/15/2024 3:52 PM EST [facility] Medicaid [facility] new provider or submitter number is [id number] Verify and document patients [place] Health insurance ID # (NOT [facility] ID): [facility] [id number] [place] / Product Type: MED[place]ARE [id number] Patient mailing address: [address] [facility] [address] Telephone Information: Pt. demographics verified? YES If not accurate, update registration. Is this a NEW request or a RENEWAL? RENEWAL Name of treating facility: [facility] Name (first & last) of treating provider? required : N/A What is the medical reason why the patient is seeing the above provider? Behavorial Specialist Address/Zip code for treating provider: [address] [place] [address] Phone # for treating provider: [phone] Is the provider in the [employer] network (do they accept [place] [employer] insurance)? YES What specialtly is this [...] Care Team (Late st Contact Info) Description 11/18/2024 1:30 PM EDT Office Visit Internal Medicine - [address] [place] [address] Mario Basilio MD [address] [place] [address] 02/26/2025 3:30 PM EDT Office Visit Internal Medicine - [address] [phone] Mario Basilio MD [address] [place] [address] 05/18/2025 8:30 AM EDT Office Visit Bariatric Surgery - [place] [address] [phone] Flo Dixon MD [address] [address] documented as of this encounter Visit Diagnoses Not on filedocumented in this encounter Care Teams Insurance Counselor Relationship Specialty Start Date End Date Mario Basilio MD [address] [place] [address] PCP - General Internal Medicine 08/18/24 documented as of this encounter
--- OUTSIDE RECORDS SUMMARY | 2024-11-10 11:56 | XMS_ITS | Encounter Summary ---
Author Organization [facility] Address [address] [place] [address] Care Team Providers Care Entry Examiner Name Role Phone Mario Basilio MD Primary Care Provider [phone] Encounter Details Date Type Department Care Team Description 11/01/2023 Hospital Medical Records [address] [place] [address] Cezar Subramanian MD [address] [place] [address] Social History Tobacco Use Types Packs/Day Years [...] on filedocumented in this encounter Care Teams Entry Examiner Relationship Specialty Start Date End Date Mario Basilio MD [address] [place], [place] [id number] PCP - General Internal Medicine 07/20/21 documented as of this encounter
--- OUTSIDE RECORDS SUMMARY | 2024-11-10 11:56 | XMS_ITS | Clinical Summary ---
Author Organization [facility] Address [address] [place] [address] Care Team Providers Care Field Superintendent Name Role Phone Mario Basilio MD Primary Care Provider [phone] Allergies No known active allergies Medications Medication [...] HEPATITIS C SCREENING Completed 10/02/2022 Care Teams Field Superintendent Relationship Specialty Start Date End Date Mario Basilio MD [address] [place] [address] PCP - General Internal Medicine 07/20/21
--- OUTSIDE RECORDS SUMMARY | 2024-11-10 11:56 | XMS_ITS | Encounter Summary ---
Author Organization [facility] Address [address] [place] [address] Care Team Providers Care Plane Captain Name Role Phone Mario Basilio MD Primary Care Provider [phone] Encounter Details Date Type Department Care Team Description 10/20/2023 Home Health Certification Medical Records [address] [place] [address] Neo Soares Social History Tobacco Use Types Packs/Day Years [...] on filedocumented in this encounter Care Teams Plane Captain Relationship Specialty Start Date End Date Mario Basilio MD [address] [place] [address] PCP - General Internal Medicine 07/20/21 documented as of this encounter
--- OUTSIDE RECORDS SUMMARY | 2024-11-10 11:57 | XMS_ITS ---
Author Organization [facility] Address [address] [place] [address] Phone Care Team Providers Care Client Manager Large Law Name Role Phone Mario Basilio MD Primary Care Provider [phone] Transitional Care Management Status:Identified (Enrolling) Start date:11/04/2024 Enrollment reason:Identified using hospital discharge data Case Team Name Relationship Phone Martina Villarreal LPN Care Manager(Responsible Staf f) Continued Care and Services Coordination
--- OUTSIDE RECORDS SUMMARY | 2024-11-10 11:57 | XMS_ITS | Data Portability ---
Author Organization [employer], Main Office Address [address] [place] [address] Assessment Encounter Date Assessment Date Assessment LastModified [...] 16:17:29 gastroente rologist referral 2020 021 [email or web address] [facility], [address] [place], [address], 12:06:31 pulmonolog ist referral - TELEMEDICI NE APPT 2020 021 [email or web address] Lakhwinder Donaldson, [address] [place], [address], 16:11:01 Procedures None recorded. Surgeries None recorded. Imaging MAMMO, screening, digital, bilateral 2020 021 [email or web address] [facility] (Central [facility] Radiology), [address] [place], [address], 09:22:28 Medication Orders hydrocorti sone 2.5 % topical cream 2020 [facility], [address] [place], [address], 15:45:08 Proctosol HC 2.5 % topical cream perineal applicator 2020 [facility], [address] [place], [address], 15:45:07 cyclobenza zohaib 10 mg tablet 2020 [facility], [address] [place], [address], 15:45:08 cyclobenza zohaib 10 mg tablet 2020 [facility], [address] [place], [address], 15:50:42 tizanidine 4 mg tablet 2020 [facility], [address] [place], [address], 15:48:05 Patient TargetsNo targets recorded. Patient Instructions Encounter Date Encounter Id Patient Instructions Last Modified By Organization Details Last Modified Time 02/20/2021 [id number] CPE lab rec mailed to home [email or web address] Not available 02/20/2021 15:46:11 03/27/2021 [id number] advance care planning: care instructions [email or web address] Not available 03/27/2021 15:28:40 Discussed and explained advance directives such as standard forms to the {{patient* caregi key patient and caregiver}}. Face to face discussion lasted for a duration of __30_ minutes. 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 for Screening for malignant neoplasm of colon colonoscopy Referring Physician: Chavez Sawyer, Internal Medicine, Encounter Date: 11/14/2020 Vice President Planning Referral for O bstructive sleep apnea of adult TELEMEDICINE APPT Referring Physician: Chavez Sawyer, Internal Medicine, Encounter Date: 11/14/2020 Home Health Referral for Lum bago with sciatica VCARE- [id number] Referring Physician: Chavez Sawyer, Internal Medicine, Encounter Date: 01/13/2021 Results Created Date Observation Date Name Description Value Unit Range Abnormal Flag Note LastModifiedBy Organization Detail LastModifiedTime Result Notes None recorded. Problems Name Problem SNOMED Code Status Onset Date Resolution Date Notes Provider Name and Address Organization Details Recorded Time Insomnia 378714185 Active 2019 NESSA BUNNY [address], [place], [address] , [employer] 0 21:36:49 Mixed anxiety and depressiv e disorder 107894204 Active 2019 NESSA BUNNY [address], [place], [address] , [employer] 0 21:36:50 External hemorrhoi ds 06499237 Active 2019 NESSA BUNNY [address], [place], [address] , [employer] 0 21:36:51 Muscle pain 97641378 Active 2019 NESSA BUNNY [address], [place], [address] , [employer] 0 21:37:19 Loss of appetite 82019630 Active 2019 NESSA BUNNY [address], [place], [address] , [employer] 0 21:38:00 Chronic back pain 472858603 Completed 201902/26/2020 Trey. Sawyer, DO [address], [place], [address] , [facility], [facility] 0 14:45:56 Eczema 41638721 Active 2019 LATRICE sharma, [facility], [facility] 0 14:10:27 Obesity 794130300 Active 2019 Chavez Sawyer, DO [address] [facility],[address], [place], [address] , [facility], [facility] 0 14:44:58 Psoriasis 8051292 Active 2019 Chavez Sawyer, DO [address] [facility],[address], [place], [address] , [facility], [facility] 0 14:45:52 Lumbago with sciatica 771205722 Active 2019 s/p LESi x 3, [facility] Chavez Sawyer, [address], [place], [address] , [facility], [facility] 0 14:46:29 Obstructi ve sleep apnea of adult 29062889029 03 Active 2019 BRIEN NUÑEZ edith, [facility], [facility] 0 16:53:56 Constipat ion 50720206 Active 2020 NESSA HOLLIS [address], [place], [address] , [facility], [facility] 1 11:40:33 Seborrhei c dermatiti s of scalp 222501759 Active 2020 NESSA GOMEZRIAN [address], [place], [address] , [facility], [facility] 1 15:52:42 Body mass index 40+ - severely obese 194419920 Active 2020 NESSA HOLLIS [address], [place], [address] , [facility], [facility] 1 15:52:44 Impaired glucose tolerance 9408681 Active 2020 NESSA HOLLIS [address] [facility] [address], [place], [address] , [facility] 12:15:32 Internal hemorrhoi ds 53308643 Active 2020 NESSA HOLLIS [address] [facility] [address], [place], [address] , [facility] [employer] 15:45:57 Problem Notes None recorded. Medical Equipment [...] /min 16 /min 98.5 [degF] 42.3 kg/m2 964471. 84 g 98 % 98 % 120 mm[Hg] 70 mm[Hg] KENIA SOTO [facility] 1 11:05:40 Social History Question Answer Notes LastModified by Organizat ion Details LastModified Time Tobacco Smoking Status Never Smoker LATRICE sharma, [employer] 02/26/2020 14:01:37 What Is Your Level Of [...] Recorded Time DTaP 8 completed LATRICE JEFFERS [email or web address], [employer] 02/26/2020 08:15:51 Influenza, split virus, quadrivalent, preservative 0 completed LATRICE sharma [facility] 02/26/2020 08:16:05 Past Encounters Encounter ID Performer Location Encounter Start Date Encounter Closed Date Diagnosis/Indication Diagnosis SNOMED-CT Code Diagnosis ICD10 Code Diagnosis Note [id number] Chavez Sawyer [facility] [address] [place] [address] 02/26/2020 13:45:51 02/26/2020 15:06:48 Insomnia 091134573 G47.00 zolpidem, prazosin, quetiapine Mixed anxi ety and depressive disorder 675603572 F41.8 no si/hi clonazepam , clonidine, loraz, venlafax External hemorrhoids 239 93128 K64.4 proctosol Muscle pain 00891746 M79 .10 cycloben, diclo gel, meloxicam, naproxen Loss of appetite 4964041 6 R63.0 mirtazapin e New patien t screening done 735040856 Z76.89 labs-p Viral screening 58273604 4 Z11.59 labs-p Screening for malignant neoplasm of breast 959406516 Z12.39 Screening for osteoporosis 511545078 Z13.820 Psoriasis 2321275 L40.9 Lumbago with sciatica 20 3808582 M54.42 [id number] Chavez Sawyer [place] [address] [place] [address] 03/25/2020 13:36:59 03/25/2020 16:39:17 Screening for malignant neoplasm of colon 108999725 Z12.11 next yr Adult heal th examination 049791455 Z00.01 normal cpe labs reviewed Screening mammography 24 751591 Z12.31 Screening for osteoporosis 320903208 Z13.820 UTD Screening for cardiovascular system disease 916490039 Z13.6 Lumbago with sciatica 20 3753496 M54.42 Insomnia 312187842 G47.0 0 zolpidem, prazosin, quetiapine Mixed anxi ety and depressive disorder 919499560 F41.8 no si/hi clonazepam , clonidine, loraz, venlafax External hemorrhoids 239 74739 K64.4 proctosol Muscle pain 77645971 M79 .10 cycloben, diclo gel, meloxicam, naproxen Loss of appetite 9780765 6 R63.0 mirtazapin e Psoriasis 7588742 L40.9 Snoring symptoms 0918258 00 R06.83 Urinary tr act infectious disease 35943602 N39.0 [id number] Chavez Sawyer [facility] [address] [place] [address] 04/22/2020 13:08:08 04/22/2020 15:50:33 Lumbago with sciatica 602966252 M54.42 External hemorrhoids 239 35370 K64.4 proctosol Insomnia 891309634 G47.0 0 zolpidem, prazosin, quetiapine Mixed anxi ety and depressive disorder 154590300 F41.8 no si/hi clonazepam , clonidine, loraz, venlafax Muscle pain 23080505 M79 .10 cycloben, diclo gel, meloxicam, naproxen Loss of appetite 2819538 6 R63.0 mirtazapin e Screening for malignant neoplasm of breast 095054393 Z12.39 p Screening for osteoporosis 354762533 Z13.820 p Psoriasis 1408166 L40.9 Snoring symptoms 5966930 00 R06.[id number] [address] 05/20/2020 14:47:58 05/20/2020 17:15:02 Lumbago with sciatica 700598585 M54.42 External hemorrhoids 239 01609 K64.4 proctosol Insomnia 051179793 G47.0 0 zolpidem, prazosin, quetiapine Mixed anxi ety and depressive disorder 711558092 F41.8 no si/hi clonazepam , clonidine, loraz, venlafax Seborrheic dermatitis of scalp 741793311 L21.0 Active or passive immunization 725563684 Z23 [id number] [address] 06/21/2020 13:31:48 06/21/2020 14:16:16 Insomnia 490700792 G47.00 zolpidem, prazosin, quetiapine Lumbago with sciatica 20 1749341 M54.42 [place], [address], tiz 4, [place] 600 Pain management -p Mixed anxi ety and depressive disorder 610585756 F41.8 no si/hi clonazepam , clonidine, loraz, venlafax External hemorrhoids 239 97035 K64.4 proctosol Muscle pain 71497771 M79 .10 cycloben, diclo gel, meloxicam, naproxen Loss of appetite 9724134 6 R63.0 mirtazapin e Active or passive immunization 821554384 Z23 vacc-p Candidal intertrigo 2661 48607 B37.2 nystatin powder and powder. Psoriasis 4394352 L40.9 clobetasol , calcipotri maureen Seborrheic dermatitis of scalp 368827375 L21.0 ketoconazo le 2% [address] B[address] [place] [address] [place] [address] 08/17/2020 11:23:20 08/17/2020 12:27:27 Insomnia 212738557 G47.00 zolpidem, prazosin, quetiapine Lumbago with sciatica 20 2477009 M54.42 [place], [address], tiz 4, [address] 600 Pain management -p PT ordered Mixed anxi ety and depressive disorder 800596707 F41.8 no si/hi clonazepam , clonidine, loraz, venlafax Sees Dr. Lanza External hemorrhoids 239 07469 K64.4 proctosol Obstructiv e sleep apnea of adult 8308152961 103 G47.33 Referral to sleep medicine-p Sleep study from 06/12/20 shows mild TIM. Recommends Auto CPAP or CPAP titration study Psoriasis 7662181 L40.9 clobetasol , calcipotri maureen Referral to derm-p Candidal intertrigo 2661 92281 B37.2 nystatin powder and powder. Muscle pain 24053496 M79 .10 cycloben, diclo gel, meloxicam, naproxen Loss of appetite 6610851 6 R63.0 mirtazapin e Active or passive immunization 226762725 Z23 vacc-p Seborrheic dermatitis of scalp 907235932 L21.0 ketoconazo le 2% Body mass index 40+ - severely obese 877092729 Z68.41 diet and exercise Morbid obesity 144561025 E66.01 diet and exercise [id number] [facility] [address] [place] [address] 09/16/2020 10:56:16 09/16/2020 11:22:30 Insomnia 629531947 G47.00 zolpidem, prazosin, quetiapine Lumbago with sciatica 20 7286489 M54.42 [place], [address], tiz 4, [address] 600 Pain management -Has appt scheduled for 09/20/20-p PT ordered-p Mixed anxi ety and depressive disorder 623785936 F41.8 no si/hi clonazepam , clonidine, loraz, venlafax Sees Dr. Lanza External hemorrhoids 239 76343 K64.4 proctosol Stable on current regimen Psoriasis 5066950 L40.9 clobetasol , calcipotri maureen Referral to derm-p Obstructiv e sleep apnea of adult 6108913482 103 G47.33 Referral to sleep medicine-p Sleep study from 06/12/20 shows mild TIM. Recommends Auto CPAP or CPAP titration study Sleep Medicine appt on 10/23 Muscle pain 40101147 M79 .10 cycloben, diclo gel, meloxicam, naproxen Cyclobenza zohaib d/c'd Refilled Tizanidine to TID PRN Loss of appetite 0120681 6 R63.0 mirtazapin e Active or passive immunization 889193268 Z23 vacc-p Seborrheic dermatitis of scalp 387092578 L21.0 ketoconazo le 2% Body mass index 40+ - severely obese 880609229 Z68.41 diet and exercise Morbid obesity 890577693 E66.01 diet and exercise 37351 NESSA HOLLIS [facility] [address] [address] 11/14/2020 15:29:37 11/14/2020 15:53:48 Muscle pain 74312019 M79.10 cycloben, diclo gel, meloxicam, naproxen Cyclobenza zohaib d/c'd Refilled Tizanidine to TID PRN-> stop cyc 10 qhs Psoriasis 3187460 L40.9 clobetasol , calcipotri maureen Referral to derm- seen cream given Lumbago with sciatica 20 2405017 M54.42 [place], [address], tiz 4, [address] 600 Pain management -Has appt scheduled for 09/20/20- seen MRI 12/2020-p PT ordered-p Obstructiv e sleep apnea of adult 0526749733 103 G47.33 Referral to sleep medicine-p Sleep study from 06/12/20 shows mild TIM. Recommends Auto CPAP or CPAP titration study Sleep Medicine appt on 10/23 pulm for CPAP-p Insomnia 637622038 G47.0 0 zolpidem, prazosin, quetiapine Mixed anxi ety and depressive disorder 733737084 F41.8 no si/hi clonazepam , clonidine, loraz, venlafax Sees Dr. Lanza External hemorrhoids 239 82174 K64.4 proctosol Stable on current regimen Loss of appetite 5277630 6 R63.0 mirtazapin e Seborrheic dermatitis of scalp 561988728 L21.0 ketoconazo le 2% Body mass index 40+ - severely obese 258760528 Z68.41 diet and exercise Constipation 07657329 K5 9.00 senna Screening for malignant neoplasm of colon 524551224 Z12.11 colon-p 21446 NESSA HOLLIS [facility] [address] [place] [address] 01/13/2021 12:03:14 01/13/2021 12:17:44 Lumbago with sciatica 319919545 M54.42 [place], [address], tiz 4, [address] 600 Pain management -Has appt scheduled for 09/20/20- seen MRI 12/2020-p PT ordered-pt given # to book-p wants letter to move to 1st floor- referred to pain management Muscle pain 30959430 M79 .10 cycloben, diclo gel, meloxicam, naproxen Cyclobenza zohaib d/c'd Refilled Tizanidine to TID PRN-> stop cyc 10 qhs Psoriasis 8098462 L40.9 clobetasol , calcipotri maureen Referral to derm- seen cream given Obstructiv e sleep apnea of adult 6038027600 103 G47.33 Referral to sleep medicine-p Sleep study from 06/12/20 shows mild TIM. Recommends Auto CPAP or CPAP titration study Sleep Medicine appt on 10/23 pulm for CPAP- seen awaiting call back-p Insomnia 235286917 G47.0 0 zolpidem, prazosin, quetiapine Mixed anxi ety and depressive disorder 951093038 F41.8 no si/hi clonazepam , clonidine, loraz, venlafax Sees Dr. Lanza External hemorrhoids 239 07859 K64.4 proctosol Stable on current regimen Loss of appetite 7255298 6 R63.0 mirtazapin e Seborrheic dermatitis of scalp 705633547 L21.0 ketoconazo le 2% Body mass index 40+ - severely obese 036514841 Z68.41 diet and exercise Constipation 28639778 K5 9.00 senna Impaired g lucose tolerance 2942924 R73.02 HBA1c 5.3 02/2020 recheck-p 33700 NESSA HOLLIS [facility] [address] [place] [address] 02/20/2021 15:36:25 02/20/2021 15:46:29 Impaired glucose tolerance 1174166 R73.02 HBA1c 5.3 02/20201304YYJ6 c 5.8 02/08/2021- diet/exerc ise rpt 3 months Lumbago with sciatica 20 7053520 M54.42 [place], [address], tiz 4, [address] 600 Pain management -Has appt scheduled for 09/20/20- seen MRI 12/2020-p PT ordered-pt given # to book-p wants letter to move to 1st floor- referred to pain management PT - awaiting call back Loss of appetite 5824993 6 R63.0 mirtazapin e Muscle pain 10028532 M79 .10 cycloben, diclo gel, meloxicam, naproxen Cyclobenza zohaib d/c'd Refilled Tizanidine to TID PRN-> stop cyc 10 qhs Psoriasis 5398293 L40.9 clobetasol , calcipotri maureen Referral to derm- seen cream given Obstructiv e sleep apnea of adult 9261494832 103 G47.33 Referral to sleep medicine-p Sleep study from 06/12/20 shows mild TIM. Recommends Auto CPAP or CPAP titration study Sleep Medicine appt on 10/23 pulm for CPAP- seen awaiting call back- 02/28/21-p Insomnia 360748485 G47.0 0 zolpidem, prazosin, quetiapine Mixed anxi ety and depressive disorder 866019939 F41.8 no si/hi clonazepam , clonidine, loraz, venlafax Sees Dr. Lanza External hemorrhoids 239 19923 K64.4 proctosol Stable on current regimen Seborrheic dermatitis of scalp 159797717 L21.0 ketoconazo le 2% Body mass index 40+ - severely obese 606579679 Z68.41 diet and exercise Constipation 33927578 K5 9.00 senna Internal hemorrhoids 904 13856 K64.8 hydr, proc [address] [facility] [address] [facility] [place] [address] 03/27/2021 08:29:24 03/27/2021 15:29:22 Internal hemorrhoids 31793311 K64.8 hydr, proc Impaired g lucose tolerance 8343770 R73.02 HBA1c 5.3 02/20200729SUF2 c 5.8 02/08/2021- diet/exerc ise rpt 3 months Lumbago with sciatica 20 3925794 M54.42 [place], [address], tiz 4, [address] Pain management -Has appt scheduled for 09/20/20- seen MRI 12/2020-p PT ordered-pt given # to book-p wants letter to move to 1st floor- referred to pain management PT - awaiting call back Loss of appetite 5594184 6 R63.0 mirtazapin e Muscle pain 97436815 M79 .10 cycloben, diclo gel, meloxicam, naproxen Cyclobenza zohaib d/c'd Refilled Tizanidine to TID PRN-> stop cyc 10 qhs Psoriasis 6720205 L40.9 clobetasol , calcipotri maureen Referral to derm- seen cream given Obstructiv e sleep apnea of adult 5425479552 103 G47.33 Referral to sleep medicine-p Sleep study from 06/12/20 shows mild TIM. Recommends Auto CPAP or CPAP titration study Sleep Medicine appt on 10/23 pulm for CPAP- seen awaiting call back- 02/28/21- they called her and ? new machine Insomnia 465243100 G47.0 0 zolpidem, prazosin, quetiapine Mixed anxi ety and depressive disorder 992074294 F41.8 no si/hi clonazepam , clonidine, loraz, venlafax Sees Dr. Lanza External hemorrhoids 239 17851 K64.4 proctosol Stable on current regimen Seborrheic dermatitis of scalp 519907408 L21.0 ketoconazo le 2% Body mass index 40+ - severely obese 965395629 Z68.41 diet and exercise Constipation 07296108 K5 9.00 senna Screening for malignant neoplasm of colon 477791762 Z12.11 colonoscop y 12/2020- rpt 5-10 dep on results Adult heal th examination 610876171 Z00.01 cpe labs -p Screening mammography 24 545759 Z12.31 05/2020 nml-p Screening for osteoporosis 551799958 Z13.820 -DEXA: 05/2020 nml Screening for malignant neoplasm of cervix 932342950 Z12.4 [facility] Active or passive immunization 994576571 Z23 vacc-p Health Concerns Section Related Observation LastModified by Organization Detai ls LastModified Time None Recorded Concern Status LastModified by Organization Details LastModified Time None Recorded Advance Directives Directive None Recorded Payers Encounter Date Sequence Insurance Name Policy Number Policy Mcnamara Covered Member ID Mcnamara Member ID Guarantor Name 09/16/2020 1 [place] [employer] Chayra Y Boria Hensley [id number] Chayra Boria Hensley 09/16/2020 2 [place] Chayra Boria Hensley [id number] Chayra Boria Hensley 11/14/2020 1 [place] Chayra Y Boria Hensley [id number] Chayra Boria Hensley 11/14/2020 2 [place] Chayra Boria Hensley [id number] Chayra Boria Hensley 01/13/2021 1 [place] [employer] Chayra Y Boria Hensley [id number] Chayra Boria Hensley 01/13/2021 2 [place] Chayra Boria Hensley [id number] Chayra Boria Hensley 02/20/2021 1 [place] [employer] Chayra Y Boria Hensley [id number] Chayra Boria Hensley 02/20/2021 2 [place] Chayra Boria Hensley [id number] Chayra Boria Hensley 03/27/2021 1 [place] [employer] Chayra Y Boria Hensley [id number] Chayra Boria Hensley 03/27/2021 2 [place] Chayra Boria Hensley [id number] Chayra Boria Hensley Notes Date Note Type [...] meds as prescribed. BRIEN sharma [place] - [employer] 09/16/2020 11:25:53 11/14/2020 text/html 50 yo female pre sents for fu- telemed -camera not working ??derm- yes given cream ??sleep med- had sleep study- pulm-p ??pain management- seen MRI-p ??PT-p ??colonoscopy-p MSK pain- chronic Psoriasis- derm-p Lumbago w/sciatica- ??PT Insomnia- sleeps well with meds Anxiety/depression- followed by psych TIM - ??CPAP Loss of appetite- improved NESSA BUNNY [address] [facility],[address], [place], [address], [facility] - [employer] 11/14/2020 15:54:16 01/13/2021 text/html 50 yo female [...] CPAP Muscle pain- stable NESSA HOLLIS [address], [place], [address], [employer] 01/13/2021 12:17:32 02/20/2021 text/html 50 yo female pre sents for er-jiommpx-hazhrm not working Needs refill for msk relaxer and hemorroides ??PT- not booked- waiting call back??CPAP- 02/28/21Followed by psych MSK pain- chronicPsoriasis- dermLumbago w/sciatica-awaiting PTInsomnia- sleeps well with medsAnxiety/depressio n- followed by psychOSA - ??ISKX-xfct-pYmrp of appetite- improvedConstipation- stableCOPD- stableOSA - awaiting pulm for CPAPMuscle pain- stable NESSA HOLLIS [address], [place], [address], [employer] 02/20/2021 15:46:32 03/27/2021 text/html 50 yo female pre sents for DHHW-igbtaco-xxruah not working CPE labs- no colonoscopy 12/2020- rpt 5-10 dep on results -Vacc: updated with [facility].-PAP:2017 normal [facility]-DEXA: 05/2020 nml-Mammo: 05/2020 nml-Colonoscopy: 12/2020 rpt 5-10 results-p??PT- awaiting appt??help at home??CPAP- 02/28/21 - they called her and ? new machineFollowed by psych NESSA BOONEAN [address], [place], [address], [employer] 03/27/2021 15:32:09 03/27/2021 text/html Medicare Annual Wellness [...] lighting in the home NESSA HOLLIS [address] [facility],[address], [place], [address], [employer] 03/27/2021 15:32:09 OBGyn Episode No OBEpisode recorded.
--- OUTSIDE RECORDS SUMMARY | 2024-11-10 11:57 | XMS_ITS | Encounter Summary ---
Author Organization [facility] Address [address] [place] [address] Care Team Providers Care Back Roller Name Role Phone Mario Basilio MD Primary Care Provider [phone] Reason for Visit * Reason Comments E-prescribe Rx Request Encounter Details Date Type Department Care Team Description 08/03/2023 Refill Adult Medicine [address] [address] Aurora Bates APRN [address] [place] [address] E-prescribe Rx Request Social History Tobacco Use [...] GFR 81 07/17/2023 * Telephone Encounter - Krystyna Harris - 08/05/2023 9:24 AM EST Patient [...] / Plan[place] / Product Type: MEDICARE [id number] documented in this encounter Plan of Treatment Not on file documented as of this encounter Visit Diagnoses Diagnosis Chronic bilateral low back pain without sciatica documented in this encounter Care Teams Back Roller Relationship Specialty Start Date End Date Mario Basilio MD [address] [place] [address] PCP - General Internal Medicine 07/20/21 documented as of this encounter
--- OUTSIDE RECORDS SUMMARY | 2024-11-10 11:57 | XMS_ITS | Encounter Summary ---
Author Organization [facility] Address [address] [place] [address] Care Team Providers Care Packing Machine Can Feeder Name Role Phone Mario Basilio MD Primary Care Provider [phone] Reason for Visit * Reason Onset Date Comments VNA Call 12/16/2023 Encounter Details Date Type Department Care Team Description 12/16/2023 Telephone Adult Medicine [address] [address] Mario Basilio MD [address] [place] [address] VNA Call Social History Tobacco Use Types Packs/Day Years [...] encounter Miscellaneous Notes * Telephone Encounter - Denise Fall R.N. - 12/16/2023 3:01 PM EDT Spoke with Anika the patient has been recertified for skilled nursign 3 times a week for 8 weeks. FYI * Telephone Encounter - Jasmin Owens - 12/16/2023 2:09 PM EDT VNA CALL Which A office is calling? [facility] Full name of caller: Anika The caller is A nurse Is the caller at the patients home?: NO Reason for call: FYI, patient is going to continue receiving chcf 3 times a week for 8 weeks Patient has been recertified by [facility] Does caller need an urgent call back? NO Was CONTACT Telephone # obtained above?: YES Phone #: [phone] documented in this encounter Plan of Treatment Not on file documented as of this encounter Visit Diagnoses Not on filedocumented in this encounter Care Teams Packing Machine Can Feeder Relationship Specialty Start Date End Date Mario Basilio MD [address] [place] [address] PCP - General Internal Medicine 07/20/21 documented as of this encounter
--- OUTSIDE RECORDS SUMMARY | 2024-11-10 11:57 | XMS_ITS | Encounter Summary ---
Author Organization [facility] Address [address] [place] [address] Care Team Providers Care Reach Lift Truck Driver Name Role Phone Mario Basilio MD Primary Care Provider [phone] Reason for Visit * Reason Comments Medication Visit Encounter Details Date Type Department Care Team (Late st Contact Info) Description 10/28/2024 2:30 PM EST Office Visit Internal Medicine - [address] [phone] Aurora Bates NP [address] [place] [address] Bipolar affective disorder, remission status unspecified (CMS/HCC) [...] for regular follow up on chronic issues. 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 Bipolar affective disorder, remission status unspecified (CMS/[facility]) 2. Chronic bilateral low back pain, unspecified [...] Care Team (Sebastián schofield Contact Info) Description 11/18/2024 1:30 PM EDT Office Visit Internal Medicine - [address] [phone] Mario Basilio MD [address] [place] [address] 02/26/2025 3:30 PM EDT Office Visit Internal Medicine - [address] [phone] Mario Basilio MD [address] [place] [address] 05/18/2025 8:30 AM EDT Office Visit Bariatric Surgery - [place] [address] [phone] Flo Dixon MD [address] [address] documented as of this encounter Visit Diagnoses Diagnosis Bipolar affective disorder, remission status unspecified ([facility])- Primary Chronic bilateral low back pain, unspecified [...] 10/28/2024 documented in this encounter Care Teams Reach Lift Truck Driver Relationship Specialty Start Date End Date Mario Basilio MD [address] [place] [address] [place] [address] PCP - General Internal Medicine 08/18/24 documented as of this encounter
--- OUTSIDE RECORDS SUMMARY | 2024-11-10 11:57 | XMS_ITS | Encounter Summary ---
Author Organization [facility] Address [address] [place] [address] Care Team Providers Care Leadership Development Instructor Name Role Phone Mario Basilio MD Primary Care Provider [phone] Reason for Visit * Reason Onset Date Comments Provider Call Back 11/29/2023 [facility] See Enc ounter 11/27/23 Encounter Details Date Type Department Care Team Description 11/29/2023 Telephone Adult Medicine [address] [address] Mario Basilio MD [address] [place] [address] Provider Call Back ([facility] See Encounter 11/27/23) Social History Tobacco Use Types Packs/Day Years [...] encounter Miscellaneous Notes * Telephone Encounter - Marni Washington - 11/29/2023 10:07 AM EDT Requested information faxed. * Telephone Encounter - Gavin Marion - 11/29/2023 8:42 AM EDT Caller requesting call back from provider: Is the caller the patient? NO If caller is not the patient, what is the callers name? Yvrose Johnson Callers relationship to patient? [facility] partnership development manager If person calling is not the patient themselves, is there a verbal release in FYI or permanent comments for this person: NO Reason for call back: Yvrose Johnson partnership development manager needs our office to fax back updated med list and recent office notes with diagnosis to Fax #: [phone]. Caller offered to speak with the nurse for assistance: YES Response: Patient offered to speak with nurse for assistance and patient agreed. Message forwarded to nurse. documented in this encounter Plan of Treatment Not on file documented as of this encounter Visit Diagnoses Not on filedocumented in this encounter Care Teams Leadership Development Instructor Relationship Specialty Start Date End Date Mario Basilio MD [address] [place] [address] PCP - General Internal Medicine 07/20/21 documented as of this encounter
--- OUTSIDE RECORDS SUMMARY | 2024-11-10 11:57 | XMS_ITS | Clinical Summary ---
Author Organization [facility] Address [address] [place] [address] Phone Care Team Providers Care Reimbursement Consultant Name Role Phone Mario Basilio MD Primary Care Provider [phone] Allergies No known active allergies Medications acetaminophen [...] PM EST Office Visit Internal Medicine - [address] [place] [phone] Aurora Bates NP Bipolar affective disorder, remission status unspecified (CMS/[facility]) (Primary Dx); Chronic bilateral low back pain, unspecified whether sciatica present; Psoriasis; Candidiasis, cutaneous; Hemorrhoids, unspecified hemorrhoid type; Need for vaccination against Streptococcus pneumoniae 10/15/2024 Telephone Surgical Dental Assistant - [address] [place] [phone] Mario Basilio MD PT-1 09/17/2024 Telephone Pediatrics - [address] [place] [phone] Mario Basilio MD Referral 08/18/2024 3:30 PM EST Office Visit Internal Medicine - [address] [place] [phone] Aurora Bates NP Routine general medical examination [...] serious comorbidity present (CMS/HCC); Flu vaccine need from Last 3 Months Immunizations Name Administration [...] PM EDT Office Visit Internal Medicine - [address] [place] [phone] Mario Basilio MD [address] [place], [place] [address] [address] 02/26/2025 3:30 PM EDT Office Visit Internal Medicine - [address] [place] [phone] Mario Basilio MD [address] [place] [address] 05/18/2025 8:30 AM EDT Office Visit Bariatric Surgery - [place] [address] [place] [phone] Flo Dixon MD 175 [facility] [address] [place] [address] Health Maintenance Due Date Last Done Comments [...] for HIV HEPATITIS C SCREENING Routine 10/02/2022 COLONOSCOPY Routine 09/04/2021 HARRISON SCREENING DIGITAL Routine 06/01/2020 4:01 PM EDT Encounter for screening mammogram for malignant neoplasm of breast from Last 3 Months or Most Recently Relevant to Health Maintenance Results * HIV 1,2 antibody, p24 antigen with reflex to differentiation (08/18/2024 4:20 PM EST) HIV Combo AB/AG Negative Negative LAB CHEMISTRY METHOD 08/18/2024 7:40 PM EST [facility] Blood Venous blood specimen / Unknown Venipuncture / Unknown 08/18/2024 4:20 PM EST 08/18/2024 4:20 PM EST Narrative [facility] - 08/18/2024 7:40 PM EST [...] ORDERABLES Final Resul t Performing Organization Address City/[facility]/ZIP Co de Phone Number [facility] [address] [place] [address], [place] [phone] * (ABNORMAL) Lipid panel with reflex to direct LDL (08/18/2024 4:20 PM EST) Cholesterol 212(H) 0 - 200 mg/dL LAB CHEMISTRY METHOD 08/18/2024 7:00 PM EST [facility] Triglycerides 179(H) 0 - 150 mg/dL LAB CHEMISTRY METHOD 08/18/2024 7:00 PM EST [facility] HDL 61 >=40 mg/dL LAB CHEMISTRY METHOD 08/18/2024 7:00 PM EST [facility] LDL Calculated 115(H) 0 - 100 mg/dL LAB CHEMISTRY METHOD 08/18/2024 7:00 PM EST [facility] VLDL Cholesterol Kofi 35.8 mg/dL LAB CHEMISTRY METHOD 08/18/2024 7:00 PM EST [facility] Non HDL Chol. (LDL+VLDL) 151(H) <145 mg/dL LAB CHEMISTRY METHOD 08/18/2024 7:00 PM EST [facility] Chol/HDL Ratio 3.5 0.0 - 4.4 LAB CHEMISTRY METHOD 08/18/2024 7:00 PM [facility] Blood Venous blood specimen / Unknown Venipuncture / Unknown 08/18/2024 4:20 PM EST 08/18/2024 4:20 PM EST us Aurora Bates NP LAB BLOOD ORDERABLES Final Resul t Performing Organization Address City/[facility]/ZIP Co de Phone Number [facility] [address] [place] [address], [place] [phone] * (ABNORMAL) Basic metabolic panel (08/18/2024 4:20 PM EST) Sodium 137 133 - 145 mmol/L LAB CHEMISTRY METHOD 08/18/2024 6:53 PM [facility] Potassium 4.6 3.5 - 5.5 mmol/L LAB CHEMISTRY METHOD 08/18/2024 6:53 PM [facility] Chloride 103 96 - 110 mmol/L LAB CHEMISTRY METHOD 08/18/2024 6:53 PM [facility] CO2 28 21 - 32 mmol/L LAB CHEMISTRY METHOD 08/18/2024 6:53 PM [facility] Anion Gap 6 3 - 11 LAB CHEMISTRY METHOD 08/18/2024 6:53 PM [facility] Glucose 102(H) 70 - 100 mg/dL LAB CHEMISTRY METHOD 08/18/2024 6:53 PM [facility] BUN 18 5 - 25 mg/dL LAB CHEMISTRY METHOD 08/18/2024 6:53 PM [facility] Creatinine 1.01 0.50 - 1.10 mg/dL LAB CHEMISTRY METHOD 08/18/2024 6:53 PM [facility] eGFR 66 >=60 mL/min/1. 73m2 LAB CHEMISTRY METHOD 08/18/2024 6:53 PM [facility] Comment:Calculation based on the??Chronic Kidney Disease Epidemiology Collaboration (CKD-EPI) equation refit??without adjustment for race. BUN/Creatinine Ratio 17.8 LAB CHEMISTRY METHOD 08/18/2024 6:53 PM [facility] Calcium 9.8 8.5 - 10.5 mg/dL LAB CHEMISTRY METHOD 08/18/2024 6:53 PM [facility] Blood Venous blood specimen / Unknown Venipuncture / Unknown 08/18/2024 4:20 PM EST 08/18/2024 4:20 PM EST Aurora Bates IMAGING TECH LAB BLOOD ORDERABLES Final Resul t [facility] [address] [place] [address], * Hepatitis C Screening (10/02/2022) Hepatitis C Screening Abstracted Historical Provider HEALTH MAINTENANCE Final Result * Colonoscopy (09/04/2021) Colonoscopy No Interpretation , Abstracted Anatomical Region Laterality Modality Other Historical Provider HEALTH MAINTENANCE Final Result * HARRISON SCREENING DIGITAL (06/01/2020 4:01 PM EDT) Anatomical Region Laterality Modality Mammography 06/01/2020 10:3 0 AM EDT Narrative 06/01/2020 4:[address] [facility] Diagnostic Imaging Department [address] [place] [address] Patient: ??GROVER ISLAS ?/Age/Sex: 1970 - 50 - F Unit#: ??[id number] ? Location/Status: ??SPDIMAM/REG CLI ? Mnemonic/Ordering Site: ??DIGSC/SPMAM Ordering Physician: ??LEANAN SMITH DO [place] Screening Digital - 06/01/20 - 1128 History: Bilateral breast cancer screening. Technique: ??Digital mammography. Conventional CC and MLO projections with tomosynthesis MLO views and computer aided detection. Comparison: None available. Previous mammography obtained in [place] are unavailable. Findings: Breast tissue consists of a heterogenous combination of ??fatty and fibroglandular tissue, potentially obscuring small lesions, category c density bilaterally (as calculated by IORevolutionpara software). No suspicious group of microcalcification, suspicious mass, concerning focal asymmetry or architectural distortion within either breast. Impression: ??No evidence of malignancy. BI-RADS category 1; negative study, 3341F 00921, 12043 A negative mammogram in the face of a clinically suspicious abnormality does not exclude the possibility of malignancy nor alter the indications for biopsy. Note: Patient information entered ??into a reminder system with a target due date for the next mammogram; PQRI II 7038J Dictating Physician: ??RALPH BLANCO MD Electronically Signed by: ??RALPH BLANCO MD Dic Date/Time: ??06/01/20 1601 Sign date/Time: ??06/01/20 1601 Procedure Note Ralph Blanco MD - 08/22/2022 [facility] Diagnostic Imaging Department [address] [place], [place] [id number] Patient: JENNIFERJOLIE GROVER PRATHER D.O.B./Age/Sex: 1970 - 50 - F Unit#: [id number] Location/Status: [facility]/REG CLI Mnemonic/Ordering Site: [facility] Ordering Physician: LEANNA SMITH DO [place] Screening Digital - 06/01/20 - 1128 History: Bilateral breast cancer screening. Technique: Digital mammography. Conventional CC and MLO projectionswith tomosynthesis MLO views and computer aided detection. Comparison: None available. Previous mammography obtained in [facility] unavailable. Findings: Breast tissue consists of a heterogenous combination of fattyand fibroglandular tissue, potentially obscuring small lesions, category cdensity bilaterally (as calculated by IORevolutionpara software). No suspicious group of microcalcification, suspicious mass, concerningfocal asymmetry or architectural distortion within either breast. Impression: No evidence of malignancy. BI-RADS category 1; negative study, 3341F 18252, [address]8499 A negative mammogram in the face of a clinically suspicious abnormalitydoes not exclude the possibility of malignancy nor alter the indications forbiopsy. Note: Patient information entered into a reminder system with a targetdue date for the next mammogram; RI II 7025F Dictating Physician: RALPH BLANCO MD Electronically Signed by: RALPH BLANCO MD Dic Date/Time: 06/01/20 1601 Sign date/Time: 06/01/20 1601 Leanna Smith DO IMG BI PROCEDURES Final Result from Last 3 Months or Most Recently Relevant to Health Maintenance Insurance [facility] [employer] Care Teams Reimbursement Consultant Relationship Specialty Start Date End Date Mario Basilio MD [address] [place] [address] [place] [address] PCP - General Internal Medicine 08/18/24
== END 2024-11-10 11:23 | disposition home or self-care (01) ==
PROVIDERS: Visit Provider Physician Assistant Surgical
DX: Z98.84 Bariatric surgery status (principal)
CPT/HCPCS: 99024

== ENCOUNTER → 2024-11-10 10:09 | Outpatient (BNVA) | payer OTHER, SELFPAY | PROVIDERS: Visit Provider Physician Assistant Surgical | DX: Z90.3 Acquired absence of stomach [part of] (principal) | CPT/HCPCS: 99212 ==

== ENCOUNTER 2024-11-16 10:07 | Outpatient (AMB) | payer OTHER, SELFPAY ==
--- NOTE | 2024-11-16 10:03 | MHC.WMTHER ---
Intake Intake Visit Reasons: VIDEO PO LSG 11/03/2024 Allergies No Known Allergies Allergy (Verified 11/10/24 10:17) PFS Medical History (Updated 11/07/24 @ 00:01 by Valdemar Mcmillan) GERD (gastroesophageal reflux disease) Anxiety Depression Hyperlipidemia Hypertension Back pain Insomnia DJD (degenerative joint disease) Morbid obesity PTSD (post-traumatic stress disorder) Severe recurrent major depression w/psychotic features, mood-congruent Surgical History (Updated 11/10/24 @ 10:19 by Dafne Blair CMA) S/P laparoscopic sleeve gastrectomy History of esophagogastroduodenoscopy (EGD) (09/01/24) Hx of colonoscopy Hx of cholecystectomy Family History Mother No problems noted. Father Heart problem Diabetes Daughter No problems noted. Daughter No problems noted. Son No problems noted. Social History Household Members: None Housing: Apartment Are you a primary direct care worker to a significant other at home: No Do you presently have visiting nurse or other home services: No 75 years or older and lives alone: No Alcohol intake: never Patient Tobacco Use Status: Never used Tobacco e-Cigarette/Vaping Use: Never Used Second Hand Smoke Exposure: No service: No Sexual orientation: Straight/Heterosexual Behavioral Health Assessment Weight Management Therapy Therapy Notes Details Subjective: PT had bariatric surgery on 11/03/2024, PT reports she has had a good recovery in general. She has been receiving weekly counseling with her therapist, Tia Hampton. She re-started MH meds and in general has been doing well emotionally. Objective: PT presents for a follow up visit after bariatric surgery via Telehealth. . During the session, we discussed her recovery progress, daily functioning, and overall routine. The conversation included adjustments to her meal plan, pain management, and her support system. Emphasis was placed on the importance of regular weekly communication and adherence to the prescribed meal plan to avoid complications. We also addressed expectations, mindset, and attitudes regarding the outcomes of her care, based on her communication with providers. Additionally, the patient was provided with practical tips and techniques for success in the post-operative phase of her recovery and we worked in ways to set realistic goals. PHQ-9 was administered to assess her mental health status indicating no active Sx of depression. Assessment/Response: Mental Status: Within normal limits (WNL) Risk: No significant risks identified. PT was active and engaged. Food/Weight/Diet Expectations of change The initial goal is to lose 10% of her weight before surgery, about 24 lbs. Ultimate weight goal: 220lbs before surgery Initial weight: 244 Lbs. weight 08/19/2024: 233 lbs. Most recent weight 09/03/2024: 232Lbs Weight as of 09/24/2024: 229 lbs. Pt had bariatric surgery on 11/03/24. Weight on that day was: 221Lbs. Weight 1 week PO: 213 lb PT's target weight: 160Lbs PT is implementing the following: Current meal plan: 2 shakes (each of: 8oz milk - 2 scoops of protein), 2 Gatorade zero at day. Exercise plan: Head Held High bike, 1 hour at day, 7 days at week. Questionnaires PHQ-9 Over the last 2 weeks, how often have you been bothered by any of the following problems? 1. Little interest or pleasure in doing things: not at all 2. Feeling down, depressed, or hopeless: not at all 3. Trouble falling or staying asleep, or sleeping too much: not at all 4. Feeling tired or having little energy: several days 5. Poor appetite or overeating: not at all 6. Feeling bad about yourself - or that you are a failure or have let yourself or your family down: not at all 7. Trouble concentrating on things, such as reading the newspaper or watching television: not at all 8. Moving or speaking so slowly that other people could have noticed. Or the opposite - being so fidgety or restless that you have been moving around a lot more than usual: not at all 9. Thoughts that you would be better off or of hurting yourself in some way: not at all Total score: 1 Depression Screening Interpretation: Negative Depression Screening Done: Yes [address]84[address] - PHQ-9 Billing: Yes Source: Developed by Drs. Pino Gamino, Yudith B.W. Rod Jarrell and colleagues, with an educational antonia from [employer]. Assessment & Plan Assessment & Plan (1) Severe recurrent major depression w/psychotic features, mood-congruent: Code(s): F33.3 - Major depressive disorder, recurrent, severe with psychotic symptoms (2) Insomnia: Code(s): G47.00 - Insomnia, unspecified (3) Morbid obesity: Code(s): E66.01 - Morbid (severe) obesity due to excess calories Plan The patient is aware of available resources and has been invited to join the Facebook support group. She will continue meeting with her therapist at [facility] and will not require additional visits with me unless she feels they are necessary. Reminded of her Next sanchez: 12/04/24 10:30am, for a Post-op with ANGELICA Love Telehealth Telehealth Telehealth Platform: [employer] Location of provider rendering services: other Location of patient: address on file Patient Identification confirmed using: Name, : Yes Telehealth method: voice only Patient verbally consented to treatment: Yes Patient verbally consented to billing insurance company: Yes Patient informed of any privacy concerns related to visit: Yes Minutes spent on Phone/Video with Pt.: 45 Coding Level of Care Code Established Pt Tele Psytx 45 mins (28332) Patient Type Established Diagnoses Severe recurrent major depression w/psychotic features, mood-congruent F33.3 Insomnia G47.00 Morbid obesity E66.01 Additional Codes PHQ-9 - 52509 - PHQ-9 Billing: Yes ([id number]) Time Spent (min) 45
--- OUTSIDE RECORDS SUMMARY | 2024-11-16 11:17 | XMS_ITS | Data Portability ---
Author Organization [employer], Main Office Address [address] [place] [address] Assessment Encounter Date Assessment Date Assessment LastModified [...] 16:17:29 gastroente rologist referral 2020 021 [email or web address] [facility], [address] [place], [address], 12:06:31 pulmonolog ist referral - TELEMEDICI NE APPT 2020 021 [email or web address] Lakhwinder Donaldson, [address] [place], [address], 16:11:01 Procedures None recorded. Surgeries None recorded. Imaging MAMMO, screening, digital, bilateral 2020 021 [email or web address] [facility] (Central Scheduling Radiology), [address] [place], [address], 09:22:28 Medication Orders hydrocorti sone 2.5 % topical cream 2020 [facility], [address] [place], [address], 15:45:08 Proctosol HC 2.5 % topical cream perineal applicator 2020 [facility], [address] [place], [address], 15:45:07 cyclobenza zohaib 10 mg tablet 2020 [facility], [address] [place], [address], 15:45:08 cyclobenza zohaib 10 mg tablet 2020 [facility], [address] [place], [address], 15:50:42 tizanidine 4 mg tablet 2020 [facility], [address] [place], [address], 15:48:05 Patient TargetsNo targets recorded. Patient Instructions Encounter Date Encounter Id Patient Instructions Last Modified By Organization Details Last Modified Time 02/20/2021 [id number] CPE lab rec mailed to home [email or web address] Not available 02/20/2021 15:46:11 03/27/2021 [id number] advance care planning: care instructions [email or web address] Not available 03/27/2021 15:28:40 Discussed and explained advance directives such as standard forms to the {{patient* caregi key patient and caregiver}}. Face to face discussion lasted for a duration of __30_ minutes. 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 Problems Name Problem SNOMED Code Status Onset Date Resolution Date Notes Provider Name and Address Organization Details Recorded Time Insomnia 204502229 Active 2019 NESSA BUNNY [address], [place], [address] , [employer] 0 21:36:49 Mixed anxiety and depressiv e disorder 020084774 Active 2019 NESSA BUNNY [address], [place], [address] , [employer] 0 21:36:50 External hemorrhoi ds 31522505 Active 2019 NESSA BUNNY [address], [place], [address] , [employer] 0 21:36:51 Muscle pain 59060462 Active 2019 NESSA BUNNY [address], [place], [address] , [employer] 0 21:37:19 Loss of appetite 27697095 Active 2019 NESSA BUNNY [address] [employer],[address], [place], [address] , [employer] 0 21:38:00 Chronic back pain 254407539 Completed 201902/26/2020 Trey. Sawyer, DO [address], [place], [address] , [employer] 0 14:45:56 Eczema 70052145 Active 2019 LATRICE sharma, [employer], [employer] 0 14:10:27 Obesity 718104197 Active 2019 Chavez Sawyer, DO [address] [facility], [place], [address] , [employer] 0 14:44:58 Psoriasis 0562761 Active 2019 Chavez Sawyer, DO [address] [facility], [place], [address] , [employer] 0 14:45:52 Lumbago with sciatica 344303534 Active 2019 s/p LESi x 3, [facility] Chavez Sawyer, [address], [place], [address] , [employer] 0 14:46:29 Obstructi ve sleep apnea of adult 96430153763 03 Active 2019 BRIEN NUÑEZ edith, [employer], [employer] 0 16:53:56 Constipat ion 76103341 Active 2020 NESSA HOLLIS [address], [place], [address] , [employer] 1 11:40:33 Seborrhei c dermatiti s of scalp 878577530 Active 2020 NESSA GOMEZRIAN [address], [place], [address] , [employer], [employer] 1 15:52:42 Body mass index 40+ - severely obese 186956260 Active 2020 NESSA HOLLIS [address], [place], [address] , [employer], [employer] 1 15:52:44 Impaired glucose tolerance 5307588 Active 2020 NESSA HOLLIS [address] [facility] [address], [place], [address] , [facility] [employer] 12:15:32 Internal hemorrhoi ds 46773233 Active 2020 NESSA HOLLIS [address] [facility] [address], [place], [address] , [facility] [employer] 15:45:57 Problem Notes None recorded. Medical Equipment [...] /min 16 /min 98.5 [degF] 42.3 kg/m2 625009. 84 g 98 % 98 % 120 mm[Hg] 70 mm[Hg] KENIA SOTO [employer] 1 11:05:40 Social History Question Answer Notes LastModified by Organizat ion Details LastModified Time Tobacco Smoking Status Never Smoker LATRICE sharma, [employer] 02/26/2020 14:01:37 What Is Your Level Of [...] Stones N Blood Diseases N Hyperthyroidism N Blood Transfusion N COPD N Depression N Anxiety Disorder N Muscle, Joint, or Bone Problems N Obesity N Vision or Eye Problems N Arthritis N Infertility N Polyps N Mental Disorder N Cancer N Stroke N Varicosities N Fibromyalgia N Headaches N Kidney Disease N Heart Problems N Ear or Hearing Problems N Hospitalizations N Skin Problems N Eating Disorder N MRSA exposure N Constipation N Tuberculosis N AIDS/HIV N Asthma N Hepatitis N Pulmonary Embolism N Chronic Ear Infections N Chicken Pox N Autism Spectrum Disorder (ASD) N Thrombophilias N Breast Cancer N Hypothyroidism N Lung Disease N Defects or Inherited Disease N Developmental or Behavioral Disorders N Breast Problem N Difficulty Swallowing N Anesthesia Complications N Meniere's disease N Endometriosis N Bladder or Kidney Problems N High Cholesterol N Liver Disease N Allergies/Hayfever N Thyroid Problems N GI Problems N ADD/ADHD N Anemia N Mental Illness N Ovarian Cancer N Diabetes N Bedwetting N Seizures/Epilepsy N Congestive Heart Failure (CHF) N Eczema N Diverticulitis N Abuse/Domestic Violence N Reflux/GERD N Heart Disease N Pre-Eclampsia N Hypertension N Osteoporosis N Gynecological History Statement/Question Response HPV Vaccine N Date of Last Pap Smear Date of Last Mammogram Sexually Active? N Obstetrics History GPAL:G 7 P 3 0 4 0 Type Value Full Term 3 Spontaneous 4 Total 7 Immunizations Vaccine Type Date Status Note Provider Nam e and Address Organization Details Recorded Time DTaP 8 completed LATRICE JEFFERS [employer], [employer] 02/26/2020 08:15:51 Influenza, split virus, quadrivalent, preservative 0 completed LATRICE sharma [employer] 02/26/2020 08:16:05 Past Encounters Encounter ID Performer Location Encounter Start Date Encounter Closed Date Diagnosis/Indication Diagnosis SNOMED-CT Code Diagnosis ICD10 Code Diagnosis Note [id number] Chavez Sawyer [facility] [address] [facility] [place] [address] 02/26/2020 13:45:51 02/26/2020 15:06:48 Insomnia 084132117 G47.00 zolpidem, prazosin, quetiapine Mixed anxi ety and depressive disorder 094872933 F41.8 no si/hi clonazepam , clonidine, loraz, venlafax External hemorrhoids 239 28540 K64.4 proctosol Muscle pain 54207408 M79 .10 cycloben, diclo gel, meloxicam, naproxen Loss of appetite 5468664 6 R63.0 mirtazapin e New patien t screening done 921730837 Z76.89 labs-p Viral screening 00996411 4 Z11.59 labs-p Screening for malignant neoplasm of breast 087006619 Z12.39 Screening for osteoporosis 362473646 Z13.820 Psoriasis 2076200 L40.9 Lumbago with sciatica 20 4139878 M54.42 [id number] Chavez Sawyer [place] [address] [address] [facility] [place] [address] 03/25/2020 13:36:59 03/25/2020 16:39:17 Screening for malignant neoplasm of colon 483755133 Z12.11 next yr Adult heal th examination 473203596 Z00.01 normal cpe labs reviewed Screening mammography 24 289153 Z12.31 Screening for osteoporosis 342994040 Z13.820 UTD Screening for cardiovascular system disease 708766954 Z13.6 Lumbago with sciatica 20 4564658 M54.42 Insomnia 087619110 G47.0 0 zolpidem, prazosin, quetiapine Mixed anxi ety and depressive disorder 539682074 F41.8 no si/hi clonazepam , clonidine, loraz, venlafax External hemorrhoids 239 31583 K64.4 proctosol Muscle pain 03812816 M79 .10 cycloben, diclo gel, meloxicam, naproxen Loss of appetite 1151891 6 R63.0 mirtazapin e Psoriasis 7292683 L40.9 Snoring symptoms 8275330 00 R06.83 Urinary tr act infectious disease 37105103 N39.0 [id number] Chavez Sawyer [facility] [address] [facility] [place] [address] 04/22/2020 13:08:08 04/22/2020 15:50:33 Lumbago with sciatica 851515962 M54.42 External hemorrhoids 239 44722 K64.4 proctosol Insomnia 190509058 G47.0 0 zolpidem, prazosin, quetiapine Mixed anxi ety and depressive disorder 968169946 F41.8 no si/hi clonazepam , clonidine, loraz, venlafax Muscle pain 35279601 M79 .10 cycloben, diclo gel, meloxicam, naproxen Loss of appetite 4195998 6 R63.0 mirtazapin e Screening for malignant neoplasm of breast 971398958 Z12.39 p Screening for osteoporosis 152733527 Z13.820 p Psoriasis 9063553 L40.9 Snoring symptoms 6215229 00 R06.[id number] [address] 05/20/2020 14:47:58 05/20/2020 17:15:02 Lumbago with sciatica 368201637 M54.42 External hemorrhoids 239 46495 K64.4 proctosol Insomnia 801764174 G47.0 0 zolpidem, prazosin, quetiapine Mixed anxi ety and depressive disorder 456044895 F41.8 no si/hi clonazepam , clonidine, loraz, venlafax Seborrheic dermatitis of scalp 174523061 L21.0 Active or passive immunization 177759331 Z23 [id number] [address] 06/21/2020 13:31:48 06/21/2020 14:16:16 Insomnia 008795267 G47.00 zolpidem, prazosin, quetiapine Lumbago with sciatica 20 1374729 M54.42 [place], [address], tiz [address], [address] Pain management -p Mixed anxi ety and depressive disorder 098839467 F41.8 no si/hi clonazepam , clonidine, loraz, venlafax External hemorrhoids 239 70131 K64.4 proctosol Muscle pain 27110129 M79 .10 cycloben, diclo gel, meloxicam, naproxen Loss of appetite 4715949 6 R63.0 mirtazapin e Active or passive immunization 207025724 Z23 vacc-p Candidal intertrigo 2661 75254 B37.2 nystatin powder and powder. Psoriasis 6726586 L40.9 clobetasol , calcipotri maureen Seborrheic dermatitis of scalp 567063744 L21.0 ketoconazo le 2% [id number] BRIEN [address]AQUIN [place] [address] [place] [address] 08/17/2020 11:23:20 08/17/2020 12:27:27 Insomnia 002090595 G47.00 zolpidem, prazosin, quetiapine Lumbago with sciatica 20 4681505 M54.42 [place], [address], tiz 4, [address] Pain management -p PT ordered Mixed anxi ety and depressive disorder 603562178 F41.8 no si/hi clonazepam , clonidine, loraz, venlafax Sees Dr. Lanza External hemorrhoids 239 47756 K64.4 proctosol Obstructiv e sleep apnea of adult 1726280958 103 G47.33 Referral to sleep medicine-p Sleep study from 06/12/20 shows mild TIM. Recommends Auto CPAP or CPAP titration study Psoriasis 1287206 L40.9 clobetasol , calcipotri maureen Referral to derm-p Candidal intertrigo 2661 10602 B37.2 nystatin powder and powder. Muscle pain 88903647 M79 .10 cycloben, diclo gel, meloxicam, naproxen Loss of appetite 8607542 6 R63.0 mirtazapin e Active or passive immunization 913720730 Z23 vacc-p Seborrheic dermatitis of scalp 491585866 L21.0 ketoconazo le 2% Body mass index 40+ - severely obese 226864203 Z68.41 diet and exercise Morbid obesity 969234787 E66.01 diet and exercise [id number] [facility] [address] [place] [address] 09/16/2020 10:56:16 09/16/2020 11:22:30 Insomnia 352941801 G47.00 zolpidem, prazosin, quetiapine Lumbago with sciatica 20 2394779 M54.42 [place], [address], tiz 4, [address] Pain management -Has appt scheduled for 09/20/20-p PT ordered-p Mixed anxi ety and depressive disorder 670190677 F41.8 no si/hi clonazepam , clonidine, loraz, venlafax Sees Dr. Lanza External hemorrhoids 239 09802 K64.4 proctosol Stable on current regimen Psoriasis 9390225 L40.9 clobetasol , calcipotri maureen Referral to derm-p Obstructiv e sleep apnea of adult 9474084450 103 G47.33 Referral to sleep medicine-p Sleep study from 06/12/20 shows mild TIM. Recommends Auto CPAP or CPAP titration study Sleep Medicine appt on 10/23 Muscle pain 12907090 M79 .10 cycloben, diclo gel, meloxicam, naproxen Cyclobenza zohaib d/c'd Refilled Tizanidine to TID PRN Loss of appetite 5883600 6 R63.0 mirtazapin e Active or passive immunization 641467913 Z23 vacc-p Seborrheic dermatitis of scalp 966145431 L21.0 ketoconazo le 2% Body mass index 40+ - severely obese 375874309 Z68.41 diet and exercise Morbid obesity 847690665 E66.01 diet and exercise 22258 NESSA HOLLIS [facility] [address] [facility] [place] [address] 11/14/2020 15:29:37 11/14/2020 15:53:48 Muscle pain 67274815 M79.10 cycloben, diclo gel, meloxicam, naproxen Cyclobenza zohaib d/c'd Refilled Tizanidine to TID PRN-> stop cyc 10 qhs Psoriasis 2773919 L40.9 clobetasol , calcipotri maureen Referral to derm- seen cream given Lumbago with sciatica 20 0934895 M54.42 [place], [address], tiz 4, [address] 600 Pain management -Has appt scheduled for 09/20/20- seen MRI 12/2020-p PT ordered-p Obstructiv e sleep apnea of adult 0818476542 103 G47.33 Referral to sleep medicine-p Sleep study from 06/12/20 shows mild TIM. Recommends Auto CPAP or CPAP titration study Sleep Medicine appt on 10/23 pulm for CPAP-p Insomnia 611081744 G47.0 0 zolpidem, prazosin, quetiapine Mixed anxi ety and depressive disorder 507713204 F41.8 no si/hi clonazepam , clonidine, loraz, venlafax Sees Dr. Lanza External hemorrhoids 239 83775 K64.4 proctosol Stable on current regimen Loss of appetite 5790971 6 R63.0 mirtazapin e Seborrheic dermatitis of scalp 076053210 L21.0 ketoconazo le 2% Body mass index 40+ - severely obese 034912813 Z68.41 diet and exercise Constipation 40711101 K5 9.00 senna Screening for malignant neoplasm of colon 788048353 Z12.11 colon-p 22166 NESSA HOLLIS [facility] [address] [facility] [place] [address] 01/13/2021 12:03:14 01/13/2021 12:17:44 Lumbago with sciatica 047825598 M54.42 [place], [address], tiz 4, [address] Pain management -Has appt scheduled for 09/20/20- seen MRI 12/2020-p PT ordered-pt given # to book-p wants letter to move to 1st floor- referred to pain management Muscle pain 31779950 M79 .10 cycloben, diclo gel, meloxicam, naproxen Cyclobenza zohaib d/c'd Refilled Tizanidine to TID PRN-> stop cyc 10 qhs Psoriasis 7877434 L40.9 clobetasol , calcipotri maureen Referral to derm- seen cream given Obstructiv e sleep apnea of adult 9494687427 103 G47.33 Referral to sleep medicine-p Sleep study from 06/12/20 shows mild TIM. Recommends Auto CPAP or CPAP titration study Sleep Medicine appt on 10/23 pulm for CPAP- seen awaiting call back-p Insomnia 433925499 G47.0 0 zolpidem, prazosin, quetiapine Mixed anxi ety and depressive disorder 536446838 F41.8 no si/hi clonazepam , clonidine, loraz, venlafax Sees Dr. Lanza External hemorrhoids 239 99200 K64.4 proctosol Stable on current regimen Loss of appetite 6190984 6 R63.0 mirtazapin e Seborrheic dermatitis of scalp 743595804 L21.0 ketoconazo le 2% Body mass index 40+ - severely obese 308104674 Z68.41 diet and exercise Constipation 60180106 K5 9.00 senna Impaired g lucose tolerance 2602953 R73.02 HBA1c 5.3 02/2020 recheck-p 77917 NESSA HOLLIS [facility] [address] [facility] [place] [address] 02/20/2021 15:36:25 02/20/2021 15:46:29 Impaired glucose tolerance 9755159 R73.02 HBA1c 5.3 02/20209229YDD1 c 5.8 02/08/2021- diet/exerc ise rpt 3 months Lumbago with sciatica 20 1745950 M54.42 [place], [address], tiz 4, [address] Pain management -Has appt scheduled for 09/20/20- seen MRI 12/2020-p PT ordered-pt given # to book-p wants letter to move to 1st floor- referred to pain management PT - awaiting call back Loss of appetite 0762959 6 R63.0 mirtazapin e Muscle pain 88083263 M79 .10 cycloben, diclo gel, meloxicam, naproxen Cyclobenza zohaib d/c'd Refilled Tizanidine to TID PRN-> stop cyc 10 qhs Psoriasis 1098682 L40.9 clobetasol , calcipotri maureen Referral to derm- seen cream given Obstructiv e sleep apnea of adult 9159828923 103 G47.33 Referral to sleep medicine-p Sleep study from 06/12/20 shows mild TIM. Recommends Auto CPAP or CPAP titration study Sleep Medicine appt on 10/23 pulm for CPAP- seen awaiting call back- 02/28/21-p Insomnia 956665944 G47.0 0 zolpidem, prazosin, quetiapine Mixed anxi ety and depressive disorder 194519565 F41.8 no si/hi clonazepam , clonidine, loraz, venlafax Sees Dr. Lanza External hemorrhoids 239 26745 K64.4 proctosol Stable on current regimen Seborrheic dermatitis of scalp 617439131 L21.0 ketoconazo le 2% Body mass index 40+ - severely obese 091773391 Z68.41 diet and exercise Constipation 99501009 K5 9.00 senna Internal hemorrhoids 904 06066 K64.8 hydr, proc [address] [facility] [address] [place] [address] 03/27/2021 08:29:24 03/27/2021 15:29:22 Internal hemorrhoids 09608265 K64.8 hydr, proc Impaired g lucose tolerance 5691627 R73.02 HBA1c 5.3 02/20202046AGL4 c 5.8 02/08/2021- diet/exerc ise rpt 3 months Lumbago with sciatica 20 6608543 M54.42 [place], [address], tiz 4, [address] Pain management -Has appt scheduled for 09/20/20- seen MRI 12/2020-p PT ordered-pt given # to book-p wants letter to move to 1st floor- referred to pain management PT - awaiting call back Loss of appetite 8591943 6 R63.0 mirtazapin e Muscle pain 63559381 M79 .10 cycloben, diclo gel, meloxicam, naproxen Cyclobenza zohaib d/c'd Refilled Tizanidine to TID PRN-> stop cyc 10 qhs Psoriasis 0159731 L40.9 clobetasol , calcipotri maureen Referral to derm- seen cream given Obstructiv e sleep apnea of adult 5353201131 103 G47.33 Referral to sleep medicine-p Sleep study from 06/12/20 shows mild TIM. Recommends Auto CPAP or CPAP titration study Sleep Medicine appt on 10/23 pulm for CPAP- seen awaiting call back- 02/28/21- they called her and ? new machine Insomnia 492840846 G47.0 0 zolpidem, prazosin, quetiapine Mixed anxi ety and depressive disorder 990262256 F41.8 no si/hi clonazepam , clonidine, loraz, venlafax Sees Dr. Lanza External hemorrhoids 239 25005 K64.4 proctosol Stable on current regimen Seborrheic dermatitis of scalp 735496288 L21.0 ketoconazo le 2% Body mass index 40+ - severely obese 082171306 Z68.41 diet and exercise Constipation 66026650 K5 9.00 senna Screening for malignant neoplasm of colon 843784806 Z12.11 colonoscop y 12/2020- rpt 5-10 dep on results Adult heal th examination 321371194 Z00.01 cpe labs -p Screening mammography 24 075261 Z12.31 05/2020 nml-p Screening for osteoporosis 729156165 Z13.820 -DEXA: 05/2020 nml Screening for malignant neoplasm of cervix 089005391 Z12.4 [facility] Active or passive immunization 387816794 Z23 vacc-p Health Concerns Section Related Observation LastModified by Organization Detai ls LastModified Time None Recorded Concern Status LastModified by Organization Details LastModified Time None Recorded Advance Directives Directive None Recorded Payers Encounter Date Sequence Insurance Name Policy Number Policy Mcnamara Covered Member ID Mcnamara Member ID Guarantor Name 09/16/2020 1 [place] [employer] Chayra Y Boria Hensley [id number] Chayra Boria Hensley 09/16/2020 2 [place] Chayra Boria Hensley [id number] Chayra Boria Hensley 11/14/2020 1 [place] [employer] Chayra Y Boria Hensley [id number] Chayra Boria Hensley 11/14/2020 2 [place] Chayra Boria Hensley [id number] Chayra Boria Hensley 01/13/2021 1 [place] [employer] Chayra Y Boria Hensley [id number] Chayra Boria Hensley 01/13/2021 2 [place] Chayra Boria Hensley [id number] Chayra Boria Hensley 02/20/2021 1 [place] [employer] Chayra Y Boria Hensley [id number] Chayra Boria Hensley 02/20/2021 2 [place] Chayra Boria Hensley [id number] Chayra Boria Hensley 03/27/2021 1 [place] [employer] Chayra Y Boria Hensley [id number] Chayra Boria Hensley 03/27/2021 2 [place] Chayra Boria Hensley [id number] Chayra Boria Hensley Notes Date Note Type [...] meds as prescribed. BRIEN sharma [place] - [employer] 09/16/2020 11:25:53 11/14/2020 text/html 50 yo female pre sents for fu- telemed -camera not working ??derm- yes given cream ??sleep med- had sleep study- pulm-p ??pain management- seen MRI-p ??PT-p ??colonoscopy-p [facility] pain- chronic Psoriasis- derm-p Lumbago w/sciatica- ??PT Insomnia- sleeps well with meds Anxiety/depression- followed by psych TIM - ??CPAP Loss of appetite- improved NESSA BUNNY [address] [facility],[address], [place], [address], [facility] - [employer] 11/14/2020 15:54:16 01/13/2021 text/html 50 yo female [...] CPAP Muscle pain- stable NESSA HOLLIS [address], [place], [address], [employer] 01/13/2021 12:17:32 02/20/2021 text/html 50 yo female pre sents for re-rxfvzft-nbkiph not working Needs refill for msk relaxer and hemorroides ??PT- not booked- waiting call back??CPAP- 02/28/21Followed by psych MSK pain- chronicPsoriasis- dermLumbago w/sciatica-awaiting PTInsomnia- sleeps well with medsAnxiety/depressio n- followed by psychOSA - ??QLXP-rwev-gRqmg of appetite- improvedConstipation- stableCOPD- stableOSA - awaiting pulm for CPAPMuscle pain- stable NESSA HOLLIS [address], [place], [address], [employer] 02/20/2021 15:46:32 03/27/2021 text/html 50 yo female pre sents for XMSZ-tuctdxr-skydha not working CPE labs- no colonoscopy 12/2020- rpt 5-10 dep on results -Vacc: updated with [facility].-PAP:2017 normal [facility]-DEXA: 05/2020 nml-Mammo: 05/2020 nml-Colonoscopy: 12/2020 rpt 5-10 results-p??PT- awaiting appt??help at home??CPAP- 02/28/21 - they called her and ? new machineFollowed by psych NESSA BOONEAN [address], [place], [address], [employer] 03/27/2021 15:32:09 03/27/2021 text/html Medicare Annual Wellness [...] lighting in the home NESSA HOLLIS [address] [facility],[address], [place], [address], [employer] 03/27/2021 15:32:09 OBGyn Episode No OBEpisode recorded.
--- OUTSIDE RECORDS SUMMARY | 2024-11-16 11:17 | XMS_ITS ---
Author Organization [facility] Address [address] [place] [address] Phone Care Team Providers Care Enamel Pulverizer Name Role Phone Mario Basilio MD Primary Care Provider [phone] Transitional Care Management Status:Identified (Enrolling) Start date:11/04/2024 Enrollment reason:Identified using hospital discharge data Case Team Name Relationship Phone Martina Villarreal LPN Care Manager(Responsible Staf f) Continued Care and Services Coordination
--- OUTSIDE RECORDS SUMMARY | 2024-11-16 11:17 | XMS_ITS | Encounter Summary ---
Author Organization [facility] Address [address] [place] [address] Care Team Providers Care Hydrology Teacher Name Role Phone Mario Basilio MD Primary Care Provider [phone] Reason for Visit * Reason Onset Date Comments Request For Order(s) 11/12/2024 are Encounter Details Date Type Department Care Team (Late Contact Info) Description 11/12/2024 Telephone Pediatrics - [facility] [address] [place] [address] Mario Basilio MD [address] [place] [address] [phone] Request For Order(s) ([facility]) Social History Tobacco Use Types Packs/Day Years [...] as of this encounter Progress Notes * Brandon Villarreal - 11/12/2024 12:48 PM EDT Faxed order received from [facility]. Orders placed in Mario Basilio MD bin for signing, please fax to [phone]. documented in this encounter Plan of Treatment Upcoming Encounters Date Type Department Care Team ([facility] Contact Info) Description 11/18/2024 1:30 PM EDT Office Visit Internal Medicine - [facility] [address] [place], [place] [phone] Mario Basilio MD [address] [place] [address] 02/26/2025 3:30 PM EDT Office Visit Internal Medicine - [facility] [address] [place], [place] [phone] Mario Basilio MD [address] [place] [address] 05/18/2025 8:30 AM EDT Office Visit Bariatric Surgery - [place] [address] [phone] Flo Dixon MD [address] [address] documented as of this encounter Visit Diagnoses Not on filedocumented in this encounter Care Teams Hydrology Teacher Relationship Specialty Start Date End Date Mario aBsilio MD [address] [place] [id number] PCP - General Internal Medicine 08/18/24 documented as of this encounter
--- OUTSIDE RECORDS SUMMARY | 2024-11-16 11:17 | XMS_ITS | Encounter Summary ---
Author Organization [facility] Address [address] [place] [address] Care Team Providers Care Press Helper Name Role Phone Mario Basilio MD Primary Care Provider [phone] Reason for Visit * Reason Comments Medication Visit Encounter Details Date Type Department Care Team (Late st Contact Info) Description 10/28/2024 2:30 PM EST Office Visit Internal Medicine - [address] [phone] Aurora Bates NP [address] [place] [phone] Bipolar affective disorder, remission status unspecified (CMS/HCC) [...] for regular follow up on chronic issues. certified court interpreter via video remote interpreting - Bipolar, followed [...] Problem List Diagnosis Date Noted Bipolar disorder ([facility]) 10/26/2021 Chronic back pain 10/26/2021 Depression 10/26/2021 [...] 1. Bipolar affective disorder, remission status unspecified (CMS/[facility]) 2. Chronic bilateral low back pain, unspecified [...] PM EDT Office Visit Internal Medicine - [address] [phone] Mario Basilio MD [address] [place] [address] 02/26/2025 3:30 PM EDT Office Visit Internal Medicine - [address] [phone] Mario Basilio MD [address] [place] [address] 05/18/2025 8:30 AM EDT Office Visit Bariatric Surgery - [place] [address] [phone] Flo Dixon MD [address] [phone] documented as of this encounter Visit Diagnoses Diagnosis Bipolar affective disorder, remission status unspecified ([facility])- Primary Chronic bilateral low back pain, unspecified [...] 10/28/2024 documented in this encounter Care Teams Press Helper Relationship Specialty Start Date End Date Mario Basilio MD [address] [place] [address] [place] [address] PCP - General Internal Medicine 08/18/24 documented as of this encounter
--- OUTSIDE RECORDS SUMMARY | 2024-11-16 11:17 | XMS_ITS | Clinical Summary ---
Author Organization [facility] Address [address] [place] [address] Phone Care Team Providers Care Central Supply Technician Name Role Phone Mario Basilio MD Primary Care Provider [phone] Allergies No known active allergies Medications acetaminophen [...] Encounters Date Type Department Care Team Description 11/12/2024 Telephone Pediatrics - [address] [phone] Mario Basilio MD Request For Order(s) ([facility]) 10/28/2024 2:30 PM EST Office Visit Internal Medicine - [address] [phone] Aurora Bates NP Bipolar affective disorder, remission status unspecified (CMS/HCC) (Primary Dx); Chronic bilateral low back pain, unspecified whether sciatica present; Psoriasis; Candidiasis, cutaneous; Hemorrhoids, unspecified hemorrhoid type; Need for vaccination against Streptococcus pneumoniae 10/15/2024 Telephone [facility] [place] [facility] - [address] [phone] Mario Basilio MD PT-1 09/17/2024 Telephone Pediatrics - [address] [phone] Mario Basilio MD Referral 08/18/2024 3:30 PM EST Office Visit Internal Medicine - [address] [phone] Aurora Bates NP Routine general medical examination [...] PM EDT Office Visit Internal Medicine - [facility] [address] [place] [phone] Mario Basilio MD [address] [place] [address] 02/26/2025 3:30 PM EDT Office Visit Internal Medicine - [facility] [address] [place] [phone] Mario Basilio MD [address] [place] [address] 05/18/2025 8:30 AM EDT Office Visit Bariatric Surgery - [place] [address] [place] [phone] Flo Dixon MD [address] [facility] [address] [place] [address] Health Maintenance Due Date Last Done Comments [...] LAB CHEMISTRY METHOD 08/18/2024 7:40 PM EST [facility] Blood Venous blood specimen / Unknown Venipuncture / Unknown 08/18/2024 4:20 PM EST 08/18/2024 4:20 PM EST Narrative [facility] - 08/18/2024 7:40 PM EST This [...] NP LAB BLOOD ORDERABLES Final Resul t [facility] [address] [place] [address], [place] [phone] * (ABNORMAL) Lipid panel with reflex to direct LDL (08/18/2024 4:20 PM EST) Cholesterol 212(H) 0 - 200 mg/dL LAB CHEMISTRY METHOD 08/18/2024 7:00 PM [facility] Triglycerides 179(H) 0 - 150 mg/dL LAB CHEMISTRY METHOD 08/18/2024 7:00 PM [facility] HDL 61 >=40 mg/dL LAB CHEMISTRY METHOD 08/18/2024 7:00 PM [facility] LDL Calculated 115(H) 0 - 100 mg/dL LAB CHEMISTRY METHOD 08/18/2024 7:00 PM [facility] VLDL Cholesterol Kofi 35.8 mg/dL LAB CHEMISTRY METHOD 08/18/2024 7:00 PM [facility] Non HDL Chol. (LDL+VLDL) 151(H) <145 mg/dL LAB CHEMISTRY METHOD 08/18/2024 7:00 PM [facility] Chol/HDL Ratio 3.5 0.0 - 4.4 LAB CHEMISTRY METHOD 08/18/2024 7:00 PM [facility] Blood Venous blood specimen / Unknown Venipuncture / Unknown 08/18/2024 4:20 PM EST 08/18/2024 4:20 PM EST us Aurora Bates NP LAB BLOOD ORDERABLES Final Resul t [facility] [address] [place] [address], [place] [phone] * (ABNORMAL) Basic metabolic panel (08/18/2024 4:20 PM EST) Sodium 137 133 - 145 mmol/L LAB CHEMISTRY METHOD 08/18/2024 6:53 PM [facility] Potassium 4.6 3.5 - 5.5 mmol/L LAB CHEMISTRY METHOD 08/18/2024 6:53 PM [facility] Chloride 103 96 - 110 mmol/L LAB CHEMISTRY METHOD 08/18/2024 6:53 PM [facility] CO2 28 21 - 32 mmol/L LAB CHEMISTRY METHOD 08/18/2024 6:53 PM [facility] Anion Gap 6 3 - 11 LAB CHEMISTRY METHOD 08/18/2024 6:53 PM [facility] Glucose 102(H) 70 - 100 mg/dL LAB CHEMISTRY METHOD 08/18/2024 6:53 PM [facility] BUN 18 5 - 25 mg/dL LAB CHEMISTRY METHOD 08/18/2024 6:53 PM [facility] Creatinine 1.01 0.50 - 1.10 mg/dL LAB CHEMISTRY METHOD 08/18/2024 6:53 PM [facility] eGFR 66 >=60 mL/min/1. 73m2 LAB CHEMISTRY METHOD 08/18/2024 6:53 PM [facility] Comment:Calculation based on the??Chronic Kidney Disease Epidemiology Collaboration (CKD-EPI) equation refit??without adjustment for race. BUN/Creatinine Ratio 17.8 LAB CHEMISTRY METHOD 08/18/2024 6:53 PM [facility] Calcium 9.8 8.5 - 10.5 mg/dL LAB CHEMISTRY METHOD 08/18/2024 6:53 PM EST [facility] Blood Venous blood specimen / Unknown Venipuncture / Unknown 08/18/2024 4:20 PM EST 08/18/2024 4:20 PM EST Aurora Bates NP LAB BLOOD ORDERABLES Final Resul t [facility] [address] [place] [address], * Hepatitis C Screening (10/02/2022) Hepatitis C Screening Abstracted Historical Provider MD HEALTH MAINTENANCE Final Result * Colonoscopy (09/04/2021) Colonoscopy No Interpretation , Abstracted Anatomical Region Laterality Modality Other Historical Provider HEALTH MAINTENANCE Final Result * [facility] SCREENING DIGITAL (06/01/2020 4:01 PM EDT) Anatomical Region Laterality Modality Mammography 06/01/2020 10:3 0 AM EDT Narrative 06/01/2020 4:01 PM EDT [facility] Diagnostic Imaging Department [address] [place] [address] Patient: ??LM ISLAS ?/Age/Sex: 1970 - 50 - F Unit#: ??[id number] ? Location/Status: ??SPDIMAM/REG CLI ? Mnemonic/Ordering Site: ??DIGSC/SPMAM Ordering Physician: ??CHAVEZ SMITH DO [place] Screening Digital - 06/01/20 - 1128 History: Bilateral breast cancer screening. Technique: ??Digital mammography. Conventional CC and MLO projections with tomosynthesis MLO views and computer aided detection. Comparison: None available. Previous mammography obtained in [place] are unavailable. Findings: Breast tissue consists of a heterogenous combination of ??fatty and fibroglandular tissue, potentially obscuring small lesions, category c density bilaterally (as calculated by [employer] international software). No suspicious group of microcalcification, suspicious mass, concerning focal asymmetry or architectural distortion within either breast. Impression: ??No evidence of malignancy. BI-RADS category 1; negative study, 3341F 84877, [address]84 A negative mammogram in the face of a clinically suspicious abnormality does not exclude the possibility of malignancy nor alter the indications for biopsy. Note: Patient information entered ??into a reminder system with a target due date for the next mammogram; PQRI II 7019Z Dictating Physician: ??RALPH BLANCO MD Electronically Signed by: ??RALPH BLANCO MD Dic Date/Time: ??06/01/20 1601 Sign date/Time: ??06/01/20 1601 Procedure Note Ralph Blanco MD - 08/22/2022 [facility] Diagnostic Imaging Department [address] [place] [address] Patient: JENNIFERJOLIE LM PRATHER /Age/Sex: 1970 - 50 - F Unit#: [id number] Location/Status: SPDIMAM/REG CLI Mnemonic[facility] Ordering Physician: CHAVEZ SMITH DO [place] Screening Digital - 06/01/20 - 1128 History: Bilateral breast cancer screening. Technique: Digital mammography. Conventional CC and MLO projectionswith tomosynthesis MLO views and computer aided detection. Comparison: None available. Previous mammography obtained in [facility] unavailable. Findings: Breast tissue consists of a heterogenous combination of fattyand fibroglandular tissue, potentially obscuring small lesions, category cdensity bilaterally (as calculated by [employer] software). No suspicious group of microcalcification, suspicious mass, concerningfocal asymmetry or architectural distortion within either breast. Impression: No evidence of malignancy. BI-RADS category 1; negative study, 3341F [address]2612, [address] A negative mammogram in the face of a clinically suspicious abnormalitydoes not exclude the possibility of malignancy nor alter the indications forbiopsy. Note: Patient information entered into a reminder system with a targetdue date for the next mammogram; PQRI II 7025F Dictating Physician: RALPH BLANCO MD Electronically Signed by: RALPH BLANCO MD Dic Date/Time: 06/01/20 1601 Sign date/Time: 06/01/20 1601 Chavez Smith DO IMG BI PROCEDURES Final Result from Last 3 Months or Most Recently Relevant to Health Maintenance Insurance [facility] [employer] Care Teams Central Supply Technician Relationship Specialty Start Date End Date Mario Basilio MD [address] [place] [address] PCP - General Internal Medicine 08/18/24
== END 2024-11-16 11:20 | disposition home or self-care (01) ==
LOC: HO.HBST 10:07
PROVIDERS: Visit Provider Counselor Mental Health
DX: F33.3 Major depressive disorder, recurrent, severe with psychotic symptoms (principal); G47.00 Insomnia, unspecified; E66.01 Morbid (severe) obesity due to excess calories
CPT/HCPCS: 90834

== ENCOUNTER → 2024-11-16 10:07 | Outpatient (BNVA) | payer OTHER, SELFPAY | PROVIDERS: Visit Provider Counselor Mental Health ==

== ENCOUNTER → 2024-11-20 08:22 | Outpatient (BNVA) | payer OTHER, SELFPAY | PROVIDERS: Visit Provider Physician Assistant Surgical ==

== ENCOUNTER → 2024-11-27 11:40 | Outpatient (BNVA) | payer OTHER, SELFPAY | PROVIDERS: Visit Provider Physician Assistant Surgical ==

== ENCOUNTER 2024-12-04 10:11 | Outpatient (AMB) | payer OTHER, SELFPAY ==
--- NOTE | 2024-12-04 10:18 | MHC.OFFVISWM ---
VS Expanded 12/04/24 10:19 BP 127/73 Blood Pressure Location Rt brachial Blood Pressure Position Sitting Pulse 117 H Pulse Source Pulse Oximeter Temp 97.7 F Temperature Source Temporal Artery Scan Pulse Oximetry 95 Oxygen Delivery Method Room Air Height 5 ft 2 in Weight 211 lb 9.6 oz BMI 38.7 Body Fat % 44.7 Body Fat Mass 94.6 Fat Free Mass 116.8 Visceral Fat Rating 13.0 Body Water % 39.2 Body Water Mass 82.8 Muscle Mass/Score 110.8 Basal Metabolic Rate/Score 1,669 Intake Visit Reasons: OV PO LSG 11/03/2024-see comment Dry Press Operator Required: Yes Dry Press Operator Services: Dry Press Operator Present Dry Press Operator Name: hospital cmi Allergies No Known Allergies Allergy (Verified 12/04/24 10:20) Medication List - Last Reconciled 12/04/24 by ANGELICA Beard amitriptyline 25 mg BEDTIME duloxetine 60 mg PO DAILY lorazepam 1 mg PO TID PRN methocarbamol 750 mg PO DAILY PRN pantoprazole 40 mg PO DAILY@0630 quetiapine 100 mg BEDTIME zolpidem 10 mg PO BEDTIME PRN HPI Comments Details: This?a?54?yo female who is s/p LSG without hiatal hernia repair on?11/03/2024. Presents for 1 month post op visit. Weight today is 211.8 pounds, with a BMI of 38.7. There has been a 32.6 pound weight loss,(initial weight 244.2 pounds) since starting the program on 08/03/2024 reflecting a 13.3% total body weight loss and a weight loss of 9.7 pounds since surgery (operative weight 221.3 pounds) reflecting a 4.3% TBWL since surgery. No complaints of nausea, emesis, abdominal pain or reflux. Reports infrequent but normal bowel movements every [] days and uses stool softeners regularly. Patient reported meal plan: Celebrate 4 in 1, 2 scoops, 10-12, 2-4 1 egg at 4 pm 56 oz fluids Recommended plan was celebrate rebuild, 2 scoops at 8-10 Celebrate protein bar at 11-1 Another shake with 1 scoop at 2-4 Meal with 3 forks of protein Another shake with 1 scoop at 7-9 Exercise routine includes: stationary bike, 7 days per week, 250-290 PFSH Medical History GERD (gastroesophageal reflux disease) Anxiety Depression Hyperlipidemia Hypertension Back pain Insomnia DJD (degenerative joint disease) Morbid obesity PTSD (post-traumatic stress disorder) Severe recurrent major depression w/psychotic features, mood-congruent Surgical History S/P laparoscopic sleeve gastrectomy History of esophagogastroduodenoscopy (EGD) (09/01/24) Hx of colonoscopy Hx of cholecystectomy Family History Mother No problems noted. Father Heart problem Diabetes Daughter No problems noted. Daughter No problems noted. Son No problems noted. Social History Household Members: None Housing: Apartment Are you a primary skin care specialist to a significant other at home: No Do you presently have visiting nurse or other home services: No 75 years or older and lives alone: No Alcohol intake: never Patient Tobacco Use Status: Never used Tobacco e-Cigarette/Vaping Use: Never Used Second Hand Smoke Exposure: No service: No Sexual orientation: Straight/Heterosexual Physical Exam Vital Signs: Last Vital Signs Temp 97.7 F 12/04/24 10:19 Pulse 117 H 12/04/24 10:19 BP 127/73 12/04/24 10:19 Pulse Ox 95 12/04/24 10:19 Oxygen Delivery Method Room Air 12/04/24 10:19 BMI result Body Mass Index 38.7 Const General: healthy appearing and no acute distress Resp Effort & Inspection: normal respiratory effort Auscultation: clear to auscultation bilaterally Cardio Rate: regular rate Rhythm: regular rhythm GI Auscultation: normal bowel sounds Extrem General: Yes normal to inspection Assessment & Plan Assessment & Plan (1) S/P laparoscopic sleeve gastrectomy: Code(s): Z98.84 - Bariatric surgery status Category: Surgical Plan: Discussed the importance of following the plan exactly. She was encouraged to text Dr. Traylor to update him on what she is doing. Additionally, encouraged to increase exercise to 350 calories burned daily. We will have her return to the office in approximately 1 month.
[2024-12-04 10:19] VITALS: BP 127/73; PULSE 117; TEMP 36.5; O2SAT 95; BMI 38.7
--- OUTSIDE RECORDS SUMMARY | 2024-12-04 11:35 | XMS_ITS | Clinical Summary ---
Author Organization [facility] Address [address] [place] [address] Phone Care Team Providers Care Ladle Liner Name Role Phone Mario Basilio MD Primary Care Provider [phone] Allergies No known active allergies Medications acetaminophen (TYLENOL) 500 mg tablet TAKE 1 TABLET BY MOUTH THREE TIMES DAILY 4 Active amitriptyline (ELAVIL) 25 mg tablet Take 1 Tablet by mouth at bedtime. 3 Active DULoxetine (CYMBALTA) [address] capsule TAKE 1 CAPSULE BY MOUTH EVERY MORNING 2 Active GENERIC EXTERNAL MEDICATION Nifedipine 0.3% ointment Apply as a thin film TID to the perianal skin 2 Active LORazepam (ATIVAN) 0.5 mg tablet Take 1 Tablet by mouth 3 times daily. Active polyethylene glycol (MIRALAX) 17 gram packet MIX 17 GM IN WATER( 1 PACKET) AND DRINK DAILY 4 Active prazosin (MINIPRESS) 5 mg capsule TAKE 1 CAPSULE BY MOUTH AT BEDTIME FOR NIGHTNARES 2 Active QUEtiapine (SEROquel) 100 mg tablet TAKE 1 TABLET BY MOUTH AT BEDTIME 2 Active triamcinolone (KENALOG) 0.1 % cream Apply to affected area HS prn 3 Active zolpidem (AMBIEN) 10 mg tablet TAKE 1 TABLET BY MOUTH AT BEDTIME 2 Active clotrimazole (LOTRIMIN) 1 % creamIndications :Candidiasis, cutaneous apply daily to breast folds as needed 60 g 2 4 Active calcipotriene (DOVONEX) 0.005 % creamIndications :Psoriasis APPLY TO AFFECTED AREAS OF PSORIASIS TWICE DAILY. 60 g 1 4 Active nabumetone (RELAFEN) 500 mg tabletIndication s:Chronic bilateral low back pain, unspecified whether sciatica present TOME 1 TABLETA POR VIA ORAL [place] PARA [place] DOLOR 90 tablet 5 Active hydrocortisone (ANUSOL-HC) 2.5 % rectal creamIndications :Hemorrhoids, unspecified hemorrhoid type Insert into the rectum 2 (two) times a day. 30 g 3 5 04/26/20 25 Active methocarbamoL (ROBAXIN) 750 mg tabletIndication s:Chronic bilateral low back pain, unspecified whether sciatica present Take 1 tablet (750 mg total) by mouth 1 (one) time each day. 90 each 5 01/27/20 25 Active Active Problems Problem Noted Date Diagnosed Date Bipolar disorder 10/26/2021 Chronic back pain 10/26/2021 Depression 10/26/2021 Encounters Date Type Department Care Team Description [facility] [address] [place] [address] Mario Basilio MD information needed 11/12/2024 Telephone Pediatrics [address] [phone] Mario Basilio MD Request For Order(s) ([facility]) 10/28/2024 2:30 PM EST Office Visit Internal Medicine - [address] [phone] Aurora Bates NP Bipolar affective disorder, remission status unspecified (CMS/HCC) (Primary Dx); Chronic bilateral low back pain, unspecified whether sciatica present; Psoriasis; Candidiasis, cutaneous; Hemorrhoids, unspecified hemorrhoid type; Need for vaccination against Streptococcus pneumoniae 10/15/2024 Telephone Water Pump Installer - [address] [phone] Mario Basilio MD PT-1 09/17/2024 [facility] [phone] Mario Basilio MD Referral from Last 3 Months Immunizations Name Administration [...] History Medical History Date Comments Bipolar disorder 10/26/2021 DX:Bipolar diso rder (HCC) Depression 10/26/2021 DX:Depression Chronic back pain [...] Description 02/26/2025 3:30 PM EDT Office Visit Internal Medicine - [facility] [address] [place] [address] Mario Basilio MD [address] [place] [address] 05/18/2025 8:30 AM EDT Office Visit Bariatric Surgery - [place] [address] [phone] Flo Dixon MD [address] [address] Health Maintenance Due Date Last Done Comments [...] Procedure Name Priority Date/Time Associated Diagnosis Comments HIV 1, 2 ANTIBODY, P24 ANTIGEN WITH REFLEX TO DIFFERENTIATION Routine 08/18/2024 4:20 PM EST Encounter for screening for HIV LIPID PANEL WITH REFLEX TO DIRECT LDL Routine 08/18/2024 4:20 PM EST Screening for cholesterol level HEPATITIS C SCREENING Routine 10/02/2022 COLONOSCOPY Routine 09/04/2021 [facility] SCREENING DIGITAL Routine 06/01/2020 4:01 PM EDT Encounter for screening mammogram for malignant neoplasm of breast from Last 3 Months or Most Recently Relevant to Health Maintenance Results * HIV 1,2 antibody, p24 antigen with reflex to differentiation (08/18/2024 4:20 PM EST) HIV Combo AB/AG Negative Negative LAB CHEMISTRY METHOD 08/18/2024 7:40 PM [facility] Blood Venous blood specimen / Unknown Venipuncture / Unknown 08/18/2024 4:20 PM EST 08/18/2024 4:20 PM EST [facility] - 08/18/2024 7:40 PM EST This [...] NP LAB BLOOD ORDERABLES Final Resul t [facility] [address] [place] [address], [place] [phone] * (ABNORMAL) Lipid panel with reflex to direct LDL (08/18/2024 4:20 PM EST) Cholesterol 212(H) 0 - 200 mg/dL LAB CHEMISTRY METHOD 08/18/2024 7:00 PM [facility] Triglycerides 179(H) 0 - 150 mg/dL [...] 08/18/2024 7:00 PM [facility] Chol/HDL Ratio 3.5 0.0 - 4.4 LAB CHEMISTRY METHOD 08/18/2024 7:00 PM EST [facility] Blood Venous blood specimen / Unknown Venipuncture / Unknown 08/18/2024 4:20 PM EST 08/18/2024 4:20 PM EST Aurora Bates NP LAB BLOOD ORDERABLES Final Resul t [facility]) [facility] [address] [place] [address], * Hepatitis C Screening (10/02/2022) Hepatitis C Screening Abstracted Historical Provider MD HEALTH MAINTENANCE Final Result * Colonoscopy (09/04/2021) Colonoscopy No Interpretation , Abstracted Anatomical Region Laterality Modality Other Historical Provider HEALTH MAINTENANCE Final Result * [facility] SCREENING DIGITAL (06/01/2020 4:01 PM EDT) Anatomical Region Laterality Modality Mammography 06/01/2020 10:3 0 AM EDT Narrative 06/01/2020 4:01 PM EDT [facility] Diagnostic Imaging Department [address] [place] [address] [id number] Patient: ??GROVER ISLAS ?/Age/Sex: 1970 - 50 - Unit#: ??[id number] ? Location/Status: ??SPDIMAM/REG CLI ? Mnemonic/Ordering Site: ??DIGSC/SPMAM Ordering Physician: ??LEANNA SMITH DO [place] Screening Digital - 06/01/20 - 1128 History: Bilateral breast cancer screening. Technique: ??Digital mammography. Conventional CC and MLO projections with tomosynthesis MLO views and computer aided detection. Comparison: None available. Previous mammography obtained in [place] are unavailable. Findings: Breast tissue consists of a heterogenous combination of ??fatty and fibroglandular tissue, potentially obscuring small lesions, category c density bilaterally (as calculated by [employer] software). No suspicious group of microcalcification, suspicious mass, concerning focal asymmetry or architectural distortion within either breast. Impression: ??No evidence of malignancy. BI-RADS category 1; negative study, 3341F [id number], [id number] A negative mammogram in the face of a clinically suspicious abnormality does not exclude the possibility of malignancy nor alter the indications for biopsy. Note: Patient information entered ??into a reminder system with a target due date for the next mammogram; PQRI II 7099F Dictating Physician: ??RALPH BLANCO MD Electronically Signed by: ??RALPH BLANCO MD Dic Date/Time: ??06/01/20 1601 Sign date/Time: ??06/01/20 1601 Procedure Note Ralph Blanco MD - 08/22/2022 [facility] Diagnostic Imaging Department [address] [place] [address] Patient: ROSELINE GROVER PRATHER/Age/Sex: 1970 - 50 - F Unit#: [id number] [facility] Mnemonic/Ordering Site: DIGSC/SPMAM Ordering Physician: LEANNA SMITH DO [place] Screening Digital - 06/01/20 - 1128 History: Bilateral breast cancer screening. Technique: Digital mammography. Conventional CC and MLO projectionswith tomosynthesis MLO views and computer aided detection. Comparison: None available. Previous mammography obtained in [facility] unavailable. Findings: Breast tissue consists of a heterogenous combination of fattyand fibroglandular tissue, potentially obscuring small lesions, category cdensity bilaterally (as calculated by [employer]para software). No suspicious group of microcalcification, suspicious mass, concerningfocal asymmetry or architectural distortion within either breast. Impression: No evidence of malignancy. BI-RADS category 1; negative study, [id number], [id number] A negative mammogram in the face of [...] Most Recently Relevant to Health Maintenance Insurance [facility] Care Teams Ladle Liner Relationship Specialty Start Date End Date Mario Basilio MD [address] [place] [address] PCP - General Internal Medicine 08/18/24
--- OUTSIDE RECORDS SUMMARY | 2024-12-04 11:35 | XMS_ITS | Encounter Summary ---
Author Organization [facility] Address [id number] [place] [phone] Care Team Providers Care Chlorinator Operator Name Role Phone Mario Basilio MD Primary Care Provider [phone] Reason for Visit * Reason Onset Date Comments Request For Order(s) 11/12/2024 are Encounter Details Date Type Department Care Team (Late Contact Info) Description 11/12/2024 Telephone Pediatrics - [facility] [address] [place] [address] Mario Basilio MD [address] [place] [address] [phone] Request For Order(s) ([facility]) Social History Tobacco Use Types Packs/Day Years [...] 12:48 PM EDT Faxed order received from [facility]. Orders placed in Mario Basilio MD bin for signing, please fax to [phone]. documented in this encounter Plan of Treatment Upcoming Encounters Date Type Department Care Team ([facility] Contact Info) Description 02/26/2025 3:30 PM EDT Office Visit Internal Medicine - [facility] [address] [place] [address] Mario Basilio MD [address] [place] [address] 05/18/2025 8:30 AM EDT Office Visit Bariatric Surgery - [place] [address] [phone] Flo iDxon MD [address] [phone] documented as of this encounter Visit Diagnoses Not on filedocumented in this encounter Care Teams Chlorinator Operator Relationship Specialty Start Date End Date Mario Basilio MD [address] [place] [address] PCP - General Internal Medicine 08/18/24 documented as of this encounter
--- OUTSIDE RECORDS SUMMARY | 2024-12-04 11:35 | XMS_ITS ---
Author Organization [facility] Address [address] [place] [address] Phone Care Team Providers Care Circulation Librarian Name Role Phone Mario Basilio MD Primary Care Provider [phone] Transitional Care Management Status:Identified (Enrolling) Start date:11/04/2024 Enrollment reason:Identified using hospital discharge data Case Team Name Relationship Phone Martina Villarreal LPN Care Manager(Responsible Staf f) Continued Care and Services Coordination
--- OUTSIDE RECORDS SUMMARY | 2024-12-04 11:35 | XMS_ITS | Data Portability ---
Author Organization [employer], Main Office Address [address] [place] [address] Assessment Encounter Date Assessment Date Assessment LastModified [...] 16:17:29 gastroente rologist referral 2020 021 [email or web address] [facility], [address] [place], [address], 12:06:31 pulmonolog ist referral - TELEMEDICI NE APPT 2020 021 [email or web address] Lakhwinder Donaldson, [address] [place], [address], 16:11:01 Procedures None recorded. Surgeries None recorded. Imaging MAMMO, screening, digital, bilateral 2020 021 [email or web address] [facility] (Central Scheduling Radiology), [address] [place], [address], 09:22:28 Medication Orders hydrocorti sone 2.5 % topical cream 2020 [facility], [address] [place], [address], 15:45:08 Proctosol HC 2.5 % topical cream perineal applicator 2020 [facility], [address] [place], [address], 15:45:07 cyclobenza zohaib 10 mg tablet 2020 [facility], [address] [place], [address], 15:45:08 cyclobenza zohaib 10 mg tablet 2020 [facility], [address] [place], [address], 15:50:42 tizanidine 4 mg tablet 2020 [facility], [address] [place], [address], 15:48:05 Patient TargetsNo targets recorded. Patient Instructions Encounter Date Encounter Id Patient Instructions Last Modified By Organization Details Last Modified Time 02/20/2021 [id number] CPE lab rec mailed to home rnazarian Not available 02/20/2021 15:46:11 03/27/2021 [id number] advance care planning: care instructions rnazarian Not available 03/27/2021 15:28:40 Discussed and explained advance directives such as standard forms to the {{patient* caregi key patient and caregiver}}. Face to face discussion lasted for a duration of __30_ minutes. rnazarian Not available 03/27/2021 15:29:43 Reason for Referral Legal Clerk Referral for Screening for malignant neoplasm of colon colonoscopy Referring Physician: Chavez Sawyer, Internal Medicine, Encounter Date: 11/14/2020 Front Desk Clerk Referral for O bstructive sleep apnea of adult TELEMEDICINE APPT Referring Physician: Chavez Sawyer, Internal Medicine, Encounter Date: 11/14/2020 Home Health Referral for Lum bago with sciatica VCARE- [id number] Referring Physician: Chavez Sawyer, Internal Medicine, Encounter Date: 01/13/2021 Results Created Date Observation Date Name Description Value Unit Range Abnormal Flag Note LastModifiedBy Organization Detail LastModifiedTime Result Notes None recorded. Problems Name Problem SNOMED Code Status Onset Date Resolution Date Notes Provider Name and Address Organization Details Recorded Time Insomnia 869832792 Active 2019 NESSA BUNNY [address], [place], [address] , [employer] 0 21:36:49 Mixed anxiety and depressiv e disorder 001351629 Active 2019 NESSA BUNNY [address], [place], [address] , [employer] 0 21:36:50 External hemorrhoi ds 44860038 Active 2019 NESSA BUNNY [address], [place], [address] , [employer] 0 21:36:51 Muscle pain 31171347 Active 2019 NESSA BUNNY [address], [place], [address] , [employer] 0 21:37:19 Loss of appetite 57192913 Active 2019 NESSA BUNNY [address], [place], [address] , [employer] 0 21:38:00 Chronic back pain 055235418 Completed 201902/26/2020 Trey. Sawyer, DO [address], [place], [address] , [employer], [employer] 0 14:45:56 Eczema 20277619 Active 2019 LATRICE sharma, [employer], [address] [employer] 0 14:10:27 Obesity 669566220 Active 2019 Chavez Sawyer, DO [address] [facility], [place], [address] , [employer], [address] [employer] 0 14:44:58 Psoriasis 3786562 Active 2019 Chavez Sawyer, DO [address] [facility], [place], [address] , [employer], [address] [employer] 0 14:45:52 Lumbago with sciatica 222162242 Active 2019 s/p LESi x 3, [facility] Chavez Sawyer, [address], [place], [address] , [employer], [employer] 0 14:46:29 Obstructi ve sleep apnea of adult 80855503133 03 Active 2019 BRIEN NUÑEZ edith, [employer], [address] [employer] 0 16:53:56 Constipat ion 46871927 Active 2020 NESSA HOLLIS [address], [place], [address] , [employer], [employer] 1 11:40:33 Seborrhei c dermatiti s of scalp 617964506 Active 2020 NESSA GOMEZRIAN [address], [place], [address] , [employer], [address] [employer] 1 15:52:42 Body mass index 40+ - severely obese 966343767 Active 2020 NESSA HOLLIS [address], [place], [address] , [employer], [address] [employer] 1 15:52:44 Impaired glucose tolerance 0876413 Active 2020 NESSA HOLLIS [address] [facility] [address], [place], [address] , [facility] [employer] 12:15:32 Internal hemorrhoi ds 53308804 Active 2020 NESSA HOLLIS [address] [facility] [address], [place], [address] , [facility] 15:45:57 Problem Notes None recorded. Medical Equipment [...] /min 16 /min 98.5 [degF] 42.3 kg/m2 549050. 84 g 98 % 98 % 120 mm[Hg] 70 mm[Hg] KENIA SOTO [employer] 1 11:05:40 Social History Question Answer Notes LastModified by Organizat ion Details LastModified Time Tobacco Smoking Status Never Smoker LATRICE sharma, [employer] 02/26/2020 14:01:37 What Is Your Level Of [...] Stones N Hyperthyroidism N Blood Transfusion N COPD N Depression N Anxiety Disorder N Muscle, Joint, or Bone Problems N Obesity N Vision or Eye Problems N Arthritis N Polyps N Infertility N Mental Disorder N Cancer N Stroke N Varicosities N Fibromyalgia N Headaches N Kidney Disease N Heart Problems N Ear or Hearing Problems N Hospitalizations N Eating Disorder N Skin Problems N MRSA exposure N Constipation N Tuberculosis N AIDS/HIV N Asthma N Hepatitis N Pulmonary Embolism N Chronic Ear Infections N Chicken Pox N Autism Spectrum Disorder (ASD) N Thrombophilias N Breast Cancer N Lung Disease N Hypothyroidism N Defects or Inherited Disease N Developmental or Behavioral Disorders N Breast Problem N Difficulty Swallowing N Anesthesia Complications N Meniere's disease N Endometriosis N Bladder or Kidney Problems N High Cholesterol N Liver Disease N Allergies/Hayfever N Thyroid Problems N GI Problems N ADD/ADHD N Anemia N Mental Illness N Diabetes N Ovarian Cancer N Bedwetting N Seizures/Epilepsy N Congestive Heart Failure (CHF) N Eczema N Abuse/Domestic Violence N Diverticulitis N Reflux/GERD N Heart Disease N Pre-Eclampsia [...] Recorded Time DTaP 8 completed LATRICE JEFFERS [employer] [place], [employer] 02/26/2020 08:15:51 Influenza, split virus, quadrivalent, preservative 0 completed LATRICE sharma [employer] 02/26/2020 08:16:05 Past Encounters Encounter ID Performer Location Encounter Start Date Encounter Closed Date Diagnosis/Indication Diagnosis SNOMED-CT Code Diagnosis ICD10 Code Diagnosis Note [id number] Chavez Sawyer [facility] [address] [place] [address] 02/26/2020 13:45:51 02/26/2020 15:06:48 Insomnia 451515951 G47.00 zolpidem, prazosin, quetiapine Mixed anxi ety and depressive disorder 220239632 F41.8 no si/hi clonazepam , clonidine, loraz, venlafax External hemorrhoids 239 43252 K64.4 proctosol Muscle pain 02885290 M79 .10 cycloben, diclo gel, meloxicam, naproxen Loss of appetite 1103892 6 R63.0 mirtazapin e New patien t screening done 418600673 Z76.89 labs-p Viral screening 05273376 4 Z11.59 labs-p Screening for malignant neoplasm of breast 689539621 Z12.39 Screening for osteoporosis 555113245 Z13.820 Psoriasis 9098609 L40.9 Lumbago with sciatica 20 5910681 M54.42 [id number] Chavez Sawyer [place] [address] [place] [address] 03/25/2020 13:36:59 03/25/2020 16:39:17 Screening for malignant neoplasm of colon 082336328 Z12.11 next yr Adult heal th examination 591297991 Z00.01 normal cpe labs reviewed Screening mammography 24 366913 Z12.31 Screening for osteoporosis 696887425 Z13.820 UTD Screening for cardiovascular system disease 726898448 Z13.6 Lumbago with sciatica 20 4973844 M54.42 Insomnia 242964523 G47.0 0 zolpidem, prazosin, quetiapine Mixed anxi ety and depressive disorder 370864526 F41.8 no si/hi clonazepam , clonidine, loraz, venlafax External hemorrhoids 239 27743 K64.4 proctosol Muscle pain 83557983 M79 .10 cycloben, diclo gel, meloxicam, naproxen Loss of appetite 7088411 6 R63.0 mirtazapin e Psoriasis 2572862 L40.9 Snoring symptoms 3540821 00 R06.83 Urinary tr act infectious disease 18333546 N39.0 [id number] Chavez Sawyer [facility] [address] [place] [address] 04/22/2020 13:08:08 04/22/2020 15:50:33 Lumbago with sciatica 873305894 M54.42 External hemorrhoids 239 47261 K64.4 proctosol Insomnia 387910648 G47.0 0 zolpidem, prazosin, quetiapine Mixed anxi ety and depressive disorder 931265249 F41.8 no si/hi clonazepam , clonidine, loraz, venlafax Muscle pain 93876954 M79 .10 cycloben, diclo gel, meloxicam, naproxen Loss of appetite 7546156 6 R63.0 mirtazapin e Screening for malignant neoplasm of breast 866736081 Z12.39 p Screening for osteoporosis 780585118 Z13.820 p Psoriasis 6678136 L40.9 Snoring symptoms 8668422 00 R06.[id number] [address] 05/20/2020 14:47:58 05/20/2020 17:15:02 Lumbago with sciatica 183196988 M54.42 External hemorrhoids 239 11441 K64.4 proctosol Insomnia 461413661 G47.0 0 zolpidem, prazosin, quetiapine Mixed anxi ety and depressive disorder 409723853 F41.8 no si/hi clonazepam , clonidine, loraz, venlafax Seborrheic dermatitis of scalp 990946101 L21.0 Active or passive immunization 682520379 Z23 [id number] [address] 06/21/2020 13:31:48 06/21/2020 14:16:16 Insomnia 080129556 G47.00 zolpidem, prazosin, quetiapine Lumbago with sciatica 20 3377772 M54.42 [address], [address], tiz 4, [address] Pain management -p Mixed anxi ety and depressive disorder 337583094 F41.8 no si/hi clonazepam , clonidine, loraz, venlafax External hemorrhoids 239 56006 K64.4 proctosol Muscle pain 65026596 M79 .10 cycloben, diclo gel, meloxicam, naproxen Loss of appetite 5029340 6 R63.0 mirtazapin e Active or passive immunization 841889193 Z23 vacc-p Candidal intertrigo 2661 85311 B37.2 nystatin powder and powder. Psoriasis 6931063 L40.9 clobetasol , calcipotri maureen Seborrheic dermatitis of scalp 122981987 L21.0 ketoconazo le 2% [id number] BRIEN [address] [place] [address] [place] [address] 08/17/2020 11:23:20 08/17/2020 12:27:27 Insomnia 853705113 G47.00 zolpidem, prazosin, quetiapine Lumbago with sciatica 20 0863771 M54.42 [address], [address], tiz 4, [address] Pain management -p PT ordered Mixed anxi ety and depressive disorder 326858837 F41.8 no si/hi clonazepam , clonidine, loraz, venlafax Sees Dr. Lanza External hemorrhoids 239 19881 K64.4 proctosol Obstructiv e sleep apnea of adult 7797249237 103 G47.33 Referral to sleep medicine-p Sleep study from 06/12/20 shows mild TIM. Recommends Auto CPAP or CPAP titration study Psoriasis 8549530 L40.9 clobetasol , calcipotri maureen Referral to derm-p Candidal intertrigo 2661 21242 B37.2 nystatin powder and powder. Muscle pain 31811061 M79 .10 cycloben, diclo gel, meloxicam, naproxen Loss of appetite 6873953 6 R63.0 mirtazapin e Active or passive immunization 313945105 Z23 vacc-p Seborrheic dermatitis of scalp 791092582 L21.0 ketoconazo le 2% Body mass index 40+ - severely obese 256569522 Z68.41 diet and exercise Morbid obesity 090822562 E66.01 diet and exercise [address] [facility] [address] [place] [address] 09/16/2020 10:56:16 09/16/2020 11:22:30 Insomnia 909318023 G47.00 zolpidem, prazosin, quetiapine Lumbago with sciatica 20 8953440 M54.42 [address], [address], tiz 4, [address] Pain management -Has appt scheduled for 09/20/20-p PT ordered-p Mixed anxi ety and depressive disorder 286697216 F41.8 no si/hi clonazepam , clonidine, loraz, venlafax Sees Dr. Lanza External hemorrhoids 239 74097 K64.4 proctosol Stable on current regimen Psoriasis 6999306 L40.9 clobetasol , calcipotri maureen Referral to derm-p Obstructiv e sleep apnea of adult 2411421197 103 G47.33 Referral to sleep medicine-p Sleep study from 06/12/20 shows mild TIM. Recommends Auto CPAP or CPAP titration study Sleep Medicine appt on 10/23 Muscle pain 02746347 M79 .10 cycloben, diclo gel, meloxicam, naproxen Cyclobenza zohaib d/c'd Refilled Tizanidine to TID PRN Loss of appetite 2496188 6 R63.0 mirtazapin e Active or passive immunization 305882554 Z23 vacc-p Seborrheic dermatitis of scalp 296354208 L21.0 ketoconazo le 2% Body mass index 40+ - severely obese 809786657 Z68.41 diet and exercise Morbid obesity 267499471 E66.01 diet and exercise [id number] [facility] [address] [place] [address] 11/14/2020 15:29:37 11/14/2020 15:53:48 Muscle pain 84679518 M79.10 cycloben, diclo gel, meloxicam, naproxen Cyclobenza zohaib d/c'd Refilled Tizanidine to TID PRN-> stop cyc 10 qhs Psoriasis 2177308 L40.9 clobetasol , calcipotri maureen Referral to derm- seen cream given Lumbago with sciatica 20 7334509 M54.42 [address], [address], tiz 4, [address] 600 Pain management -Has appt scheduled for 09/20/20- seen MRI 12/2020-p PT ordered-p Obstructiv e sleep apnea of adult 5132842450 103 G47.33 Referral to sleep medicine-p Sleep study from 06/12/20 shows mild TIM. Recommends Auto CPAP or CPAP titration study Sleep Medicine appt on 10/23 pulm for CPAP-p Insomnia 185255723 G47.0 0 zolpidem, prazosin, quetiapine Mixed anxi ety and depressive disorder 617401675 F41.8 no si/hi clonazepam , clonidine, loraz, venlafax Sees Dr. Lanza External hemorrhoids 239 68316 K64.4 proctosol Stable on current regimen Loss of appetite 4322757 6 R63.0 mirtazapin e Seborrheic dermatitis of scalp 781448009 L21.0 ketoconazo le 2% Body mass index 40+ - severely obese 704988513 Z68.41 diet and exercise Constipation 58231063 K5 9.00 senna Screening for malignant neoplasm of colon 339333636 Z12.11 colon-p [address] [facility] [address] [place] [address] 01/13/2021 12:03:14 01/13/2021 12:17:44 Lumbago with sciatica 412689690 M54.42 [address], [address], tiz 4, [address] Pain management -Has appt scheduled for 09/20/20- seen MRI 12/2020-p PT ordered-pt given # to book-p wants letter to move to 1st floor- referred to pain management Muscle pain 07812043 M79 .10 cycloben, diclo gel, meloxicam, naproxen Cyclobenza zohaib d/c'd Refilled Tizanidine to TID PRN-> stop cyc 10 qhs Psoriasis 4952252 L40.9 clobetasol , calcipotri maureen Referral to derm- seen cream given Obstructiv e sleep apnea of adult 2160847966 103 G47.33 Referral to sleep medicine-p Sleep study from 06/12/20 shows mild TIM. Recommends Auto CPAP or CPAP titration study Sleep Medicine appt on 10/23 pulm for CPAP- seen awaiting call back-p Insomnia 122264103 G47.0 0 zolpidem, prazosin, quetiapine Mixed anxi ety and depressive disorder 490889943 F41.8 no si/hi clonazepam , clonidine, loraz, venlafax Sees Dr. Lanza External hemorrhoids 239 74676 K64.4 proctosol Stable on current regimen Loss of appetite 6970415 6 R63.0 mirtazapin e Seborrheic dermatitis of scalp 165264086 L21.0 ketoconazo le 2% Body mass index 40+ - severely obese 499066441 Z68.41 diet and exercise Constipation 85894440 K5 9.00 senna Impaired g lucose tolerance 3534960 R73.02 HBA1c 5.3 02/2020 recheck-p [id number] [facility] [address] [place] [address] 02/20/2021 15:36:25 02/20/2021 15:46:29 Impaired glucose tolerance 5084367 R73.02 HBA1c 5.3 02/20205271YRJ6 c 5.8 02/08/2021- diet/exerc ise rpt 3 months Lumbago with sciatica 20 4334318 M54.42 [address], [address], tiz 4, [address] Pain management -Has appt scheduled for 09/20/20- seen MRI 12/2020-p PT ordered-pt given # to book-p wants letter to move to 1st floor- referred to pain management PT - awaiting call back Loss of appetite 5841772 6 R63.0 mirtazapin e Muscle pain 37820072 M79 .10 cycloben, diclo gel, meloxicam, naproxen Cyclobenza zohaib d/c'd Refilled Tizanidine to TID PRN-> stop cyc 10 qhs Psoriasis 6968207 L40.9 clobetasol , calcipotri maureen Referral to derm- seen cream given Obstructiv e sleep apnea of adult 3163961609 103 G47.33 Referral to sleep medicine-p Sleep study from 06/12/20 shows mild TIM. Recommends Auto CPAP or CPAP titration study Sleep Medicine appt on 10/23 pulm for CPAP- seen awaiting call back- 02/28/21-p Insomnia 025387447 G47.0 0 zolpidem, prazosin, quetiapine Mixed anxi ety and depressive disorder 750195521 F41.8 no si/hi clonazepam , clonidine, loraz, venlafax Sees Dr. Lanza External hemorrhoids 239 15796 K64.4 proctosol Stable on current regimen Seborrheic dermatitis of scalp 792715862 L21.0 ketoconazo le 2% Body mass index 40+ - severely obese 708128922 Z68.41 diet and exercise Constipation 17935405 K5 9.00 senna Internal hemorrhoids 904 40512 K64.8 hydr, proc 78517 NESSA HOLLIS [facility] [address] [place] [address] 03/27/2021 08:29:24 03/27/2021 15:29:22 Internal hemorrhoids 33976832 K64.8 hydr, proc Impaired g lucose tolerance 6194932 R73.02 HBA1c 5.3 02/20209198LHZ8 c 5.8 02/08/2021- diet/exerc ise rpt 3 months Lumbago with sciatica 20 3819417 M54.42 [address], [address], tiz 4, [address] Pain management -Has appt scheduled for 09/20/20- seen MRI 12/2020-p PT ordered-pt given # to book-p wants letter to move to 1st floor- referred to pain management PT - awaiting call back Loss of appetite 7093900 6 R63.0 mirtazapin e Muscle pain 53535272 M79 .10 cycloben, diclo gel, meloxicam, naproxen Cyclobenza zohaib d/c'd Refilled Tizanidine to TID PRN-> stop cyc 10 qhs Psoriasis 4713894 L40.9 clobetasol , calcipotri maureen Referral to derm- seen cream given Obstructiv e sleep apnea of adult 9870034294 103 G47.33 Referral to sleep medicine-p Sleep study from 06/12/20 shows mild TIM. Recommends Auto CPAP or CPAP titration study Sleep Medicine appt on 10/23 pulm for CPAP- seen awaiting call back- 02/28/21- they called her and ? new machine Insomnia 978442378 G47.0 0 zolpidem, prazosin, quetiapine Mixed anxi ety and depressive disorder 622769178 F41.8 no si/hi clonazepam , clonidine, loraz, venlafax Sees Dr. Lanza External hemorrhoids 239 64774 K64.4 proctosol Stable on current regimen Seborrheic dermatitis of scalp 922659992 L21.0 ketoconazo le 2% Body mass index 40+ - severely obese 308813742 Z68.41 diet and exercise Constipation 88739075 K5 9.00 senna Screening for malignant neoplasm of colon 442174942 Z12.11 colonoscop y 12/2020- rpt 5-10 dep on results Adult heal th examination 344207244 Z00.01 cpe labs -p Screening mammography 24 656004 Z12.31 05/2020 nml-p Screening for osteoporosis 656710680 Z13.820 -DEXA: 05/2020 nml Screening for malignant neoplasm of cervix 835128031 Z12.4 [facility] Active or passive immunization 113688600 Z23 vacc-p Health Concerns Section Related Observation LastModified by Organization Detai ls LastModified Time None Recorded Concern Status LastModified by Organization Details LastModified Time None Recorded Advance Directives Directive None Recorded Payers Encounter Date Sequence Insurance Name Policy Number Policy Mcnamara Covered Member ID Mcnamara Member ID Guarantor Name 09/16/2020 1 [place] [employer] Chayra Y Boria Hensley [id number] Chayra Boria Hensley 09/16/2020 2 [place] Chayra Boria Hensley [id number] Chayra Boria Hensley 11/14/2020 1 [place] [employer] Chayra Y Boria Hensley [id number] Chayra Boria Hensley 11/14/2020 2 [place] Chayra Boria Hensley [id number] Chayra Boria Hensley 01/13/2021 1 [place] [employer] Chayra Y Boria Hensley [id number] Chayra Boria Hensley 01/13/2021 2 [place] Chayra Boria Hensley [id number] Chayra Boria Hensley 02/20/2021 1 [place] [employer] Chayra Y Boria Hensley [id number] Chayra Boria Hensley 02/20/2021 2 [place] Chayra Boria Hensley [id number] Chayra Boria Hensley 03/27/2021 1 [place] [employer] Chayra Y Boria Hensley [id number] Chayra Boria Hensley 03/27/2021 2 [place] Chayra Boria Hensley [id number] Chayra Boria Hensley Notes Date Note Type [...] meds as prescribed. BRIEN sharma [place] - [facility] 09/16/2020 11:25:53 11/14/2020 text/html 50 yo female pre sents for fu- telemed -camera not working ??derm- yes given cream ??sleep med- had sleep study- pulm-p ??pain management- seen MRI-p ??PT-p ??colonoscopy-p MSK pain- chronic Psoriasis- derm-p Lumbago w/sciatica- ??PT Insomnia- sleeps well with meds Anxiety/depression- followed by psych TIM - ??CPAP Loss of appetite- improved NESSA BUNNY [address] [facility],[address], [place], [address], [facility] - [facility] 11/14/2020 15:54:16 01/13/2021 text/html 50 yo female [...] CPAP Muscle pain- stable NESSA HOLLIS [address], [place], [address], [facility] 01/13/2021 12:17:32 02/20/2021 text/html 50 yo female pre sents for td-zzjfqxt-ssjgfi not working Needs refill for msk relaxer and hemorroides ??PT- not booked- waiting call back??CPAP- 02/28/21Followed by psych MSK pain- chronicPsoriasis- dermLumbago w/sciatica-awaiting PTInsomnia- sleeps well with medsAnxiety/depressio n- followed by psychOSA - ??SYZD-gckd-eIanc of appetite- improvedConstipation- stableCOPD- stableOSA - awaiting pulm for CPAPMuscle pain- stable NESSA HOLLIS [address], [place], [address], [facility] 02/20/2021 15:46:32 03/27/2021 text/html 50 yo female pre sents for NAFK-srmxyly-jswnhh not working CPE labs- no colonoscopy 12/2020- rpt 5-10 dep on results -Vacc: updated with [facility].-PAP:2017 normal [facility]-DEXA: 05/2020 nml-Mammo: 05/2020 nml-Colonoscopy: 12/2020 rpt 5-10 results-p??PT- awaiting appt??help at home??CPAP- 02/28/21 - they called her and ? new machineFollowed by psych NESSA BOONEAN [address], [place], [address], [facility] 03/27/2021 15:32:09 03/27/2021 text/html Medicare Annual Wellness [...] lighting in the home NESSA HOLLIS [address] [facility],[address], [place], [address], [facility] 03/27/2021 15:32:09 OBGyn Episode No OBEpisode recorded.
== END 2024-12-04 10:58 | disposition home or self-care (01) ==
LOC: HO.HBS 10:11
PROVIDERS: Visit Provider Physician Assistant Surgical
DX: Z98.84 Bariatric surgery status (principal)
CPT/HCPCS: 99024

== ENCOUNTER → 2024-12-04 10:11 | Outpatient (BNVA) | payer OTHER, SELFPAY | PROVIDERS: Visit Provider Physician Assistant Surgical | DX: E66.01 Morbid (severe) obesity due to excess calories (principal); Z98.84 Bariatric surgery status; Z68.38 Body mass index [BMI] 38.0-38.9, adult | CPT/HCPCS: 99212 ==